=== PATIENT | male | born 1975 | race Hispanic/Latino ===

== ENCOUNTER 2016-08-11 17:18 | Emergency (ER) | payer MEDICAID ==
[2016-08-11 17:18] VITALS: BMI 33.9
[2016-08-11 17:59] VITALS: RESP 18
[2016-08-11] MEDS ORDERED: Tetanus/Diphtheria Toxoids 0.5 ml Syringe IM ONE ×2 (18:09→18:24)
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
[2016-08-11 18:27] VITALS: TEMP 98
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
[2016-08-11 20:44] VITALS: BP 118/74; PULSE 89
[2016-08-11 22:42] VITALS: O2SAT 98
== END 2016-08-11 20:43 | disposition home or self-care (01) ==
LOC: C.ER 17:18
DX: S20.212D Contusion of left front wall of thorax, subsequent encounter (principal); S80.01XD Contusion of right knee, subsequent encounter; S80.02XD Contusion of left knee, subsequent encounter; S09.90XD Unspecified injury of head, subsequent encounter; Y04.2XXD Assault by strike against or bumped into by another person, subsequent encounter; Z23 Encounter for immunization

== ENCOUNTER 2016-08-14 23:48 | Emergency (ER) | payer MEDICAID ==
[2016-08-14 23:49] VITALS: BMI 33.9
[2016-08-15 00:06] VITALS: BP 129/81; PULSE 89; RESP 20; TEMP 98.1; O2SAT 100
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
== END 2016-08-15 01:24 | disposition left against medical advice (07) ==
LOC: C.ER 23:48
DX: M79.1 Myalgia (principal)

== ENCOUNTER 2016-08-21 11:36 | Inpatient (IN) | payer MEDICAID ==
[2016-08-21 11:50] VITALS: BMI 29.2
[2016-08-21] MEDS ORDERED: Piperacillin/Tazobact 3.375 gm 100 ML IVPB STA (12:33)
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
[2016-08-21 13:03] LABS: BASO # 0.1 K/uL (0.0-0.2); BASO % 0.4 % (0.0-2.0); EOS # 0.3 K/uL (0.0-0.7); EOS % 2.1 % (0.0-4.0); LYMPH # 2.6 K/uL (1.0-4.3); MEAN CELL VOLUME 88.1 fL (80.0-94.0); MEAN CORPUSCULAR HEMOGLOBIN 29.1 pg (27.0-31.0); MEAN PLATELET VOLUME 7.9 fL (7.2-11.7); MONO # 0.8 K/uL (0.0-0.8); MONO % 5.9 % (0.0-10.0); NEUT # 9.9 K/uL (1.8-7.0); NEUT % 72.6 % (50.0-75.0); RBC 4.48 Mil/uL (4.40-5.90); WHITE BLOOD COUNT 13.6 K/uL (4.8-10.8)
[2016-08-21 13:10] LABS: ALBUMIN 3.6 g/dL (3.5-5.0)
[2016-08-21 13:11] LABS: INR 1.1; PROTHROMBIN TIME 12.1 SECONDS (9.7-12.2)
[2016-08-21 13:13] LABS: ALB/GLOB RATIO 1.2 (1.0-2.1); AST/SGOT 17 U/L (17-59); BLOOD UREA NITROGEN 25 mg/dL (9-20); GFR AFRICAN-AMERICAN > 60; GFR NON-AFRICAN AMERICAN > 60
[2016-08-21 13:14] LABS: ALT/SGPT 21 U/L (21-72); CALCIUM 9.5 mg/dl (8.6-10.4)
[2016-08-21] MEDS ORDERED: (Novolin R) Insulin Human Regular 100 units/ml vial IV STA (13:16)
[2016-08-21 13:24] LABS: B-TYPE NATRIURETIC PEPTIDE 27.2 pg/mL (0-450)
--- NOTE | 2016-08-21 13:31 | RAD ---
PROCEDURE: CHEST RADIOGRAPH, 1 VIEW HISTORY: SOB COMPARISON: Comparison chest 01/08/2012. FINDINGS: LUNGS: Minor bibasilar atelectasis left greater than right PLEURA: No pneumothorax or pleural fluid seen. CARDIOVASCULAR: Normal. OSSEOUS STRUCTURES: No significant abnormalities. VISUALIZED UPPER ABDOMEN: Normal. OTHER FINDINGS: None. IMPRESSION: Minor bibasilar atelectasis left greater than right.
[2016-08-21] MEDS ORDERED: (Novolin R) Insulin Human Regular 100 units/ml vial ONE (13:34)
[2016-08-21 13:35] LABS: SQUAMOUS EPITHIAL < 1 /hpf (0-5); URINE BILIRUBIN NEGATIVE (NEGATIVE); URINE BLOOD NEGATIVE (NEGATIVE); URINE CLARITY Clear (Clear); URINE COLOR Yellow (YELLOW); URINE GLUCOSE (UA) 3+ mg/dL (Normal); URINE LEUKOCYTE ESTERASE NEG Leu/uL (Negative); URINE NITRATE NEGATIVE (NEGATIVE); URINE PROTEIN 2+ mg/dL (NEGATIVE); URINE UROBILINOGEN NORMAL mg/dL (0.2-1.0)
[2016-08-21 13:42] LABS: BARBITURATES, UR NEGATIVE (NEGATIVE); BENZODIAZEPINES, UR NEGATIVE (NEGATIVE)
[2016-08-21 13:45] LABS: OPIATES, UR NEGATIVE (NEGATIVE); PHENCYCLIDINE, UR NEGATIVE (NEGATIVE)
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
[2016-08-21] MEDS: Piperacillin/Tazobact 3.375 GM in Sodium Chloride 100 ML IVPB SCH ×2 (14:13→19:21)
[2016-08-21 16:39] VITALS: RESP 20
[2016-08-21] MEDS ORDERED: Oxycodone/Acetaminophen 5/325 mg Tab PO PRN (17:02)
[2016-08-21] MEDS: (Novolin R) Insulin Human Regular 100 units/ml vial SC SCH ×2 (17:24→22:22)
[2016-08-21] MEDS ORDERED: (Lantus) Insulin Glargine, Recombinant SC SCH (18:00)
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
[2016-08-22 02:27] VITALS: BP 112/71; PULSE 87; TEMP 97.3; O2SAT 97
[2016-08-22] MEDS: Piperacillin/Tazobact 3.375 GM in Sodium Chloride 100 ML IVPB SCH (02:54)
--- NOTE | 2016-08-22 06:17 | CP.PCM.PN ---
Subjective - Date & Time of Evaluation Date of Evaluation: 08/22/16 Time of Evaluation: 06:16 - Subjective Subjective: House Doctor Paged- Patient signed out AMA Patient was upset that he was not seen by admitting Doctor. It was explained to patient that he would be seen by him today, however patient did not want to wait. The risks of leaving were explained to the patient and include, but are not limited to, worsening of known or currently unknown conditions, permanent disability and from undiagnosed or untreated conditions. The patient has the capacity to make this informed decision and understands my explanation of the current medical problem and risks of leaving. The patient voluntarily accepts these risks and signed an AMA form documenting our conversation.The patient was given the opportunity to ask questions and reconsider. The patient was encouraged to return to the Emergency Department at any time for further care. Objective - Vital Signs/Intake and Output Vital Signs (last 24 hours): Temp Pulse Resp BP Pulse Ox 97.3 F L 87 20 112/71 97 08/21/16 23:17 08/21/16 23:17 08/21/16 23:17 08/21/16 23:17 08/21/16 23:17 Intake and Output: 08/21/16 08/22/16 18:59 06:59 Intake Total 700 Balance 700 - Medications Medications: Current Medications Acetaminophen (Tylenol 325mg Tab) 650 mg PO Q4 PRN PRN Reason: pain Glipizide (Glucotrol) 10 mg PO BID [facility] Last Admin: 08/21/16 17:23 Dose: 10 mg Piperacillin Sod/Tazobactam (Sod 3.375 gm/ Sodium Chloride) 100 mls @ 200 mls/ hr IVPB Q6H [facility] Last Admin: 08/22/16 02:54 Dose: 200 mls/hr Insulin Glargine (Lantus) 28 unit SC BID [facility] Last Admin: 08/21/16 17:25 Dose: 28 units Insulin Human Regular (Novolin R) 0 unit SC ACHS [facility] PRN Reason: Protocol Last Admin: 08/21/16 22:22 Dose: Not Given Oxycodone/Acetaminophen (Percocet 5/325 Mg Tab) 1 tab PO TID PRN PRN Reason: pain Stop: 08/24/16 18:01 Last Admin: 08/21/16 17:21 Dose: 1 tab - Labs Labs: PT 12.1 SECONDS (9.7-12.2) 08/21/16 12:53 INR 1.1 08/21/16 12:53 APTT 31 SECONDS (21-34) 08/21/16 12:53
--- NOTE | 2016-08-22 13:53 | CP.PCM.DIS ---
Provider - Provider Date of Admission: 08/21/16 13:21 Attending physician: Clemente Cruz MD Time Spent in preparation of Discharge (in minutes): 25 Hospital Course - Lab Results Lab Results: Most Recent Lab Values WBC 13.6 K/uL (4.8-10.8) H 08/21/16 12:53 RBC 4.48 Mil/uL (4.40-5.90) 08/21/16 12:53 Hgb 13.0 g/dL (12.0-18.0) 08/21/16 12:53 Hct 39.5 % (35.0-51.0) 08/21/16 12:53 MCV 88.1 fL (80.0-94.0) 08/21/16 12:53 MCH 29.1 pg (27.0-31.0) 08/21/16 12:53 MCHC 33.0 g/dL (33.0-37.0) 08/21/16 12:53 RDW 13.0 % (11.5-14.5) 08/21/16 12:53 Plt Count 310 K/uL (130-400) 08/21/16 12:53 MPV 7.9 fL (7.2-11.7) 08/21/16 12:53 Neut % (Auto) 72.6 % (50.0-75.0) 08/21/16 12:53 Lymph % (Auto) 19.0 % (20.0-40.0) L 08/21/16 12:53 Burnet % (Auto) 5.9 % (0.0-10.0) 08/21/16 12:53 Eos % (Auto) 2.1 % (0.0-4.0) 08/21/16 12:53 Baso % (Auto) 0.4 % (0.0-2.0) 08/21/16 12:53 Neut # 9.9 K/uL (1.8-7.0) H 08/21/16 12:53 Lymph # 2.6 K/uL (1.0-4.3) 08/21/16 12:53 Burnet # 0.8 K/uL (0.0-0.8) 08/21/16 12:53 Eos # 0.3 K/uL (0.0-0.7) 08/21/16 12:53 Baso # 0.1 K/uL (0.0-0.2) 08/21/16 12:53 PT 12.1 SECONDS (9.7-12.2) 08/21/16 12:53 INR 1.1 08/21/16 12:53 APTT 31 SECONDS (21-34) 08/21/16 12:53 Sodium 140 mmol/L (132-148) 08/21/16 12:53 Potassium 4.4 mmol/L (3.6-5.2) 08/21/16 12:53 Chloride 102 mmol/L (98-107) 08/21/16 12:53 Carbon Dioxide 28 mmol/L (22-30) 08/21/16 12:53 Anion Gap 14 (10-20) 08/21/16 12:53 BUN 25 mg/dL (9-20) H 08/21/16 12:53 Creatinine 0.9 MG/DL (0.8-1.5) 08/21/16 12:53 Est GFR ( Amer) > 60 08/21/16 12:53 Est GFR (Non-Af Amer) > 60 08/21/16 12:53 POC Glucose (mg/dL) 157 mg/dL (65-110) H 08/21/16 21:17 Random Glucose 315 mg/dL (75-110) H 08/21/16 12:53 Calcium 9.5 mg/dl (8.6-10.4) 08/21/16 12:53 Total Bilirubin 0.5 mg/dL (0.2-1.3) 08/21/16 12:53 AST 17 U/L (17-59) D 08/21/16 12:53 ALT 21 U/L (21-72) 08/21/16 12:53 Alkaline Phosphatase 126 U/L (38-126) 08/21/16 12:53 Troponin I < 0.0120 ng/mL (0.00-0.120) 08/21/16 12:53 NT-Pro-B Natriuret Pep 27.2 pg/mL (0-450) 08/21/16 12:53 Total Protein 6.7 g/dL (6.3-8.3) 08/21/16 12:53 Albumin 3.6 g/dL (3.5-5.0) 08/21/16 12:53 Globulin 3.1 gm/dL (2.2-3.9) 08/21/16 12:53 Albumin/Globulin Ratio 1.2 (1.0-2.1) 08/21/16 12:53 Urine Color Yellow (YELLOW) 08/21/16 13:20 Urine Clarity Clear (Clear) 08/21/16 13:20 Urine pH 5.0 (5.0-8.0) 08/21/16 13:20 Ur Specific Harts 1.030 (1.003-1.030) 08/21/16 13:20 Urine Protein 2+ mg/dL (NEGATIVE) H 08/21/16 13:20 Urine Glucose (UA) 3+ mg/dL (Normal) H 08/21/16 13:20 Urine Ketones Negative mg/dL (NEGATIVE) 08/21/16 13:20 Urine Blood Negative (NEGATIVE) 08/21/16 13:20 Urine Nitrate Negative (NEGATIVE) 08/21/16 13:20 Urine Bilirubin Negative (NEGATIVE) 08/21/16 13:20 Urine Urobilinogen Normal mg/dL (0.2-1.0) 08/21/16 13:20 Ur Leukocyte Esterase Neg Kit/uL (Negative) 08/21/16 13:20 Urine WBC (Auto) 1 /hpf (0-5) 08/21/16 13:20 Urine RBC (Auto) 3 /hpf (0-3) 08/21/16 13:20 Ur Squamous Epith Cells < 1 /hpf (0-5) 08/21/16 13:20 Urine Opiates Screen Negative (NEGATIVE) 08/21/16 13:20 Urine Methadone Screen Negative (NEGATIVE) 08/21/16 13:20 Ur Barbiturates Screen Negative (NEGATIVE) 08/21/16 13:20 Ur Phencyclidine Scrn Negative (NEGATIVE) 08/21/16 13:20 Ur Amphetamines Screen Negative (NEGATIVE) 08/21/16 13:20 U Benzodiazepines Scrn Negative (NEGATIVE) 08/21/16 13:20 U Oth Cocaine Metabols Negative (NEGATIVE) 08/21/16 13:20 U Cannabinoids Screen Negative (NEGATIVE) 08/21/16 13:20 Alcohol, Quantitative < 10 mg/dl (0-10) 08/21/16 12:53 - Hospital Course Hospital Course: BEFORE 24 HRS WINDOW OF ADMISSION TIMING, PT SIGHNED OUT AMA DURGA LEONE EXPLINED IN DETAIL THE RESULT OF NOT STAYING IN HOSPITAL AND GETTING IV AB PT IN [place] THE DECISION TO GO AMA Discharge Plan - Follow Up Plan Condition: GOOD Disposition: AGAINST MEDICAL ADVICE
--- NOTE | 2016-08-22 21:27 | CARD ---
APPROVED REPORT EKG Measurement Heart [id number] <Conclusion> Normal sinus rhythm Normal ECG
== END 2016-08-22 06:10 | disposition left against medical advice (07) | DRG 294 ==
LOC: C.ER 11:36 → C.9E 13:21 → C.6T 13:53
PROVIDERS: ADMIT Internal Medicine Cardiovascular Disease; ATTEND Internal Medicine Cardiovascular Disease
DX: E11.621 Type 2 diabetes mellitus with foot ulcer (principal); L97.529 Non-pressure chronic ulcer of other part of left foot with unspecified severity; E11.65 Type 2 diabetes mellitus with hyperglycemia; L03.116 Cellulitis of left lower limb; F10.10 Alcohol abuse, uncomplicated; F17.210 Nicotine dependence, cigarettes, uncomplicated; I10 Essential (primary) hypertension; M19.90 Unspecified osteoarthritis, unspecified site; F41.9 Anxiety disorder, unspecified; F32.9 Major depressive disorder, single episode, unspecified

== ENCOUNTER 2016-09-02 02:20 | Emergency (ER) | payer MEDICAID ==
[2016-09-02 02:20] VITALS: BMI 29.2
--- NOTE | 2016-09-02 03:49 | C.PDOC ---
History Of Present Illness 40 year old male who presents to the ER with a complaint of left foot pain. Patient states he had his left 5th toe amputated [address] Lala at [facility] [place]. Patient states he has been fine until he hit the surgical site while walking down the stairs. Patient is concerned if the stitches are intact or not ; denies weakness, numbness, or active bleeding. Time Seen by Provider: 09/02/16 02:51 Chief Complaint (Nursing): Lower Extremity Problem/Injury History Per: Patient History/Exam Limitations: no limitations Onset/Duration Of Symptoms: Hrs Current Symptoms Are (Timing): Still Present Recent travel outside of the [place]: No - Ankle/Foot Description Of Injury: Struck Against Object Past Medical History Reviewed: Historical Data, Nursing Documentation, Vital Signs Vital Signs: Last Vital Signs Temp 97.6 F 09/02/16 02:44 Pulse 92 H 09/02/16 02:44 Resp 20 09/02/16 02:44 BP 126/77 09/02/16 02:44 Pulse Ox 96 09/02/16 04:07 - Medical History PMH: Anxiety, Arthritis (Back and Legs), Bipolar Disorder, Depression, Diabetes , HTN, Schizophrenia (schizoaffective disorder) Surgical History: No Surg Hx Family History: States: Unknown Family Hx - Social History Hx Tobacco Use: Yes Hx Alcohol Use: No Hx Substance Use: No - Immunization History Hx Tetanus Toxoid Vaccination: No Hx Influenza Vaccination: No Hx Pneumococcal Vaccination: No Review Of Systems Musculoskeletal: Positive for: Foot Pain Neurological: Negative for: Weakness, Numbness Physical Exam - Physical Exam Appears: Non-toxic Skin: Normal Color, Warm, Dry Head: Atraumatic, Normacephalic Oral Mucosa: Moist Extremity: Normal ROM, Tenderness, Other (Post op dressing still in place and removed during exam, well healing wound, no signs of infection, stitches intact) Pulses: Left Dorsalis Pedis: Normal, Right Dorsalis Pedis: Normal Neurological/Psych: Oriented x3, Normal Speech, Normal Cognition (To palpation around the wound) ED Course And Treatment O2 Sat by Pulse Oximetry: 96 (Room air) Pulse Ox Interpretation: Normal Progress Note: Left foot x-ray ordered. Wound dressing reapplied. Disposition - Disposition Referrals: Corky Lala DPM [Doctor Podiatric Medicine] - Disposition: HOME/ ROUTINE Disposition Time: 04:05 Condition: STABLE Additional Instructions: Follow up with your Jet Handler as instructed. Return to ED if feel worse. Instructions: Acute Wound Care (ED), Foot Contusion (ED) - Clinical Impression Clinical Impression: Foot contusion, Encounter for postoperative wound check - Scribe Statement The provider has reviewed the documentation as recorded by the Scribe Luis Huizar All medical record entries made by the Scribe were at my direction and personally dictated by me. I have reviewed the chart and agree that the record accurately reflects my personal performance of the history, physical exam, medical decision making, and the department course for this patient. I have also personally directed, reviewed, and agree with the discharge instructions and disposition.
[2016-09-02 06:11] VITALS: BP 122/67; PULSE 97; RESP 16; TEMP 97.8; O2SAT 97
--- NOTE | 2016-09-02 11:20 | RAD ---
PROCEDURE: Left Foot Radiographs. HISTORY: injury, s/p 5th toe amputation 4 days ago COMPARISON: No prior similar study available for comparison FINDINGS: BONES: Patient status post amputation through the distal portion of the 5th metatarsal bone. JOINTS: Arthritic changes are seen at the proximal foot SOFT TISSUES: Soft tissue swelling seen adjacent to the amputation along the lateral aspect of the left foot OTHER FINDINGS: Periosteal thickening seen along the proximal portion of the 5th and 4th metatarsal bones IMPRESSION: Status post amputation through the distal portion of 5th metatarsal bone. Adjacent soft tissue swelling. No evidence of soft tissue pneumatosis.
== END 2016-09-02 06:23 | disposition home or self-care (01) ==
LOC: C.ER 02:20
DX: S90.32XA Contusion of left foot, initial encounter (principal); W22.8XXA Striking against or struck by other objects, initial encounter; Z48.01 Encounter for change or removal of surgical wound dressing

== ENCOUNTER 2016-10-05 05:56 | Observation (INO) | payer MEDICAID ==
[2016-10-05 05:56] VITALS: BMI 29.2
[2016-10-05] MEDS ORDERED: Sodium Chloride 0.9% 1,000 ML IV ONE (06:28)
--- NOTE | 2016-10-05 06:33 | C.PDOC ---
History Of Present Illness <Laura Newton - Last Filed: 10/05/16 06:40> <Angela Riddle - Last Filed: 10/05/16 09:18> 40 year old male w/PMHx of IDDM ( since age 14) who presents to the ER with a complaint of Right foot pain, mild swelling, new open wound between 3rd and 4th toes with discharges noted for past few days. Pt admits, pervious hx of diabetic ulcers, s/p left 5th toe amputated [address] Lala at [facility] [place]. Otherwise, pt denies fever, chills, denies headache, dizziness, CP, SOB, abd. pain, N/V/D, denies new weakness, sensory or vascular deficits to Right foot. Ambulate to ED, saying " usually they admit me for wound like this". (Laura Newton) History Per: Patient Onset/Duration Of Symptoms: Gradual <Laura Newton - Last Filed: 10/05/16 06:40> <Angela Riddle - Last Filed: 10/05/16 09:18> Time Seen by Provider: 10/05/16 06:26 Chief Complaint (Nursing): Lower Extremity Problem/Injury Past Medical History Reviewed: Historical Data, Nursing Documentation, Vital Signs - Medical History PMH: Anxiety, Arthritis (Back and Legs), Bipolar Disorder, Depression, Diabetes , HTN, Schizophrenia (schizoaffective disorder) Denies: Chronic Kidney Disease Family History: States: No Known Family Hx - Social History Hx Tobacco Use: Yes Hx Alcohol Use: No Hx Substance Use: No - Immunization History Hx Tetanus Toxoid Vaccination: No Hx Influenza Vaccination: No Hx Pneumococcal Vaccination: No <Laura Newton - Last Filed: 10/05/16 06:40> Review Of Systems Except As Marked, All Systems Reviewed And Found Negative. Constitutional: Negative for: Fever, Chills Eyes: Negative for: Vision Change ENT: Negative for: Throat Pain Cardiovascular: Negative for: Chest Pain Respiratory: Negative for: Cough, Shortness of Breath, Wheezing Gastrointestinal: Negative for: Nausea, Vomiting, Abdominal Pain Genitourinary: Negative for: Incontinence Musculoskeletal: Positive for: Foot Pain Skin: Positive for: Lesions Neurological: Negative for: Weakness, Numbness, Altered Mental Status, Headache , Dizziness <Laura Newton - Last Filed: 10/05/16 06:40> Physical Exam - Physical Exam Appears: Well, Non-toxic, No Acute Distress Skin: Normal Color, Warm, Dry, Other (Right foot: scant erythema dorsal asepct at base 2nd-4th toes. Tiny open wound Right 3rd toe inner aspect with clear discharges. Poor hygiene B/L feet. Multiple calluses.) Eye(s): bilateral: PERRL Nose: No Flaring Throat: No Drooling Neck: Normal ROM, Supple Cardiovascular: Rhythm Regular Respiratory: No Decreased Breath Sounds, No Accessory Muscle Use, No Stridor, No Wheezing Gastrointestinal/Abdominal: Bowel Sounds, No Tenderness, No Distention, No Guarding Back: No CVA Tenderness Extremity: Normal ROM, Tenderness (mild over Right foot), No Pedal Edema, No Calf Tenderness, Capillary Refill (less than 2sec to B/L LEs.), Other (Left foot : amputated 5th toe, sutures in place, post-surgical wound appears clean, dry, no edema or erythema or discharges.) Neurological/Psych: Oriented x3, Normal Speech, Normal Motor, Normal Sensation, Normal Reflexes <Laura Newton - Last Filed: 10/05/16 06:40> ED Course And Treatment O2 Sat by Pulse Oximetry: 96 Pulse Ox Interpretation: Normal - Other Rad Right foot X-Ray: Interpreted by Me, Viewed By Me Interpretation: (+)?3rd distal phalanx early osteo Progress Note: At 7:00AM, pt remained stable. Case discussed with ED attending and BELA Lisa and sign out. Labs,tx, re-eavluation and disposition pending. <Laura Newton - Last Filed: 10/05/16 06:40> - Laboratory Results Result Diagrams: 10/05/16 07:00 10/05/16 07:00 <Angela Riddle - Last Filed: 10/05/16 09:18> Medical Decision Making <Laura Newton - Last Filed: 10/05/16 06:40> <Angela Riddle - Last Filed: 10/05/16 09:18> Medical Decision Making: discussed with Podiatry resident at 745 am, will come see patient. [address] Mendoza, will admit to his service. (Angela Riddle) Disposition <Laura Newton - Last Filed: 10/05/16 06:40> Discussed With .: Selam Mendoza Doctor Will See Patient In The: Hospital - Disposition Disposition Time: 09:16 <Angela Riddle - Last Filed: 10/05/16 09:18> - Disposition Disposition: HOSPITALIZED Condition: STABLE Forms: [facility] (Belizean) - Clinical Impression Clinical Impression: Diabetic foot ulcer, Uncontrolled diabetes mellitus Decision To Admit <Laura Newton - Last Filed: 10/05/16 06:40> - Pt Status Changed To: Hospital Disposition Of: Observation - . Bed Request Type: Regular Admitting Physician: Selam Mendoza <Angela Riddle - Last Filed: 10/05/16 09:18> - . Patient Diagnosis: Diabetic foot ulcer, Uncontrolled diabetes mellitus
[2016-10-05] MEDS ORDERED: Sodium Chloride 0.9% 1,000 ML ONE (07:03)
[2016-10-05 07:12] LABS: BASO # 0.2 K/uL (0.0-0.2); BASO % 1.3 % (0.0-2.0); EOS # 0.4 K/uL (0.0-0.7); EOS % 2.8 % (0.0-4.0); HEMATOCRIT 39.9 % (35.0-51.0); LYMPH # 3.4 K/uL (1.0-4.3); LYMPH % 25.3 % (20.0-40.0); MEAN CELL VOLUME 87.7 fL (80.0-94.0); MEAN CORPUSCULAR HEMOGLOBIN 29.2 pg (27.0-31.0); MEAN CORPUSCULAR HGB CONC 33.3 g/dL (33.0-37.0); MEAN PLATELET VOLUME 8.1 fL (7.2-11.7); MONO # 0.9 K/uL (0.0-0.8); MONO % 6.9 % (0.0-10.0); NRBC % 0.1 % (0.0-2.0); RED CELL DISTRIBUTION WIDTH 12.7 % (11.5-14.5); WHITE BLOOD COUNT 13.5 K/uL (4.8-10.8)
[2016-10-05] MEDS ORDERED: Morphine 4 MG/ML VIAL IV ONE (07:12)
[2016-10-05 07:17] LABS: CHLORIDE 97 mmol/L (98-107); POTASSIUM 3.9 mmol/L (3.6-5.2); SODIUM 135 mmol/L (132-148)
[2016-10-05 07:19] LABS: GFR AFRICAN-AMERICAN > 60
[2016-10-05 07:20] LABS: ALB/GLOB RATIO 1.1 (1.0-2.1); ALKALINE PHOSPHATASE 144 U/L (38-126); ALT/SGPT 32 U/L (21-72); AST/SGOT 17 U/L (17-59); BILIRUBIN,TOTAL 0.6 mg/dL (0.2-1.3); BLOOD UREA NITROGEN 25 mg/dL (9-20); CARBON DIOXIDE 26 mmol/L (22-30); GLUCOSE,RANDOM 370 mg/dL (75-110); TOTAL PROTEIN 6.8 g/dL (6.3-8.3)
[2016-10-05 07:21] LABS: CALCIUM 9.3 mg/dl (8.6-10.4)
[2016-10-05] MEDS ORDERED: (Novolin R) Insulin Human Regular 100 units/ml vial SC ONE (08:37)
[2016-10-05] MEDS ORDERED: (Novolin R) Insulin Human Regular 100 units/ml vial ONE (08:44)
[2016-10-05 10:41] VITALS: RESP 20
--- NOTE | 2016-10-05 11:41 | RAD ---
PROCEDURE: Right Foot Radiographs. HISTORY: open wound r/o osteo COMPARISON: None. FINDINGS: BONES: Normal. No fracture. No osseous erosion or periosteal reaction appreciated. Please note that evaluation of the phalanges is somewhat limited due to extensor deformity of the 1st through 5th digits. JOINTS: Normal. SOFT TISSUES: Normal. OTHER FINDINGS: None. IMPRESSION: No plain radiographic evidence of osteomyelitis. If there is continued clinical suspicion of osteomyelitis consider evaluation with magnetic resonance imaging.
[2016-10-05] MEDS ORDERED: Piperacill/Tazo 3.375gm in Dex 3.375 GM/50 ML BAG IVPB SCH (14:00)
--- NOTE | 2016-10-05 14:34 | CP.PCM.PN ---
Subjective - Date & Time of Evaluation Date of Evaluation: 10/05/16 Time of Evaluation: 07:35 - Subjective Subjective: Medicine Note- Dr. Mendoza's service Patient was seen and examined at bedside. Patient reports that he is unsure how long he has had the ulcers on his feet, he recognizes that the large one on his left foot is chronic and often comes and goes. He says they are painful, but denies any other symptoms such as fevers or chills. He says he had his left 5th toe recently amputated by Dr. Lala in [facility] [place]. PMHx: DM, Htn, hx of diabetic foot ulcers Allergies: NSAIDS Social: Smokes ~ 1 ppd. Quit heavy alcohol and numerous illicit drug use about 20 years ago Objective - Vital Signs/Intake and Output Vital Signs (last 24 hours): Temp Pulse Resp BP Pulse Ox 97.6 F 92 H 20 111/70 96 10/05/16 10:40 10/05/16 10:40 10/05/16 10:40 10/05/16 10:40 10/05/16 10:40 - Medications Medications: Current Medications Famotidine (Pepcid) 20 mg PO BID [facility] Piperacillin Sod/Tazobactam Sod (Zosyn 3.375 Gm Iv Premix) 3.375 gm in 50 mls @ 100 mls/hr IVPB Q6H [facility] Vancomycin/Sodium Chloride (Vancocin) 1 gm in 200 mls @ 133.333 mls/hr IVPB Q24H [facility] Stop: 10/10/16 15:01 Insulin Glargine (Lantus) 15 unit SC Q12 [facility] Insulin Human Regular (Novolin R) 0 unit SC ACHS [facility] PRN Reason: Protocol Morphine Sulfate (Morphine) 2 mg IVP Q4H PRN PRN Reason: Pain, severe (8-10) - Constitutional Appears: Non-toxic, No Acute Distress - Head Exam Head Exam: ATRAUMATIC, NORMAL INSPECTION, NORMOCEPHALIC - Eye Exam Pupil Exam: NORMAL ACCOMODATION, PERRL - ENT Exam ENT Exam: Mucous Membranes Moist - Respiratory Exam Respiratory Exam: Clear to Ausculation Bilateral, NORMAL BREATHING PATTERN. absent: Prolonged Expiratory Phase, Rales, Rhonchi, Wheezes - Cardiovascular Exam Cardiovascular Exam: REGULAR RHYTHM, +S1, +S2 - GI/Abdominal Exam GI & Abdominal Exam: Soft, Normal Bowel Sounds. absent: Tenderness, Diminished Bowel Sounds, Hernia, Hypoactive Bowel Sounds - Extremities Exam Extremities Exam: Normal Capillary Refill Additional comments: multiple ulcers along both feel. Largest on R foot measures ~ 1.5 x 1.5cm. R foot ulcers appear dry, with the exception of an ulcer located between 3rd and 4th toe, which is open and wet. R foot has multiple ulcers between toes, 5th digit amputation with stitches in place. - Neurological Exam Neurological Exam: Alert, Awake, Oriented x3 - Psychiatric Exam Psychiatric exam: Normal Affect, Normal Mood - Skin Skin Exam: Dry, Intact, Normal Color, Warm Assessment and Plan - Assessment and Plan (Free Text) Assessment: Diabetic Foot Ulcers Consult Podiatry- Dr. Kennedy Consult Vascular Surgery- Dr. Lee Pending Venous Dopplers Pending Arterial PVR F/u Blood and wound cultures Morphine 2mg IVP Q4h PRN for pain Started on Zosyn3.375gm IVPB Q6h (10/05/16) Started on Vanco 1gm IVPB Q24h (10/05/16 f/u Abdominal Angiography WBC 13.5, afebrile Diabetes Start home meds: Lantus 15U SC Q12h RISS Mod CHO diet Accuchecks Prophylactic Measure Lovenox 40mg SC Daily Pepcid 20mg PO BID
[2016-10-05] MEDS ORDERED: Vancomycin 1 gm/NS 200 ml 1 GM/200 ML BAG IVPB SCH (15:00)
--- NOTE | 2016-10-05 15:07 | CP.PCM.CON ---
History of Present Illness - History of Present Illness History of Present Illness: VASCULAR SURGERY CONSULT NOTE FOR DR. SALAZAR 40yo M with PMHx of DM presented to the ED with right foot pain. He has a new open wound between the 3rd and 4th toes with discharge for the past few days. He states that he has had diabetic ulcers since 2015. Denies fever, chills. No new weakness or sensory deficits. Patient smokes 1PPD and was counselled on smoking cessation. Patient is unwilling to attempt to quit smoking. X ray of right foot was done which showed no radiologic evidence of osteomyelitis PMHx: DM, HTN, diabetic foot ulcers, anxiety, depression, bipolar, schizophrenia Surgeries: left 4th and 5th toe amputated [address] Lala at [facility] [place] Social history: admits to tobacco use 1 PPD, quit drinking and illicit drug use (previously used) Review of Systems - Review of Systems All systems: reviewed and no additional remarkable complaints except (as per HPI ) Past Patient History - Infectious Disease Hx of Infectious Diseases: None - Past Medical History & Family History Past Medical History?: Yes - Past Social History Smoking Status: Heavy Smoker > 10 Cigarettes Daily - CARDIAC Hx Hypertension: Yes - PULMONARY Hx Respiratory Disorders: No - NEUROLOGICAL Hx Neurological Disorder: No - HEENT Hx HEENT Problems: No - RENAL Hx Chronic Kidney Disease: No - ENDOCRINE/METABOLIC Hx Diabetes Mellitus Type 2: Yes - HEMATOLOGICAL/ONCOLOGICAL Hx Blood Disorders: No - INTEGUMENTARY Hx Dermatological Problems: No - MUSCULOSKELETAL/RHEUMATOLOGICAL Hx Arthritis: Yes (backs and LE) Hx Falls: No - GASTROINTESTINAL Hx Gastrointestinal Disorders: No - GENITOURINARY/GYNECOLOGICAL Hx Genitourinary Disorders: No - PSYCHIATRIC Hx Anxiety: Yes Hx Bipolar Disorder: Yes Hx Depression: Yes Hx Schizophrenia: Yes (schizoaffective disorder) Hx Substance Use: No - SURGICAL HISTORY Hx Surgeries: Yes Other/Comment: right ear surgery. right and left foot surgery - ANESTHESIA Hx Anesthesia: Yes Hx Anesthesia Reactions: No Hx Malignant Hyperthermia: No Meds Allergies/Adverse Reactions: Allergies Allergy/AdvReac Type Severity Reaction Status Date / Time NSAIDS (Non-Steroidal Allergy Verified 10/05/16 06:25 Anti-Inflamma - Medications Medications: Current Medications Enoxaparin Sodium (Lovenox) 40 mg SC DAILY [facility] Famotidine (Pepcid) 20 mg PO BID [facility] Piperacillin Sod/Tazobactam Sod (Zosyn 3.375 Gm Iv Premix) 3.375 gm in 50 mls @ 100 mls/hr IVPB Q6H [facility] Vancomycin/Sodium Chloride (Vancocin) 1 gm in 200 mls @ 133.333 mls/hr IVPB Q24H [facility] Stop: 10/10/16 15:01 Insulin Glargine (Lantus) 15 unit SC Q12 [facility] Insulin Human Regular (Novolin R) 0 unit SC ACHS [facility] PRN Reason: Protocol Morphine Sulfate (Morphine) 2 mg IVP Q4H PRN PRN Reason: Pain, severe (8-10) Nicotine (Nicoderm Cq) 1 patch TD DAILY [facility] Physical Exam - Constitutional Appears: Non-toxic, No Acute Distress - Head Exam Head Exam: ATRAUMATIC, NORMAL INSPECTION - Eye Exam Eye Exam: EOMI, Normal appearance - Respiratory Exam Respiratory Exam: NORMAL BREATHING PATTERN. absent: Respiratory Distress - Cardiovascular Exam Cardiovascular Exam: +S1, +S2 - Extremities Exam Additional comments: Right foot: + posterior tibialis pulse palpable, small open wound on 3rd toe Left foot: + dorsalis pedis and posterior tibialis pulse palpable, 4th and 5th toes amputated, sutures in place Both feet warm - Neurological Exam Neurological exam: Alert, Oriented x3 - Psychiatric Exam Psychiatric exam: Normal Affect, Normal Mood - Skin Skin Exam: Dry, Normal Color Results - Vital Signs Recent Vital Signs: Last Vital Signs Temp 97.6 F 10/05/16 10:40 Pulse 92 H 10/05/16 10:40 Resp 20 10/05/16 10:40 BP 111/70 10/05/16 10:40 Pulse Ox 96 10/05/16 10:40 - Labs Result Diagrams: 10/05/16 07:00 10/05/16 07:00 Labs: Laboratory Results - last 24 hr 10/05/16 10/05/16 09:50 11:26 POC Glucose (mg/dL) 284 H 265 H Assessment & Plan - Assessment and Plan (Free Text) Assessment: 40yo M with DM and diabetic foot ulcers, will rule out PVD - Both feet warm, pulses palpable - CTA ordered to rule out PVD - Venous doppler ordered by podiatry - On Antibiotics - Discussed plan with Dr. Rosa Robert PGY-3
--- NOTE | 2016-10-05 15:50 | CP.PCM.CON ---
History of Present Illness - History of Present Illness History of Present Illness: Podiatry consult note for Dr. Kennedy 40 year old male with PMHx including DM,HTN, diabetic foot ulcers, anxiety, depression, bipolar, schizophrenia was seen at bedside for right foot pain. He states that 1.5 months ago he had a 5th digit amputation by Dr. Lala and has not followed up. He is here today because he has a wound in his 3rd interspace on the right. He admits that his right leg is more swollen compared to the left and has a lot of pain when he is touched. He admits to smoking a pack of cigarettes a day. Denies n/v/f/c/sob/cp. Review of Systems - Review of Systems All systems: reviewed and no additional remarkable complaints except Past Patient History - Infectious Disease Hx of Infectious Diseases: None - Past Medical History & Family History Past Medical History?: Yes - Past Social History Smoking Status: Heavy Smoker > 10 Cigarettes Daily - CARDIAC Hx Hypertension: Yes - PULMONARY Hx Respiratory Disorders: No - NEUROLOGICAL Hx Neurological Disorder: No - HEENT Hx HEENT Problems: No - RENAL Hx Chronic Kidney Disease: No - ENDOCRINE/METABOLIC Hx Diabetes Mellitus Type 2: Yes - HEMATOLOGICAL/ONCOLOGICAL Hx Blood Disorders: No - INTEGUMENTARY Hx Dermatological Problems: No - MUSCULOSKELETAL/RHEUMATOLOGICAL Hx Arthritis: Yes (backs and LE) Hx Falls: No - GASTROINTESTINAL Hx Gastrointestinal Disorders: No - GENITOURINARY/GYNECOLOGICAL Hx Genitourinary Disorders: No - PSYCHIATRIC Hx Anxiety: Yes Hx Bipolar Disorder: Yes Hx Depression: Yes Hx Schizophrenia: Yes (schizoaffective disorder) Hx Substance Use: No - SURGICAL HISTORY Hx Surgeries: Yes Other/Comment: right ear surgery. right and left foot surgery - ANESTHESIA Hx Anesthesia: Yes Hx Anesthesia Reactions: No Hx Malignant Hyperthermia: No Meds Allergies/Adverse Reactions: Allergies Allergy/AdvReac Type Severity Reaction Status Date / Time NSAIDS (Non-Steroidal Allergy Verified 10/05/16 06:25 Anti-Inflamma - Medications Medications: Current Medications Enoxaparin Sodium (Lovenox) 40 mg SC DAILY [facility] Famotidine (Pepcid) 20 mg PO BID [facility] Piperacillin Sod/Tazobactam Sod (Zosyn 3.375 Gm Iv Premix) 3.375 gm in 50 mls @ 100 mls/hr IVPB Q6H [facility] Last Admin: 10/05/16 15:30 Dose: 100 mls/hr Vancomycin/Sodium Chloride (Vancocin) 1 gm in 200 mls @ 133.333 mls/hr IVPB Q24H [facility] Stop: 10/10/16 15:01 Insulin Glargine (Lantus) 15 unit SC Q12 [facility] Insulin Human Regular (Novolin R) 0 unit SC ACHS [facility] PRN Reason: Protocol Morphine Sulfate (Morphine) 2 mg IVP Q4H PRN PRN Reason: Pain, severe (8-10) Last Admin: 10/05/16 15:29 Dose: 2 mg Nicotine (Nicoderm Cq) 1 patch TD DAILY [facility] Physical Exam - Constitutional Appears: Non-toxic, No Acute Distress - Extremities Exam Additional comments: Lower extremity focused exam: Left: Vasc: DP and PT pulses palpable. Skin temperature warm to warm from proximal to distal with inc warmth noted to lateral aspect of foot at previous amputation site. Derm: Suture noted to previous amputation site at the left 5th digit, wound is opened with fibrotic base and hyperkeratotic rim, moderate malodor noted, edema and erythema noted. mild amount of drainage noted. Ortho: Tenderness on palpation to amputation site Neuro: Gross sensation diminished Right: DP pulse non-palpable and PT pulse palpable. Skin temperature warm to warm from proximal to distal. Non-pitting edema noted to right leg and foot Derm: Webspaces 3,4 are macerated with a small wound measure approximately 2 cm by 2cm noted to the lateral aspect of the 4th digit in the webspace, moderate malodor noted, no purulence noted. Superficial ulceration noted to the plantar aspect of the 1st metatarsal head base is granular, no drainage, no malodor, no purulence noted. Ortho: Tenderness on palpation to right calf, and right foot Neuro: Gross sensation diminished - Neurological Exam Neurological exam: Alert, Oriented x3 - Psychiatric Exam Psychiatric exam: Normal Affect, Normal Mood Results - Vital Signs Recent Vital Signs: Last Vital Signs Temp 97.6 F 10/05/16 10:40 Pulse 92 H 10/05/16 10:40 Resp 20 10/05/16 10:40 BP 111/70 10/05/16 10:40 Pulse Ox 96 10/05/16 10:40 - Labs Result Diagrams: 10/05/16 07:00 10/05/16 07:00 Labs: Laboratory Results - last 24 hr 10/05/16 10/05/16 09:50 11:26 POC Glucose (mg/dL) 284 H 265 H Assessment & Plan - Assessment and Plan (Free Text) Assessment: 40 year old male with diabetic foot ulcerations and s/p left 5th digit amputation Plan: patient examined and evaluated dicussed in detail with attending, Dr. Kennedy chart, labs, vitals reviewed venous duplex pending SANDY/PVR pending sutures removed from left foot surgical site left and right foot wounds dressed with betadine, 4x4, kerlix continue Iv abx per primary CTA per [facility] podiatry will continue to follow patient while in house
[2016-10-05] MEDS ORDERED: (Novolin R) Insulin Human Regular 100 units/ml vial SC SCH (16:30)
[2016-10-05 17:14] VITALS: BP 135/87; PULSE 91; TEMP 98; O2SAT 97
[2016-10-05] MEDS ORDERED: (Lantus) Insulin Glargine, Recombinant SC SCH (22:00)
[2016-10-06] MEDS ORDERED: Enoxaparin 40 mg Syringe SC SCH (10:00)
--- NOTE | 2016-10-08 10:08 | HP ---
HISTORY OF PRESENT ILLNESS: The patient is admitted to the hospital secondary to weakness, fatigue, tiredness, and pain in the foot. The patient came to the ER with diabetic foot and was advised admission to the hospital. PHYSICAL EXAMINATION: GENERAL: The patient is awake, alert, and oriented x3. HEENT: Head is normocephalic and atraumatic. NECK: Supple. CHEST: Symmetrical. HEART: Regular. ABDOMEN: Soft. EXTREMITIES: There are multiple diabetic foot ulcers . IMPRESSION AND PLAN: The patient diabetic foot, uncontrolled diabetes, poor compliance, treated with antibiotic. Selam Mendoza MD
--- NOTE | 2016-10-09 11:59 | VASCLAB ---
PROCEDURE: Right Lower Extremity Venous Duplex Exam. HISTORY: Leg pain, rule out dvt PRIORS: None. TECHNIQUE: Right common femoral, femoral, popliteal and posterior tibial, peroneal and great saphenous veins were evaluated. Flow was assessed with color Doppler, compressibility, assessment of phasic flow and augmentation response. Report prepared by MONISHA Frey, RVT FINDINGS: RIGHT: 1. Common Femoral Vein: 1.1. Compressibility - Fully compressible: Thrombus - None: Flow - Phasic: Augmentation -Normal: Reflux - None. 2. Femoral Vein: 2.1. Compressibility - Fully compressible: Thrombus - None: Flow - Phasic: Augmentation -Normal: Reflux - None. 3. Popliteal Vein: 3.1. Compressibility - Fully compressible: Thrombus - None: Flow - Phasic: Augmentation -Normal: Reflux - None. 4. Posterior Tibial Vein: 4.1. Compressibility - Fully compressible: Thrombus - None: Flow - Phasic: Augmentation -Normal: Reflux - None. 5. Peroneal Vein: 5.1. Compressibility - Fully compressible: Thrombus - None: Flow - Phasic: Augmentation -Normal: Reflux - None. 6. Great Saphenous Vein: 6.1. Compressibility - Fully compressible: Thrombus -None: Flow - Phasic: Augmentation - Normal: Reflux - None. OTHER FINDINGS: IMPRESSION: No evidence of deep or superficial vein thrombosis of the right lower extremity with excellent venous flow. Normal valve function noted of the right side. Normal venous flow noted in the left common femoral vein.
--- NOTE | 2016-10-09 12:03 | VASCLAB ---
STUDY DESCRIPTION: HISTORY: assess blood flow PRIORS: None. TECHNIQUE: Pulse volume recording waveforms and segmental pressures of bilateral lower extremities at multiple levels were obtained. Ankle Brachial Indices (ABIs) were calculated. Report prepared by MONISHA Frey, RVT RIGHT LOWER EXTREMITY: * Brachial artery: Pressure - 124 mmHg. * High thigh: Pressure - 163 mmHg: Ratio - 1.31: PVR waveform - Pulsatile * Low thigh: Pressure - 169 mmHg: Ratio - 1.36 PVR waveform: Pulsatile * Calf: Pressure - 141 mmHg: Ratio - 1.14 PVR waveform: Pulsatile * Posterior tibial Artery: Pressure - 135 mmHg: Ratio - 1.09 PVR waveform: Pulsatile * Dorsalis pedis Artery: Pressure - 127 mmHg: Ratio - 1.02 PVR waveform: Pulsatile * Great toe: Pressure - mmHg: Ratio - PVR waveform: Ankle brachial index (SANDY): 1.09 LEFT LOWER EXTREMITY: * Brachial artery: Pressure - 118 mmHg. * High thigh: Pressure - 144 mmHg: Ratio - 1.16: PVR waveform - Pulsatile * Low thigh: Pressure - 158 mmHg: Ratio - 1.27 PVR waveform: Pulsatile * Calf: Pressure - 144 mmHg: Ratio - 1.16 PVR waveform: Pulsatile * Posterior tibial Artery: Pressure - 141 mmHg: Ratio - 1.14 PVR waveform: Pulsatile * Dorsalis pedis Artery: Pressure - 150 mmHg: Ratio - 1.21 PVR waveform: Pulsatile * Great toe: Pressure - mmHg: Ratio - PVR waveform: Ankle brachial index (SANDY): 1.21 OTHER FINDINGS: Right: Left: IMPRESSION: Right: There was no evidence of hemodynamically significant arterial insufficiency in the right lower extremity. Left: There was no evidence of hemodynamically significant arterial insufficiency in the left lower extremity.
== END 2016-10-05 17:45 | disposition left against medical advice (07) ==
LOC: C.ER 05:56 → C.3T 09:18
PROVIDERS: ADMIT Internal Medicine Pulmonary Disease; ATTEND Internal Medicine Pulmonary Disease
DX: E11.621 Type 2 diabetes mellitus with foot ulcer (principal); E11.65 Type 2 diabetes mellitus with hyperglycemia; F17.210 Nicotine dependence, cigarettes, uncomplicated; F25.9 Schizoaffective disorder, unspecified; I10 Essential (primary) hypertension; Z79.4 Long term (current) use of insulin
CPT/HCPCS: 73630; 80053; 82948; 85025; 87040; 87070; 93923; 93971; 96365; 96372; 99284; G0378; J2270; J2543; J7040

== ENCOUNTER 2016-11-03 17:29 | Emergency (ER) | payer MEDICAID ==
[2016-11-03 17:29] VITALS: BMI 29.2
[2016-11-03 18:04] VITALS: TEMP 97
--- NOTE | 2016-11-03 20:15 | C.PDOC ---
History Of Present Illness 40 year old male who presents to the ER with a complaint of right arm and right leg weakness for an unknown amount of right. Patient has had multiple evaluations in the past for small wounds and injuries. Denies chest pain, headache, numbness, or fever. Time Seen by Provider: 11/03/16 18:21 Chief Complaint (Nursing): Lower Extremity Problem/Injury History Per: Patient History/Exam Limitations: no limitations Onset/Duration Of Symptoms: Unknown Current Symptoms Are (Timing): Still Present Recent travel outside of the [place]: No Past Medical History Reviewed: Historical Data, Nursing Documentation, Vital Signs Vital Signs: Last Vital Signs Temp 97 F L 11/03/16 18:01 Pulse 95 H 11/03/16 20:20 Resp 16 11/03/16 20:20 BP 130/81 11/03/16 20:20 Pulse Ox 97 11/03/16 20:20 - Medical History PMH: Anxiety, Arthritis (backs and LE), Bipolar Disorder, Depression, Diabetes, HTN, Schizophrenia (schizoaffective disorder) Surgical History: No Surg Hx Family History: States: Unknown Family Hx - Social History Hx Tobacco Use: Yes Hx Alcohol Use: No Hx Substance Use: No - Immunization History Hx Tetanus Toxoid Vaccination: No Hx Influenza Vaccination: No Hx Pneumococcal Vaccination: No Review Of Systems Constitutional: Negative for: Fever, Chills Cardiovascular: Negative for: Chest Pain Respiratory: Negative for: Shortness of Breath Neurological: Positive for: Weakness. Negative for: Numbness Physical Exam - Physical Exam Appears: Non-toxic, No Acute Distress Skin: Warm, Dry Head: Atraumatic, Normacephalic Oral Mucosa: Moist Chest: Symmetrical, No Tenderness Cardiovascular: Rhythm Regular, No Murmur Respiratory: Normal Breath Sounds, No Rales, No Rhonchi, No Wheezing Gastrointestinal/Abdominal: Soft, No Tenderness Extremity: Normal ROM (x4), Other (2 small healing wounds to bilateral plantar feet) Pulses: Left Radial: Normal, Right Radial: Normal, Left Dorsalis Pedis: Normal, Right Dorsalis Pedis: Normal Neurological/Psych: Oriented x3, Normal Speech, Normal Cognition, Normal Motor, Normal Sensation ED Course And Treatment O2 Sat by Pulse Oximetry: 96 (Room air) Pulse Ox Interpretation: Normal Medical Decision Making Medical Decision Making: c/o R arm/leg "weakness" normal neuro exam many prior evals with minimal complaints nicely healing b/l foot ulcers ? malingering glu wnl no w/u indicated Disposition Doctor Will See Patient In The: Office Counseled Patient/Family Regarding: Studies Performed, Diagnosis - Disposition Referrals: Christie Soriano [Medical Student] - Disposition: HOME/ ROUTINE Disposition Time: 20:15 Condition: GOOD Additional Instructions: continue your normal wound care for foot ulcers Follow-up with your PMD as needed. Instructions: Weakness (ED) Forms: [email or web address] (Beninese) - Clinical Impression Clinical Impression: Weakness - Scribe Statement The provider has reviewed the documentation as recorded by the Scribe Luis Huizar All medical record entries made by the Scribe were at my direction and personally dictated by me. I have reviewed the chart and agree that the record accurately reflects my personal performance of the history, physical exam, medical decision making, and the department course for this patient. I have also personally directed, reviewed, and agree with the discharge instructions and disposition.
[2016-11-03 20:20] VITALS: BP 130/81; PULSE 95; RESP 16
[2016-11-03 23:20] VITALS: O2SAT 96
== END 2016-11-03 20:20 | disposition home or self-care (01) ==
LOC: C.ER 17:29
DX: M62.81 Muscle weakness (generalized) (principal); E11.9 Type 2 diabetes mellitus without complications; M13.88 Other specified arthritis, other site

== ENCOUNTER 2017-01-18 04:16 | Emergency (ER) | payer MEDICAID ==
[2017-01-18 04:16] VITALS: BMI 29.2
--- NOTE | 2017-01-18 04:55 | C.PDOC ---
History Of Present Illness 41 year old male presents to the ER with a complaint of right sided neck pain that worsens with movement for the past 2 days. Patient states he was carrying heavy palettes over his right shoulder at work and since then he has felt the pain has been gradually worsening. Denies Hx of chronic neck pain, recent fall, or weakness/numbness of the extremities. Time Seen by Provider: 01/18/17 04:43 Chief Complaint (Nursing): Medical Clearance History Per: Patient History/Exam Limitations: no limitations Onset/Duration Of Symptoms: Days Current Symptoms Are (Timing): Still Present Recent travel outside of the [place]: No Past Medical History Reviewed: Historical Data, Nursing Documentation, Vital Signs Vital Signs: Last Vital Signs Temp 97.7 F 01/18/17 04:27 Pulse 70 01/18/17 04:27 Resp 14 01/18/17 04:27 BP 134/88 01/18/17 04:27 Pulse Ox 99 01/18/17 05:29 - Medical History PMH: Anxiety, Arthritis (backs and LE), Bipolar Disorder, Depression, Diabetes, HTN, Schizophrenia (schizoaffective disorder) Surgical History: No Surg Hx Family History: States: Unknown Family Hx - Social History Hx Tobacco Use: Yes Hx Alcohol Use: No Hx Substance Use: No - Immunization History Hx Tetanus Toxoid Vaccination: No Hx Influenza Vaccination: No Hx Pneumococcal Vaccination: No Review Of Systems Musculoskeletal: Positive for: Neck Pain Neurological: Negative for: Weakness, Numbness Physical Exam - Physical Exam Appears: Non-toxic, No Acute Distress Skin: Normal Color, Warm, Dry Head: Atraumatic, Normacephalic Eye(s): bilateral: Normal Inspection Neck: Normal ROM (Causes pain), No Midline Cervical Tenderness, Paracervical Tenderness (Right), Supple Extremity: Normal ROM (x4) Neurological/Psych: Oriented x3, Normal Speech, Normal Motor, Normal Sensation ED Course And Treatment O2 Sat by Pulse Oximetry: 99 (Room air) Pulse Ox Interpretation: Normal Progress Note: Patient states he is allergic to all NSAIDS, tylenol and valium given for pain. Patient reports improvement of pain, will discharge home with Rx and instructions to follow up with PMD for further evaluation. Disposition Counseled Patient/Family Regarding: Diagnosis, Need For Followup, Rx Given - Disposition Referrals: Mike Soriano MD [Staff Provider] - Disposition: HOME/ ROUTINE Disposition Time: 04:55 Condition: STABLE Additional Instructions: Take meds as prescribed Apply warm compress Return to ER if worse Prescriptions: Acetaminophen 650 mg PO QID #30 tablet Cyclobenzaprine [Cyclobenzaprine HCl] 10 mg PO BID #10 tab Instructions: Muscle Spasm (ED) Forms: [facility] (Amharic) - Clinical Impression Clinical Impression: Cervical paraspinous muscle spasm - Scribe Statement The provider has reviewed the documentation as recorded by the Scribmarbella Huizar All medical record entries made by the Avelinaibmarbella were at my direction and personally dictated by me. I have reviewed the chart and agree that the record accurately reflects my personal performance of the history, physical exam, medical decision making, and the department course for this patient. I have also personally directed, reviewed, and agree with the discharge instructions and disposition.
[2017-01-18 05:34] VITALS: BP 131/70; PULSE 99; RESP 20; TEMP 97.6
[2017-01-18 05:57] VITALS: O2SAT 99
== END 2017-01-18 05:34 | disposition home or self-care (01) ==
LOC: C.ER 04:16
DX: M62.838 Other muscle spasm (principal); I10 Essential (primary) hypertension; E11.9 Type 2 diabetes mellitus without complications; Z87.891 Personal history of nicotine dependence

== ENCOUNTER 2017-05-02 14:17 | Emergency (ER) | payer MEDICAID ==
[2017-05-02 14:17] VITALS: BMI 29.2
--- NOTE | 2017-05-02 17:11 | CT ---
PROCEDURE: CT HEAD WITHOUT CONTRAST. HISTORY: head injury, dizziness COMPARISON: Noncontrast head CT performed 08/11/16 TECHNIQUE: Axial computed tomography images were obtained through the head/brain without intravenous contrast. Radiation dose: Total exam DLP = 930.96 mGy-cm. This CT exam was performed using one or more of the following dose reduction techniques: Automated exposure control, adjustment of the mA and/or kV according to patient size, and/or use of iterative reconstruction technique. FINDINGS: HEMORRHAGE: No intracranial hemorrhage. BRAIN: No mass effect or edema. No atrophy or chronic microvascular ischemic changes.Please note that MRI with diffusion imaging is more sensitive in the detection of acute ischemic event. VENTRICLES: No hydrocephalus. CALVARIUM: Unremarkable. PARANASAL SINUSES: Unremarkable as visualized. No significant inflammatory changes. MASTOID AIR CELLS: Defect within the right mastoid bone. Appearance consistent with chronic must wait itis with abnormal soft tissue extending into the bony defect of the right mastoid is posadas into the external auditory canal middle ear. The right ossicles are absent. The left mastoid air cells appear clear. OTHER FINDINGS: None. IMPRESSION: No acute intracranial pathology identified. Findings consistent with chronic mastoiditis on the right. Correlate clinically.
--- NOTE | 2017-05-02 17:17 | C.PDOC ---
History Of Present Illness 41 year old male presents to the ED c/o lower back and right ankle pain. Patient states that 2 days ago he slipped and fell while going down some slippery steps while on a park in [place]. Patient states he injured his lower back and right ankle. Patient also reports questionable head trauma that is is unsure off. Patient reports he is ambulatory but with some discomfort. Patient denies headache, head injury, blurry vision, saddles anesthesia, bowel incontinence, weakness, numbness. Time Seen by Provider: 05/02/17 15:05 Chief Complaint (Nursing): Dizziness/Lightheaded History Per: Patient History/Exam Limitations: no limitations Onset/Duration Of Symptoms: Days Current Symptoms Are (Timing): Still Present Associated Symptoms Preceding Syncopal Episode: No Predromal Symptoms (Sudden Onset) Seizure Or Post-ictal Symptoms: None Fall Associated With With Symptoms: No Severity: None Recent travel outside of the [place]: No Additional History Per: Patient Past Medical History Reviewed: Historical Data, Nursing Documentation, Vital Signs Vital Signs: Last Vital Signs Temp 98.8 F 05/02/17 18:01 Pulse 92 H 05/02/17 18:01 Resp 18 05/02/17 18:01 BP 130/84 05/02/17 18:01 Pulse Ox 100 05/02/17 18:01 - Medical History PMH: Anxiety, Arthritis (backs and LE), Bipolar Disorder, Depression, Diabetes, HTN, Schizophrenia (schizoaffective disorder) Denies: Chronic Kidney Disease Surgical History: No Surg Hx Family History: States: Unknown Family Hx - Social History Hx Tobacco Use: Yes Hx Alcohol Use: No Hx Substance Use: No - Immunization History Hx Tetanus Toxoid Vaccination: No Hx Influenza Vaccination: No Hx Pneumococcal Vaccination: No Review Of Systems Constitutional: Negative for: Fever, Chills Eyes: Negative for: Vision Change Cardiovascular: Negative for: Chest Pain Respiratory: Negative for: Cough, Shortness of Breath Gastrointestinal: Negative for: Nausea, Vomiting, Abdominal Pain Musculoskeletal: Positive for: Back Pain, Foot Pain. Negative for: Neck Pain Skin: Negative for: Rash Neurological: Negative for: Weakness, Numbness, Headache Physical Exam - Physical Exam Appears: Non-toxic, No Acute Distress Skin: Normal Color, Warm, Dry Head: Atraumatic, Normacephalic Eye(s): bilateral: Normal Inspection, PERRL, EOMI Nose: No Discharge, No Deformity Oral Mucosa: Moist Neck: Normal ROM, No Midline Cervical Tenderness, Supple Chest: Symmetrical Cardiovascular: Rhythm Regular, No Murmur Respiratory: Normal Breath Sounds, No Rales, No Rhonchi, No Wheezing Gastrointestinal/Abdominal: Soft, No Tenderness, No Guarding, No Rebound Back: No CVA Tenderness, Other (mild inconsistent paraspinal tenderness) Extremity: Normal ROM, Tenderness (minimal lateral right ankle), Capillary Refill (< 2 seconds), Swelling (minimal lateral right ankle) Pulses: Left Dorsalis Pedis: Normal, Right Dorsalis Pedis: Normal Neurological/Psych: Oriented x3, Normal Motor, Normal Sensation Gait: Steady ED Course And Treatment O2 Sat by Pulse Oximetry: 99 (On RA) Pulse Ox Interpretation: Normal - CT Scan/US CT head Other Rad Studies (CT/US): Read By Radiologist, Radiology Report Reviewed CT/US Interpretation: FINDINGS: HEMORRHAGE: No intracranial hemorrhage. BRAIN : No mass effect or edema. No atrophy or chronic microvascular ischemic changes.Please note that MRI with diffusion imaging is more sensitive in the detection of acute ischemic event. VENTRICLES: No hydrocephalus. CALVARIUM: Unremarkable. PARANASAL SINUSES: Unremarkable as visualized. No significant inflammatory changes. MASTOID AIR CELLS: Defect within the right mastoid bone. Appearance consistent with chronic must wait itis with abnormal soft tissue extending into the bony defect of the right mastoid is posadas into the external auditory canal middle ear. The right ossicles are absent. The left mastoid air cells appear clear. OTHER FINDINGS: None. IMPRESSION: No acute intracranial pathology identified. Findings consistent with chronic mastoiditis on the right. Correlate clinically. Medical Decision Making Medical Decision Making: Plan: * CT head * Right ankle X-Ray * LS SPine X-Ray Disposition - Disposition Referrals: Jose Khanna MD [Staff Provider] - Disposition: HOME/ ROUTINE Disposition Time: 17:30 Condition: GOOD Additional Instructions: Follow up with the medical doctor within 1-2 days. Return if worsened. Prescriptions: Acetaminophen [Tylenol] 325 mg PO Q6 PRN #30 tab PRN Reason: Pain, Mild (1-3) Instructions: Low Back Pain (DC), Minor Head Injury Forms: [employer] (Vincentian) - Clinical Impression Clinical Impression: Head injury, Back contusion, Ankle sprain - PA / EMERGENCY VEHICLE OPERATOR / Resident Statement MD/DO has reviewed & agrees with the documentation as recorded. - Scribe Statement The provider has reviewed the documentation as recorded by the Scribe Akbar Fry All medical record entries made by the Avelinaibmarbella were at my direction and personally dictated by me. I have reviewed the chart and agree that the record accurately reflects my personal performance of the history, physical exam, medical decision making, and the department course for this patient. I have also personally directed, reviewed, and agree with the discharge instructions and disposition.
[2017-05-02 18:01] VITALS: BP 130/84; PULSE 92; RESP 18; TEMP 98.8
--- NOTE | 2017-05-02 18:12 | RAD ---
PROCEDURE: Radiographs of the Lumbar Spine. HISTORY: low back pain COMPARISON: No prior. FINDINGS: BONES: Normal alignment. No listhesis. No fracture. DISC SPACES: Unremarkable. OTHER FINDINGS: None. IMPRESSION: Unremarkable radiographs of the lumbar spine.
--- NOTE | 2017-05-02 18:12 | RAD ---
PROCEDURE: Right Ankle Radiographs. HISTORY: ankle injury and pain COMPARISON: None FINDINGS: BONES: Normal. No fracture. JOINTS: Normal. No osteoarthritis. Ankle mortise maintained. Talar dome intact SOFT TISSUES: Normal. OTHER FINDINGS: None. IMPRESSION: Normal right ankle radiographs.
[2017-05-02 19:02] VITALS: O2SAT 99
== END 2017-05-02 18:27 | disposition home or self-care (01) ==
LOC: C.ER 14:17
DX: S30.0XXA Contusion of lower back and pelvis, initial encounter (principal); S93.401A Sprain of unspecified ligament of right ankle, initial encounter; S09.90XA Unspecified injury of head, initial encounter; W10.9XXA Fall (on) (from) unspecified stairs and steps, initial encounter; Y92.830 Public park as the place of occurrence of the external cause

== ENCOUNTER 2017-06-17 19:10 | Emergency (ER) | payer MEDICAID ==
[2017-06-17 19:11] VITALS: BMI 29.2
--- NOTE | 2017-06-17 19:34 | C.PDOC ---
History Of Present Illness Patient presents to the ER after he woke up at 19:20 with numbness and tingling to the left side of the face. As per , patient had lost his balance a little. Patient is an insulin dependent diabetic, poorly controlled. Denies fever, chills, nausea, or vomiting. Time Seen by Provider: 06/17/17 19:29 History Per: Patient, Family History/Exam Limitations: no limitations Onset/Duration Of Symptoms: Hrs Current Symptoms Are (Timing): Still Present Severity: Moderate Pain Scale Rating Of: 5 Reports Recently: Treated By A Physician Recent travel outside of the [place] States: No Additional History Per: Family Past Medical History Reviewed: Historical Data, Nursing Documentation, Vital Signs Vital Signs: Last Vital Signs Temp 98 F 06/17/17 21:51 Pulse 90 06/17/17 21:51 Resp 20 06/17/17 21:51 BP 109/66 06/17/17 21:51 Pulse Ox 95 06/17/17 21:51 - Medical History PMH: Anxiety, Arthritis (backs and LE), Bipolar Disorder, Depression, Diabetes, HTN, Schizophrenia (schizoaffective disorder) Family History: States: No Known Family Hx - Social History Hx Tobacco Use: Yes Hx Alcohol Use: No Hx Substance Use: No - Immunization History Hx Tetanus Toxoid Vaccination: No Hx Influenza Vaccination: No Hx Pneumococcal Vaccination: No Review Of Systems Constitutional: Negative for: Fever, Chills Cardiovascular: Negative for: Chest Pain Respiratory: Negative for: Shortness of Breath Gastrointestinal: Negative for: Nausea, Vomiting Genitourinary: Negative for: Dysuria Musculoskeletal: Negative for: Back Pain Skin: Negative for: Rash Neurological: Positive for: Numbness (left face), Other (Tingling to left face) Psych: Negative for: Anxiety Physical Exam - Physical Exam Appears: Non-toxic Skin: Warm, Dry Head: Normacephalic Eye(s): bilateral: Normal Inspection, PERRL, EOMI Oral Mucosa: Moist Teeth: Other (Poor dentition) Chest: Symmetrical, No Tenderness Cardiovascular: Rhythm Regular Respiratory: No Rales, No Rhonchi, No Wheezing Gastrointestinal/Abdominal: Soft, No Tenderness Neurological/Psych: Oriented x3, Other (No focal deficits) ED Course And Treatment - Laboratory Results Result Diagrams: 06/17/17 19:39 06/17/17 19:39 ECG: Interpreted By Me, Viewed By Me ECG Rhythm: Sinus Rhythm (94), Nonspecific Changes O2 Sat by Pulse Oximetry: 95 Pulse Ox Interpretation: Normal - Radiology CXR: Interpreted by Me, Viewed By Me CXR Interpretation: No: Infiltrates, Fracture, Pnemothorax Progress Note: CT head, CTA, EKG, CXR, blood work, and urinalysis ordered. spoke with dr long at 7:38PM is aware of physical exam. awaitng ct scans Against Medical Advice - AMA Patient Left Against Medical Advice: The patient declines admission to the hospital and wishes to leave the Emergency Department. This action is against my medical advice. This decision was made with informed refusal. The patient was told that admission to the hospital is necessary. Explanation of the reasons why were discussed. The risks of leaving were explained to the patient and include, but are not limited to, worsening of known or currently unknown conditions, permanent disability and from undiagnosed or untreated conditions. The patient has the capacity to make this informed decision and understands my explanation of the current medical problem and risks of leaving. The patient voluntarily accepts these risks and signed an AMA form documenting our conversation. The patient was given the opportunity to ask questions and reconsider. The patient was encouraged to return to the Emergency Department at any time for further care. present at bedside(HIPAA compliant) and is aware of the pt signing out AMA with all the risks explained Critical Care Time - Critical Care Note Total Time (in mins): 65 Documented critical care: time excludes all time spent performing seperately billable procedures. NIHSS Stroke Scale - Date/Time Evaluation Performed Date Performed: 06/17/17 Time Performed: 19:23 When Was NIHSS Performed: Baseline - How Severe is the Stroke Level of Consciousness: 0=Alert LOC to Questions: 0=Both comments correct LOC to commands: 0=Obeys both correctly Best Gaze: 0=Normal Visual: 0=No visual loss Facial: 0=Normal Motor Arm - Left: 0=No drift Motor Arm - Right: 0=No drift Motor Leg - Left: 0=No drift Motor Leg - Right: 0=No drift Limb Ataxia: 0=Absent Sensory: 0=Normal Best Language: 0=No aphasia Dysarthia: 0=Normal articulation Extinction & Inattention (Neglect): 0=Normal, no object Score: 0 Disposition Counseled Patient/Family Regarding: Studies Performed, Diagnosis, Need For Followup - Disposition Referrals: Seema Mg MD [Staff Provider] - Ovidio Long MD [Staff Provider] - Disposition: AGAINST MEDICAL ADVICE Disposition Time: 19:33 Condition: GUARDED Instructions: Hyperglycemia, Adult (DC), Paresthesias (DC), Transient Ischemic Attack (DC) - Clinical Impression Clinical Impression: TIA (transient ischemic attack), Hyperglycemia, Paresthesia - Scribe Statement The provider has reviewed the documentation as recorded by the Scribmarbella Huizar All medical record entries made by the Scribe were at my direction and personally dictated by me. I have reviewed the chart and agree that the record accurately reflects my personal performance of the history, physical exam, medical decision making, and the department course for this patient. I have also personally directed, reviewed, and agree with the discharge instructions and disposition.
[2017-06-17 19:43] LABS: BASO # 0.1 K/uL (0.0-0.2); BASO % 0.8 % (0.0-2.0); EOS # 0.4 K/uL (0.0-0.7); EOS % 2.6 % (0.0-4.0); HEMOGLOBIN 15.3 g/dL (12.0-18.0); LYMPH # 4.5 K/uL (1.0-4.3); LYMPH % 29.1 % (20.0-40.0); MEAN CELL VOLUME 87.3 fL (80.0-94.0); MEAN CORPUSCULAR HEMOGLOBIN 30.5 pg (27.0-31.0); MEAN CORPUSCULAR HGB CONC 34.9 g/dL (33.0-37.0); MEAN PLATELET VOLUME 7.7 fL (7.2-11.7); MONO % 6.1 % (0.0-10.0); NEUT # 9.6 K/uL (1.8-7.0); NEUT % 61.4 % (50.0-75.0); RBC 5.01 Mil/uL (4.40-5.90); RED CELL DISTRIBUTION WIDTH 13.2 % (11.5-14.5); WHITE BLOOD COUNT 15.6 K/uL (4.8-10.8)
[2017-06-17] MEDS ORDERED: Iodixanol 320 MG/ML 100 ML BOTTLE IV ONE (19:50)
[2017-06-17 19:52] LABS: PROTHROMBIN TIME 11.2 SECONDS (9.7-12.2)
[2017-06-17 20:07] LABS: ALB/GLOB RATIO 1.3 (1.0-2.1); ALBUMIN 4.1 g/dL (3.5-5.0); ALT/SGPT 22 U/L (21-72); AST/SGOT 20 U/L (17-59); BLOOD UREA NITROGEN 24 mg/dL (9-20); CALCIUM 9.8 mg/dl (8.6-10.4); GFR AFRICAN-AMERICAN > 60; GFR NON-AFRICAN AMERICAN > 60; HDL CHOLESTEROL 29 mg/dL (30-70)
[2017-06-17 20:18] LABS: LDL CHOLESTEROL 123 mg/dL (0-129)
[2017-06-17 22:02] VITALS: BP 109/66; PULSE 90; RESP 20; TEMP 98; O2SAT 95
[2017-06-17 22:16] LABS: SQUAMOUS EPITHIAL < 1 /hpf (0-5); URINE BILIRUBIN NEGATIVE (NEGATIVE); URINE BLOOD 1+ (NEGATIVE); URINE CLARITY Clear (Clear); URINE COLOR Yellow (YELLOW); URINE GLUCOSE (UA) 3+ mg/dL (Normal); URINE HYALINE CAST 0-2 /lpf (0-2); URINE LEUKOCYTE ESTERASE NEG Leu/uL (Negative); URINE PROTEIN 2+ mg/dL (NEGATIVE); URINE UROBILINOGEN NORMAL mg/dL (0.2-1.0)
--- NOTE | 2017-06-18 08:25 | CT ---
PROCEDURE: CT HEAD WITHOUT CONTRAST. HISTORY: Code Stroke COMPARISON: None available. TECHNIQUE: Axial computed tomography images were obtained through the head/brain without intravenous contrast. Radiation dose: Total exam DLP = 898 mGy-cm. This CT exam was performed using one or more of the following dose reduction techniques: Automated exposure control, adjustment of the mA and/or kV according to patient size, and/or use of iterative reconstruction technique. FINDINGS: HEMORRHAGE: No intracranial hemorrhage. BRAIN: No mass effect or edema. No atrophy or chronic microvascular ischemic changes. Limited evaluation of the posterior fossa given streak artifact. VENTRICLES: Unremarkable. No hydrocephalus. CALVARIUM: Unremarkable. PARANASAL SINUSES: Unremarkable as visualized. No significant inflammatory changes. MASTOID AIR CELLS: Prior right mastoidectomy. OTHER FINDINGS: None. IMPRESSION: 1. No acute intracranial hemorrhage. 2. Limited evaluation of the posterior fossa given streak artifact. Within the right cerebellum; on series 4, image 15, there is a focal area of low attenuation which may be related to streak artifact; however, if there is concern for acute ischemic change, correlation with MRI is recommended. If focal neurologic symptoms persist, consider further evaluation with MRI. MRI is more sensitive for acute ischemic change. These findings were preliminarily reported at 7:56 p.m. on 06/17/[address] Nina Goodman from [facility].
--- NOTE | 2017-06-18 08:31 | RAD ---
HISTORY: Code Stroke COMPARISON: Chest x-ray 08/21/2016 TECHNIQUE: Chest one view . FINDINGS: LUNGS: No focal consolidation is seen. PLEURA: No pleural effusion is identified. CARDIOVASCULAR: Heart size is within normal limits. OSSEOUS STRUCTURES: Degenerative changes noted of the spine. VISUALIZED UPPER ABDOMEN: Unremarkable. OTHER FINDINGS: None. IMPRESSION: No acute cardiopulmonary process seen.
--- NOTE | 2017-06-18 12:26 | CARD ---
APPROVED REPORT EKG Measurement Heart [id number] <Conclusion> Normal sinus rhythm Poor R wave progression Abnormal ECG
--- NOTE | 2017-06-18 14:16 | CP.PCM.CON ---
History of Present Illness - History of Present Illness History of Present Illness: 41 yr old male who presented to [facility] er last night with numbness and tingling of left side of face, resolved within an hour, not a tpa candidate. Past Patient History - Infectious Disease Hx of Infectious Diseases: None - Past Medical History & Family History Past Medical History?: Yes - Past Social History Smoking Status: Heavy Smoker > 10 Cigarettes Daily - CARDIAC Hx Hypertension: Yes - PULMONARY Hx Respiratory Disorders: No - NEUROLOGICAL Hx Neurological Disorder: No - HEENT Hx HEENT Problems: No - RENAL Hx Chronic Kidney Disease: No - ENDOCRINE/METABOLIC Hx Diabetes Mellitus Type 2: Yes - HEMATOLOGICAL/ONCOLOGICAL Hx Blood Disorders: No - INTEGUMENTARY Hx Dermatological Problems: No - MUSCULOSKELETAL/RHEUMATOLOGICAL Hx Arthritis: Yes (backs and LE) - GASTROINTESTINAL Hx Gastrointestinal Disorders: No - GENITOURINARY/GYNECOLOGICAL Hx Genitourinary Disorders: No - PSYCHIATRIC Hx Anxiety: Yes Hx Bipolar Disorder: Yes Hx Depression: Yes Hx Schizophrenia: Yes (schizoaffective disorder) Hx Substance Use: No - SURGICAL HISTORY Hx Surgeries: Yes Other/Comment: right ear surgery. right and left foot surgery - ANESTHESIA Hx Anesthesia: Yes Hx Anesthesia Reactions: No Hx Malignant Hyperthermia: No Meds Allergies/Adverse Reactions: Allergies Allergy/AdvReac Type Severity Reaction Status Date / Time NSAIDS (Non-Steroidal Allergy Verified 05/02/17 14:22 Anti-Inflamma Results - Vital Signs Recent Vital Signs: Last Vital Signs Temp 98 F 06/17/17 21:51 Pulse 90 06/17/17 21:51 Resp 20 06/17/17 21:51 BP 109/66 06/17/17 21:51 Pulse Ox 95 06/17/17 22:33 - Labs Result Diagrams: 06/17/17 19:39 06/17/17 19:39 Labs: Laboratory Results - last 24 hr 06/17/17 06/17/17 06/17/17 19:28 19:39 19:39 WBC 15.6 H RBC 5.01 Hgb 15.3 D Hct 43.7 MCV 87.3 MCH 30.5 MCHC 34.9 RDW 13.2 Plt Count 391 MPV 7.7 Neut % (Auto) 61.4 Lymph % (Auto) 29.1 Meeker % (Auto) 6.1 Eos % (Auto) 2.6 Baso % (Auto) 0.8 Neut # (Auto) 9.6 H Lymph # (Auto) 4.5 H Meeker # (Auto) 1.0 H Eos # (Auto) 0.4 Baso # (Auto) 0.1 PT 11.2 INR 1.0 APTT 36 H Sodium Potassium Chloride Carbon Dioxide Anion Gap BUN Creatinine Est GFR ( Amer) Est GFR (Non-Af Amer) POC Glucose (mg/dL) 334 H Random Glucose Hemoglobin A1c Calcium Total Bilirubin AST ALT Alkaline Phosphatase Troponin I Total Protein Albumin Globulin Albumin/Globulin Ratio Triglycerides Cholesterol LDL Cholesterol Direct HDL Cholesterol Urine Color Urine Clarity Urine pH Ur Specific Dale Urine Protein Urine Glucose (UA) Urine Ketones Urine Blood Urine Nitrate Urine Bilirubin Urine Urobilinogen Ur Leukocyte Esterase Urine WBC (Auto) Urine RBC (Auto) Ur Squamous Epith Cells Hyaline Casts Blood Type Antibody Screen 06/17/17 06/17/17 06/17/17 19:39 19:39 19:39 WBC RBC Hgb Hct MCV MCH MCHC RDW Plt Count MPV Neut % (Auto) Lymph % (Auto) Meeker % (Auto) Eos % (Auto) Baso % (Auto) Neut # (Auto) Lymph # (Auto) Meeker # (Auto) Eos # (Auto) Baso # (Auto) PT INR APTT Sodium 142 Potassium 4.4 Chloride 99 Carbon Dioxide 29 Anion Gap 19 BUN 24 H Creatinine 1.1 Est GFR ( Amer) > 60 Est GFR (Non-Af Amer) > 60 POC Glucose (mg/dL) Random Glucose 310 H Hemoglobin A1c 10.7 H Calcium 9.8 Total Bilirubin 0.4 AST 20 ALT 22 Alkaline Phosphatase 103 Troponin I < 0.0120 Total Protein 7.3 Albumin 4.1 Globulin 3.2 Albumin/Globulin Ratio 1.3 Triglycerides 252 H Cholesterol 182 LDL Cholesterol Direct 123 HDL Cholesterol 29 L Urine Color Urine Clarity Urine pH Ur Specific Dale Urine Protein Urine Glucose (UA) Urine Ketones Urine Blood Urine Nitrate Urine Bilirubin Urine Urobilinogen Ur Leukocyte Esterase Urine WBC (Auto) Urine RBC (Auto) Ur Squamous Epith Cells Hyaline Casts Blood Type A POSITIVE Antibody Screen Negative 06/17/17 22:06 WBC RBC Hgb Hct MCV MCH MCHC RDW Plt Count MPV Neut % (Auto) Lymph % (Auto) Meeker % (Auto) Eos % (Auto) Baso % (Auto) Neut # (Auto) Lymph # (Auto) Meeker # (Auto) Eos # (Auto) Baso # (Auto) PT INR APTT Sodium Potassium Chloride Carbon Dioxide Anion Gap BUN Creatinine Est GFR ( Amer) Est GFR (Non-Af Amer) POC Glucose (mg/dL) Random Glucose Hemoglobin A1c Calcium Total Bilirubin AST ALT Alkaline Phosphatase Troponin I Total Protein Albumin Globulin Albumin/Globulin Ratio Triglycerides Cholesterol LDL Cholesterol Direct HDL Cholesterol Urine Color Yellow Urine Clarity Clear Urine pH 5.0 Ur Specific Dale 1.038 H Urine Protein 2+ H Urine Glucose (UA) 3+ H Urine Ketones Negative Urine Blood 1+ H Urine Nitrate Negative Urine Bilirubin Negative Urine Urobilinogen Normal Ur Leukocyte Esterase Neg Urine WBC (Auto) < 1 Urine RBC (Auto) 3 Ur Squamous Epith Cells < 1 Hyaline Casts 0-2 Blood Type Antibody Screen
--- NOTE | 2017-06-18 14:44 | CT ---
PROCEDURE: CT Angiography of the Brain. HISTORY: code stroke COMPARISON: None available. TECHNIQUE: CT angiography of the intracranial and neck neck arteries was performed. Coronal and sagittal maximum intensity projection reformated images were generated. Contrast Dose: Visipaque 320, 100 cc Radiation dose:Total exam DLP = 654.58 mGy-cm. This CT exam was performed using one or more of the following dose reduction techniques: Automated exposure control, adjustment of the mA and/or kV according to patient size, and/or use of iterative reconstruction technique. FINDINGS: INTERNAL CEREBRAL ARTERIES: Unremarkable. The skull base, petrous, cavernous and supraclinoid segments are bilaterally widely patent. ANTERIOR CEREBRAL ARTERIES: Unremarkable. A1 and A2 segments are widely patent. Smaller distal branches unremarkable, as visualized. MIDDLE CEREBRAL ARTERIES: Unremarkable. M1 and M2 segments are widely patent. Perisylvian branches grossly symmetric. POSTERIOR CIRCULATION: Basilar Artery: Unremarkable. Distal Vertebral Arteries: Widely patent bilaterally with left low dominance. Posterior Cerebral Arteries: Unremarkable. Posterior Inferior Cerebellar Arteries: Unremarkable. NECK CTA: Common Carotid arteries: The bilateral common carotid appear widely patent from their origins to their bifurcations with no significant stenosis appreciated. No evidence to suggest common carotid artery dissection. Internal Carotid arteries: No significant stenosis is appreciated throughout the cervical internal carotid artery segments bilaterally and there is no evidence of dissection either. External Carotid arteries: Appear unremarkable bilaterally. Vertebral arteries: The bilateral vertebral arteries appear normal in caliber from their origins to their junction with the basilar artery. No significant stenosis or definite pattern of dissection. ANEURYSM/ VASCULAR MALFORMATIONS: None. OTHER FINDINGS: Incidental prior right mastoidectomy with partial opacification at the operative site including the middle ear cavity with possible resection or complete destruction of the right ossicular chain. IMPRESSION: Unremarkable CT Angiography of the Brain and Neck. Incidental prior right mastoidectomy with partial opacification at the operative site including the middle ear cavity with possible resection or complete destruction of the right ossicular chain.
== END 2017-06-17 22:40 | disposition left against medical advice (07) ==
LOC: C.ER 19:10
DX: G45.9 Transient cerebral ischemic attack, unspecified (principal); R20.2 Paresthesia of skin; E11.65 Type 2 diabetes mellitus with hyperglycemia; Z79.4 Long term (current) use of insulin; I10 Essential (primary) hypertension; F17.210 Nicotine dependence, cigarettes, uncomplicated
CPT/HCPCS: 70450; 70496; 70498; 71045; 80053; 80061; 81001; 82948; 83036; 84484; 85025; 85610; 85730; 86850; 86900; 93005; 99285; Q9967

== ENCOUNTER 2017-09-09 10:57 | Emergency (ER) | payer MEDICAID ==
[2017-09-09 11:14] VITALS: BMI 32.5
[2017-09-09 11:18] VITALS: BP 134/84; PULSE 110; RESP 20; TEMP 98.7; O2SAT 100
--- NOTE | 2017-09-09 12:53 | C.PDOC ---
History Of Present Illness 41 year old male, whose PMHx includes Diabetes, presents to the ED with c/o right foot pain from a diabetic ulcer for unspecified amt of time. Patient denies fever, chills. Time Seen by Provider: 09/09/17 11:34 Chief Complaint (Nursing): Abnormal Skin Integrity History Per: Patient History/Exam Limitations: no limitations Current Symptoms Are (Timing): Still Present Location Of Injury: Left: Foot Quality Of Symptoms: Painful Additional History Per: Patient Past Medical History Reviewed: Historical Data, Nursing Documentation, Vital Signs Vital Signs: Last Vital Signs Temp 98.7 F 09/09/17 11:15 Pulse 110 H 09/09/17 11:15 Resp 20 09/09/17 11:15 BP 134/84 09/09/17 11:15 Pulse Ox 100 09/10/17 22:12 - Medical History PMH: Anxiety, Arthritis (backs and LE), Bipolar Disorder, Depression, Diabetes, HTN, Schizophrenia (schizoaffective disorder) Denies: Chronic Kidney Disease Surgical History: No Surg Hx Family History: States: Unknown Family Hx - Social History Hx Tobacco Use: Yes Hx Alcohol Use: Yes Hx Substance Use: Yes (former) - Immunization History Hx Tetanus Toxoid Vaccination: No Hx Influenza Vaccination: No Hx Pneumococcal Vaccination: No Review Of Systems Constitutional: Negative for: Fever, Chills Musculoskeletal: Positive for: Foot Pain (right) Skin: Positive for: Other (Diabetic ulcer to right foot ) Physical Exam - Physical Exam Appears: Non-toxic, No Acute Distress Skin: Warm, Dry, Other (quarter-sized ulcer to sole of right foot, at the base of the 1st metatarsal. foot is warm to touch. no drainage noted) Head: Atraumatic, Normacephalic Eye(s): bilateral: Normal Inspection Oral Mucosa: Moist Neck: Supple Chest: Symmetrical, No Deformity, No Tenderness Cardiovascular: Rhythm Regular, No Murmur Respiratory: Normal Breath Sounds, No Rales, No Rhonchi, No Wheezing Extremity: Normal ROM, Capillary Refill (less than 2 seconds ) Neurological/Psych: Oriented x3, Normal Speech, Normal Cognition ED Course And Treatment - Laboratory Results Result Diagrams: 09/09/17 13:01 09/09/17 13:01 O2 Sat by Pulse Oximetry: 100 (on RA) Pulse Ox Interpretation: Normal - Other Rad right foot XR X-Ray: Viewed By Me, Read By Radiologist Interpretation: PROCEDURE: Right Foot Radiographs. HISTORY: ulcer sole at ifrst mtp. COMPARISON: None. FINDINGS: BONES: Normal. No fracture. No osseous erosion. No periosteal reaction. JOINTS: Normal. SOFT TISSUES: A plantar cutaneous ulcer is noted at the level of the MTP articulations, in the lateral projection. OTHER FINDINGS: None. IMPRESSION: No plain radiographic evidence of osteomyelitis. Medical Decision Making Medical Decision Making: Impression: 41 year old male with diabetic foot ulcer Plan: * bloodwork * urinalysis * foot XR * Tylenol PO * Insulin * IV Fluids * podiatry consult * reassess and disposition ot with ulcer to foot; hx dm, not well controlled, sugars in 400s per pt. will get podiatry consult, labs, foot xray. Bloodwork and foot XR ordered. Patient states he is allergic to NSAIDS. Tylenol PO given. Insulin and IV Fluids given. Awaiting podiatry consult. Patient refused to wait and left the ED against medical advice. Disposition - Disposition Disposition: ELOPEMENT - ER ONLY Disposition Time: 13:30 Condition: STABLE Forms: [facility] (Malian) - Clinical Impression Clinical Impression: Diabetic foot ulcer, Hyperglycemia - PA / TEAM PSYCHOLOGIST / Resident Statement MD/DO has reviewed & agrees with the documentation as recorded. - Scribe Statement The provider has reviewed the documentation as recorded by the Scribe (Valerie Matos) All medical record entries made by the Scribe were at my direction and personally dictated by me. I have reviewed the chart and agree that the record accurately reflects my personal performance of the history, physical exam, medical decision making, and the department course for this patient. I have also personally directed, reviewed, and agree with the discharge instructions and disposition.
[2017-09-09 13:06] LABS: BASO # 0.1 K/uL (0.0-0.2); BASO % 0.8 % (0.0-2.0); EOS # 0.4 K/uL (0.0-0.7); EOS % 3.9 % (0.0-4.0); HEMOGLOBIN 14.6 g/dL (12.0-18.0); LYMPH # 3.2 K/uL (1.0-4.3); LYMPH % 30.6 % (20.0-40.0); MEAN CORPUSCULAR HEMOGLOBIN 30.8 pg (27.0-31.0); MEAN PLATELET VOLUME 8.5 fL (7.2-11.7); MONO # 0.5 K/uL (0.0-0.8); NEUT # 6.1 K/uL (1.8-7.0); NEUT % 59.7 % (50.0-75.0); RBC 4.74 Mil/uL (4.40-5.90); RED CELL DISTRIBUTION WIDTH 13.1 % (11.5-14.5); WHITE BLOOD COUNT 10.3 K/uL (4.8-10.8)
[2017-09-09 13:12] LABS: URINE BILIRUBIN NEGATIVE (NEGATIVE); URINE BLOOD NEGATIVE (NEGATIVE); URINE CLARITY Clear (Clear); URINE COLOR Yellow (YELLOW); URINE GLUCOSE (UA) 3+ mg/dL (Normal); URINE LEUKOCYTE ESTERASE NEG Leu/uL (Negative); URINE PROTEIN 2+ mg/dL (NEGATIVE); URINE UROBILINOGEN NORMAL mg/dL (0.2-1.0)
[2017-09-09 13:19] LABS: ALB/GLOB RATIO 1.4 (1.0-2.1); ALBUMIN 3.8 g/dL (3.5-5.0); ALT/SGPT 33 U/L (21-72); AST/SGOT 13 U/L (17-59); BLOOD UREA NITROGEN 16 mg/dL (9-20); CALCIUM 9.3 mg/dl (8.6-10.4); GFR AFRICAN-AMERICAN > 60; GFR NON-AFRICAN AMERICAN > 60
[2017-09-09] MEDS ORDERED: Sodium Chloride 0.9% 1,000 ML IV ONE (13:22)
[2017-09-09] MEDS ORDERED: (Novolin 70/30) NPH/Regular 70/30 Units/ml 10 ml vial SC STA (13:22)
--- NOTE | 2017-09-09 13:22 | RAD ---
Date of service: 09/09/2017 PROCEDURE: Right Foot Radiographs. HISTORY: ulcer sole at ifrst mtp COMPARISON: None. FINDINGS: BONES: Normal. No fracture. No osseous erosion. No periosteal reaction. JOINTS: Normal. SOFT TISSUES: A plantar cutaneous ulcer is noted at the level of the MTP articulations, in the lateral projection. OTHER FINDINGS: None. IMPRESSION: No plain radiographic evidence of osteomyelitis.
[2017-09-09 13:29] LABS: SQUAMOUS EPITHIAL < 1 /hpf (0-5)
== END 2017-09-09 13:32 | disposition left against medical advice (07) ==
LOC: C.ER 10:57
DX: E11.621 Type 2 diabetes mellitus with foot ulcer (principal); E11.65 Type 2 diabetes mellitus with hyperglycemia

== ENCOUNTER 2018-01-12 23:52 | Emergency (ER) | payer MEDICAID ==
[2018-01-12 23:52] VITALS: BMI 31.1
[2018-01-13] MEDS ORDERED: Acetaminophen-Codeine 300/30 mg Tab PO STA (00:18)
--- NOTE | 2018-01-13 00:24 | C.PDOC ---
History Of Present Illness 42-year-old male presents to the ED complaining of chronic pain to the bilateral feet. He notes the left is worsening, and has become more swollen and painful. Of note, patient has ulcers to both feet. He reports taking medicine for his blood sugar. Admits he missed his podiatry appointment this week. Time Seen by Provider: 01/13/18 00:09 Chief Complaint (Nursing): Lower Extremity Problem/Injury History Per: Patient History/Exam Limitations: no limitations Onset/Duration Of Symptoms: Days Current Symptoms Are (Timing): Worse Past Medical History Reviewed: Historical Data, Nursing Documentation, Vital Signs Vital Signs: Last Vital Signs Temp 98.6 F 01/12/18 23:59 Pulse 100 H 01/12/18 23:59 Resp 20 01/12/18 23:59 BP 143/84 01/12/18 23:59 Pulse Ox 98 01/12/18 23:59 - Medical History PMH: Anxiety, Arthritis (backs and LE), Asthma, Bipolar Disorder, Depression, Diabetes, HTN, Schizophrenia (schizoaffective disorder) Denies: Chronic Kidney Disease - [facility] EXCISION OF L FOOT SUBCU/FASCIA, OPEN APPROACH (11/10/17) Family History: States: Unknown Family Hx - Social History Hx Tobacco Use: Yes Hx Alcohol Use: No (last darnk 2 years ago) Hx Substance Use: No (former) - Immunization History Hx Tetanus Toxoid Vaccination: Yes Hx Influenza Vaccination: Yes Hx Pneumococcal Vaccination: Yes Review Of Systems Except As Marked, All Systems Reviewed And Found Negative. Constitutional: Negative for: Fever, Chills Musculoskeletal: Positive for: Foot Pain Skin: Positive for: Other (ulcers to bilateral feet, (-) discharge) Neurological: Negative for: Weakness, Numbness, Incoordination Physical Exam - Physical Exam Appears: Non-toxic, No Acute Distress, Unkempt Skin: Warm, Dry Head: Atraumatic, Normacephalic Eye(s): bilateral: Normal Inspection Oral Mucosa: Moist Neck: Normal ROM Chest: Symmetrical Respiratory: No Accessory Muscle Use, Other (speaking in full sentences) Extremity: Normal ROM, Capillary Refill (less than 2 sec), Swelling (to bilateral feet), Other (Right foot with 3x2 cm non-draining well-healing ulcer to plantar surface; Left foot with 5x2 cm deep ulcer to plantar surface, no drainage or erythema, (+) foul smell) Pulses: Left Dorsalis Pedis: Normal, Right Dorsalis Pedis: Normal Neurological/Psych: Oriented x3, Normal Speech Gait: Steady ED Course And Treatment - Laboratory Results Result Diagrams: 01/13/18 00:44 01/13/18 00:44 O2 Sat by Pulse Oximetry: 98 (on room air) Pulse Ox Interpretation: Normal Medical Decision Making Medical Decision Making: Records reviewed: Patient last seen in the ED at [facility] on 01/09, had labs done and was discharged home with Cipro. Impression: 42-year-old diabetic with bilateral chronic foot ulcers 0023 Page podiatry to come evaluate patient Initial Plan: --CBC --CMP --Left foot x-ray --Tylenol/Codeine PO --Cipro 500 mg PO 120 Podiatry at bedside 230 podiatry requests more xrays to include ankle and tib/fib 355 Informed by podiatry that patient requires admission to rule out osteo, and for ID consult 357 Discussed with hospitalist, accepted patient for admission. Disposition Counseled Patient/Family Regarding: Diagnosis, Need For Followup, Rx Given - Disposition Disposition: HOSPITALIZED Disposition Time: 03:59 Condition: STABLE Forms: [facility] (Malay) - POA Present On Arrival: None - Clinical Impression Clinical Impression: Diabetic foot ulcer, Foot osteomyelitis, left - PA / GOVERNMENT AFFAIRS DIRECTOR / Resident Statement MD/DO has reviewed & agrees with the documentation as recorded. - Scribe Statement The provider has reviewed the documentation as recorded by the Scribe (Alisson Martinez) All medical record entries made by the Scribe were at my direction and personally dictated by me. I have reviewed the chart and agree that the record accurately reflects my personal performance of the history, physical exam, medical decision making, and the department course for this patient. I have also personally directed, reviewed, and agree with the discharge instructions and disposition. Decision To Admit - Pt Status Changed To: Hospital Disposition Of: Observation - . Bed Request Type: Regular Admitting Physician: Sabino Zayas Patient Diagnosis: Diabetic foot ulcer, Foot osteomyelitis, left
[2018-01-13] MEDS ORDERED: Acetaminophen-Codeine 300/30 mg Tab PO ONE (00:42)
[2018-01-13 00:46] LABS: BASO # 0.1 K/uL (0.0-0.2); BASO % 1.1 % (0.0-2.0); EOS # 0.5 K/uL (0.0-0.7); EOS % 5.3 % (0.0-4.0); LYMPH # 2.7 K/uL (1.0-4.3); LYMPH % 26.6 % (20.0-40.0); MEAN CELL VOLUME 85.9 fL (80.0-94.0); MEAN CORPUSCULAR HEMOGLOBIN 28.9 pg (27.0-31.0); MEAN CORPUSCULAR HGB CONC 33.6 g/dL (33.0-37.0); MEAN PLATELET VOLUME 7.2 fL (7.2-11.7); MONO # 0.6 K/uL (0.0-0.8); MONO % 6.2 % (0.0-10.0); NEUT # 6.1 K/uL (1.8-7.0); NEUT % 60.8 % (50.0-75.0); RBC 4.16 Mil/uL (4.40-5.90); RED CELL DISTRIBUTION WIDTH 13.4 % (11.5-14.5); WHITE BLOOD COUNT 10.1 K/uL (4.8-10.8)
[2018-01-13 01:08] LABS: ALB/GLOB RATIO 1.2 (1.0-2.1); ALBUMIN 3.8 g/dL (3.5-5.0); ALT/SGPT 20 U/L (21-72); AST/SGOT 14 U/L (17-59); BLOOD UREA NITROGEN 20 mg/dL (9-20); CALCIUM 8.9 mg/dl (8.6-10.4); GFR NON-AFRICAN AMERICAN > 60
--- NOTE | 2018-01-13 03:34 | CP.PCM.CON ---
History of Present Illness - History of Present Illness History of Present Illness: Podiatry Consult Note: Dr. Kennedy 41 year old male with PMH of DM with neuropathy, HTN, arthritis, bipolar Disorder, depression, anxiety, and schizophrenia seen and evaluated in the the ED for bilateral foot ulcerations L>R. Patient is well known to the podiatry service at [facility]. Admitted there about 3 weeks ago and discharged on PO Abx. Patient is very non compliant. Patient states that he finished his Abx course and his feet were doing better. he states that 1 day ago his left foot started to get swollen and more painful. Patient states that the pain in his left foot ulcer site is sever.Patient states that he has his feet ulcerations problem since long time and he is following up with a director of sports medicine Dr. Lala. patient states that he had an amputation of his left 5th toe with Dr. Lala. Patient states that he used to cleans his wounds with water daily. At the time of the visit his feet ulcers weren't dressed. Patient states that he has tingling and numbness in his feet due to his neuropathy all the times. Patient denies any drainage from his feet ulcers. He states that he put weight all the times on his feet. Patient denies any other pedal complaint. Patient denies any recent F/N/V/C or SOB. PMHx: DM with neuropathy, HTN, arthritis, bipolar Disorder, depression, anxiety, and schizophrenia PSHx: left 5th digit am[place]. Corky Christopher [place] [facility] [place] [facility] [place] multiple [place] surgery Allergies: NSAID (swelling) Social Hx: Smoker 1ppd 15 years, denies drinking EtOH or illicit drug use Review of Systems - Review of Systems Review of Systems: As per HPI - Constitutional Constitutional: As Per HPI Past Patient History - Infectious Disease Hx of Infectious Diseases: None - Past Medical History & Family History Past Medical History?: Yes - Past Social History Smoking Status: Heavy Smoker > 10 Cigarettes Daily - CARDIAC Hx Hypertension: Yes - PULMONARY Hx Asthma: Yes - NEUROLOGICAL Hx Neurological Disorder: No - HEENT Hx HEENT Problems: No - RENAL Hx Chronic Kidney Disease: No - ENDOCRINE/METABOLIC Hx Endocrine Disorders: Yes Hx Diabetes Mellitus Type 2: Yes - HEMATOLOGICAL/ONCOLOGICAL Hx Blood Disorders: No - INTEGUMENTARY Hx Dermatological Problems: No - MUSCULOSKELETAL/RHEUMATOLOGICAL Hx Arthritis: Yes (backs and LE) - GASTROINTESTINAL Hx Gastrointestinal Disorders: No - GENITOURINARY/GYNECOLOGICAL Hx Genitourinary Disorders: No - PSYCHIATRIC Hx Anxiety: Yes Hx Bipolar Disorder: Yes Hx Depression: Yes Hx Schizophrenia: Yes (schizoaffective disorder) Hx Substance Use: No (former) - SURGICAL HISTORY Hx Surgeries: Yes Other/Comment: right ear surgery. left FOOT TOE / 5TH DIGITsurgery - ANESTHESIA Hx Anesthesia: Yes Hx Anesthesia Reactions: No Hx Malignant Hyperthermia: No Meds Home Medications: Home Medication List Medication Instructions Recorded Confirmed Type Ciprofloxacin [Cipro] 1 tab PO BID #14 tab 01/13/18 Rx Allergies/Adverse Reactions: Allergies Allergy/AdvReac Type Severity Reaction Status Date / Time NSAIDS (Non-Steroidal Allergy RASH Verified 01/13/18 00:05 Anti-Inflamma Physical Exam - Constitutional Appears: Well, Non-toxic, No Acute Distress - Head Exam Head Exam: ATRAUMATIC, NORMOCEPHALIC - Extremities Exam Additional comments: Bilateral lower extremity focused exam: Vasc: DP/PT 2/4, Cap refill < 3 sec in all digits, temperature gradient warm to warm from proximal to distal b/l. Pedal hair present. Minimal non pitting edema in the right foot and moderate non pitting edemab/l L > R extending up to the shannen-malleolar area. shannen-wound erythema noted b/l. Neuro: Gross sensation intact, protective sensation diminished b/l. Derm: Right: Submet 1 Circular ulceration measuring approximately 3.8 cm in diameter x 0.3 cm. Periwound area is hyperkeratotic, minimal malodor noted, minimal serous drainage, no fluctanance noted, positive undermining, No tracking or probing to bone, Base is granular 100%. Dryness of the skin of the plantar aspect of the foot noted. Mild shannen-wound erythema noted. Left: Ulceration noted to the lateral aspect of forefoot at sub metatarsal 5 measuring approximately 6.3 cm x 3.3 cm x 0.2 cm, shannen-wound erythema noted., positive undermining, No tunneling, minimal serous drainage, no probe to bone; periwound mild maceration with hyperkeratosis noted, positive mild malodor, no fluctanance noted. base is mainly granular 80% fibrotic 20%; Both wounds are suspicious for active bacterial infection. Dryness of the skin of the plantar aspect of the foot noted. MSK: B/L cavus foot type; pain on palpation to the shannen-wound area L > R, Ankle ROM WNL b/l. Muscle power intact 5/5 b/l to all groups. - Neurological Exam Neurological exam: Alert, Oriented x3 - Psychiatric Exam Psychiatric exam: Normal Affect, Normal Mood Results - Vital Signs Recent Vital Signs: Last Vital Signs Temp 98.6 F 01/12/18 23:59 Pulse 100 H 01/12/18 23:59 Resp 20 01/12/18 23:59 BP 143/84 01/12/18 23:59 Pulse Ox 98 01/13/18 02:34 - Labs Result Diagrams: 01/13/18 00:44 01/13/18 00:44 Labs: Laboratory Results - last 24 hr 01/13/18 01/13/18 00:44 00:44 WBC 10.1 RBC 4.16 L Hgb 12.0 D Hct 35.7 MCV 85.9 D MCH 28.9 MCHC 33.6 RDW 13.4 Plt Count 410 H MPV 7.2 Neut % (Auto) 60.8 Lymph % (Auto) 26.6 [place] % (Auto) 6.2 Eos % (Auto) 5.3 H Baso % (Auto) 1.1 Neut # (Auto) 6.1 Lymph # (Auto) 2.7 [place] # (Auto) 0.6 Eos # (Auto) 0.5 Baso # (Auto) 0.1 Sodium 141 Potassium 4.3 Chloride 106 Carbon Dioxide 25 Anion Gap 15 BUN 20 Creatinine 0.8 Est GFR ( Amer) > 60 Est GFR (Non-Af Amer) > 60 Random Glucose 171 H Calcium 8.9 Total Bilirubin 0.4 AST 14 L D ALT 20 L D Alkaline Phosphatase 115 Total Protein 7.0 Albumin 3.8 Globulin 3.1 Albumin/Globulin Ratio 1.2 Assessment & Plan - Assessment and Plan (Free Text) Assessment: 41 year old male patient seen and evaluated in the ED for B/L foot ulcerations (Rocha 2) with questionable left 5th metatarsal bone osteomyelitis. Plan: Patient seen and evaluated in the ED Discussed plan in detail with attending Dr. Kennedy Labs, vitals, chart reviewed, afebrile, WBC 10.0 X-rays reviewed: L foot X-ray Impression: Sclerotic changes of the 5th metatarsal shaft with periosteal reactions suspicious for chronic osteomyelitis. Periosteal reaction noted also at the left 4th metatarsal shaft. Reactive bone formation of the 5th metatarsal bone noted. Soft tissue defect and swelling at the site of the ulceration. fracture noted at the distal end of the 5th metatarsal stump. R foot X-ray Impression: no fracture, No signs of osteomyelitis. Soft tissue defect and swelling at the site of the ulceration. L Ankle X-ray Impression: No signs of gas in the tissues. R Ankle X-ray Impression: No signs of gas in the tissues. L Tib-fibula X-ray Impression: No signs of gas in the tissues. R Tib-fibula X-ray Impression: No signs of gas in the tissues. Wound cultures taken from bilateral feet ulcers collected, ordered and sent to lab. ID consult - recs appreciated Patient received Ciprofloxacin 500 mg PO dose while in the ED Hyperkeratotic ulcer border debrided using sterile 15 blade b/l. Patient tolerated the debridement well with no complications Wounds cleaned using saline and dressing applied using DSD and betadine. Ordered Sulvadine cream to be applied with the dressing starting from tomorrow. Patient to be admitted under primary service dispensed pair of surgical shoes. Patient instructed to wear the surgical shoes when he is ambulating. Patient instructed to bear weight to his heel b/l. Thank you for the podiatry cosnult and allowing to take part in patient care Podiatry to follow up the patient while in-house - Date & Time Date: 01/13/18 Time: 03:36
[2018-01-13] MEDS ORDERED: Silver Sulfadiazine 1% Cream (20 gm) TOP SCH (03:45)
[2018-01-13] MEDS ORDERED: Glucagon Recombinant 1 mg Inj IM PRN (04:39)
[2018-01-13] MEDS ORDERED: Dextrose 50% SYRINGE Inj (50 ml) IV PRN (04:39)
[2018-01-13] MEDS ORDERED: (Lantus) Insulin Glargine, Recombinant SC STA (04:40)
[2018-01-13] MEDS ORDERED: Sodium Chloride 0.9% 1,000 ML IV SCH (04:45)
[2018-01-13] MEDS ORDERED: Piperacillin/Tazobact 3.375 GM in Sodium Chloride 100 ML IVPB SCH (05:00)
[2018-01-13] MEDS ORDERED: (Lantus) Insulin Glargine, Recombinant SC ONE (05:01)
--- NOTE | 2018-01-13 05:10 | CP.PCM.HP ---
<Nina Torres - Last Filed: 01/13/18 05:58> History of Present Illness - History of Present Illness History of Present Illness: cc: "my foot swelled up" Mr. Horn is a 42 year old male, well known to podiatry, PMH DM with neuropathy, HTN, arthritis, bipolar, anxiety/depression, schizophrenia complains today of worsening bilateral foot ulcers with ascending swelling of his left lower extremity. He was discharged from [place] with PO antibiotics on 01/09 but did not fill the prescription. He noticed his foot starting to swell the day after discharge, but since it did not hurt, he did not come to the hospital. Over the next 4 days, the swelling ascended his leg until its current state ending mid calf, having him complain of 10/10 pain. Denies fever, chills, chest pain, shortness of breath, nausea, vomiting, constipation, diarrhea. Patient was poorly cooperative with interview as he wanted to be left alone to sleep. PMD: Elizabeth PMH: DM with neuropathy s/p 5th toe amputation, HTN, arthritis, bipolar, anxiety/depression, schizophrenia Med: Lantus 30 bid, Humalog. Patient is extremely noncompliant All: NSAIDs - swelling PSxHx: 5th toe amputation, multiple ear Sx FamHx: denies SocHx: 1ppd smoker x15 years, denies alcohol or illicit drug use Present on Admission - Present on Admission Any Indicators Present on Admission: No Review of Systems - Review of Systems Systems not reviewed;Unavailable: Uncooperative - Constitutional Constitutional: absent: Chills, Fever - EENT Nose/Mouth/Throat: absent: Dysphagia, Odynophagia, Sore Throat - Cardiovascular Cardiovascular: absent: Chest Pain, Palpitations - Respiratory Respiratory: absent: Cough, Dyspnea - Gastrointestinal Gastrointestinal: absent: Constipation, Diarrhea, Nausea, Vomiting - Genitourinary Genitourinary: absent: Dysuria Past Patient History - Infectious Disease Hx of Infectious Diseases: None - Past Medical History & Family History Past Medical History?: Yes - Past Social History Smoking Status: Heavy Smoker > 10 Cigarettes Daily Alcohol: None Drugs: Denies - CARDIAC Hx Hypertension: Yes - PULMONARY Hx Asthma: Yes - NEUROLOGICAL Hx Neurological Disorder: No - HEENT Hx HEENT Problems: No - RENAL Hx Chronic Kidney Disease: No - ENDOCRINE/METABOLIC Hx Endocrine Disorders: Yes Hx Diabetes Mellitus Type 2: Yes - HEMATOLOGICAL/ONCOLOGICAL Hx Blood Disorders: No - INTEGUMENTARY Hx Dermatological Problems: No - MUSCULOSKELETAL/RHEUMATOLOGICAL Hx Arthritis: Yes (backs and LE) - GASTROINTESTINAL Hx Gastrointestinal Disorders: No - GENITOURINARY/GYNECOLOGICAL Hx Genitourinary Disorders: No - PSYCHIATRIC Hx Anxiety: Yes Hx Bipolar Disorder: Yes Hx Depression: Yes Hx Schizophrenia: Yes (schizoaffective disorder) Hx Substance Use: No (former) - SURGICAL HISTORY Hx Surgeries: Yes Other/Comment: right ear surgery. left FOOT TOE / 5TH DIGITsurgery - ANESTHESIA Hx Anesthesia: Yes Hx Anesthesia Reactions: No Hx Malignant Hyperthermia: No Meds Allergies/Adverse Reactions: Allergies Allergy/AdvReac Type Severity Reaction Status Date / Time NSAIDS (Non-Steroidal Allergy RASH Verified 01/13/18 00:05 Anti-Inflamma Physical Exam - Constitutional Appears: Non-toxic, No Acute Distress - Head Exam Head Exam: ATRAUMATIC, NORMOCEPHALIC - Eye Exam Additional comments: patient uncooperative - ENT Exam ENT Exam: Mucous Membranes Moist - Respiratory Exam Respiratory Exam: Clear to Auscultation Bilateral, NORMAL BREATHING PATTERN. absent: Rales, Rhonchi, Wheezes - Cardiovascular Exam Cardiovascular Exam: REGULAR RHYTHM, +S1, +S2 - GI/Abdominal Exam GI & Abdominal Exam: Normal Bowel Sounds, Soft. absent: Tenderness - Extremities Exam Extremities exam: Positive for: calf tenderness, normal capillary refill, pedal edema, tenderness, pedal pulses present Additional comments: bilateral feet wrapped by podiatry, unable to visualize. dressing c/i. Seeping Sulvadine in left ball of foot obvious erythema and edema in bilateral foot and ankle ascending erythema and edema in L LE longterm up the calf. TTP along calf, no tenderness when palpating anterior leg - Neurological Exam Neurological exam: Alert, Oriented x3 Additional comments: patient uncooperative - Psychiatric Exam Psychiatric exam: Agitated - Skin Skin Exam: Normal Color, Warm Results - Vital Signs Recent Vital Signs: Last Vital Signs Temp 98.3 F 01/13/18 03:20 Pulse 94 H 01/13/18 03:20 Resp 17 01/13/18 03:20 BP 122/68 01/13/18 03:20 Pulse Ox 98 01/13/18 04:00 - Labs Result Diagrams: 01/13/18 00:44 01/13/18 00:44 Labs: Laboratory Results - last 24 hr 01/13/18 01/13/18 00:44 00:44 WBC 10.1 RBC 4.16 L Hgb 12.0 D Hct 35.7 MCV 85.9 D MCH 28.9 MCHC 33.6 RDW 13.4 Plt Count 410 H MPV 7.2 Neut % (Auto) 60.8 Lymph % (Auto) 26.6 [place] % (Auto) 6.2 Eos % (Auto) 5.3 H Baso % (Auto) 1.1 Neut # (Auto) 6.1 Lymph # (Auto) 2.7 [place] # (Auto) 0.6 Eos # (Auto) 0.5 Baso # (Auto) 0.1 Sodium 141 Potassium 4.3 Chloride 106 Carbon Dioxide 25 Anion Gap 15 BUN 20 Creatinine 0.8 Est GFR ( Amer) > 60 Est GFR (Non-Af Amer) > 60 Random Glucose 171 H Calcium 8.9 Total Bilirubin 0.4 AST 14 L D ALT 20 L D Alkaline Phosphatase 115 Total Protein 7.0 Albumin 3.8 Globulin 3.1 Albumin/Globulin Ratio 1.2 Assessment & Plan - Assessment and Plan (Free Text) Assessment: 42yo M PH DM with neuropathy, HTN, arthritis, bipolar, anxiety/depression, schizophrenia admitted for L foot osteomyelitis. Plan: L foot osteomyelitis - XR foot (01/13): pending read - XR ankle (01/13): pending read - XR tib/fib (01/13): pending read - WBC 10.1, down trending from previous blood work earlier this month - given Percocet and Cipro 500 once in ED - based off previous cultures 12/25, patient was sensitive to Cipro. However, he was started on Cipro and did not follow through after discharge. Opting for empiric therapy pending new cultures due to possible resistance. - Vanc 1g IVPB daily (started 01/13) - Zosyn 3.375g IVPB q8 (started 01/13) - feet redressed by podiatry with Silver Sulfadiazine topical - Pod on case: Dr. Kennedy - recs appreciated - ID consulted: Dr. Espinal - help appreciated Diabetes with Neuropathy - home Lantus 30u SC HS - Novolog ISS - Accucheck ACHS - hypoglycemia protocol - f/u A1c Hypertension - patient is not on any medication - monitor vitals Hx bipolar, anxiety/depression, schizophrenia - patient is not on any medication - Psych consulted: Dr. Griffin - help appreciated PPx - DVT: Heparin 5000u sc q8, SCDs CI 2/2 swelling - GI: Protonix 40 daily - Diet: Renal HHD 2g Na d/w Dr. hCana Torres PGY-1 - Date & Time Date: 01/13/18 Time: 04:45 <Sabino Zayas - Last Filed: 01/13/18 06:20> Results - Vital Signs Recent Vital Signs: Last Vital Signs Temp 98.3 F 01/13/18 03:20 Pulse 94 H 01/13/18 03:20 Resp 17 01/13/18 03:20 BP 122/68 01/13/18 03:20 Pulse Ox 98 01/13/18 05:59 - Labs Result Diagrams: 01/13/18 05:45 01/13/18 05:45 Labs: Laboratory Results - last 24 hr 01/13/18 01/13/18 01/13/18 00:44 00:44 05:45 WBC 10.1 9.4 RBC 4.16 L 4.10 L Hgb 12.0 D 11.8 L Hct 35.7 35.2 MCV 85.9 D 85.9 MCH 28.9 28.7 MCHC 33.6 33.4 RDW 13.4 13.2 Plt Count 410 H 423 H MPV 7.2 7.2 Neut % (Auto) 60.8 53.0 Lymph % (Auto) 26.6 35.4 [place] % (Auto) 6.2 5.1 Eos % (Auto) 5.3 H 5.8 H Baso % (Auto) 1.1 0.7 Neut # (Auto) 6.1 5.0 Lymph # (Auto) 2.7 3.3 [place] # (Auto) 0.6 0.5 Eos # (Auto) 0.5 0.5 Baso # (Auto) 0.1 0.1 Sodium 141 Potassium 4.3 Chloride 106 Carbon Dioxide 25 Anion Gap 15 BUN 20 Creatinine 0.8 Est GFR ( Amer) > 60 Est GFR (Non-Af Amer) > 60 Random Glucose 171 H Calcium 8.9 Total Bilirubin 0.4 AST 14 L D ALT 20 L D Alkaline Phosphatase 115 Total Protein 7.0 Albumin 3.8 Globulin 3.1 Albumin/Globulin Ratio 1.2 01/13/18 05:45 WBC RBC Hgb Hct MCV MCH MCHC RDW Plt Count MPV Neut % (Auto) Lymph % (Auto) [place] % (Auto) Eos % (Auto) Baso % (Auto) Neut # (Auto) Lymph # (Auto) [place] # (Auto) Eos # (Auto) Baso # (Auto) Sodium 139 Potassium 4.4 Chloride 105 Carbon Dioxide 24 Anion Gap 15 BUN 19 Creatinine 0.7 L Est GFR ( Amer) > 60 Est GFR (Non-Af Amer) > 60 Random Glucose 188 H Calcium 8.8 Total Bilirubin 0.4 AST 17 D ALT 19 L Alkaline Phosphatase 86 Total Protein 6.6 Albumin 3.4 L Globulin 3.2 Albumin/Globulin Ratio 1.1 Assessment & Plan - Date & Time Date: 01/13/18 (I have seen and examined the patient. I agree with the findings and plan of care as documented by Dr. Torres. Patient with left foot osteomyelitis. Consult to podiatry and ID. Marilin. Previously on Cipro appropriate for prior wound cultures. Patient noncompliant with antibiotic as outpatient. Also with history of hypertension. Not currently on meds. Monitor for now. History of diabetes. Continue home meds. NISS and accuchecks. History of schizophrenia. Exact medication regimen not known. Consult to psych. Monitor for acute changes.) Time: 06:17 Attending/Attestation - Attestation I have personally seen and examined this patient.: Yes I have fully participated in the care of the patient.: Yes I have reviewed all pertinent clinical information: Yes
[2018-01-13] MEDS ORDERED: Piperacillin/Tazobact 3.375 gm 100 ML IVPB ONE (05:13)
[2018-01-13] MEDS ORDERED: Vancomycin 1 GM in Sodium Chloride 0.9% 200 ML IVPB SCH (05:30)
[2018-01-13 05:50] LABS: BASO # 0.1 K/uL (0.0-0.2); BASO % 0.7 % (0.0-2.0); EOS # 0.5 K/uL (0.0-0.7); EOS % 5.8 % (0.0-4.0); HEMOGLOBIN 11.8 g/dL (12.0-18.0); LYMPH # 3.3 K/uL (1.0-4.3); LYMPH % 35.4 % (20.0-40.0); MEAN CELL VOLUME 85.9 fL (80.0-94.0); MEAN CORPUSCULAR HEMOGLOBIN 28.7 pg (27.0-31.0); MEAN CORPUSCULAR HGB CONC 33.4 g/dL (33.0-37.0); MEAN PLATELET VOLUME 7.2 fL (7.2-11.7); MONO # 0.5 K/uL (0.0-0.8); MONO % 5.1 % (0.0-10.0); RBC 4.1 Mil/uL (4.40-5.90); RED CELL DISTRIBUTION WIDTH 13.2 % (11.5-14.5); WHITE BLOOD COUNT 9.4 K/uL (4.8-10.8)
[2018-01-13] MEDS ORDERED: Vancomycin 1 GM 1 GM/250 ML BAG IVPB ONE (05:52)
[2018-01-13 06:09] LABS: ALB/GLOB RATIO 1.1 (1.0-2.1); ALBUMIN 3.4 g/dL (3.5-5.0); ALT/SGPT 19 U/L (21-72); AST/SGOT 17 U/L (17-59); BLOOD UREA NITROGEN 19 mg/dL (9-20); CALCIUM 8.8 mg/dl (8.6-10.4); GFR NON-AFRICAN AMERICAN > 60
[2018-01-13 06:31] VITALS: RESP 18
[2018-01-13] MEDS ORDERED: (Novolog) Insulin Aspart, Recombinant 100 u/ml 10 ml vial SC SCH (07:30)
--- NOTE | 2018-01-13 09:15 | RAD ---
Date of service: 01/13/2018 PROCEDURE: Radiographs of the bilateral Tibiae and Fibulae. HISTORY: Rule out osteomyelitis in a patient with a history of DM and ulcers feet COMPARISON: None available. TECHNIQUE: Frontal and lateral views obtained. FINDINGS: BONES: RIGHT TIBIA: No fracture or destructive lesion. LEFT TIBIA: No fracture or destructive lesion. JOINT SPACES: RIGHT TIBIA: Normal. LEFT TIBIA: Normal. SOFT TISSUES: Subcutaneous tissues appear grossly unremarkable bilaterally with no evidence of emphysema or radiopaque foreign bodies. OTHER FINDINGS: None. IMPRESSION: No evidence of acute displaced fracture nor dislocation. No obvious cortical destructive changes seen to suggest acute osteomyelitis however possibility of early osteomyelitis cannot be completely excluded. Consider followup bone scan if further evaluation for cellulitis and/or osteomyelitis is required
[2018-01-13 10:06] VITALS: BP 130/75; PULSE 68; TEMP 98.8; O2SAT 100
--- NOTE | 2018-01-13 11:26 | CP.PCM.CON ---
History of Present Illness - History of Present Illness History of Present Illness: 41 year old male with PMH of DM with neuropathy, HTN, arthritis, bipolar Disorder, depression, anxiety, and schizophrenia seen and evaluated in the the ED for bilateral foot ulcerations L>R. ID consulted for antibiotic management cultures pending PMHx: DM with neuropathy, HTN, arthritis, bipolar Disorder, depression, anxiety, and schizophrenia PSHx: left 5th digit am[place]. Cork[place] [facility] [place] surgery Allergies: NSAID (swelling) Social Hx: Smoker 1ppd 15 years, denies drinking EtOH or illicit drug use Past Patient History - Infectious Disease Hx of Infectious Diseases: None - Past Medical History & Family History Past Medical History?: Yes - Past Social History Smoking Status: Heavy Smoker > 10 Cigarettes Daily Alcohol: None Drugs: Denies - CARDIAC Hx Hypertension: Yes - PULMONARY Hx Asthma: Yes - NEUROLOGICAL Hx Neurological Disorder: No - HEENT Hx HEENT Problems: No - RENAL Hx Chronic Kidney Disease: No - ENDOCRINE/METABOLIC Hx Endocrine Disorders: Yes Hx Diabetes Mellitus Type 2: Yes - HEMATOLOGICAL/ONCOLOGICAL Hx Blood Disorders: No - INTEGUMENTARY Hx Dermatological Problems: No - MUSCULOSKELETAL/RHEUMATOLOGICAL Hx Arthritis: Yes (backs and LE) - GASTROINTESTINAL Hx Gastrointestinal Disorders: No - GENITOURINARY/GYNECOLOGICAL Hx Genitourinary Disorders: No - PSYCHIATRIC Hx Anxiety: Yes Hx Bipolar Disorder: Yes Hx Depression: Yes Hx Schizophrenia: Yes (schizoaffective disorder) Hx Substance Use: No (former) - SURGICAL HISTORY Hx Surgeries: Yes Other/Comment: right ear surgery. left FOOT TOE / 5TH DIGITsurgery - ANESTHESIA Hx Anesthesia: Yes Hx Anesthesia Reactions: No Hx Malignant Hyperthermia: No Meds Allergies/Adverse Reactions: Allergies Allergy/AdvReac Type Severity Reaction Status Date / Time NSAIDS (Non-Steroidal Allergy RASH Verified 01/13/18 00:05 Anti-Inflamma - Medications Medications: Current Medications Dextrose (Dextrose 50% Inj) 0 ml IV STAT PRN; Protocol PRN Reason: Hypoglycemia Protocol Dextrose (Glutose 15) 0 gm PO ONCE PRN; Protocol PRN Reason: Hypoglycemia Protocol Glucagon (Glucagen Diagnostic Kit) 0 mg IM STAT PRN; Protocol PRN Reason: Hypoglycemia Protocol Heparin Sodium (Porcine) (Heparin) 5,000 units SC Q8 [place] Last Admin: 01/13/18 06:31 Dose: 5,000 units Dextrose (Dextrose 5% In Water 1000 Ml) 1,000 mls @ 0 mls/hr IV .Q0M PRN; Protocol PRN Reason: Hypoglycemia Protocol Piperacillin Sod/Tazobactam (Sod 3.375 gm/ Sodium Chloride) 100 mls @ 200 mls/hr IVPB Q8H [place]; Protocol Last Admin: 01/13/18 05:15 Dose: 200 mls/hr Vancomycin HCl 1 gm/ Sodium (Chloride) 200 mls @ 166.7 mls/hr IVPB Q24H [place]; Protocol Last Admin: 01/13/18 05:55 Dose: 166.7 mls/hr Sodium Chloride (Sodium Chloride 0.9%) 1,000 mls @ 100 mls/hr IV .Q10H [facility] Last Admin: 01/13/18 05:00 Dose: 100 mls/hr Insulin Aspart (Novolog) 0 unit SC ACHS [place]; Protocol Last Admin: 01/13/18 07:35 Dose: Not Given Insulin Glargine (Lantus) 30 unit SC HS [facility] Pantoprazole Sodium (Protonix Inj) 40 mg IVP DAILY [facility] Silver Sulfadiazine (Silvadene 1% 20 Gm) 1 ea TOP QD7 [place] Results - Vital Signs Recent Vital Signs: Last Vital Signs Temp 98.8 F 01/13/18 09:50 Pulse 68 01/13/18 09:50 Resp 18 01/13/18 09:50 BP 130/75 01/13/18 09:50 Pulse Ox 100 01/13/18 09:50 - Labs Result Diagrams: 01/13/18 05:45 01/13/18 05:45 Labs: Laboratory Results - last 24 hr 01/12/18 01/13/18 01/13/18 16:33 00:44 00:44 WBC 10.1 RBC 4.16 L Hgb 12.0 D Hct 35.7 MCV 85.9 D MCH 28.9 MCHC 33.6 RDW 13.4 Plt Count 410 H MPV 7.2 Neut % (Auto) 60.8 Lymph % (Auto) 26.6 [place] % (Auto) 6.2 Eos % (Auto) 5.3 H Baso % (Auto) 1.1 Neut # (Auto) 6.1 Lymph # (Auto) 2.7 [place] # (Auto) 0.6 Eos # (Auto) 0.5 Baso # (Auto) 0.1 Sodium 141 Potassium 4.3 Chloride 106 Carbon Dioxide 25 Anion Gap 15 BUN 20 Creatinine 0.8 Est GFR ( Amer) > 60 Est GFR (Non-Af Amer) > 60 POC Glucose (mg/dL) 160 H Random Glucose 171 H Hemoglobin A1c Calcium 8.9 Total Bilirubin 0.4 AST 14 L D ALT 20 L D Alkaline Phosphatase 115 Total Protein 7.0 Albumin 3.8 Globulin 3.1 Albumin/Globulin Ratio 1.2 01/13/18 01/13/18 01/13/18 05:45 05:45 05:45 WBC 9.4 RBC 4.10 L Hgb 11.8 L Hct 35.2 MCV 85.9 MCH 28.7 MCHC 33.4 RDW 13.2 Plt Count 423 H MPV 7.2 Neut % (Auto) 53.0 Lymph % (Auto) 35.4 [place] % (Auto) 5.1 Eos % (Auto) 5.8 H Baso % (Auto) 0.7 Neut # (Auto) 5.0 Lymph # (Auto) 3.3 [place] # (Auto) 0.5 Eos # (Auto) 0.5 Baso # (Auto) 0.1 Sodium 139 Potassium 4.4 Chloride 105 Carbon Dioxide 24 Anion Gap 15 BUN 19 Creatinine 0.7 L Est GFR ( Amer) > 60 Est GFR (Non-Af Amer) > 60 POC Glucose (mg/dL) Random Glucose 188 H Hemoglobin A1c 11.4 H Calcium 8.8 Total Bilirubin 0.4 AST 17 D ALT 19 L Alkaline Phosphatase 86 Total Protein 6.6 Albumin 3.4 L Globulin 3.2 Albumin/Globulin Ratio 1.1 01/13/18 07:35 WBC RBC Hgb Hct MCV MCH MCHC RDW Plt Count MPV Neut % (Auto) Lymph % (Auto) [place] % (Auto) Eos % (Auto) Baso % (Auto) Neut # (Auto) Lymph # (Auto) [place] # (Auto) Eos # (Auto) Baso # (Auto) Sodium Potassium Chloride Carbon Dioxide Anion Gap BUN Creatinine Est GFR ( Amer) Est GFR (Non-Af Amer) POC Glucose (mg/dL) 137 H Random Glucose Hemoglobin A1c Calcium Total Bilirubin AST ALT Alkaline Phosphatase Total Protein Albumin Globulin Albumin/Globulin Ratio
--- NOTE | 2018-01-13 11:54 | CP.PCM.DIS ---
<Neel Avila - Last Filed: 01/13/18 11:50> Provider - Provider Date of Admission: 01/13/18 03:58 Attending physician: Sabino Zayas MD Consults: Podiatry- Brent COLMENARES- Teddy Psych- [place] Time Spent in preparation of Discharge (in minutes): 45 Hospital Course - Lab Results Lab Results: Most Recent Lab Values WBC 9.4 K/uL (4.8-10.8) 01/13/18 05:45 RBC 4.10 Mil/uL (4.40-5.90) L 01/13/18 05:45 Hgb 11.8 g/dL (12.0-18.0) L 01/13/18 05:45 Hct 35.2 % (35.0-51.0) 01/13/18 05:45 MCV 85.9 fL (80.0-94.0) 01/13/18 05:45 MCH 28.7 pg (27.0-31.0) 01/13/18 05:45 MCHC 33.4 g/dL (33.0-37.0) 01/13/18 05:45 RDW 13.2 % (11.5-14.5) 01/13/18 05:45 Plt Count 423 K/uL (130-400) H 01/13/18 05:45 MPV 7.2 fL (7.2-11.7) 01/13/18 05:45 Neut % (Auto) 53.0 % (50.0-75.0) 01/13/18 05:45 Lymph % (Auto) 35.4 % (20.0-40.0) 01/13/18 05:45 [place] % (Auto) 5.1 % (0.0-10.0) 01/13/18 05:45 Eos % (Auto) 5.8 % (0.0-4.0) H 01/13/18 05:45 Baso % (Auto) 0.7 % (0.0-2.0) 01/13/18 05:45 Neut # (Auto) 5.0 K/uL (1.8-7.0) 01/13/18 05:45 Lymph # (Auto) 3.3 K/uL (1.0-4.3) 01/13/18 05:45 [place] # (Auto) 0.5 K/uL (0.0-0.8) 01/13/18 05:45 Eos # (Auto) 0.5 K/uL (0.0-0.7) 01/13/18 05:45 Baso # (Auto) 0.1 K/uL (0.0-0.2) 01/13/18 05:45 Sodium 139 mmol/L (132-148) 01/13/18 05:45 Potassium 4.4 mmol/L (3.6-5.2) 01/13/18 05:45 Chloride 105 mmol/L (98-107) 01/13/18 05:45 Carbon Dioxide 24 mmol/L (22-30) 01/13/18 05:45 Anion Gap 15 (10-20) 01/13/18 05:45 BUN 19 mg/dL (9-20) 01/13/18 05:45 Creatinine 0.7 mg/dL (0.8-1.5) L 01/13/18 05:45 Est GFR ( Amer) > 60 01/13/18 05:45 Est GFR (Non-Af Amer) > 60 01/13/18 05:45 POC Glucose (mg/dL) 137 mg/dL (65-110) H 01/13/18 07:35 Random Glucose 188 mg/dL (75-110) H 01/13/18 05:45 Hemoglobin A1c 11.4 % (4.2-6.5) H 01/13/18 05:45 Calcium 8.8 mg/dl (8.6-10.4) 01/13/18 05:45 Total Bilirubin 0.4 mg/dL (0.2-1.3) 01/13/18 05:45 AST 17 U/L (17-59) D 01/13/18 05:45 ALT 19 U/L (21-72) L 01/13/18 05:45 Alkaline Phosphatase 86 U/L (38-126) 01/13/18 05:45 Total Protein 6.6 g/dL (6.3-8.3) 01/13/18 05:45 Albumin 3.4 g/dL (3.5-5.0) L 01/13/18 05:45 Globulin 3.2 gm/dL (2.2-3.9) 01/13/18 05:45 Albumin/Globulin Ratio 1.1 (1.0-2.1) 01/13/18 05:45 - Hospital Course Hospital Course: Upon Admission Patient is a 42 year old male, well known to podiatry, [facility] DM with neuropathy, HTN, arthritis, bipolar, anxiety/depression, schizophrenia complains today of worsening bilateral foot ulcers with ascending swelling of his left lower extremity. He was discharged from [place] with PO antibiotics on 01/09 but did not fill the prescription. He noticed his foot starting to swell the day after discharge, but since it did not hurt, he did not come to the hospital. Over the next 4 days, the swelling ascended his leg until its current state ending mid calf, having him complain of 10/10 pain. Denies fever, chills, chest pain, shortness of breath, nausea, vomiting, constipation, diarrhea. Patient was poorly cooperative with interview as he wanted to be left alone to sleep. Hospital Course Patient is a 42 yo male admitted for leg swelling 2/ to osteomyelitis. Patient was evaluated by podiatry who redressed bilateral feet. Patient was agitated during medical interview in AM today threatening to leave AMA because he did not receive food. Patient was upset with ER nurses stating that he was not getting communication about when he would see doctor. Patient signed document to leave AMA saying he "hopes his leg gets amputated". Discharge Plan Patient left AMA Discharge Exam - Head Exam Head Exam: ATRAUMATIC, NORMOCEPHALIC - Additional Findings Additional findings: - Constitutional Appears: Non-toxic, No Acute Distress - Head Exam Head Exam: ATRAUMATIC, NORMOCEPHALIC - ENT Exam ENT Exam: Mucous Membranes Moist - Respiratory Exam Respiratory Exam: Clear to Auscultation Bilateral, NORMAL BREATHING PATTERN. absent: Rales, Rhonchi, Wheezes - Cardiovascular Exam Cardiovascular Exam: REGULAR RHYTHM, +S1, +S2 - GI/Abdominal Exam GI & Abdominal Exam: Normal Bowel Sounds, Soft. absent: Tenderness - Extremities Exam Extremities exam: Positive for: calf tenderness, normal capillary refill, pedal edema, tenderness, pedal pulses present Additional comments: bilateral feet wrapped by podiatry, unable to visualize. dressing c/i. Seeping Sulvadine in left ball of foot obvious erythema and edema in bilateral foot and ankle ascending erythema and edema in L LE retirement up the calf. TTP along calf, no ten derness when palpating anterior leg - Neurological Exam Neurological exam: Alert, Oriented x3 - Psychiatric Exam Psychiatric exam: Agitated - Skin Skin Exam: Normal Color, Warm Discharge Plan - Follow Up Plan Condition: STABLE Disposition: AGAINST MEDICAL ADVICE Additional Instructions: 1. Patient left AMA. 2. Benefits and risks were explained to patient if he stayed in the hospital or decided to leave against medical advice. 3. Patient verbally stated he understood the risks and benefits of the procedure. Nurse was available to witness documentation signature. <Terrence Young - Last Filed: 01/13/18 13:41> Provider - Provider Date of Admission: 01/13/18 03:58 Attending physician: Sabino Zayas MD Hospital Course - Lab Results Lab Results: Most Recent Lab Values WBC 9.4 K/uL (4.8-10.8) 01/13/18 05:45 RBC 4.10 Mil/uL (4.40-5.90) L 01/13/18 05:45 Hgb 11.8 g/dL (12.0-18.0) L 01/13/18 05:45 Hct 35.2 % (35.0-51.0) 01/13/18 05:45 MCV 85.9 fL (80.0-94.0) 01/13/18 05:45 MCH 28.7 pg (27.0-31.0) 01/13/18 05:45 MCHC 33.4 g/dL (33.0-37.0) 01/13/18 05:45 RDW 13.2 % (11.5-14.5) 01/13/18 05:45 Plt Count 423 K/uL (130-400) H 01/13/18 05:45 MPV 7.2 fL (7.2-11.7) 01/13/18 05:45 Neut % (Auto) 53.0 % (50.0-75.0) 01/13/18 05:45 Lymph % (Auto) 35.4 % (20.0-40.0) 01/13/18 05:45 [place] % (Auto) 5.1 % (0.0-10.0) 01/13/18 05:45 Eos % (Auto) 5.8 % (0.0-4.0) H 01/13/18 05:45 Baso % (Auto) 0.7 % (0.0-2.0) 01/13/18 05:45 Neut # (Auto) 5.0 K/uL (1.8-7.0) 01/13/18 05:45 Lymph # (Auto) 3.3 K/uL (1.0-4.3) 01/13/18 05:45 [place] # (Auto) 0.5 K/uL (0.0-0.8) 01/13/18 05:45 Eos # (Auto) 0.5 K/uL (0.0-0.7) 01/13/18 05:45 Baso # (Auto) 0.1 K/uL (0.0-0.2) 01/13/18 05:45 Sodium 139 mmol/L (132-148) 01/13/18 05:45 Potassium 4.4 mmol/L (3.6-5.2) 01/13/18 05:45 Chloride 105 mmol/L (98-107) 01/13/18 05:45 Carbon Dioxide 24 mmol/L (22-30) 01/13/18 05:45 Anion Gap 15 (10-20) 01/13/18 05:45 BUN 19 mg/dL (9-20) 01/13/18 05:45 Creatinine 0.7 mg/dL (0.8-1.5) L 01/13/18 05:45 Est GFR ( Amer) > 60 01/13/18 05:45 Est GFR (Non-Af Amer) > 60 01/13/18 05:45 POC Glucose (mg/dL) 137 mg/dL (65-110) H 01/13/18 07:35 Random Glucose 188 mg/dL (75-110) H 01/13/18 05:45 Hemoglobin A1c 11.4 % (4.2-6.5) H 01/13/18 05:45 Calcium 8.8 mg/dl (8.6-10.4) 01/13/18 05:45 Total Bilirubin 0.4 mg/dL (0.2-1.3) 01/13/18 05:45 AST 17 U/L (17-59) D 01/13/18 05:45 ALT 19 U/L (21-72) L 01/13/18 05:45 Alkaline Phosphatase 86 U/L (38-126) 01/13/18 05:45 Total Protein 6.6 g/dL (6.3-8.3) 01/13/18 05:45 Albumin 3.4 g/dL (3.5-5.0) L 01/13/18 05:45 Globulin 3.2 gm/dL (2.2-3.9) 01/13/18 05:45 Albumin/Globulin Ratio 1.1 (1.0-2.1) 01/13/18 05:45 Attending/Attestation - Attestation I have personally seen and examined this patient.: Yes I have fully participated in the care of the patient.: Yes I have reviewed all pertinent clinical information, including history, physical exam and plan: Yes Notes (Text): 01/13/18 13:41 Medical Hospitalist: Patient has signed out AMA
--- NOTE | 2018-01-13 13:21 | RAD ---
Date of service: 01/13/2018 PROCEDURE: Bilateral ankles HISTORY: Pain and ulcers b/l feet COMPARISON: Correlation made with concurrent radiographs of both feet and both tibia/fibula. Comparison also made with prior radiographs of the right ankle dated 05/02/2017. TECHNIQUE: Three views of the right ankle performed FINDINGS: Right ankle no evidence of acute displaced fracture nor dislocation. The osseous structures appear intact.. No definitive cortical destructive changes to suggest osteomyelitis at this time.. There is a small posterior calcaneal enthesophyte. Left ankle: There is moderate diffuse soft tissue swelling of the distal left tibia/fibula and ankle extending into the forefoot region.. Findings could represent a cellulitis however no definitive cortical destructive changes are seen. No evidence of subcutaneous emphysema. Consider follow-up MRI or bone scan if further evaluation is required. Stable postoperative amputation changes of the distal 1/3 left 5th metatarsal again noted. IMPRESSION: Diffuse soft tissue swelling left ankle and left forefoot on possibly representing cellulitis. No subcutaneous emphysema. No definitive cortical destructive changes. Stable postoperative amputation changes distal 1/3 left 3rd metatarsal.. If further evaluation is required, consider follow-up MRI or bone scan. .
--- NOTE | 2018-01-13 14:35 | RAD ---
Date of service: 01/13/2018 PROCEDURE: Left Foot Radiographs. HISTORY: large ulcer lataral plantar surface COMPARISON: Comparison made with radiographs left foot 09/02/2016 FINDINGS: BONES: Redemonstrated are amputation changes of the distal 1/3 of the 5th metatarsal. Also again noted is an irregular cortical defect along the distal lateral and plantar surface of the residual 5th metatarsal (subjacent to the skin surface-subcutaneous ulcer) that was present on the prior study though is appears slightly more irregular on the current exam. Rule out early osteomyelitis. Follow-up MRI recommended.. There is diffuse soft tissue swelling of the foot and ankle. JOINTS: Normal. SOFT TISSUES: There appears to be a large skin surface and subcutaneous ulceration along the plantar surface at the level of the distal aspect of the anterior tailored left 5th metatarsal.. OTHER FINDINGS: None. IMPRESSION: Redemonstrated are amputation changes of the distal 1/3 of the 5th metatarsal. Also again noted is an irregular cortical defect along the distal lateral and plantar surface of the residual 5th metatarsal (subjacent to the skin surface-subcutaneous ulcer) that was present on the prior study though is appears slightly more irregular on the current exam. Rule out early osteomyelitis. Follow-up MRI recommended.. There is diffuse soft tissue swelling of the foot and ankle.
[2018-01-13] MEDS ORDERED: (Lantus) Insulin Glargine, Recombinant SC SCH (22:00)
== END 2018-01-13 09:58 | disposition left against medical advice (07) ==
LOC: C.ER 23:52 → UNDOADMOB 01-13 03:58 → C.9E 01-13 03:58 → UNDODISOB 01-13 09:58
DX: E11.621 Type 2 diabetes mellitus with foot ulcer (principal); L97.529 Non-pressure chronic ulcer of other part of left foot with unspecified severity; L97.519 Non-pressure chronic ulcer of other part of right foot with unspecified severity; E11.69 Type 2 diabetes mellitus with other specified complication; M86.8X7 Other osteomyelitis, ankle and foot; I10 Essential (primary) hypertension
CPT/HCPCS: 73590; 73610; 73630; 80053; 82948; 83036; 85025; 87070; 87181; 96365; 96367; 96372; 99285; J1644; J2543; J7030; J7050

== ENCOUNTER 2018-01-15 13:27 | Inpatient (IN) | payer MEDICAID ==
[2018-01-15 13:27] VITALS: BMI 31.1
[2018-01-15 17:20] LABS: BASO # 0.2 K/uL (0.0-0.2); BASO % 1.2 % (0.0-2.0); EOS # 0.7 K/uL (0.0-0.7); EOS % 5.3 % (0.0-4.0); HEMOGLOBIN 11.7 g/dL (12.0-18.0); LYMPH % 31.7 % (20.0-40.0); MEAN CORPUSCULAR HEMOGLOBIN 28.6 pg (27.0-31.0); MEAN CORPUSCULAR HGB CONC 33.3 g/dL (33.0-37.0); MEAN PLATELET VOLUME 6.8 fL (7.2-11.7); MONO # 0.6 K/uL (0.0-0.8); MONO % 5.1 % (0.0-10.0); NEUT # 7.1 K/uL (1.8-7.0); NEUT % 56.7 % (50.0-75.0); RBC 4.1 Mil/uL (4.40-5.90); RED CELL DISTRIBUTION WIDTH 12.8 % (11.5-14.5); WHITE BLOOD COUNT 12.6 K/uL (4.8-10.8)
[2018-01-15 18:01] LABS: ALB/GLOB RATIO 1.1 (1.0-2.1); ALBUMIN 3.6 g/dL (3.5-5.0); ALT/SGPT 20 U/L (21-72); AST/SGOT 16 U/L (17-59); BLOOD UREA NITROGEN 24 mg/dL (9-20); GFR NON-AFRICAN AMERICAN > 60
--- NOTE | 2018-01-15 18:41 | C.PDOC ---
History Of Present Illness 42 y/o male, w/PMhx of diabetes, presents to the ER for evaluation of chronic left foot ulcer. Patient states that he was admitted for osteomyelitis infection last week and he left the hospital AMA 2 days ago. Patient reports that he did not fill his prescription for Ciprofloxacin.He is requesting PICC line. Denies having fever and chills. Time Seen by Provider: 01/15/18 16:39 Chief Complaint (Nursing): Lower Extremity Problem/Injury History Per: Patient History/Exam Limitations: no limitations Onset/Duration Of Symptoms: Days Current Symptoms Are (Timing): Still Present Severity: Moderate Past Medical History Reviewed: Historical Data, Nursing Documentation, Vital Signs Vital Signs: Last Vital Signs Temp 99 F 01/15/18 18:06 Pulse 109 H 01/15/18 18:06 Resp 20 01/15/18 18:06 BP 102/65 01/15/18 18:06 Pulse Ox 95 01/15/18 18:06 - Medical History PMH: Anxiety, Arthritis (backs and LE), Asthma, Bipolar Disorder, Depression, Diabetes, HTN, Schizophrenia (schizoaffective disorder) Denies: Chronic Kidney Disease Other Surgeries: Hx of surgeries - [facility] Procedures EXCISION OF L FOOT SUBCU/FASCIA, OPEN APPROACH (11/10/17) Family History: States: No Known Family Hx - Social History Hx Tobacco Use: Yes Hx Alcohol Use: No (last darnk 2 years ago) Hx Substance Use: No (former) - Immunization History Hx Tetanus Toxoid Vaccination: Yes Hx Influenza Vaccination: Yes Hx Pneumococcal Vaccination: Yes Review Of Systems Except As Marked, All Systems Reviewed And Found Negative. Constitutional: Negative for: Fever, Chills Skin: Positive for: Other (left foot ulcer) Physical Exam - Physical Exam Appears: Non-toxic, No Acute Distress Skin: Normal Color, Warm, Dry, Other (chronic wound at plantar surface of left 5th metatarsal head with foul- smelling drainage) Head: Atraumatic, Normacephalic Eye(s): bilateral: Normal Inspection Nose: Normal Oral Mucosa: Moist Neck: Supple Chest: Symmetrical Cardiovascular: Rhythm Regular Respiratory: Normal Breath Sounds, No Rales, No Rhonchi, No Wheezing Extremity: Normal ROM, No Tenderness, Swelling (swelling to left foot) Neurological/Psych: Oriented x3, Normal Speech ED Course And Treatment - Laboratory Results Result Diagrams: 01/15/18 17:14 01/15/18 17:14 Lab Interpretation: Abnormal (WBC 12.6 with normal diff) O2 Sat by Pulse Oximetry: 95 (RA) Pulse Ox Interpretation: Normal - Physician Consult Information Time Consulting Physician Contacted: 18:00 Physician Contacted: Terrence Young Outcome Of Conversation: Patient to be admitted for IV antibiotics and consultation with ID and Podiatry. Medical Decision Making Medical Decision Making: Plan: --Labs Disposition - Disposition Disposition: HOSPITALIZED Disposition Time: 19:11 Condition: STABLE - POA Present On Arrival: None, Poor Glycemic Control - Clinical Impression Clinical Impression: Osteomyelitis, Diabetic foot ulcer - Scribe Statement The provider has reviewed the documentation as recorded by the Avelinaibe Rex Delatorre Provider Attestation: All medical record entries made by the Avelniaibe were at my direction and personally dictated by me. I have reviewed the chart and agree that the record accurately reflects my personal performance of the history, physical exam, medical decision making, and the department course for this patient. I have also personally directed, reviewed, and agree with the discharge instructions and disposition.
[2018-01-15 20:39] VITALS: O2SAT 96
[2018-01-15] MEDS ORDERED: Dextrose 50% SYRINGE Inj (50 ml) IV PRN (22:49)
[2018-01-15] MEDS ORDERED: Glucagon Recombinant 1 mg Inj IM PRN (22:49)
[2018-01-15] MEDS ORDERED: (Lantus) Insulin Glargine, Recombinant SC SCH (23:00)
[2018-01-15] MEDS ORDERED: Ciprofloxacin 400mg/200ml D5W 400 MG/200 ML BAG IVPB SCH (23:00)
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
[2018-01-16 01:54] VITALS: BP 129/76; PULSE 97; RESP 20; TEMP 98.2
[2018-01-16] MEDS ORDERED: (Novolog) Insulin Aspart, Recombinant 100 u/ml 10 ml vial SC SCH (07:30)
[2018-01-16] MEDS ORDERED: Saccharomyces Boulardi 250 mg Cap PO SCH (10:00)
[2018-01-16] MEDS ORDERED: Pantoprazole 40 mg EC Tab PO SCH (10:00)
[2018-01-16] MEDS ORDERED: Silver Sulfadiazine 1% Cream (20 gm) TOP SCH (10:00)
--- NOTE | 2018-01-16 11:25 | CP.PCM.PCO ---
Physician Communication Note - Physician Communication Note Physician Communication Note: Pt left AMA before seen.
== END 2018-01-16 08:10 | disposition left against medical advice (07) | DRG 294 ==
LOC: C.ER 13:27 → C.9E 18:09 → C.3T 20:07
PROVIDERS: ADMIT Internal Medicine; ATTEND Internal Medicine
DX: E11.69 Type 2 diabetes mellitus with other specified complication (principal); M86.9 Osteomyelitis, unspecified; E11.621 Type 2 diabetes mellitus with foot ulcer; L97.529 Non-pressure chronic ulcer of other part of left foot with unspecified severity; L97.519 Non-pressure chronic ulcer of other part of right foot with unspecified severity; F25.9 Schizoaffective disorder, unspecified; E11.40 Type 2 diabetes mellitus with diabetic neuropathy, unspecified; I10 Essential (primary) hypertension; J45.909 Unspecified asthma, uncomplicated; F31.9 Bipolar disorder, unspecified; M19.90 Unspecified osteoarthritis, unspecified site; F41.9 Anxiety disorder, unspecified; F17.210 Nicotine dependence, cigarettes, uncomplicated; Z89.422 Acquired absence of other left toe(s); Z91.19 Patient's noncompliance with other medical treatment and regimen; Z79.4 Long term (current) use of insulin

== ENCOUNTER 2018-01-29 01:36 | Inpatient (IN) | payer MEDICAID ==
[2018-01-29 01:50] VITALS: BMI 31.8
[2018-01-29] MEDS ORDERED: Sodium Chloride 0.9% 1,000 ML IV STA (02:11)
[2018-01-29] MEDS ORDERED: Vancomycin 1 GM 1 GM/250 ML BAG IV STA (02:14)
[2018-01-29] MEDS ORDERED: Piperacillin/Tazobact 3.375 gm 100 ML IV STA (02:14)
--- NOTE | 2018-01-29 02:20 | C.PDOC ---
History Of Present Illness 42 year old male with a Hx of diabetes presents to the ER with a complaint painful foul smelling diabetic foot ulcers, left more than right. Patient was recently admitted at [facility] on 01/25/18 but signed out AMA on 01/26/18. Patient presents today stating he cannot walk due to the pain and the smell is worsening. Patient has Hx of amputated digit of the left foot. Denies fever or chills. Time Seen by Provider: 01/29/18 01:57 Chief Complaint (Nursing): Lower Extremity Problem/Injury History Per: Patient History/Exam Limitations: no limitations Onset/Duration Of Symptoms: Days Current Symptoms Are (Timing): Still Present Recent travel outside of the [place]: No Past Medical History Reviewed: Historical Data, Nursing Documentation, Vital Signs Vital Signs: Last Vital Signs Temp 99.0 F 01/29/18 01:50 Pulse 105 H 01/29/18 01:50 Resp 19 01/29/18 01:50 BP 137/76 01/29/18 01:50 Pulse Ox 97 01/29/18 01:50 - Medical History PMH: Anxiety, Arthritis (backs and LE), Asthma, Bipolar Disorder, Depression, Diabetes, HTN, Schizophrenia (schizoaffective disorder) Denies: Chronic Kidney Disease - [facility] Procedures EXCISION OF L FOOT SUBCU/FASCIA, OPEN APPROACH (11/10/17) Family History: States: No Known Family Hx - Social History Hx Tobacco Use: Yes Hx Alcohol Use: No Hx Substance Use: No - Immunization History Hx Tetanus Toxoid Vaccination: Yes Hx Influenza Vaccination: Yes Hx Pneumococcal Vaccination: Yes Review Of Systems Constitutional: Negative for: Fever, Chills Cardiovascular: Negative for: Chest Pain, Palpitations Respiratory: Negative for: Cough, Shortness of Breath Gastrointestinal: Negative for: Nausea, Vomiting, Abdominal Pain Skin: Positive for: Other (Diabetic foot ulcers) Physical Exam - Physical Exam Appears: Non-toxic Skin: Warm, Dry Head: Atraumatic, Normacephalic Eye(s): bilateral: Normal Inspection Oral Mucosa: Moist Neck: Normal, Supple Chest: Symmetrical, No Tenderness Cardiovascular: Rhythm Regular Respiratory: Normal Breath Sounds, No Rales, No Rhonchi, No Wheezing Gastrointestinal/Abdominal: Soft, No Tenderness Extremity: Normal ROM (x4), Other (Deep foul smelling ulcers to plantar aspect of bilateral feet) Pulses: Left Dorsalis Pedis: Normal, Right Dorsalis Pedis: Normal Neurological/Psych: Oriented x3, Normal Speech ED Course And Treatment - Laboratory Results Result Diagrams: 01/29/18 02:31 01/29/18 02:31 O2 Sat by Pulse Oximetry: 97 (Room air) Pulse Ox Interpretation: Normal - Radiology CXR: Interpreted by Me, Viewed By Me CXR Interpretation: Yes: No Acute Disease. No: Infiltrates - Other Rad Bilateral foot x-ray X-Ray: Interpreted by Me, Viewed By Me Interpretation: No obvious osteomyelitis Progress Note: Blood work, urinalysis, CXR, and bilateral foot x-ray ordered. Zosyn, vanco, and IV fluids administered. Case discussed with Dr. Zayas who will accept patient for admission. Disposition - Disposition Disposition: HOSPITALIZED Disposition Time: 04:28 Condition: FAIR - Clinical Impression Clinical Impression: Diabetic foot ulcer - PA / VICE PRESIDENT MEDICAL AFFAIRS / Resident Statement MD/DO has reviewed & agrees with the documentation as recorded. - Scribe Statement The provider has reviewed the documentation as recorded by the Scribe Luis Huizar All medical record entries made by the Scribe were at my direction and personally dictated by me. I have reviewed the chart and agree that the record accurately reflects my personal performance of the history, physical exam, medical decision making, and the department course for this patient. I have also personally directed, reviewed, and agree with the discharge instructions and disposition. Decision To Admit - Pt Status Changed To: Hospital Disposition Of: Inpatient - Admit Certification Admit to Inpatient:: After my assessment, the patient will require hospitalization for at least two midnights. This is because of the severity of symptoms shown, intensity of services needed, and/or the medical risk in this patient being treated as an outpatient. - InPatient: Physician Admission Certification: I certify that this patient requires 2 or more midnights of care for the following reason:: needs IV antibiotics for more than 2 days - . Bed Request Type: Regular Admitting Physician: Sabino Zayas Patient Diagnosis: Diabetic foot ulcer
[2018-01-29 02:38] LABS: BASO # 0.1 K/uL (0.0-0.2); BASO % 0.9 % (0.0-2.0); EOS # 0.5 K/uL (0.0-0.7); EOS % 3.6 % (0.0-4.0); LYMPH # 3.1 K/uL (1.0-4.3); LYMPH % 22.6 % (20.0-40.0); MEAN CELL VOLUME 85.1 fL (80.0-94.0); MEAN CORPUSCULAR HGB CONC 32.9 g/dL (33.0-37.0); MONO # 0.8 K/uL (0.0-0.8); MONO % 5.8 % (0.0-10.0); NEUT # 9.1 K/uL (1.8-7.0); NEUT % 67.1 % (50.0-75.0); RBC 3.93 Mil/uL (4.40-5.90); WHITE BLOOD COUNT 13.5 K/uL (4.8-10.8)
[2018-01-29] MEDS ORDERED: Sodium Chloride 0.9% 1,000 ML ONE (02:50)
[2018-01-29] MEDS ORDERED: Piperacillin/Tazobact 3.375 gm 100 ML IVPB ONE (02:51)
[2018-01-29 03:17] LABS: ALB/GLOB RATIO 1.2 (1.0-2.1); ALBUMIN 3.8 g/dL (3.5-5.0); ALT/SGPT 18 U/L (21-72); AST/SGOT 13 U/L (17-59); BLOOD UREA NITROGEN 29 mg/dL (9-20); CALCIUM 8.9 mg/dl (8.6-10.4); GFR NON-AFRICAN AMERICAN > 60
[2018-01-29] MEDS ORDERED: Vancomycin 1 GM 1 GM/250 ML BAG IVPB ONE (03:27)
[2018-01-29 05:46] VITALS: RESP 20
--- NOTE | 2018-01-29 05:56 | CP.PCM.HP ---
<Carlos Sepulveda - Last Filed: 01/29/18 05:13> History of Present Illness - History of Present Illness History of Present Illness: H&P note for Dr Zayas service cc: diabetic foot ulcer HPI: Patient is a 42 year old male with pmhx of uncontrolled DM with neuropathy s/p 5th toe amputation, HTN, arthritis, bipolar, anxiety/depression, schizophrenia that presents to ED complaining of ulcers in both of his feet. Patient was encountered sleeping and initially kept falling back asleep. Patient states the ulcers started abot 6 monhts ago and had been worsening since a week ago. Patient mentiones he has been seen in at [facility] and [facility] in the past for the same presentation, and has walked out AMA during these occasions. Patient states he 10/10 shooting pain in both of his foot that radiates to his legs. Patient denies any trauma to his foot or pus coming out from ulcers. Patient admits to blood in his feet. Patient curses throughout the encounter and states that he wants to be left alone to sleep and does not believe that doctors can't help him. Patient denies fevers, chills, chest pain, shortness of breath, n/v/d/c. PMD: Elizabeth All: NSAIDS, swelling Pmhx: as stated in HPI Shx: 5th toe amputation Fmhx: denies sochx: smokes 15 cigarettes x 6 months, previously smoked 1 pack for 15 years. denies alcohol or illicit drug use. 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 Lives in custodial Meds: Insulin, Metformin and Glipizide (non compliant) Present on Admission - Present on Admission Any Indicators Present on Admission: No Review of Systems - Review of Systems All systems: reviewed and no additional remarkable complaints except Review of Systems: as mentioned in HPI Past Patient History - Infectious Disease Hx of Infectious Diseases: None - Past Medical History & Family History Past Medical History?: Yes - Past Social History Smoking Status: Heavy Smoker > 10 Cigarettes Daily - CARDIAC Hx Hypertension: Yes - PULMONARY Hx Asthma: Yes - NEUROLOGICAL Hx Neurological Disorder: No - HEENT Hx HEENT Problems: No - RENAL Hx Chronic Kidney Disease: No - ENDOCRINE/METABOLIC Hx Endocrine Disorders: Yes Hx Diabetes Mellitus Type 2: Yes - HEMATOLOGICAL/ONCOLOGICAL Hx Blood Disorders: No - INTEGUMENTARY Hx Dermatological Problems: No - MUSCULOSKELETAL/RHEUMATOLOGICAL Hx Arthritis: Yes (backs and LE) - GASTROINTESTINAL Hx Gastrointestinal Disorders: No - GENITOURINARY/GYNECOLOGICAL Hx Genitourinary Disorders: No - PSYCHIATRIC Hx Anxiety: Yes Hx Bipolar Disorder: Yes Hx Depression: Yes Hx Schizophrenia: Yes (schizoaffective disorder) Hx Substance Use: No - SURGICAL HISTORY Hx Surgeries: Yes Other/Comment: right ear surgery. left FOOT TOE / 5TH DIGITsurgery - ANESTHESIA Hx Anesthesia: Yes Hx Anesthesia Reactions: No Hx Malignant Hyperthermia: No Meds Allergies/Adverse Reactions: Allergies Allergy/AdvReac Type Severity Reaction Status Date / Time NSAIDS (Non-Steroidal Allergy RASH Verified 01/29/18 01:48 Anti-Inflamma Physical Exam - Constitutional Appears: Non-toxic, No Acute Distress - Head Exam Head Exam: ATRAUMATIC, NORMAL INSPECTION, NORMOCEPHALIC - Eye Exam Eye Exam: EOMI, Normal appearance - Neck Exam Neck exam: Positive for: Normal Inspection - Respiratory Exam Respiratory Exam: Clear to Auscultation Bilateral, NORMAL BREATHING PATTERN. absent: Rales, Rhonchi, Wheezes - Cardiovascular Exam Cardiovascular Exam: REGULAR RHYTHM, +S1, +S2 - GI/Abdominal Exam GI & Abdominal Exam: Normal Bowel Sounds, Soft - Extremities Exam Extremities exam: Positive for: full ROM, pedal edema, pedal pulses present. Negative for: calf tenderness, tenderness Additional comments: Right and left foot wrapped in dressing , c/d/i. Patient uncooperative with foot exam erythema noted on bilateral foot, edema noted on bilateral foot and leg no tenderness to palpation, warm to touch Patient did not wanted to be pressed down on his legs or foot no erythema or edema on right and left thigh areas - Back Exam Back exam: FULL ROM, NORMAL INSPECTION - Neurological Exam Neurological exam: Alert, CN II-XII Intact, Oriented x3 - Psychiatric Exam Psychiatric exam: Agitated - Skin Skin Exam: Dry, Warm Results - Vital Signs Recent Vital Signs: Last Vital Signs Temp 98.9 F 01/29/18 04:59 Pulse 99 H 01/29/18 04:59 Resp 18 01/29/18 04:59 BP 135/78 01/29/18 04:59 Pulse Ox 97 01/29/18 05:10 - Labs Result Diagrams: 01/29/18 02:31 01/29/18 02:31 Labs: Laboratory Results - last 24 hr 01/29/18 01/29/18 02:31 02:31 WBC 13.5 H RBC 3.93 L Hgb 11.0 L Hct 33.4 L MCV 85.1 MCH 28.0 MCHC 32.9 L RDW 13.0 Plt Count 460 H MPV 7.0 L Neut % (Auto) 67.1 Lymph % (Auto) 22.6 [place] % (Auto) 5.8 Eos % (Auto) 3.6 Baso % (Auto) 0.9 Neut # (Auto) 9.1 H Lymph # (Auto) 3.1 [place] # (Auto) 0.8 Eos # (Auto) 0.5 Baso # (Auto) 0.1 Sodium 139 Potassium 4.4 Chloride 101 Carbon Dioxide 31 H Anion Gap 12 BUN 29 H Creatinine 1.0 Est GFR ( Amer) > 60 Est GFR (Non-Af Amer) > 60 Random Glucose 242 H Calcium 8.9 Magnesium 1.8 Total Bilirubin 0.3 AST 13 L D ALT 18 L Alkaline Phosphatase 110 Total Protein 6.9 Albumin 3.8 Globulin 3.1 Albumin/Globulin Ratio 1.2 Assessment & Plan - Assessment and Plan (Free Text) Plan: Diabetic foot ulcer bilaterally, r/o infection - Zosyn and Vanco in ED x 1 dose - Blood Cx, Wound Cx Rt and LF - Foot Xray 3 view - f/u official read - Podiatry consult - help is appreciated - Vanco 1gm IVP QD - Zosyn 3.375 IVPB Q6hrs Hx of uncontrolled DM - Accuchecks - Insulin sliding scale low dose - hypoglycemia protocol Hx of HTN - Continue to monitor Hx of schizophrenia, bipolar disorder - consider psych consult Prophylaxis - DVT: heparin 5000 SC Q12hrs - GI prophylaxis : protonix Qdaily - HHD diet 2gm Na Plan discussed with Dr Chana Sepulveda, DO PGY-1 - Date & Time Date: 01/29/18 Time: 04:30 <Sabino Zayas - Last Filed: 01/29/18 06:41> Results - Vital Signs Recent Vital Signs: Last Vital Signs Temp 98.2 F 01/29/18 05:25 Pulse 98 H 01/29/18 05:25 Resp 20 01/29/18 05:25 BP 122/71 01/29/18 05:25 Pulse Ox 96 01/29/18 05:25 - Labs Result Diagrams: 01/29/18 02:31 01/29/18 02:31 Labs: Laboratory Results - last 24 hr 01/29/18 01/29/18 02:31 02:31 WBC 13.5 H RBC 3.93 L Hgb 11.0 L Hct 33.4 L MCV 85.1 MCH 28.0 MCHC 32.9 L RDW 13.0 Plt Count 460 H MPV 7.0 L Neut % (Auto) 67.1 Lymph % (Auto) 22.6 [place] % (Auto) 5.8 Eos % (Auto) 3.6 Baso % (Auto) 0.9 Neut # (Auto) 9.1 H Lymph # (Auto) 3.1 [place] # (Auto) 0.8 Eos # (Auto) 0.5 Baso # (Auto) 0.1 Sodium 139 Potassium 4.4 Chloride 101 Carbon Dioxide 31 H Anion Gap 12 BUN 29 H Creatinine 1.0 Est GFR ( Amer) > 60 Est GFR (Non-Af Amer) > 60 Random Glucose 242 H Calcium 8.9 Magnesium 1.8 Total Bilirubin 0.3 AST 13 L D ALT 18 L Alkaline Phosphatase 110 Total Protein 6.9 Albumin 3.8 Globulin 3.1 Albumin/Globulin Ratio 1.2 Assessment & Plan - Date & Time Date: 01/29/18 (I have seen and examined the patient. I agree with the findings and plan of care as documented by Dr. Sepulveda. Patient with diabetic foot ulcer bilaterally. Uncontrolled diabetes. Hyperglycemia. Consult to podiatry. Vanco and Zojuann for now. NISS and accuchecks. Consult psych for history of schizophrenia. Monitor for acute changes.) Time: 06:39 Attending/Attestation - Attestation I have personally seen and examined this patient.: Yes I have fully participated in the care of the patient.: Yes I have reviewed all pertinent clinical information: Yes
[2018-01-29] MEDS ORDERED: Glucagon Recombinant 1 mg Inj IM PRN (06:35)
[2018-01-29] MEDS ORDERED: Dextrose 50% SYRINGE Inj (50 ml) IV PRN (06:35)
--- NOTE | 2018-01-29 07:50 | RAD ---
Chest x-ray single frontal view HISTORY: Diabetic foot ulcers. COMPARISON: 08/21/2016 Findings: Mild venous congestion. Upper lobe granulomatous changes. Heart size within normal limits. Degenerative changes in the spine. Impression: Mild venous congestion.
[2018-01-29] MEDS: (Novolin R) Insulin Human Regular 100 units/ml vial SC SCH ×4 (08:30→21:00)
--- NOTE | 2018-01-29 09:12 | CP.PCM.PN ---
<Steev Erickson - Last Filed: 01/29/18 16:28> Subjective - Date & Time of Evaluation Date of Evaluation: 01/29/18 Time of Evaluation: 09:12 - Subjective Subjective: PGY1 medicine progress note for Dr. Young Pt was seen and examined at bedside. Pt is resting comfortably, but complains of pain to the bilateral legs. He is refusing pain medications. During the examination, while being asked routine medical questions, pt proceeded to call the medical team "damian." He reports that he wants to go home because nothing is being done at this hospital. Pt reports he has no other complaints at this time. He denies fever, chills, chest pain, sob, abdominal pain, n/v/d, hematochezia, melena. Objective - Vital Signs/Intake and Output Vital Signs (last 24 hours): Temp Pulse Resp BP Pulse Ox 97.4 F L 98 H 20 121/69 97 01/29/18 09:03 01/29/18 09:03 01/29/18 09:03 01/29/18 09:03 01/29/18 09:03 - Medications Medications: Current Medications Dextrose (Dextrose 50% Inj) 0 ml IV STAT PRN; Protocol PRN Reason: Hypoglycemia Protocol Dextrose (Glutose 15) 0 gm PO ONCE PRN; Protocol PRN Reason: Hypoglycemia Protocol Glucagon (Glucagen Diagnostic Kit) 0 mg IM STAT PRN; Protocol PRN Reason: Hypoglycemia Protocol Heparin Sodium (Porcine) (Heparin) 5,000 units SC Q12 [place] Dextrose (Dextrose 5% In Water 1000 Ml) 1,000 mls @ 0 mls/hr IV .Q0M PRN; Protocol PRN Reason: Hypoglycemia Protocol Insulin Human Regular (Novolin R) 0 unit SC ACHS [place]; Protocol Last Admin: 01/29/18 08:30 Dose: 2 units Pantoprazole Sodium (Protonix Inj) 40 mg IVP DAILY [place] - Labs Labs: 01/29/18 02:31 01/29/18 02:31 - Additional Findings Additional findings: - Constitutional Appears: Non-toxic, No Acute Distress - Head Exam Head Exam: ATRAUMATIC, NORMAL INSPECTION, NORMOCEPHALIC - Eye Exam Eye Exam: EOMI, Normal appearance - Neck Exam Neck exam: Positive for: Normal Inspection - Respiratory Exam Respiratory Exam: Clear to Auscultation Bilateral, NORMAL BREATHING PATTERN. absent: Rales, Rhonchi, Wheezes - Cardiovascular Exam Cardiovascular Exam: REGULAR RHYTHM, +S1, +S2 - GI/Abdominal Exam GI & Abdominal Exam: Normal Bowel Sounds, Soft - Extremities Exam Extremities exam: Positive for: full ROM, pedal pulses present. (+) pedal edema right greater than left Negative for: calf tenderness, tenderness Additional comments: Capillary refill less than 2 seconds bilaterally, neurovascularly intact Right and left foot wrapped in dressing , c/d/i. No tenderness to palpation, warm to touch No erythema or edema on right and left thigh areas - Back Exam Back exam: FULL ROM, NORMAL INSPECTION - Neurological Exam Neurological exam: Alert, Oriented x3 - Psychiatric Exam Psychiatric exam: Agitated, normal affect, normal mood - Skin Skin Exam: Dry, Warm Assessment and Plan - Assessment and Plan (Free Text) Assessment: This is a 42 year old male with bilateral diabetic foot ulcers. Plan: Diabetic foot ulcer bilaterally, r/o infection - He was given Zosyn and Vanco in ED x 1 dose each - Blood Cx, Wound Cx Rt and LF - Foot Xray 3 view shows amputation left distal 5th metatarsal. Apparent lateral and plantar surface ulceration at the level of the stump partially amputated left 5th metatarsal. No definitive cortical destruction seen at this time. Sift tissue swelling right great toe and plantar surface right foot. Bilateral hallux valgus deformities right greater than left. - Podiatry, Dr. Jones, consulted. Recommendations appreciated. - Vanco 1gm IVP daily - Zosyn 3.375 IVPB Q6hrs Hx of uncontrolled DM - Accuchecks - Insulin sliding scale low dose - hypoglycemia protocol Hx of HTN - Continue to monitor Hx of schizophrenia, bipolar disorder, ?personality disorder - Pt is not on any medications - Psychiatry, Dr. Griffin, consulted. Recommendations appreciated. Prophylaxis - DVT: heparin 5000 SC Q12hrs - GI prophylaxis : protonix Qdaily - HHD diet 2gm Na, CCD Dispo. Pt is pending podiatry consult for diabetic foot ulcer management. Continue IV antibiotics. Case discussed with attending physician, Dr. Young. Steve Erickson PGY-1 <Terrence Young - Last Filed: 01/29/18 16:48> Objective - Vital Signs/Intake and Output Vital Signs (last 24 hours): Temp Pulse Resp BP Pulse Ox 97.4 F L 98 H 20 121/69 97 01/29/18 09:03 01/29/18 09:03 01/29/18 09:03 01/29/18 09:03 01/29/18 09:03 - Medications Medications: Current Medications Dextrose (Dextrose 50% Inj) 0 ml IV STAT PRN; Protocol PRN Reason: Hypoglycemia Protocol Dextrose (Glutose 15) 0 gm PO ONCE PRN; Protocol PRN Reason: Hypoglycemia Protocol Glucagon (Glucagen Diagnostic Kit) 0 mg IM STAT PRN; Protocol PRN Reason: Hypoglycemia Protocol Heparin Sodium (Porcine) (Heparin) 5,000 units SC Q12 [place] Last Admin: 01/29/18 10:46 Dose: 5,000 units Dextrose (Dextrose 5% In Water 1000 Ml) 1,000 mls @ 0 mls/hr IV .Q0M PRN; Pr otocol PRN Reason: Hypoglycemia Protocol Piperacillin Sod/Tazobactam (Sod 3.375 gm/ Sodium Chloride) 100 mls @ 200 mls/hr IVPB Q6H [place]; Protocol Last Admin: 01/29/18 13:15 Dose: 200 mls/hr Vancomycin/Sodium Chloride (Vancomycin 1 Gm/Ns 200 Ml) 1 gm in 200 mls @ 133.333 mls/hr IVPB Q24H [place]; Protocol Insulin Human Regular (Novolin R) 0 unit SC ACHS [place]; Protocol Last Admin: 01/29/18 12:35 Dose: 2 units Morphine Sulfate (Morphine) 0.5 mg IVP Q4 PRN PRN Reason: Pain, moderate (4-7) Last Admin: 01/29/18 16:24 Dose: 0.5 mg Pantoprazole Sodium (Protonix Inj) 40 mg IVP DAILY [place] Last Admin: 01/29/18 10:45 Dose: 40 mg Trazodone HCl (Desyrel) 50 mg PO HS PRN PRN Reason: Insomnia - Labs Labs: 01/29/18 02:31 01/29/18 02:31 Attending/Attestation - Attestation I have personally seen and examined this patient.: Yes I have fully participated in the care of the patient.: Yes I have reviewed all pertinent clinical information, including history, physical exam and plan: Yes Notes (Text): Medical attending: Patient was seen and examined by me with the medical residents Patient was very belligerent this morning. I was informed by other staff that the patient has an angry personality and so I was expecting this. He was not happy with me despite never having spoke to him in person before, he said he was thinking about going AMA because service was not fast enough for him and that he thought he was wasting his time here. He has just left AMA from [place] a few days ago and is now here. Records show he had left AMA from [facility] recently as well. I realize he's said a lot of bad things to the staff, RNs, and people trying to help him. But I also suspect he has some underlying psychiatric situation and could benefit from psychiatry evaluation. When I asked the patient why he kept leaving AMA he said it was because people are treating him poorly - however it seems he does not realize that his language and beahvior is making it really hard for people to provide care for him. There was some concern for narcotic drug seeking behavior however this morning when we saw him - while he did use rude and abrasive language - he did not ask for pain medication. Because of the length of the wounds, he will need podiatry evaluation, IV abx and it appears MRI to assess for potential osteomylitis. Terrence Young
--- NOTE | 2018-01-29 09:59 | RAD ---
Date of service: 01/29/2018 PROCEDURE: Bilateral Feet Radiographs. HISTORY: Bilateral diabetic foot ulcers. COMPARISON: Correlation made with prior radiographs of the left foot 01/13/2018 and right foot dated 09/09/2017.. FINDINGS: BONES: Left foot: Again noted is amputation changes at the level of the distal 1/3 left 5th metatarsal. The the there appears to be a skin ulceration along the lateral and plantar surface the level of the distal stump of the 5th metatarsal. Mild diffuse soft tissue swelling however no gross dissecting subcutaneous emphysema seen at this time. No definitive evidence of bony destructive changes however the possibility of an early osteomyelitis not completely exclude... There are also extension deformities at the level of the 1st MTP joints. Tiny posterior calcaneal enthesophyte. Minor hallux valgus deformity. Right foot: Hallux valgus deformity no evidence of acute no evidence of acute displaced fracture nor dislocation. The osseous structures intact. No definitive cortical destructive changes. Moderate hallux valgus deformity with DJD 1st MTP joint. Extension deformities at the 1st MTP joints. Suspect mild soft tissue swelling most notably affecting great toe and plantar surface. Tiny posterior calcaneal enthesophyte. IMPRESSION: Amputation left distal 5th metatarsal. Apparent lateral and plantar surface ulceration at the level of the stump partially amputated left 5th metatarsal. No definitive a cortical destruction seen at this time. Soft tissue swelling right great toe and plantar surface right foot. No definitive the cortical destruction. Follow-up MRI could be performed if osteomyelitis suspected clinically. Bilateral hallux valgus deformities right greater than left.
--- NOTE | 2018-01-29 12:43 | CP.PCM.CON ---
<CedrickLisettere - Last Filed: 01/29/18 14:04> History of Present Illness - History of Present Illness History of Present Illness: Podiatry - Dr. Jones 42 year old male patient PMHx uncontrolled DM, HTN seen in ED for bilateral foot ulcerations. Patient states yesterday his left foot became increasingly swollen along with associated pain, redness and foul odor, so presented to ED for further evaluation. Patient states he works at [employer] and is constantly on his feet for work. Of note, patient was recently admitted at [facility] for similar reason on 01/25/18 however left AMA; pt has extensive history of leaving AMA. Patient states he has had the wound on his left foot for approximately 6 months but has worsened over the past month. Patient reports mild pain to wound site. Patient also complains of a chronic wound on the bottom of his right foot he has had for over 1 year; denies any pain to wound site. Patient has not seen a software maintenance engineer for wound care and performs dressing changes himself. Admits to tingling and numbness in both feet which he attributes to neuropathy. Denies n/v/f /d/c/sob/mata/cp. Offers no other complaints. 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 with met head resection, ear surgeries All: NSAIDs SocHx: admits to 10-12 cigarettes/day, social EtOH use; denies illicit drug use Review of Systems - Review of Systems All systems: reviewed and no additional remarkable complaints except (as per HPI) Past Patient History - Infectious Disease Hx of Infectious Diseases: None - Past Medical History & Family History Past Medical History?: Yes - Past Social History Smoking Status: Heavy Smoker > 10 Cigarettes Daily - CARDIAC Hx Hypertension: Yes - PULMONARY Hx Asthma: Yes - NEUROLOGICAL Hx Neurological Disorder: No - HEENT Hx HEENT Problems: No - RENAL Hx Chronic Kidney Disease: No - ENDOCRINE/METABOLIC Hx Endocrine Disorders: Yes Hx Diabetes Mellitus Type 2: Yes - HEMATOLOGICAL/ONCOLOGICAL Hx Blood Disorders: No - INTEGUMENTARY Hx Dermatological Problems: No - MUSCULOSKELETAL/RHEUMATOLOGICAL Hx Arthritis: Yes (backs and LE) - GASTROINTESTINAL Hx Gastrointestinal Disorders: No - GENITOURINARY/GYNECOLOGICAL Hx Genitourinary Disorders: No - PSYCHIATRIC Hx Anxiety: Yes Hx Bipolar Disorder: Yes Hx Depression: Yes Hx Schizophrenia: Yes (schizoaffective disorder) Hx Substance Use: No - SURGICAL HISTORY Hx Surgeries: Yes Other/Comment: right ear surgery. left FOOT TOE / 5TH DIGITsurgery - ANESTHESIA Hx Anesthesia: Yes Hx Anesthesia Reactions: No Hx Malignant Hyperthermia: No Meds Allergies/Adverse Reactions: Allergies Allergy/AdvReac Type Severity Reaction Status Date / Time NSAIDS (Non-Steroidal Allergy RASH Verified 01/29/18 01:48 Anti-Inflamma - Medications Medications: Current Medications Dextrose (Dextrose 50% Inj) 0 ml IV STAT PRN; Protocol PRN Reason: Hypoglycemia Protocol Dextrose (Glutose 15) 0 gm PO ONCE PRN; Protocol PRN Reason: Hypoglycemia Protocol Glucagon (Glucagen Diagnostic Kit) 0 mg IM STAT PRN; Protocol PRN Reason: Hypoglycemia Protocol Heparin Sodium (Porcine) (Heparin) 5,000 units SC Q12 [facility] Last Admin: 01/29/18 10:46 Dose: 5,000 units Dextrose (Dextrose 5% In Water 1000 Ml) 1,000 mls @ 0 mls/hr IV .Q0M PRN; Protocol PRN Reason: Hypoglycemia Protocol Piperacillin Sod/Tazobactam (Sod 3.375 gm/ Sodium Chloride) 100 mls @ 200 mls/hr IVPB Q6H [facility]; Protocol Vancomycin/Sodium Chloride (Vancomycin 1 Gm/Ns 200 Ml) 1 gm in 200 mls @ 133.333 mls/hr IVPB Q24H [facility]; Protocol Insulin Human Regular (Novolin R) 0 unit SC ACHS [facility]; Protocol Last Admin: 01/29/18 08:30 Dose: 2 units Pantoprazole Sodium (Protonix Inj) 40 mg IVP DAILY [facility] Last Admin: 01/29/18 10:45 Dose: 40 mg Physical Exam - Constitutional Appears: Non-toxic, No Acute Distress - Extremities Exam Additional comments: Lower extremity focused exam: Mild serosanguinous strikethrough noted on R foot bandage. No strikethrough to L foot bandage. Vasc: DP/PT pulses palpable 2/4 B/L. Temperature gradient warm to cool. CFT < 3 sec to all digits x9. No pedal edema noted Derm: Left: Open ulceration sub met 5 approx 3.5cm x 3cm x 0.4cm with fibrogranular wound base, active serosanguinous drainage, positive malodor, and significantly macerated wound borders with thickened 1cm macerated tissue rim. No fluctuance or suspected abscess formation. Wound probes deep but not to bone. Right: open circular ulceration sub met 1 approx 1.5cm in diameter and 0.3cm in depth with fibrogranular wound base and macerated wound rim and borders. Mild serous drainage elicited upon pressure. Positive malodor noted. Wound probes deep but not to bone. No fluctuance or suspected abscess formation Neuro: protective sensation grossly diminished Ortho: Pes cavus deformity B/L, R>L with plantarflexed 1st metatarsal noted to R foot. 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 No tenderness to palpation of ulceration sites - Neurological Exam Neurological exam: Alert, Oriented x3 - Psychiatric Exam Psychiatric exam: Normal Affect, Normal Mood Results - Vital Signs Recent Vital Signs: Last Vital Signs Temp 97.4 F L 01/29/18 09:03 Pulse 98 H 01/29/18 09:03 Resp 20 01/29/18 09:03 BP 121/69 01/29/18 09:03 Pulse Ox 97 01/29/18 09:03 - Labs Result Diagrams: 01/29/18 02:31 01/29/18 02:31 Labs: Laboratory Results - last 24 hr 01/29/18 01/29/18 01/29/18 02:31 02:31 06:46 WBC 13.5 H RBC 3.93 L Hgb 11.0 L Hct 33.4 L MCV 85.1 MCH 28.0 MCHC 32.9 L RDW 13.0 Plt Count 460 H MPV 7.0 L Neut % (Auto) 67.1 Lymph % (Auto) 22.6 Stevens % (Auto) 5.8 Eos % (Auto) 3.6 Baso % (Auto) 0.9 Neut # (Auto) 9.1 H Lymph # (Auto) 3.1 Stevens # (Auto) 0.8 Eos # (Auto) 0.5 Baso # (Auto) 0.1 Sodium 139 Potassium 4.4 Chloride 101 Carbon Dioxide 31 H Anion Gap 12 BUN 29 H Creatinine 1.0 Est GFR ( Amer) > 60 Est GFR (Non-Af Amer) > 60 POC Glucose (mg/dL) 213 H Random Glucose 242 H Calcium 8.9 Magnesium 1.8 Total Bilirubin 0.3 AST 13 L D ALT 18 L Alkaline Phosphatase 110 Total Protein 6.9 Albumin 3.8 Globulin 3.1 Albumin/Globulin Ratio 1.2 01/29/18 12:26 WBC RBC Hgb Hct MCV MCH MCHC RDW Plt Count MPV Neut % (Auto) Lymph % (Auto) Stevens % (Auto) Eos % (Auto) Baso % (Auto) Neut # (Auto) Lymph # (Auto) Stevens # (Auto) Eos # (Auto) Baso # (Auto) Sodium Potassium Chloride Carbon Dioxide Anion Gap BUN Creatinine Est GFR ( Amer) Est GFR (Non-Af Amer) POC Glucose (mg/dL) 235 H Random Glucose Calcium Magnesium Total Bilirubin AST ALT Alkaline Phosphatase Total Protein Albumin Globulin Albumin/Globulin Ratio Assessment & Plan - Assessment and Plan (Free Text) Assessment: 42 y/o male with bilateral diabetic foot ulcers Plan: Patient seen and evaluated Discussed with attending, Dr. Karen ANGLIN, WBC 13.5 L foot XR (01/29): Partial 5th ray amp, plantarlateral ulceration w/no defini tive cortical destruction R foot XR (01/29): ST swelling hallux MRI b/l ordered Wound cultures pending Continue IV Vanco/Zosyn Local wound care: betadine, DSD Podiatry will continue to follow <Keenan Jones - Last Filed: 01/29/18 18:58> Meds - Medications Medications: Current Medications Dextrose (Dextrose 50% Inj) 0 ml IV STAT PRN; Protocol PRN Reason: Hypoglycemia Protocol Dextrose (Glutose 15) 0 gm PO ONCE PRN; Protocol PRN Reason: Hypoglycemia Protocol Glucagon (Glucagen Diagnostic Kit) 0 mg IM STAT PRN; Protocol PRN Reason: Hypoglycemia Protocol Heparin Sodium (Porcine) (Heparin) 5,000 units SC Q12 [facility] Last Admin: 01/29/18 10:46 Dose: 5,000 units Dextrose (Dextrose 5% In Water 1000 Ml) 1,000 mls @ 0 mls/hr IV .Q0M PRN; Protocol PRN Reason: Hypoglycemia Protocol Piperacillin Sod/Tazobactam (Sod 3.375 gm/ Sodium Chloride) 100 mls @ 200 mls/hr IVPB Q6H [facility]; Protocol Last Admin: 01/29/18 13:15 Dose: 200 mls/hr Vancomycin/Sodium Chloride (Vancomycin 1 Gm/Ns 200 Ml) 1 gm in 200 mls @ 133.333 mls/hr IVPB Q24H [facility]; Protocol Insulin Human Regular (Novolin R) 0 unit SC ACHS [facility]; Protocol Last Admin: 01/29/18 18:16 Dose: 2 units Morphine Sulfate (Morphine) 0.5 mg IVP Q4 PRN PRN Reason: Pain, moderate (4-7) Last Admin: 01/29/18 16:24 Dose: 0.5 mg Pantoprazole Sodium (Protonix Inj) 40 mg IVP DAILY [facility] Last Admin: 01/29/18 10:45 Dose: 40 mg Trazodone HCl (Desyrel) 50 mg PO HS PRN PRN Reason: Insomnia Results - Vital Signs Recent Vital Signs: Last Vital Signs Temp 97.8 F 01/29/18 15:51 Pulse 79 01/29/18 15:51 Resp 20 01/29/18 15:51 BP 113/69 01/29/18 15:51 Pulse Ox 96 01/29/18 15:51 - Labs Result Diagrams: 01/29/18 02:31 01/29/18 02:31 Labs: Laboratory Results - last 24 hr 01/29/18 01/29/18 01/29/18 02:31 02:31 06:46 WBC 13.5 H RBC 3.93 L Hgb 11.0 L Hct 33.4 L MCV 85.1 MCH 28.0 MCHC 32.9 L RDW 13.0 Plt Count 460 H MPV 7.0 L Neut % (Auto) 67.1 Lymph % (Auto) 22.6 Stevens % (Auto) 5.8 Eos % (Auto) 3.6 Baso % (Auto) 0.9 Neut # (Auto) 9.1 H Lymph # (Auto) 3.1 Stevens # (Auto) 0.8 Eos # (Auto) 0.5 Baso # (Auto) 0.1 Sodium 139 Potassium 4.4 Chloride 101 Carbon Dioxide 31 H Anion Gap 12 BUN 29 H Creatinine 1.0 Est GFR ( Amer) > 60 Est GFR (Non-Af Amer) > 60 POC Glucose (mg/dL) 213 H Random Glucose 242 H Calcium 8.9 Magnesium 1.8 Total Bilirubin 0.3 AST 13 L D ALT 18 L Alkaline Phosphatase 110 Total Protein 6.9 Albumin 3.8 Globulin 3.1 Albumin/Globulin Ratio 1.2 01/29/18 01/29/18 12:26 16:30 WBC RBC Hgb Hct MCV MCH MCHC RDW Plt Count MPV Neut % (Auto) Lymph % (Auto) Stevens % (Auto) Eos % (Auto) Baso % (Auto) Neut # (Auto) Lymph # (Auto) Stevens # (Auto) Eos # (Auto) Baso # (Auto) Sodium Potassium Chloride Carbon Dioxide Anion Gap BUN Creatinine Est GFR ( Amer) Est GFR (Non-Af Amer) POC Glucose (mg/dL) 235 H 214 H Random Glucose Calcium Magnesium Total Bilirubin AST ALT Alkaline Phosphatase Total Protein Albumin Globulin Albumin/Globulin Ratio Assessment & Plan - Assessment and Plan (Free Text) Plan: agree with above findings / MrI ordered B/L . /Dr Maier
[2018-01-29] MEDS: Piperacillin/Tazobact 3.375 GM in Sodium Chloride 100 ML IVPB SCH ×2 (13:15→20:44)
--- NOTE | 2018-01-29 14:15 | PCM.PSYCH ---
Initial Psychiatric Evaluation - Initial Psychiatric Evaluation Type of Admission: Voluntary Legal Status: Capacity Chief Complaint (in patient's own words): "I'm fine" History of Present Illness and Precipitating Events: Patient seen, chart reviewed, case discussed Consult was asked bc of his psych history. 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 The patient states that he was diagnosed with Bipolar Disorder, with his last manic episode occurring 5-6 years ago. The patient states that he took himself off his psychiatric medications soon after because he felt like the medications made him "a zombie" and made him feel worse, and states that he has not had an episode since. The patient states that his sleep has been on and off, and denies any depression, hallucinations, suicidal or homicidal ideations or paranoia. The patient denies any substance or alcohol abuse, stating that he has been clean off heroin and cocaine for 20 years. The patient is currently mandated by his flight communications officer to attend a substance abuse program for 16 weeks due to a false positive urine drug screen for methamphetamines. Past Psych History: Bipolar disorder Past Medical History: Uncontrolled DM, HTN, arthritis Family Psych History: denies Current Medications: Active Medications Generic Name Dose Route Start Last Admin Trade Name Freq PRN Reason Stop Dose Admin Dextrose 0 ml 01/29/18 06:35 Dextrose 50% Inj IV STAT PRN Hypoglycemia Protocol Protocol Dextrose 0 gm 01/29/18 06:35 Glutose 15 PO ONCE PRN Hypoglycemia Protocol Protocol Glucagon 0 mg 01/29/18 06:35 Glucagen Diagnostic Kit IM STAT PRN Hypoglycemia Protocol Protocol Heparin Sodium (Porcine) 5,000 units 01/29/18 10:00 01/29/18 10:46 Heparin SC 5,000 units Q12 [facility] Administration Dextrose 1,000 mls @ 0 mls/hr 01/29/18 06:35 Dextrose 5% In Water 1000 Ml IV .Q0M PRN Hypoglycemia Protocol Protocol Per Protocol Piperacillin Sod/Tazobactam 100 mls @ 200 mls/hr 01/29/18 13:00 Sod 3.375 gm/ Sodium Chloride IVPB Q6H [facility] Protocol Vancomycin/Sodium Chloride 1 gm in 200 mls @ 133.333 mls/hr 01/30/18 03:00 Vancomycin 1 Gm/Ns 200 Ml IVPB Q24H [facility] Protocol Insulin Human Regular 0 unit 01/29/18 07:30 01/29/18 12:35 Novolin R SC 2 units ACHS [facility] Administration Protocol Pantoprazole Sodium 40 mg 01/29/18 10:00 01/29/18 10:45 Protonix Inj IVP 40 mg DAILY [facility] Administration Trazodone HCl 50 mg 01/29/18 14:14 Desyrel PO HS PRN Insomnia Past Psychiatric History - Past Psychiatric History Previous Treatment History: None Pertinent Medical Hx (Current Medical&Sleep Prob, Allergies): Allergies Allergy/AdvReac Type Severity Reaction Status Date / Time NSAIDS (Non-Steroidal Allergy RASH Verified 01/29/18 01:48 Anti-Inflamma Insulin Aspart [Novolog] 28 unit SC BID 08/21/16 Insulin Glargine,Hum.rec.anlog [Lantus] 28 unit SQ BID 11/09/17 Insulin NPH Hum/Reg Insulin Hm [Humulin 70-30 Vial] 6 units TID 01/15/18 Review of Systems - Psychiatric Psychiatric: Abnormal Sleep Pattern, Difficulty Concentrating, Irritability. absent: Homicidal Ideation, Paranoia, Suicidal Ideation Mental Status Examination - Personal Presentation Personal Presentation: Looks older than stated age - Affect Affect: Other (intense) - Motor Activity Motor Activity: Calm - Reliability in Providing Information Reliability in Providing Information: Fair - Speech Speech: Other (loud) - Mood Mood: Other (irate) - Formal Thought Process Formal Thought Process: No Impairment - Cognitive Functions Orientation: Person, Place, Situation, Time Sensorium: Alert Attention/Concentration: Easily distracted Estimate of Intelligence: Average Judgement: Imparied, as evidence by: Poor judgement Memory: Recent intact, as evidence by: Ability to recall events of the day, Remote intact, as evidenced by: Abilit to recall sig. life events - Risk Risk: Diminished functioning - Strength & Assets Inventory Strength & Assets Inventory: Cooperative - Limitations Limitations: Other DSM 5 DX - DSM 5 DSM 5 Diagnosis: Bipolar d/o, as per patient Personality d/ounspecified Opioid use d/oin remission Cocaine use d/oin remission - Recommended/Plan of Treatment Treatment Recommendations and Plan of Treatment: Trazodone prn insomnia Support and psychoed No other meds UDS was not done - ordered Psych will sign off
[2018-01-29 22:39] LABS: BARBITURATES, UR NEGATIVE (NEGATIVE); BENZODIAZEPINES, UR NEGATIVE (NEGATIVE); OPIATES, UR NEGATIVE (NEGATIVE); PHENCYCLIDINE, UR NEGATIVE (NEGATIVE)
[2018-01-30] MEDS: Piperacillin/Tazobact 3.375 GM in Sodium Chloride 100 ML IVPB SCH ×3 (01:25→13:53)
[2018-01-30] MEDS ORDERED: Vancomycin 1 gm/NS 200 ml 1 GM/200 ML BAG IVPB SCH (03:00)
[2018-01-30 08:10] LABS: BASO # 0.1 K/uL (0.0-0.2); BASO % 0.9 % (0.0-2.0); EOS # 0.5 K/uL (0.0-0.7); EOS % 5.8 % (0.0-4.0); LYMPH # 2.7 K/uL (1.0-4.3); LYMPH % 30.9 % (20.0-40.0); MEAN CELL VOLUME 86.7 fL (80.0-94.0); MEAN CORPUSCULAR HEMOGLOBIN 29.4 pg (27.0-31.0); MEAN CORPUSCULAR HGB CONC 33.9 g/dL (33.0-37.0); MEAN PLATELET VOLUME 6.9 fL (7.2-11.7); MONO # 0.5 K/uL (0.0-0.8); MONO % 5.2 % (0.0-10.0); NEUT # 5.1 K/uL (1.8-7.0); NEUT % 57.2 % (50.0-75.0); RBC 4.08 Mil/uL (4.40-5.90); RED CELL DISTRIBUTION WIDTH 13.1 % (11.5-14.5); WHITE BLOOD COUNT 8.8 K/uL (4.8-10.8)
[2018-01-30 08:40] LABS: ALB/GLOB RATIO 1.1 (1.0-2.1); ALBUMIN 3.5 g/dL (3.5-5.0); ALT/SGPT 19 U/L (21-72); AST/SGOT 13 U/L (17-59); BLOOD UREA NITROGEN 17 mg/dL (9-20); GFR NON-AFRICAN AMERICAN > 60
[2018-01-30] MEDS: (Novolin R) Insulin Human Regular 100 units/ml vial SC SCH ×3 (09:14→17:25)
--- NOTE | 2018-01-30 10:37 | CP.PCM.PN ---
<Steve Erickson - Last Filed: 01/30/18 17:14> Subjective - Date & Time of Evaluation Date of Evaluation: 01/30/18 Time of Evaluation: 09:24 - Subjective Subjective: PGY1 medicine progress note for Dr. Young Pt was seen and examined at bedside. Pt is resting comfortably, but continues to have pain to the bilateral legs. Pt reports he has no other complaints at this time. He denies fever, chills, chest pain, sob, abdominal pain, n/v/d, hematochezia, melena, worsening of leg swelling or pain. Objective - Vital Signs/Intake and Output Vital Signs (last 24 hours): Temp Pulse Resp BP Pulse Ox 98.6 F 85 20 133/84 95 01/30/18 09:12 01/30/18 09:12 01/30/18 09:12 01/30/18 09:12 01/30/18 09:12 Intake and Output: 01/30/18 01/30/18 06:59 18:59 Output Total 1000 Balance -1000 - Medications Medications: Current Medications Dextrose (Dextrose 50% Inj) 0 ml IV STAT PRN; Protocol PRN Reason: Hypoglycemia Protocol Dextrose (Glutose 15) 0 gm PO ONCE PRN; Protocol PRN Reason: Hypoglycemia Protocol Glucagon (Glucagen Diagnostic Kit) 0 mg IM STAT PRN; Protocol PRN Reason: Hypoglycemia Protocol Heparin Sodium (Porcine) (Heparin) 5,000 units SC Q12 [facility] Last Admin: 01/30/18 09:14 Dose: 5,000 units Dextrose (Dextrose 5% In Water 1000 Ml) 1,000 mls @ 0 mls/hr IV .Q0M PRN; Protocol PRN Reason: Hypoglycemia Protocol Piperacillin Sod/Tazobactam (Sod 3.375 gm/ Sodium Chloride) 100 mls @ 200 mls/hr IVPB Q6H [facility]; Protocol Last Admin: 01/30/18 06:22 Dose: 200 mls/hr Vancomycin/Sodium Chloride (Vancomycin 1 Gm/Ns 200 Ml) 1 gm in 200 mls @ 133.33 3 mls/hr IVPB Q24H [facility]; Protocol Last Admin: 01/30/18 03:09 Dose: 133.333 mls/hr Insulin Human Regular (Novolin R) 0 unit SC ACHS [facility]; Protocol Last Admin: 01/30/18 09:14 Dose: 2 units Morphine Sulfate (Morphine) 0.5 mg IVP Q4 PRN PRN Reason: Pain, moderate (4-7) Last Admin: 01/30/18 07:34 Dose: 0.5 mg Pantoprazole Sodium (Protonix Inj) 40 mg IVP DAILY [facility] Last Admin: 01/30/18 09:14 Dose: 40 mg Trazodone HCl (Desyrel) 50 mg PO HS PRN PRN Reason: Insomnia Last Admin: 01/29/18 20:58 Dose: 50 mg - Labs Labs: 01/30/18 08:07 01/30/18 08:07 - Additional Findings Additional findings: - Constitutional Appears: Non-toxic, No Acute Distress - Head Exam Head Exam: ATRAUMATIC, NORMAL INSPECTION, NORMOCEPHALIC - Eye Exam Eye Exam: EOMI, Normal appearance - Respiratory Exam Respiratory Exam: Clear to Auscultation Bilateral, NORMAL BREATHING PATTERN. absent: Rales, Rhonchi, Wheezes - Cardiovascular Exam Cardiovascular Exam: REGULAR RHYTHM, +S1, +S2. Absent: tachycardia, murmur - GI/Abdominal Exam GI & Abdominal Exam: Normal Bowel Sounds, Soft - Extremities Exam Extremities exam: Positive for: full ROM, pedal pulses present. (+) pedal edema right greater than left. Negative for: calf tenderness, tenderness Additional comments: Capillary refill less than 2 seconds bilaterally, neurovascularly intact Right and left foot wrapped in dressing , c/d/i. Mild tenderness to palpation of tibia/fibula No erythema or edema of bilateral thighs - Back Exam Back exam: FULL ROM, NORMAL INSPECTION - Neurological Exam Neurological exam: Alert, Oriented x3 - Psychiatric Exam Psychiatric exam: Agitated, normal affect, normal mood - Skin Skin Exam: Dry, Warm Assessment and Plan - Assessment and Plan (Free Text) Assessment: This is a 42 year old male with bilateral diabetic foot ulcers. Plan: Diabetic foot ulcer bilaterally, r/o infection - Foot Xray 3 view shows amputation left distal 5th metatarsal. Apparent lateral and plantar surface ulceration at the level of the stump partially amputated left 5th metatarsal. No definitive cortical destruction seen at this time. Sift tissue swelling right great toe and plantar surface right foot. Bilateral hallux valgus deformities right greater than left. - Podiatry, Dr. Jones, consulted. Recommendations appreciated. - Vanco 1gm IVP daily - Zosyn 3.375 IVPB Q6hrs - blood culture x 2 prelim is negative for growth x 24 hours - left and right foot wound culture prelim shows growth of group g strep and gram negative rods - f/u ESR - MRI of bilateral feet is pending Hx of uncontrolled DM - Accuchecks - Insulin sliding scale low dose - hypoglycemia protocol Hx of HTN - Continue to monitor Hx of schizophrenia, bipolar disorder, ?personality disorder - Pt is not on any medications - Psychiatry, Dr. Griffin, consulted. Recommendations appreciated. Prophylaxis - DVT: heparin 5000 SC Q12hrs - GI prophylaxis : protonix daily - HHD diet 2gm Na, CCD Dispo. MRI is pending. Continue IV antibiotics. Case discussed with attending physician, Dr. Young. Steve Erickson PGY-1 <Terrence Young - Last Filed: 01/30/18 17:57> Objective - Vital Signs/Intake and Output Vital Signs (last 24 hours): Temp Pulse Resp BP Pulse Ox 97.9 F 80 20 126/75 99 01/30/18 15:47 01/30/18 15:47 01/30/18 15:47 01/30/18 15:47 01/30/18 15:47 Intake and Output: 01/30/18 01/30/18 06:59 18:59 Output Total 1000 550 Balance -1000 -550 - Medications Medications: Current Medications Alprazolam (Xanax) 0.5 mg PO HS PRN PRN Reason: Insomnia Dextrose (Dextrose 50% Inj) 0 ml IV STAT PRN; Protocol PRN Reason: Hypoglycemia Protocol Dextrose (Glutose 15) 0 gm PO ONCE PRN; Protocol PRN Reason: Hypoglycemia Protocol Glucagon (Glucagen Diagnostic Kit) 0 mg IM STAT PRN; Protocol PRN Reason: Hypoglycemia Protocol Heparin Sodium (Porcine) (Heparin) 5,000 units SC Q12 [facility] Last Admin: 01/30/18 09:14 Dose: 5,000 units Dextrose (Dextrose 5% In Water 1000 Ml) 1,000 mls @ 0 mls/hr IV .Q0M PRN; Protocol PRN Reason: Hypoglycemia Protocol Piperacillin Sod/Tazobactam (Sod 3.375 gm/ Sodium Chloride) 100 mls @ 200 mls/hr IVPB Q6H [facility]; Protocol Last Admin: 01/30/18 13:53 Dose: 200 mls/hr Vancomycin/Sodium Chloride (Vancomycin 1 Gm/Ns 200 Ml) 1 gm in 200 mls @ 133.333 mls/hr IVPB Q24H [facility]; Protocol Last Admin: 01/30/18 03:09 Dose: 133.333 mls/hr Insulin Human Regular (Novolin R) 0 unit SC ACHS [facility]; Protocol Last Admin: 01/30/18 17:25 Dose: 2 units Morphine Sulfate (Morphine) 0.5 mg IVP Q4 PRN PRN Reason: Pain, moderate (4-7) Last Admin: 01/30/18 17:24 Dose: 0.5 mg Pantoprazole Sodium (Protonix Inj) 40 mg IVP DAILY [facility] Last Admin: 01/30/18 09:14 Dose: 40 mg Trazodone HCl (Desyrel) 50 mg PO HS PRN PRN Reason: Insomnia Last Admin: 01/29/18 20:58 Dose: 50 mg - Labs Labs: 01/30/18 08:07 01/30/18 08:07 Attending/Attestation - Attestation I have personally seen and examined this patient.: Yes I have fully participated in the care of the patient.: Yes I have reviewed all pertinent clinical information, including history, physical exam and plan: Yes Notes (Text): 01/30/18 17:52 Medical attending: Patient was seen and examined by me with the medical residents this morning. The patient was not as verbally agressive with me when I came and saw this morning like he was yesterday. He later underwent MRI which shows the osteomylitis and it appears will need surgical intervention He remains on IV abx for the time being The patient later I was informed was demanding to leave the hospital to have a ciggarette. It should be noted that smoking contributes to PVD as well as poor wounding healing and we have told him he cannot smoke. Should he decide to leave [facility], we explained to him he maybe better served by going to another facility as he has used up a lot of the good will here. I have had several of the medical staff and medical residents and RNs explain to me that he has been verbally abusive to them. He does not seem to have the insight that we can only care for him so much and at some point he is greatly harming himself due to his agressive behavior. Terrence Young
--- NOTE | 2018-01-30 11:02 | CP.PCM.PN ---
Subjective - Date & Time of Evaluation Date of Evaluation: 01/30/18 Time of Evaluation: 11:02 - Subjective Subjective: Podiatry - Dr. Jones Patient seen and evaluated this AM. No acute events overnight. No new lower extremity complaints. Scheduled to obtain MRI today. Patient requesting to leave AMA to smoke a cigarette. Objective - Vital Signs/Intake and Output Vital Signs (last 24 hours): Temp Pulse Resp BP Pulse Ox 98.6 F 85 20 133/84 95 01/30/18 09:12 01/30/18 09:12 01/30/18 09:12 01/30/18 09:12 01/30/18 09:12 Intake and Output: 01/30/18 01/30/18 06:59 18:59 Output Total 1000 Balance -1000 - Medications Medications: Current Medications Alprazolam (Xanax) 0.5 mg PO HS PRN PRN Reason: Insomnia Dextrose (Dextrose 50% Inj) 0 ml IV STAT PRN; Protocol PRN Reason: Hypoglycemia Protocol Dextrose (Glutose 15) 0 gm PO ONCE PRN; Protocol PRN Reason: Hypoglycemia Protocol Glucagon (Glucagen Diagnostic Kit) 0 mg IM STAT PRN; Protocol PRN Reason: Hypoglycemia Protocol Heparin Sodium (Porcine) (Heparin) 5,000 units SC Q12 [place] Last Admin: 01/30/18 09:14 Dose: 5,000 units Dextrose (Dextrose 5% In Water 1000 Ml) 1,000 mls @ 0 mls/hr IV .Q0M PRN; Protocol PRN Reason: Hypoglycemia Protocol Piperacillin Sod/Tazobactam (Sod 3.375 gm/ Sodium Chloride) 100 mls @ 200 mls/hr IVPB Q6H [place]; Protocol Last Admin: 01/30/18 06:22 Dose: 200 mls/hr Vancomycin/Sodium Chloride (Vancomycin 1 Gm/Ns 200 Ml) 1 gm in 200 mls @ 133.333 mls/hr IVPB Q24H [place]; Protocol Last Admin: 01/30/18 03:09 Dose: 133.333 mls/hr Insulin Human Regular (Novolin R) 0 unit SC ACHS [place]; Protocol Last Admin: 01/30/18 09:14 Dose: 2 units Morphine Sulfate (Morphine) 0.5 mg IVP Q4 PRN PRN Reason: Pain, moderate (4-7) Last Admin: 01/30/18 07:34 Dose: 0.5 mg Pantoprazole Sodium (Protonix Inj) 40 mg IVP DAILY [place] Last Admin: 01/30/18 09:14 Dose: 40 mg Trazodone HCl (Desyrel) 50 mg PO HS PRN PRN Reason: Insomnia Last Admin: 01/29/18 20:58 Dose: 50 mg - Labs Labs: 01/30/18 08:07 01/30/18 08:07 - Constitutional Appears: Well, Non-toxic, No Acute Distress - Extremities Exam Additional comments: Lower extremity focused exam: Mild serosanguinous strikethrough noted on R foot bandage. No strikethrough to L foot bandage. Vasc: DP/PT pulses palpable 2/4 B/L. Temperature gradient warm to cool. CFT < 3 sec to all digits x9. No pedal edema noted Derm: Left: Open ulceration sub met 5 approx 3.5cm x 3cm x 0.4cm with fibrogranular wound base, active serosanguinous drainage, positive malodor, and significantly macerated wound borders with thickened 1cm macerated tissue rim. No fluctuance or suspected abscess formation. Wound probes deep but not to bone. Right: open circular ulceration sub met 1 approx 1.5cm in diameter and 0.3cm in depth with fibrogranular wound base and macerated wound rim and borders. Mild serous drainage elicited upon pressure. Positive malodor noted. Wound probes deep but not to bone. No fluctuance or suspected abscess formation Neuro: protective sensation grossly diminished Ortho: Pes cavus deformity B/L, R>L with plantarflexed 1st metatarsal noted to R foot. 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 No tenderness to palpation of ulceration sites - Neurological Exam Neurological Exam: Alert, Awake, Oriented x3 - Psychiatric Exam Psychiatric exam: Normal Affect, Normal Mood Assessment and Plan - Assessment and Plan (Free Text) Assessment: 42 y/o male with bilateral diabetic foot ulcers Plan: Patient seen and evaluated with attending, Dr. Karen ANGLIN, WBC 8.8 L foot XR (01/29): Partial 5th ray amp, plantarlateral ulceration w/no definitive cortical destruction R foot XR (01/29): ST swelling hallux f/u MRI report Wound cultures: gram negative nancy, group G strep Continue IV Vanco/Zosyn Local wound care: betadine, DSD Podiatry will continue to follow
--- NOTE | 2018-01-30 13:10 | MRI ---
MRI right forefoot HISTORY: Ulceration. Evaluate for osteomyelitis. COMPARISON: X-ray dated 01/29/2018 TECHNIQUE: Multi-echo multiplanar sequences were perfomred through the right forefoot without the use of intravenous contrast. FINDINGS: Motion artifact markedly limits evaluation particularly at the site of the abnormality at the 1st digit. Severe hallux valgus deformity. Soft tissue ulceration seen at the volar head of the 1st metatarsal with associated fluid and edema measuring up to 2.9 centimeters. Adjacent prominent signal abnormality within medial sesamoid with decreased T1 signal and increased STIR signal concerning for acute osteomyelitis of the medial sesamoid bone. Milder reactive edema noted at the lateral sesamoid bone which may represent some early acute and or developing acute osteomyelitic changes. Signal abnormality seen at the volar head of the 1st metatarsal bone as demonstrated on series 3, image 20 and series 4, image 20 measuring 4 millimeters at that level. These findings are nonspecific and focal developing acute osteomyelitic changes cannot be excluded. Additional considerations may include developing osteochondral change versus developing subchondral cyst formation. Mild reactive edema seen at the base of the 1st metatarsal bone which may represent some osteochondral and or degenerative change. Signal abnormality seen at the base of the 1st proximal phalanx with some patchy decreased T1 signal and increased STIR signal as demonstrated on the coronal sequences which may represent some osteochondral change however underlying acute infectious and or inflammatory changes cannot be excluded. Clinical correlation. Prominent signal abnormality measuring up to 1.5 centimeters seen at the medial aspect of the cuboid bone demonstrating prominent decreased T1 signal and increased STIR signal. This may represent the sequelae of osteochondral change versus subchondral osseous injury versus acute infectious and or inflammatory changes. Clinical correlation. Signal abnormality at the base of the 4th metatarsal bone which may represent osteochondral change. Patchy increased STIR signal seen at the 4th middle and distal phalanges are nonspecific and may be related to failure of fat suppression; however, underlying acute infectious and or inflammatory changes at these levels cannot be excluded. Clinical correlation. Visualized Lisfranc ligament demonstrates some mild increased signal which may represent a low grade sprain and or mild partial tearing. Clinical correlation. Non-specific fluid and edema seen overlying the 5th metatarsal bone at its volar aspect. Additional scattered areas of increased reactive edema and patchy decreased T1 signal seen at the anterior talus as demonstrated on series 4, image 9 also nonspecific possibly representing sequelae of acute infectious and or inflammatory changes and or degenerative change. Clinical correlation. Visualized extensor tendons are preserved. Second through 5th flexor tendons are preserved. Fluid and edema a traverses over the volar aspect of the 1st flexor tendon. Impression: Motion artifact markedly limits evaluation particularly at the site of the abnormality at the 1st digit. 1. Severe hallux valgus deformity. Soft tissue ulceration seen at the volar head of the 1st metatarsal with associated fluid and edema measuring up to 2.9 centimeters. Adjacent prominent signal abnormality within medial sesamoid with decreased T1 signal and increased STIR signal concerning for acute osteomyelitis of the medial sesamoid bone. 2. Milder reactive edema noted at the lateral sesamoid bone which may represent some early acute and or developing acute osteomyelitic changes. 3. Signal abnormality seen at the volar head of the 1st metatarsal bone as demonstrated on series 3, image 20 and series 4, image 20 measuring 4 millimeters at that level. These findings are nonspecific and focal developing acute osteomyelitic changes cannot be excluded. Additional considerations may include developing osteochondral change versus developing subchondral cyst formation. Mild reactive edema seen at the base of the 1st metatarsal bone which may represent some osteochondral and or degenerative change. 4. Signal abnormality seen at the base of the 1st proximal phalanx with some patchy decreased T1 signal and increased STIR signal as demonstrated on the coronal sequences which may represent some osteochondral change however underlying acute infectious and or inflammatory changes cannot be excluded. Clinical correlation. 5. Prominent signal abnormality measuring up to 1.5 centimeters seen at the medial aspect of the cuboid bone demonstrating prominent decreased T1 signal and increased STIR signal. This may represent the sequelae of osteochondral change versus subchondral osseous injury versus acute infectious and or inflammatory changes. Clinical correlation. 6. Signal abnormality at the base of the 4th metatarsal bone which may represent osteochondral change. 7. Patchy increased STIR signal seen at the 4th middle and distal phalanges are nonspecific and may be related to failure of fat suppression; however, underlying acute infectious and or inflammatory changes at these levels cannot be excluded. Clinical correlation. 8. Visualized Lisfranc ligament demonstrates some mild increased signal which may represent a low grade sprain and or mild partial tearing. Clinical correlation. 9. Non-specific fluid and edema seen overlying the 5th metatarsal bone at its volar aspect. 10. Additional scattered areas of increased reactive edema and patchy decreased T1 signal seen at the anterior talus as demonstrated on series 4, image 9 also nonspecific possibly representing sequelae of acute infectious and or inflammatory changes and or degenerative change. Clinical correlation. 11. Fluid and edema a traverses over the volar aspect of the 1st flexor tendon.
--- NOTE | 2018-01-30 13:58 | MRI ---
MRI left foot HISTORY: Ulceration. Evaluate for 5th metatarsal osteomyelitis. COMPARISON: X-ray dated 01/29/2018 Technique: Multi-echo multiplanar sequences were performed through the left foot without the use of intravenous contrast. Findings: Prior resection of the 5th digit to the level of the 5th metatarsal head. Bony fragmentation at the level of the 5th metatarsal head. Signal abnormality seen within the remnant 5th metatarsal bone at the head extending into the medullary cavity and midshaft demonstrating patchy decreased T1 signal and increased STIR signal concerning for acute on chronic osteomyelitic changes. Cortical thickening and periosteal reaction along the medial and lateral cortices of the 5th metatarsal shaft. Fluid and edema seen within the adjacent soft tissues with ulceration at the volar aspect of the 5th metatarsal head. Nonspecific patchy reactive edema with patchy decreased T1 signal seen at the head of the 4th metatarsal bone as well as within the 4th distal phalanx. These changes may be the sequelae of acute infectious and or inflammatory changes. Clinical correlation. Signal abnormality noted at the base of the 4th metatarsal bone with patchy decreased T1 and signal increased STIR signal which may represent osteochondral change however acute infectious and or inflammatory changes cannot be excluded. Signal abnormality seen at the base of 3rd metatarsal bone, nonspecific. Mild nonspecific reactive edema and/or failure of suppression at the 3rd distal phalanx. Moderate hallux valgus deformity. Some fraying with increased signal at the level of Lisfranc ligament which may represent a sprain and or partial tear. Mild patchy reactive edema seen at the lateral mid shaft of the 1st metatarsal bone. Evaluation of the cuneiform bones demonstrates exuberant reactive edema with patchy decreased T1 signal seen within the navicular bone which may represent acute osteomyelitic changes versus acute inflammatory changes versus subchondral fracturing versus stress fracture versus additional etiology. Clinical correlation. Additional milder signal abnormality seen within the proximal base of the lateral cuneiform bone and lateral aspect of the cuboid bone also suggestive for possible acute infectious and or inflammatory changes versus subchondral osseous injury versus additional etiology. Clinical correlation. Reticulation and edema seen within the dorsal subcutaneous soft tissues. Reticulation and edema seen within the volar sided musculature of the midfoot. Impression: 1. Prior resection of the 5th digit to the level of the 5th metatarsal head. Bony fragmentation at the level of the 5th metatarsal head. Signal abnormality seen within the remnant 5th metatarsal bone at the head extending into the medullary cavity and midshaft demonstrating patchy decreased T1 signal and increased STIR signal concerning for acute on chronic osteomyelitic changes. Cortical thickening and periosteal reaction along the medial and lateral cortices of the 5th metatarsal shaft. Fluid and edema seen within the adjacent soft tissues with ulceration at the volar aspect of the 5th metatarsal head. 2. Nonspecific patchy reactive edema with patchy decreased T1 signal seen at the head of the 4th metatarsal bone as well as within the 4th distal phalanx. These changes may be the sequelae of acute infectious and or inflammatory changes. Clinical correlation. 3. Signal abnormality noted at the base of the 4th metatarsal bone with patchy decreased T1 and signal increased STIR signal which may represent osteochondral change however acute infectious and or inflammatory changes cannot be excluded. 4. Evaluation of the cuneiform bones demonstrates exuberant reactive edema with patchy decreased T1 signal seen within the navicular bone which may represent acute osteomyelitic changes versus acute inflammatory changes versus subchondral fracturing versus stress fracture versus additional etiology. Clinical correlation. Additional milder signal abnormality seen within the proximal base of the lateral cuneiform bone and lateral aspect of the cuboid bone also suggestive for possible acute infectious and or inflammatory changes versus subchondral osseous injury versus additional etiology. Clinical correlation. 5. Signal abnormality seen at the base of 3rd metatarsal bone, nonspecific. Mild nonspecific reactive edema and/or failure of suppression at the 3rd distal phalanx. Clinical correlation. 6. Moderate hallux valgus deformity. 7. Some fraying with increased signal at the level of Lisfranc ligament which may represent a sprain and or partial tear. 8. Mild patchy reactive edema seen at the lateral mid shaft of the 1st metatarsal bone. 9. Reticulation and edema seen within the dorsal subcutaneous soft tissues. 10. Reticulation and edema seen within the volar sided musculature of the midfoot.
[2018-01-30 16:48] VITALS: BP 126/75; PULSE 80; TEMP 97.9; O2SAT 99
--- NOTE | 2018-01-30 19:06 | CP.PCM.DIS ---
<Ariel Ramirez - Last Filed: 01/30/18 18:59> Provider - Provider Date of Admission: 01/29/18 04:27 Attending physician: Sabino Zayas MD Primary care physician: IQRAD: Elizabeth Consults: 01/29/18 08:02 Podiatry Consult Routine Comment: Consulting Provider: Keenan Jones Consulting Physician: Keenan Jones Reason for Consult: diabetic ulcer b/l feet 01/29/18 11:47 Psychiatry Consult Routine Comment: Consulting Provider: Deja Griffin Consulting Physician: Deja Griffin Reason for Consult: hx of bipolar, ?schiz, ?personality disorder. Recs appreciated Time Spent in preparation of Discharge (in minutes): 45 Hospital Course - Lab Results Lab Results: Micro Results 01/29/18 03:09 Foot - Left Gram Stain - Final 01/29/18 03:09 Foot - Left Wound Culture - Preliminary Gram Negative Luke Group G Streptococcus 01/29/18 03:09 Foot - Right Gram Stain - Final 01/29/18 03:09 Foot - Right Wound Culture - Preliminary Gram Negative Luke Group G Streptococcus 01/29/18 03:22 Blood Blood Culture - Preliminary NO GROWTH AFTER 24 HOURS 01/29/18 03:20 Blood Blood Culture - Preliminary NO GROWTH AFTER 24 HOURS Most Recent Lab Values WBC 8.8 K/uL (4.8-10.8) 01/30/18 08:07 RBC 4.08 Mil/uL (4.40-5.90) L 01/30/18 08:07 Hgb 12.0 g/dL (12.0-18.0) 01/30/18 08:07 Hct 35.4 % (35.0-51.0) 01/30/18 08:07 MCV 86.7 fL (80.0-94.0) 01/30/18 08:07 MCH 29.4 pg (27.0-31.0) 01/30/18 08:07 MCHC 33.9 g/dL (33.0-37.0) 01/30/18 08:07 RDW 13.1 % (11.5-14.5) 01/30/18 08:07 Plt Count 448 K/uL (130-400) H 01/30/18 08:07 MPV 6.9 fL (7.2-11.7) L 01/30/18 08:07 Neut % (Auto) 57.2 % (50.0-75.0) 01/30/18 08:07 Lymph % (Auto) 30.9 % (20.0-40.0) 01/30/18 08:07 [place] % (Auto) 5.2 % (0.0-10.0) 01/30/18 08:07 Eos % (Auto) 5.8 % (0.0-4.0) H 01/30/18 08:07 Baso % (Auto) 0.9 % (0.0-2.0) 01/30/18 08:07 Neut # (Auto) 5.1 K/uL (1.8-7.0) 01/30/18 08:07 Lymph # (Auto) 2.7 K/uL (1.0-4.3) 01/30/18 08:07 [place] # (Auto) 0.5 K/uL (0.0-0.8) 01/30/18 08:07 Eos # (Auto) 0.5 K/uL (0.0-0.7) 01/30/18 08:07 Baso # (Auto) 0.1 K/uL (0.0-0.2) 01/30/18 08:07 ESR 90 mm/hr (0-15) H 01/30/18 08:07 Sodium 137 mmol/L (132-148) 01/30/18 08:07 Potassium 4.6 mmol/L (3.6-5.2) 01/30/18 08:07 Chloride 105 mmol/L (98-107) 01/30/18 08:07 Carbon Dioxide 29 mmol/L (22-30) 01/30/18 08:07 Anion Gap 8 (10-20) L 01/30/18 08:07 BUN 17 mg/dL (9-20) 01/30/18 08:07 Creatinine 0.9 mg/dL (0.8-1.5) 01/30/18 08:07 Est GFR ( Amer) > 60 01/30/18 08:07 Est GFR (Non-Af Amer) > 60 01/30/18 08:07 POC Glucose (mg/dL) 246 mg/dL (65-110) H 01/30/18 16:31 Random Glucose 196 mg/dL (75-110) H 01/30/18 08:07 Calcium 9.0 mg/dl (8.6-10.4) 01/30/18 08:07 Magnesium 1.8 mg/dL (1.6-2.3) 01/29/18 02:31 Total Bilirubin 0.3 mg/dL (0.2-1.3) 01/30/18 08:07 AST 13 U/L (17-59) L 01/30/18 08:07 ALT 19 U/L (21-72) L 01/30/18 08:07 Alkaline Phosphatase 102 U/L (38-126) 01/30/18 08:07 Total Protein 6.7 g/dL (6.3-8.3) 01/30/18 08:07 Albumin 3.5 g/dL (3.5-5.0) 01/30/18 08:07 Globulin 3.2 gm/dL (2.2-3.9) 01/30/18 08:07 Albumin/Globulin Ratio 1.1 (1.0-2.1) 01/30/18 08:07 Urine Opiates Screen Negative (NEGATIVE) 01/29/18 22:02 Urine Methadone Screen Negative (NEGATIVE) 01/29/18 22:02 Ur Barbiturates Screen Negative (NEGATIVE) 01/29/18 22:02 Ur Phencyclidine Scrn Negative (NEGATIVE) 01/29/18 22:02 Ur Amphetamines Screen Negative (NEGATIVE) 01/29/18 22:02 U Benzodiazepines Scrn Negative (NEGATIVE) 01/29/18 22:02 U Oth Cocaine Metabols Negative (NEGATIVE) 01/29/18 22:02 U Cannabinoids Screen Negative (NEGATIVE) 01/29/18 22:02 - Hospital Course Hospital Course: 42 year old male with history of uncontrolled DM with neuropathy s/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 Patient states the ulcers started abot 6 monhts ago and had been worsening since a week ago. Patient rates 10/10 shooting pain in both of his foot that radiates to his legs. Patient denies any trauma to his foot or pus coming out from ulcers. Patient admits to blood in his feet. Patient curses throughout the encounter and states that he wants to be left alone to sleep and does not believe that doctors can't help him. During his brief hospitalization, he was given IV antibiotics and evaluated by podiatry. He was informed about his possible diagnosis of osteomyelitis today. Patient decided to sign out again medical advice. Risks and dangers were discussed in detail. Patient insisted on leaving and would like to have a smoke. He understood the risks and signed AMA form. Attending physician Dr. Young was notified. Discharge Exam - Head Exam Head Exam: ATRAUMATIC, NORMAL INSPECTION, NORMOCEPHALIC Discharge Plan - Follow Up Plan Condition: FAIR Disposition: AGAINST MEDICAL ADVICE <Terrence Young H - Last Filed: 01/31/18 07:25> Provider - Provider Date of Admission: 01/29/18 04:27 Attending physician: Sabino Zayas MD Consults: 01/29/18 08:02 Podiatry Consult Routine Comment: Consulting Provider: Keenan Jones Consulting Physician: Keenan Jones Reason for Consult: diabetic ulcer b/l feet 01/29/18 11:47 Psychiatry Consult Routine Comment: Consulting Provider: Deja Griffin Consulting Physician: Deja Griffin Reason for Consult: hx of bipolar, ?schiz, ?personality disorder. Recs appreciated Hospital Course - Lab Results Lab Results: Micro Results 01/29/18 03:22 Blood Blood Culture - Preliminary NO GROWTH AFTER 48 HOURS 01/29/18 03:20 Blood Blood Culture - Preliminary NO GROWTH AFTER 48 HOURS 01/29/18 03:09 Foot - Left Gram Stain - Final 01/29/18 03:09 Foot - Left Wound Culture - Preliminary Gram Negative Luke Group G Streptococcus 01/29/18 03:09 Foot - Right Gram Stain - Final 01/29/18 03:09 Foot - Right Wound Culture - Preliminary Gram Negative Luke Group G Streptococcus Most Recent Lab Values WBC 8.8 K/uL (4.8-10.8) 01/30/18 08:07 RBC 4.08 Mil/uL (4.40-5.90) L 01/30/18 08:07 Hgb 12.0 g/dL (12.0-18.0) 01/30/18 08:07 Hct 35.4 % (35.0-51.0) 01/30/18 08:07 MCV 86.7 fL (80.0-94.0) 01/30/18 08:07 MCH 29.4 pg (27.0-31.0) 01/30/18 08:07 MCHC 33.9 g/dL (33.0-37.0) 01/30/18 08:07 RDW 13.1 % (11.5-14.5) 01/30/18 08:07 Plt Count 448 K/uL (130-400) H 01/30/18 08:07 MPV 6.9 fL (7.2-11.7) L 01/30/18 08:07 Neut % (Auto) 57.2 % (50.0-75.0) 01/30/18 08:07 Lymph % (Auto) 30.9 % (20.0-40.0) 01/30/18 08:07 [place] % (Auto) 5.2 % (0.0-10.0) 01/30/18 08:07 Eos % (Auto) 5.8 % (0.0-4.0) H 01/30/18 08:07 Baso % (Auto) 0.9 % (0.0-2.0) 01/30/18 08:07 Neut # (Auto) 5.1 K/uL (1.8-7.0) 01/30/18 08:07 Lymph # (Auto) 2.7 K/uL (1.0-4.3) 01/30/18 08:07 [place] # (Auto) 0.5 K/uL (0.0-0.8) 01/30/18 08:07 Eos # (Auto) 0.5 K/uL (0.0-0.7) 01/30/18 08:07 Baso # (Auto) 0.1 K/uL (0.0-0.2) 01/30/18 08:07 ESR 90 mm/hr (0-15) H 01/30/18 08:07 Sodium 137 mmol/L (132-148) 01/30/18 08:07 Potassium 4.6 mmol/L (3.6-5.2) 01/30/18 08:07 Chloride 105 mmol/L (98-107) 01/30/18 08:07 Carbon Dioxide 29 mmol/L (22-30) 01/30/18 08:07 Anion Gap 8 (10-20) L 01/30/18 08:07 BUN 17 mg/dL (9-20) 01/30/18 08:07 Creatinine 0.9 mg/dL (0.8-1.5) 01/30/18 08:07 Est GFR ( Amer) > 60 01/30/18 08:07 Est GFR (Non-Af Amer) > 60 01/30/18 08:07 POC Glucose (mg/dL) 246 mg/dL (65-110) H 01/30/18 16:31 Random Glucose 196 mg/dL (75-110) H 01/30/18 08:07 Calcium 9.0 mg/dl (8.6-10.4) 01/30/18 08:07 Magnesium 1.8 mg/dL (1.6-2.3) 01/29/18 02:31 Total Bilirubin 0.3 mg/dL (0.2-1.3) 01/30/18 08:07 AST 13 U/L (17-59) L 01/30/18 08:07 ALT 19 U/L (21-72) L 01/30/18 08:07 Alkaline Phosphatase 102 U/L (38-126) 01/30/18 08:07 Total Protein 6.7 g/dL (6.3-8.3) 01/30/18 08:07 Albumin 3.5 g/dL (3.5-5.0) 01/30/18 08:07 Globulin 3.2 gm/dL (2.2-3.9) 01/30/18 08:07 Albumin/Globulin Ratio 1.1 (1.0-2.1) 01/30/18 08:07 Urine Opiates Screen Negative (NEGATIVE) 01/29/18 22:02 Urine Methadone Screen Negative (NEGATIVE) 01/29/18 22:02 Ur Barbiturates Screen Negative (NEGATIVE) 01/29/18 22:02 Ur Phencyclidine Scrn Negative (NEGATIVE) 01/29/18 22:02 Ur Amphetamines Screen Negative (NEGATIVE) 01/29/18 22:02 U Benzodiazepines Scrn Negative (NEGATIVE) 01/29/18 22:02 U Oth Cocaine Metabols Negative (NEGATIVE) 01/29/18 22:02 U Cannabinoids Screen Negative (NEGATIVE) 01/29/18 22:02 Attending/Attestation - Attestation I have personally seen and examined this patient.: Yes I have fully participated in the care of the patient.: Yes I have reviewed all pertinent clinical information, including history, physical exam and plan: Yes Notes (Text): Medical attending: Patient has signed out AMA - again. He has done this repeatedly at [facility] as well as at [facility] - this time it was over smoking cigarettes from what I understand. He does have bilateral lower extremity wounds that need to be addressed however the way he treats the medical staff, RNs, and medical residents is very poor and he is often very difficult and demanding personality. Please see previous notes where it is documented his abusive language to staff. He has been told during our rounds that we can't help him if he continues to act like this. Terrence Young
== END 2018-01-30 18:15 | disposition left against medical advice (07) | DRG 566 ==
LOC: C.ER 01:36 → C.6T 04:27
PROVIDERS: ADMIT Family Medicine; ATTEND Family Medicine
DX: E11.621 Type 2 diabetes mellitus with foot ulcer (principal); M86.172 Other acute osteomyelitis, left ankle and foot; E11.69 Type 2 diabetes mellitus with other specified complication; L97.529 Non-pressure chronic ulcer of other part of left foot with unspecified severity; L97.519 Non-pressure chronic ulcer of other part of right foot with unspecified severity; M86.672 Other chronic osteomyelitis, left ankle and foot; E11.65 Type 2 diabetes mellitus with hyperglycemia; E11.40 Type 2 diabetes mellitus with diabetic neuropathy, unspecified; F31.9 Bipolar disorder, unspecified; I10 Essential (primary) hypertension; F25.9 Schizoaffective disorder, unspecified; J45.909 Unspecified asthma, uncomplicated; F41.9 Anxiety disorder, unspecified; F11.11 Opioid abuse, in remission; F14.11 Cocaine abuse, in remission; F17.210 Nicotine dependence, cigarettes, uncomplicated; F60.9 Personality disorder, unspecified; M19.90 Unspecified osteoarthritis, unspecified site; Z89.422 Acquired absence of other left toe(s); Z79.4 Long term (current) use of insulin

== ENCOUNTER 2018-02-02 22:41 | Inpatient (IN) | payer MEDICAID ==
[2018-02-02 22:42] VITALS: BMI 31.8
--- NOTE | 2018-02-02 23:12 | C.PDOC ---
History Of Present Illness 42 year old male with PMHx of diabetes presents to the ED for evaluation of persistent left foot ulcer. Patient has multiple prior visits to the ED for similar presentation. Patient was seen on 01/30 and admitted at the time. Patient was seen by trang Garduno had MRI done which showed osteomyelitis in his left foot. Patient was informed he needed to have a procedure done on his foot, however patient signed out AMA due to some social issue he needed to take care of. Patient reports he recently switched shelters and comes back for evaluation. Patient denies fever,chills, nausea, vomit, diarrhea, weakness, numbness, new injury, fall, trauma. Time Seen by Provider: 02/02/18 23:01 Chief Complaint (Nursing): Abnormal Skin Integrity History Per: Patient History/Exam Limitations: no limitations Onset/Duration Of Symptoms: Days Current Symptoms Are (Timing): Still Present Location Of Injury: Left: Foot Quality Of Symptoms: Draining Recent travel outside of the [place]: No Additional History Per: Patient Past Medical History Reviewed: Historical Data, Nursing Documentation, Vital Signs Vital Signs: Last Vital Signs Temp 98 F 02/02/18 22:51 Pulse 110 H 02/02/18 22:51 Resp 20 02/02/18 22:51 BP 125/77 02/02/18 22:51 Pulse Ox 100 02/02/18 22:51 - Medical History PMH: Anxiety, Arthritis (backs and LE), Asthma, Bipolar Disorder, Depression, Diabetes, HTN, Schizophrenia (schizoaffective disorder) Denies: Chronic Kidney Disease Surgical History: No Surg Hx - [facility] Procedures EXCISION OF L FOOT SUBCU/FASCIA, OPEN APPROACH (11/10/17) Family History: States: Unknown Family Hx - Social History Hx Tobacco Use: Yes Hx Alcohol Use: No Hx Substance Use: No - Immunization History Hx Tetanus Toxoid Vaccination: Yes Hx Influenza Vaccination: Yes Hx Pneumococcal Vaccination: Yes Review Of Systems Constitutional: Negative for: Fever, Chills Eyes: Negative for: Pain, Redness ENT: Negative for: Throat Swelling Cardiovascular: Negative for: Chest Pain, Palpitations Respiratory: Negative for: Cough, Shortness of Breath Gastrointestinal: Negative for: Nausea, Vomiting, Abdominal Pain Genitourinary: Negative for: Dysuria Musculoskeletal: Positive for: Foot Pain Skin: Positive for: Other (ulcer) Neurological: Negative for: Weakness, Headache, Dizziness Physical Exam - Physical Exam Appears: Non-toxic, No Acute Distress Skin: Normal Color, Warm, Dry Head: Atraumatic, Normacephalic Eye(s): bilateral: Normal Inspection Oral Mucosa: Moist Neck: Normal ROM, Supple Chest: Symmetrical Cardiovascular: Rhythm Regular Respiratory: Normal Breath Sounds, No Rales, No Rhonchi, No Wheezing, Other (moving air well) Gastrointestinal/Abdominal: Soft, No Tenderness, No Guarding, No Rebound Extremity: Normal ROM, Capillary Refill (< 2 seconds), No Swelling, Other (left lateral plantar aspect 2x2 cm ulcer surrounding erythema, foul odor. Left little toe amputation) Pulses: Left Dorsalis Pedis: Normal, Right Dorsalis Pedis: Normal Neurological/Psych: Oriented x3, Normal Speech, Normal Cognition, Normal Motor, Normal Sensation Gait: Steady ED Course And Treatment - Laboratory Results Result Diagrams: 02/02/18 23:35 02/02/18 23:35 O2 Sat by Pulse Oximetry: 100 (ON RA) Pulse Ox Interpretation: Normal Medical Decision Making Medical Decision Making: Plan: * EKG * Labs * Blood culture * UA Disposition Counseled Patient/Family Regarding: Diagnosis - Disposition Disposition: HOSPITALIZED Disposition Time: 23:52 Condition: STABLE - Clinical Impression Clinical Impression: Diabetic foot ulcer with osteomyelitis - 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 - Scribe Statement The provider has reviewed the documentation as recorded by the Scribe Akbar Fry All medical record entries made by the Scribe were at my direction and personally dictated by me. I have reviewed the chart and agree that the record accurately reflects my personal performance of the history, physical exam, medical decision making, and the department course for this patient. I have also personally directed, reviewed, and agree with the discharge instructions and disposition.
[2018-02-02 23:40] LABS: BASO # 0.1 K/uL (0.0-0.2); BASO % 0.9 % (0.0-2.0); EOS # 0.5 K/uL (0.0-0.7); EOS % 3.1 % (0.0-4.0); HEMOGLOBIN 13.4 g/dL (12.0-18.0); LYMPH # 3.7 K/uL (1.0-4.3); LYMPH % 24.5 % (20.0-40.0); MEAN CELL VOLUME 87.4 fL (80.0-94.0); MEAN CORPUSCULAR HEMOGLOBIN 29.2 pg (27.0-31.0); MEAN CORPUSCULAR HGB CONC 33.4 g/dL (33.0-37.0); MEAN PLATELET VOLUME 7.2 fL (7.2-11.7); MONO # 0.7 K/uL (0.0-0.8); MONO % 4.4 % (0.0-10.0); NEUT # 10.1 K/uL (1.8-7.0); NEUT % 67.1 % (50.0-75.0); RBC 4.59 Mil/uL (4.40-5.90); RED CELL DISTRIBUTION WIDTH 13.6 % (11.5-14.5); WHITE BLOOD COUNT 15.1 K/uL (4.8-10.8)
[2018-02-03 00:15] LABS: ALB/GLOB RATIO 1.1 (1.0-2.1); ALBUMIN 4.5 g/dL (3.5-5.0); ALT/SGPT 26 U/L (21-72); AST/SGOT 21 U/L (17-59); BLOOD UREA NITROGEN 32 mg/dL (9-20); CALCIUM 9.5 mg/dl (8.6-10.4); GFR NON-AFRICAN AMERICAN > 60
--- NOTE | 2018-02-03 01:21 | CP.PCM.HP ---
<Abelardo Perez - Last Filed: 02/03/18 05:28> History of Present Illness - History of Present Illness History of Present Illness: CC "my ulcers hurt" HPI: Patient is a 42 year old male who presents for worsening pain rated 10/10 and swelling with ulcers on the soles of both his feet. He was recently seen here on 01/29/18 for similar symptoms until he signed out against medical advice because he did not want to stay here over the weekend. He states that he has been able to work and walk on it since he was discharged on 02/02/18. He states he first noticed pain in his feet about a year ago, but states his pain worsened about a week and a half ago. He has been recently admitted to [facility] and [place] for his ulcers, but has signed out against medical advice. He states his pain is currently a "400" and states his left foot is very painful all over his entire foot with pain extending up to his left knee. He denies trauma, purulent discharge from ulcers, but states that his ulcers bleed intermittently. He denies fevers, chills, chest pain, shortness of breath, abdominal pain, nausea, vomiting, diarrhea, constipation, dysuria. 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 Lives at [facility] currently, works at [employer] hx: none Home meds: Not been taking medications regularly but has the following in his bag (Enalapril 5mg PO, Clindamycin 300mg PO TID, Metformin 850mg PO BID, Glimepiride 4mg PO BID, Humalog 70/30 20 units TID before meals, Basaglar 40 units BID) Allergies: NSAIDs -> swelling Present on Admission - Present on Admission Any Indicators Present on Admission: No Review of Systems - Constitutional Constitutional: absent: Chills, Fever, Headache - EENT Eyes: absent: Change in Vision, Loss of Vision Nose/Mouth/Throat: absent: Sore Throat - Cardiovascular Cardiovascular: absent: Chest Pain, Dyspnea, Palpitations - Respiratory Respiratory: absent: Cough, Dyspnea - Gastrointestinal Gastrointestinal: absent: Abdominal Pain, Diarrhea, Nausea, Vomiting - Genitourinary Genitourinary: absent: Dysuria - Musculoskeletal Musculoskeletal: absent: Back Pain - Integumentary Integumentary: Skin Ulcer - Neurological Neurological: absent: Confusion, Headaches, Syncope Past Patient History - Infectious Disease Hx of Infectious Diseases: None - Past Medical History & Family History Past Medical History?: Yes - Past Social History Smoking Status: Heavy Smoker > 10 Cigarettes Daily - CARDIAC Hx Hypertension: Yes - PULMONARY Hx Asthma: Yes - NEUROLOGICAL Hx Neurological Disorder: No - HEENT Hx HEENT Problems: No - RENAL Hx Chronic Kidney Disease: No - ENDOCRINE/METABOLIC Hx Endocrine Disorders: Yes Hx Diabetes Mellitus Type 2: Yes - HEMATOLOGICAL/ONCOLOGICAL Hx Blood Disorders: No - INTEGUMENTARY Hx Dermatological Problems: No - MUSCULOSKELETAL/RHEUMATOLOGICAL Hx Arthritis: Yes (backs and LE) - GASTROINTESTINAL Hx Gastrointestinal Disorders: No - GENITOURINARY/GYNECOLOGICAL Hx Genitourinary Disorders: No - PSYCHIATRIC Hx Anxiety: Yes Hx Bipolar Disorder: Yes Hx Depression: Yes Hx Schizophrenia: Yes (schizoaffective disorder) Hx Substance Use: No - SURGICAL HISTORY Hx Surgeries: Yes Other/Comment: right ear surgery. left FOOT TOE / 5TH DIGITsurgery - ANESTHESIA Hx Anesthesia: Yes Hx Anesthesia Reactions: No Hx Malignant Hyperthermia: No Meds Allergies/Adverse Reactions: Allergies Allergy/AdvReac Type Severity Reaction Status Date / Time NSAIDS (Non-Steroidal Allergy RASH Verified 01/29/18 01:48 Anti-Inflamma Physical Exam - Constitutional Appears: Well, Non-toxic, No Acute Distress - Head Exam Head Exam: ATRAUMATIC, NORMOCEPHALIC - Eye Exam Eye Exam: EOMI. absent: Conjunctival injection, Periorbital swelling Pupil Exam: PERRL - ENT Exam ENT Exam: Mucous Membranes Moist - Neck Exam Neck exam: Positive for: Full Rom - Respiratory Exam Respiratory Exam: Clear to Auscultation Bilateral, NORMAL BREATHING PATTERN. absent: Rales, Rhonchi, Wheezes - Cardiovascular Exam Cardiovascular Exam: REGULAR RHYTHM, +S1, +S2. absent: Gallop, Rubs, Systolic Murmur - GI/Abdominal Exam GI & Abdominal Exam: Normal Bowel Sounds, Soft. absent: Distended, Tenderness - Extremities Exam Additional comments: Left lower extremity tenderness, edema diffusely to entire foot with circular ulcers measuring 2 inch in diameter on lateral plantar aspect of foot. pulses weak. Severe hallux deformity with high heel arch. edema and tenderness extends up left lower calf Right lower extremity: Circular ulcer measuring about 1 inch with no purulent drainage, located on medial plantar aspect of foot. pulses weak. hallux deformity present. - Back Exam Back exam: absent: CVA tenderness (L), CVA tenderness (R), vertebral tenderness - Neurological Exam Neurological exam: Alert, CN II-XII Intact, Oriented x3 - Psychiatric Exam Psychiatric exam: Normal Affect, Normal Mood - Skin Skin Exam: Dry, Intact Results - Vital Signs Recent Vital Signs: Last Vital Signs Temp 98.3 F 02/03/18 01:04 Pulse 97 H 02/03/18 01:04 Resp 18 02/03/18 01:04 BP 115/69 02/03/18 01:04 Pulse Ox 95 02/03/18 01:04 - Labs Result Diagrams: 02/02/18 23:35 02/02/18 23:35 Labs: Laboratory Results - last 24 hr 02/02/18 02/02/18 02/02/18 23:35 23:35 23:35 WBC 15.1 H D RBC 4.59 Hgb 13.4 Hct 40.1 MCV 87.4 MCH 29.2 MCHC 33.4 RDW 13.6 Plt Count 554 H D MPV 7.2 Neut % (Auto) 67.1 Lymph % (Auto) 24.5 Hancock % (Auto) 4.4 Eos % (Auto) 3.1 Baso % (Auto) 0.9 Neut # (Auto) 10.1 H Lymph # (Auto) 3.7 Hancock # (Auto) 0.7 Eos # (Auto) 0.5 Baso # (Auto) 0.1 Sodium 140 Potassium 4.2 Chloride 100 Carbon Dioxide 28 Anion Gap 16 BUN 32 H Creatinine 1.1 Est GFR ( Amer) > 60 Est GFR (Non-Af Amer) > 60 Random Glucose 94 Lactic Acid 0.9 Calcium 9.5 Total Bilirubin 0.6 AST 21 ALT 26 Alkaline Phosphatase 125 Total Protein 8.5 H Albumin 4.5 Globulin 4.0 H Albumin/Globulin Ratio 1.1 Assessment & Plan - Assessment and Plan (Free Text) Assessment: 42 year old male with history of uncontrolled diabetes who presented for bilateral ulcers on the soles of his feet. Plan: Wound to plantar aspect of feet bilaterally Osteomyelitis Podiatry Dr. Jones consulted, help appreciated Vancomycin 1g IV daily Zosyn 3.375g IV Q6 Morphine 0.5mg IV once Percocet 1mg PO Q6 PRN Arterial dopplers bilateral pending MRI from last admission: Right Foot MRI 1. Severe hallux valgus deformity. Soft tissue ulceration seen at the volar head of the 1st metatarsal with associated fluid and edema measuring up to 2.9 centimeters. Adjacent prominent signal abnormality within medial sesamoid with decreased T1 signal and increased STIR signal concerning for acute osteomyelitis of the medial sesamoid bone. 2. Milder reactive edema noted at the lateral sesamoid bone which may represent some early acute and or developing acute osteomyelitic changes. 3. Signal abnormality seen at the volar head of the 1st metatarsal bone as demonstrated on series 3, image 20 and series 4, image 20 measuring 4 millimeters at that level. These findings are nonspecific and focal developing acute osteomyelitic changes cannot be excluded. Additional considerations may include developing osteochondral change versus developing subchondral cyst for mation. Mild reactive edema seen at the base of the 1st metatarsal bone which may represent some osteochondral and or degenerative change. 4. Signal abnormality seen at the base of the 1st proximal phalanx with some patchy decreased T1 signal and increased STIR signal as demonstrated on the coronal sequences which may represent some osteochondral change however underlying acute infectious and or inflammatory changes cannot be excluded. Clinical correlation. 5. Prominent signal abnormality measuring up to 1.5 centimeters seen at the medial aspect of the cuboid bone demonstrating prominent decreased T1 signal and increased STIR signal. This may represent the sequelae of osteochondral change versus subchondral osseous injury versus acute infectious and or inflammatory changes. Clinical correlation. 6. Signal abnormality at the base of the 4th metatarsal bone which may represent osteochondral change. 7. Patchy increased STIR signal seen at the 4th middle and distal phalanges are nonspecific and may be related to failure of fat suppression; however, underlying acute infectious and or inflammatory changes at these levels cannot be excluded. Clinical correlation. 8. Visualized Lisfranc ligament demonstrates some mild increased signal which may represent a low grade sprain and or mild partial tearing. Clinical correlation. 9. Non-specific fluid and edema seen overlying the 5th metatarsal bone at its volar aspect. 10. Additional scattered areas of increased reactive edema and patchy decreased T1 signal seen at the anterior talus as demonstrated on series 4, image 9 also nonspecific possibly representing sequelae of acute infectious and or inflammatory changes and or degenerative change. Clinical correlation. 11. Fluid and edema a traverses over the volar aspect of the 1st flexor tendon. Left foot MRI 1. Prior resection of the 5th digit to the level of the 5th metatarsal head. Bony fragmentation at the level of the 5th metatarsal head. Signal abnormality seen within the remnant 5th metatarsal bone at the head extending into the medullary cavity and midshaft demonstrating patchy decreased T1 signal and increased STIR signal concerning for acute on chronic osteomyelitic changes. Cortical thickening and periosteal reaction along the medial and lateral cortices of the 5th metatarsal shaft. Fluid and edema seen within the adjacent s oft tissues with ulceration at the volar aspect of the 5th metatarsal head. 2. Nonspecific patchy reactive edema with patchy decreased T1 signal seen at the head of the 4th metatarsal bone as well as within the 4th distal phalanx. These changes may be the sequelae of acute infectious and or inflammatory changes. Clinical correlation. 3. Signal abnormality noted at the base of the 4th metatarsal bone with patchy decreased T1 and signal increased STIR signal which may represent osteochondral change however acute infectious and or inflammatory changes cannot be excluded. 4. Evaluation of the cuneiform bones demonstrates exuberant reactive edema with patchy decreased T1 signal seen within the navicular bone which may represent acute osteomyelitic changes versus acute inflammatory changes versus subchondral fracturing versus stress fracture versus additional etiology. Clinical correlation. Additional milder signal abnormality seen within the proximal base of the lateral cuneiform bone and lateral aspect of the cuboid bone also suggestive for possible acute infectious and or inflammatory changes versus subchondral osseous injury versus additional etiology. Clinical correlation. 5. Signal abnormality seen at the base of 3rd metatarsal bone, nonspecific. Mild nonspecific reactive edema and/or failure of suppression at the 3rd distal phalanx. Clinical correlation. 6. Moderate hallux valgus deformity. 7. Some fraying with increased signal at the level of Lisfranc ligament which may represent a sprain and or partial tear. 8. Mild patchy reactive edema seen at the lateral mid shaft of the 1st metatarsal bone. 9. Reticulation and edema seen within the dorsal subcutaneous soft tissues. 10. Reticulation and edema seen within the volar sided musculature of the midfoo t. History of uncontrolled diabetes Hypoglycemia protocol ISS medium dose Accuchecks Heart healthy diet Encourage PO fluid intake A1c pending History of HTN Continue to monitor History of schizophrenia, bipolar disorder, ?personality disorder Not on any medications at home Patient became agitated with roommate overnight after admission Continue to monitor Prophylaxis DVT: Lovenox 30mg SC daily GI: Pepcid 20mg PO, Bacid 1 tab PO Heart healthy diet, 2g Na Case discussed with Dr. Yolanda Perez, PGY1 <Antonio Guerrero P - Last Filed: 02/03/18 08:05> Results - Vital Signs Recent Vital Signs: Last Vital Signs Temp 98.2 F 02/03/18 04:07 Pulse 94 H 02/03/18 04:07 Resp 20 02/03/18 04:07 BP 107/68 02/03/18 04:07 Pulse Ox 100 02/03/18 05:46 - Labs Result Diagrams: 02/02/18 23:35 02/02/18 23:35 Labs: Laboratory Results - last 24 hr 02/02/18 02/02/18 02/02/18 23:35 23:35 23:35 WBC 15.1 H D RBC 4.59 Hgb 13.4 Hct 40.1 MCV 87.4 MCH 29.2 MCHC 33.4 RDW 13.6 Plt Count 554 H D MPV 7.2 Neut % (Auto) 67.1 Lymph % (Auto) 24.5 Hancock % (Auto) 4.4 Eos % (Auto) 3.1 Baso % (Auto) 0.9 Neut # (Auto) 10.1 H Lymph # (Auto) 3.7 Hancock # (Auto) 0.7 Eos # (Auto) 0.5 Baso # (Auto) 0.1 Sodium 140 Potassium 4.2 Chloride 100 Carbon Dioxide 28 Anion Gap 16 BUN 32 H Creatinine 1.1 Est GFR ( Amer) > 60 Est GFR (Non-Af Amer) > 60 POC Glucose (mg/dL) Random Glucose 94 Lactic Acid 0.9 Calcium 9.5 Total Bilirubin 0.6 AST 21 ALT 26 Alkaline Phosphatase 125 Total Protein 8.5 H Albumin 4.5 Globulin 4.0 H Albumin/Globulin Ratio 1.1 02/03/18 06:33 WBC RBC Hgb Hct MCV MCH MCHC RDW Plt Count MPV Neut % (Auto) Lymph % (Auto) Hancock % (Auto) Eos % (Auto) Baso % (Auto) Neut # (Auto) Lymph # (Auto) Hancock # (Auto) Eos # (Auto) Baso # (Auto) Sodium Potassium Chloride Carbon Dioxide Anion Gap BUN Creatinine Est GFR ( Amer) Est GFR (Non-Af Amer) POC Glucose (mg/dL) 144 H Random Glucose Lactic Acid Calcium Total Bilirubin AST ALT Alkaline Phosphatase Total Protein Albumin Globulin Albumin/Globulin Ratio Attending/Attestation - Attestation I have personally seen and examined this patient.: Yes I have fully participated in the care of the patient.: Yes I have reviewed all pertinent clinical information: Yes Notes (Text): 02/03/18 07:57 Assessment Patient came back as per him planned procedure was due this wk so didn't wanted to stay in hospital, suspicion of OM with chronic ulcer and pain, more on left the right. On exam poor DP and PT on the left Patient gets agitated very quickly and blames it on pain or situation which hinders proper communication, last visit was evaluated by pshych, Non compliance with meds, not taking insulin of dm meds at home. Tobacco abuse Uncontrolled DM DM neuropathy. Plan IV abx Podiatry consult lower ext arterial doppler Pain control Insulin sliding scale, [id number], may start OHA or insulin scheduled as numbers evaluated Counselled about compliance and tobacco abuse Gi/dvt prophylaxis See orders for detail.
[2018-02-03 01:52] VITALS: RESP 20
[2018-02-03] MEDS ORDERED: Oxycodone/Acetaminophen 5/325 mg Tab PO PRN ×2 (02:41→02:49)
[2018-02-03] MEDS: Piperacillin/Tazobact 3.375 GM in Sodium Chloride 100 ML IVPB SCH ×4 (03:22→21:41)
[2018-02-03] MEDS ORDERED: Dextrose 50% SYRINGE Inj (50 ml) IV PRN (04:09)
[2018-02-03] MEDS ORDERED: Glucagon Recombinant 1 mg Inj IM PRN (04:09)
[2018-02-03] MEDS: (Novolin R) Insulin Human Regular 100 units/ml vial SC SCH ×4 (07:35→21:40)
[2018-02-03 08:00] VITALS: BP 128/80; PULSE 91; TEMP 98.1; O2SAT 94
[2018-02-03] MEDS: Lactobacillus Acidophilus 500 MU Cap PO SCH ×3 (09:40→19:09)
[2018-02-03] MEDS: Enoxaparin 30 mg Syringe SC SCH ×2 (09:41→09:45)
--- NOTE | 2018-02-03 10:00 | RAD ---
Chest x-ray single frontal view History: Shortness of breath. COMPARISON: 01/29/2018 Findings: Mild venous congestion. Patchy increased markings at the left lung base. Left hilar prominence. Heart size within normal limits. Degenerative changes in the spine with paravertebral osteophytes. Impression: Mild venous congestion. Patchy increased markings at the left lung base. Left hilar prominence.
[2018-02-03 11:12] LABS: BASO # 0.1 K/uL (0.0-0.2); BASO % 0.9 % (0.0-2.0); EOS # 0.5 K/uL (0.0-0.7); EOS % 5.1 % (0.0-4.0); HEMOGLOBIN 12.1 g/dL (12.0-18.0); LYMPH # 2.3 K/uL (1.0-4.3); LYMPH % 24.9 % (20.0-40.0); MEAN CELL VOLUME 86.3 fL (80.0-94.0); MEAN CORPUSCULAR HEMOGLOBIN 29.4 pg (27.0-31.0); MEAN PLATELET VOLUME 7.2 fL (7.2-11.7); MONO # 0.5 K/uL (0.0-0.8); MONO % 5.9 % (0.0-10.0); NEUT # 5.9 K/uL (1.8-7.0); NEUT % 63.2 % (50.0-75.0); NRBC % 0.1 % (0.0-2.0); RBC 4.11 Mil/uL (4.40-5.90); RED CELL DISTRIBUTION WIDTH 13.4 % (11.5-14.5); WHITE BLOOD COUNT 9.3 K/uL (4.8-10.8)
[2018-02-03 11:28] LABS: ALB/GLOB RATIO 1.1 (1.0-2.1); ALBUMIN 3.3 g/dL (3.5-5.0); ALT/SGPT 17 U/L (21-72); AST/SGOT 15 U/L (17-59); BLOOD UREA NITROGEN 23 mg/dL (9-20); CALCIUM 8.5 mg/dl (8.6-10.4); GFR NON-AFRICAN AMERICAN > 60
--- NOTE | 2018-02-03 11:55 | CP.PCM.PCO ---
Physician Communication Note - Physician Communication Note Physician Communication Note: Please provide medical clearance for left 5th met head resection 02/04/18
--- NOTE | 2018-02-03 19:46 | CP.PCM.PN ---
Subjective - Date & Time of Evaluation Date of Evaluation: 02/04/18 Time of Evaluation: 09:40 - Subjective Subjective: PGY-[address] Davis service Patient is seen and examined by bedside. Patient continues to complain of bilateral feet pain /, stating he needs morphine for pain instead of percocet to help with pain. Patient states he will refuse to taken anything else. Patient is awaiting podiatry consult for possible surgical procedure to care for bilateral diabetic ulcers. Patient denies fevers, chills, chest pain, SOB, abdominal pain, n/v/d/c or urinary problems. Objective - Vital Signs/Intake and Output Vital Signs (last 24 hours): Temp Pulse Resp BP Pulse Ox 98.1 F 91 H 20 128/80 94 L 02/03/18 07:59 02/03/18 07:59 02/03/18 07:59 02/03/18 07:59 02/03/18 07:59 Intake and Output: 02/03/18 02/04/18 18:59 06:59 Output Total 800 Balance -800 - Medications Medications: Current Medications Dextrose (Dextrose 50% Inj) 0 ml IV STAT PRN; Protocol PRN Reason: Hypoglycemia Protocol Dextrose (Glutose 15) 0 gm PO ONCE PRN; Protocol PRN Reason: Hypoglycemia Protocol Enoxaparin Sodium (Lovenox) 30 mg SC DAILY [facility] Last Admin: 02/03/18 09:45 Dose: Not Given Famotidine (Pepcid) 20 mg PO DAILY [facility] Last Admin: 02/03/18 09:45 Dose: Not Given Glucagon (Glucagen Diagnostic Kit) 0 mg IM STAT PRN; Protocol PRN Reason: Hypoglycemia Protocol Piperacillin Sod/Tazobactam (Sod 3.375 gm/ Sodium Chloride) 100 mls @ 200 mls/hr IVPB Q6H [facility]; Protocol Last Admin: 02/03/18 15:41 Dose: Not Given Vancomycin HCl 1 gm/ Sodium (Chloride) 250 mls @ 166.7 mls/hr IVPB Q24H [facility]; Protocol Last Admin: 02/03/18 03:22 Dose: 166.7 mls/hr Dextrose (Dextrose 5% In Water 1000 Ml) 1,000 mls @ 0 mls/hr IV .Q0M PRN; Protocol PRN Reason: Hypoglycemia Protocol Insulin Human Regular (Novolin R) 0 unit SC ACHS [facility]; Protocol Last Admin: 02/03/18 19:09 Dose: Not Given Lactobacillus Acidophilus (Bacid Acidophilus) 1 cap PO BID [facility] Last Admin: 02/03/18 19:09 Dose: Not Given Oxycodone/Acetaminophen (Percocet 5/325 Mg Tab) 1 tab PO Q6H PRN PRN Reason: Pain, moderate (4-7) Stop: 02/06/18 02:42 - Labs Labs: 02/03/18 10:58 02/03/18 10:58 - Constitutional Appears: Well, Non-toxic, No Acute Distress - Head Exam Head Exam: ATRAUMATIC, NORMAL INSPECTION, NORMOCEPHALIC - Eye Exam Eye Exam: EOMI, Normal appearance, PERRL - ENT Exam ENT Exam: Mucous Membranes Moist, Normal Exam - Neck Exam Neck Exam: Full ROM, Normal Inspection - Respiratory Exam Respiratory Exam: Clear to Ausculation Bilateral, NORMAL BREATHING PATTERN. absent: Rales, Rhonchi, Wheezes - Cardiovascular Exam Cardiovascular Exam: REGULAR RHYTHM, +S1, +S2 - GI/Abdominal Exam GI & Abdominal Exam: Soft, Normal Bowel Sounds. absent: Distended, Tenderness - Extremities Exam Extremities Exam: Full ROM, Pedal Edema, Tenderness Additional comments: Left Foot 2 inch circular ulcer located on lateral aspect of5th metartasal area/plantar aspect, mildly purulent extending to subcutanous area. edema noted on foot. Right Foot 1 inch circular ulcer located on medial aspect of 1st metatarsal area/plantar aspect, no purulent discharge. - Back Exam Back Exam: NORMAL INSPECTION - Neurological Exam Neurological Exam: Alert, Awake, Oriented x3 - Psychiatric Exam Psychiatric exam: Normal Affect, Normal Mood - Skin Skin Exam: Dry, Warm Assessment and Plan - Assessment and Plan (Free Text) Plan: Wound to plantar aspect of feet bilaterally/Osteolmyelitis - WBC - decreased from 15.1 to 9.3 (02/03) - afebrile - Vanco 1gm IVPB Q24H - Zosyn 3.375gm IVPB Q6H - Percocet 1mg PO Q6 PRN Medical clearance for left 5th met head resection (02/04/18) - EKG to be done in Am - f/u results - Chest xray 02/02 - Mild venous congestion, patchy increased markings left lung base, left hilar prominence - AM labs and Coags - f/u - lovenox held after midnight - If all results within normal limit, may precede with surgery History of uncontrolled diabetes - ISS medium dose - Acuchecks - A1C - 10.2 - hypoglycemia protocol HTN - continue to monitor - 128/80 am reading Hx of schizophrenia, bipolar disorder, personality disorder - consider psych consult Prophylaxis - DVT: lovenox - held for procedure - GI: pepcid 20mg PO, Bacid 1 tab PO ( pt NPO including meds tomorrow 02/04 for procedure) - NPO after midnight Plan discussed with Dr Ryan Sepulveda, PGY-1
[2018-02-03 20:31] LABS: BARBITURATES, UR NEGATIVE (NEGATIVE); BENZODIAZEPINES, UR NEGATIVE (NEGATIVE); OPIATES, UR NEGATIVE (NEGATIVE); PHENCYCLIDINE, UR NEGATIVE (NEGATIVE)
[2018-02-04] MEDS: Piperacillin/Tazobact 3.375 GM in Sodium Chloride 100 ML IVPB SCH ×2 (03:00→09:00)
[2018-02-04] MEDS: (Novolin R) Insulin Human Regular 100 units/ml vial SC SCH (07:30)
--- NOTE | 2018-02-04 07:55 | CP.PCM.PN ---
Subjective - Date & Time of Evaluation Date of Evaluation: 02/04/18 Time of Evaluation: 19:08 - Subjective Subjective: Progress note for Dr Davis service Patient was seen and examined at bedside this morning. As per am nurse, patient is refusing all medical intervention, including vital signs, accuchecks, and pre-operative work up including labs and EKG. After asking patient why he refused, he said he wont do anything until he speaks with podiatry. when asked about pain, pain refused to answer questions. Patient refused to answer any questions and a physical examination, and said he wants to speak with podiatry and possibly will consider further tests. Objective - Vital Signs/Intake and Output Vital Signs (last 24 hours): Temp Pulse Resp BP Pulse Ox 98.1 F 91 H 20 128/80 94 L 02/03/18 07:59 02/03/18 07:59 02/03/18 07:59 02/03/18 07:59 02/03/18 07:59 Intake and Output: 02/04/18 02/04/18 06:59 18:59 Output Total 800 800 Balance -800 -800 - Medications Medications: Current Medications Dextrose (Dextrose 50% Inj) 0 ml IV STAT PRN; Protocol PRN Reason: Hypoglycemia Protocol Dextrose (Glutose 15) 0 gm PO ONCE PRN; Protocol PRN Reason: Hypoglycemia Protocol Enoxaparin Sodium (Lovenox) 30 mg SC DAILY [facility] Last Admin: 02/03/18 09:45 Dose: Not Given Famotidine (Pepcid) 20 mg PO DAILY [facility] Last Admin: 02/03/18 09:45 Dose: Not Given Glucagon (Glucagen Diagnostic Kit) 0 mg IM STAT PRN; Protocol PRN Reason: Hypoglycemia Protocol Piperacillin Sod/Tazobactam (Sod 3.375 gm/ Sodium Chloride) 100 mls @ 200 mls/hr IVPB Q6H [facility]; Protocol Last Admin: 02/04/18 03:00 Dose: Not Given Vancomycin HCl 1 gm/ Sodium (Chloride) 250 mls @ 166.7 mls/hr IVPB Q24H [facility]; Protocol Last Admin: 02/04/18 03:30 Dose: Not Given Dextrose (Dextrose 5% In Water 1000 Ml) 1,000 mls @ 0 mls/hr IV .Q0M PRN; Protocol PRN Reason: Hypoglycemia Protocol Insulin Human Regular (Novolin R) 0 unit SC ACHS [facility]; Protocol Last Admin: 02/03/18 21:40 Dose: Not Given Lactobacillus Acidophilus (Bacid Acidophilus) 1 cap PO BID [facility] Last Admin: 02/03/18 19:09 Dose: Not Given Oxycodone/Acetaminophen (Percocet 5/325 Mg Tab) 1 tab PO Q6H PRN PRN Reason: Pain, moderate (4-7) Stop: 02/06/18 02:42 - Labs Labs: 02/03/18 10:58 02/03/18 10:58 - Constitutional Appears: Non-toxic, No Acute Distress, Agitated - Head Exam Head Exam: ATRAUMATIC, NORMAL INSPECTION, NORMOCEPHALIC - Eye Exam Eye Exam: EOMI, Normal appearance - Neck Exam Neck Exam: Normal Inspection - Respiratory Exam Respiratory Exam: NORMAL BREATHING PATTERN - Cardiovascular Exam Additional comments: refused examination - GI/Abdominal Exam Additional comments: refused examination - Extremities Exam Additional comments: refused examination - Back Exam Additional comments: refused examination - Neurological Exam Neurological Exam: Alert, Awake, Oriented x3 - Psychiatric Exam Psychiatric exam: Agitated, Anxious Assessment and Plan - Assessment and Plan (Free Text) Plan: Plan: Wound to plantar aspect of feet bilaterally/Osteolmyelitis - refused labs this am - refused vitals - refused all medications - Vanco 1gm IVPB Q24H, Zosyn 3.375gm IVPB Q6H, Percocet 1mg PO Q6 PRN - Podiatry aware of patient being noncompliant - will follow with podiatry plan Medical clearance for left 5th met head resection (02/04/18) - Patient refused EKG, coags and am labs - Podiatry aware of patient being noncompliant History of uncontrolled diabetes - ISS medium dose - refuses accuchecks - hypoglycemia protocol HTN - refuses vitals Hx of schizophrenia, bipolar disorder, personality disorder - consider psych consult Prophylaxis - refusing all prophylaxis Plan discussed with Dr Ryan Sepulveda, PGY-1
[2018-02-04] MEDS: Lactobacillus Acidophilus 500 MU Cap PO SCH (10:22)
--- NOTE | 2018-02-04 11:54 | CP.PCM.CON ---
History of Present Illness - History of Present Illness History of Present Illness: Podiatry Progress note for - Dr. Jones 42 year old male patient PMHx uncontrolled DM, HTN seen in ED for bilateral foot ulcerations. Patient states his left foot became increasingly swollen along with associated pain, redness and foul odor, so presented to ED for further evaluation. Patient states he works at [employer] and is constantly on his feet for work. Patient was recently discharged from [facility] 1 week ago for the same complaints. pt has extensive history of leaving AMA. Patient states he has had the wound on his left foot for approximately 6 months but has worsened over the past month. Patient reports mild pain to wound site. Patient also complains of a chronic wound on the bottom of his right foot he has had for over 1 year; denies any pain to wound site. Patient has not seen a audio visual manager for wound care and performs dressing changes himself. Admits to tingling and numbness in both feet which he attributes to neuropathy. Denies n/v/f/d/c/sob/mata/cp. Offers no other complaints. 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 with met head resection, ear surgeries All: NSAIDs SocHx: admits to 10-12 cigarettes/day, social EtOH use; denies illicit drug use Review of Systems - Review of Systems All systems: reviewed and no additional remarkable complaints except Review of Systems: As per HPI Past Patient History - Infectious Disease Hx of Infectious Diseases: None - Past Medical History & Family History Past Medical History?: Yes - Past Social History Smoking Status: Heavy Smoker > 10 Cigarettes Daily - CARDIAC Hx Hypertension: Yes - PULMONARY Hx Asthma: Yes - NEUROLOGICAL Hx Neurological Disorder: No - HEENT Hx HEENT Problems: No - RENAL Hx Chronic Kidney Disease: No - ENDOCRINE/METABOLIC Hx Endocrine Disorders: Yes Hx Diabetes Mellitus Type 2: Yes - HEMATOLOGICAL/ONCOLOGICAL Hx Blood Disorders: No - INTEGUMENTARY Hx Dermatological Problems: No - MUSCULOSKELETAL/RHEUMATOLOGICAL Hx Arthritis: Yes (backs and LE) - GASTROINTESTINAL Hx Gastrointestinal Disorders: No - GENITOURINARY/GYNECOLOGICAL Hx Genitourinary Disorders: No - PSYCHIATRIC Hx Anxiety: Yes Hx Bipolar Disorder: Yes Hx Depression: Yes Hx Schizophrenia: Yes (schizoaffective disorder) Hx Substance Use: No - SURGICAL HISTORY Hx Surgeries: Yes Other/Comment: right ear surgery. left FOOT TOE / 5TH DIGITsurgery - ANESTHESIA Hx Anesthesia: Yes Hx Anesthesia Reactions: No Hx Malignant Hyperthermia: No Meds Allergies/Adverse Reactions: Allergies Allergy/AdvReac Type Severity Reaction Status Date / Time NSAIDS (Non-Steroidal Allergy RASH Verified 01/29/18 01:48 Anti-Inflamma Physical Exam - Constitutional Appears: Well, Non-toxic, No Acute Distress - Head Exam Head Exam: ATRAUMATIC, NORMOCEPHALIC - Extremities Exam Additional comments: Lower extremity focused exam: Vasc: DP/PT pulses palpable 2/4 B/L. Temperature gradient warm to cool. CFT < 3 sec to all digits x9. No pedal edema noted Derm: Left: Open ulceration sub met 5 approx 3.5cm x 3cm x 0.4cm with fibrogranular wound base, active serosanguinous drainage, positive malodor, and significantly macerated wound borders with thickened 1cm macerated tissue rim. No fluctuance or suspected abscess formation. Wound probes deep but not to bone. Right: open circular ulceration sub met 1 approx 1.5cm in diameter and 0.3cm in depth with fibrogranular wound base and macerated wound rim and borders. Mild serous drainage elicited upon pressure. Positive malodor noted. Wound probes deep but not to bone. No fluctuance or suspected abscess formation Neuro: protective sensation grossly diminished Ortho: Pes cavus deformity B/L, R>L with plantarflexed 1st metatarsal noted to R foot. 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 No tenderness to palpation of ulceration sites - Neurological Exam Neurological exam: Alert, Oriented x3 - Psychiatric Exam Psychiatric exam: Normal Affect, Normal Mood Results - Vital Signs Recent Vital Signs: Last Vital Signs Temp 98.1 F 02/03/18 07:59 Pulse 91 H 02/03/18 07:59 Resp 20 02/03/18 07:59 BP 128/80 02/03/18 07:59 Pulse Ox 94 L 02/03/18 07:59 - Labs Result Diagrams: 02/03/18 10:58 02/03/18 10:58 Labs: Laboratory Results - last 24 hr 02/03/18 19:55 Urine Opiates Screen Negative Urine Methadone Screen Negative Ur Barbiturates Screen Negative Ur Phencyclidine Scrn Negative Ur Amphetamines Screen Negative U Benzodiazepines Scrn Negative U Oth Cocaine Metabols Negative U Cannabinoids Screen Negative Assessment & Plan - Assessment and Plan (Free Text) Assessment: 42 y/o male with bilateral diabetic foot ulcer Plan: Patient seen and evaluated with Dr. Jones Discussed with attending, Dr. Jones Chart, labs and vitals were reviewed- Afebrile, 15.1 WBC upon arrival L foot XR (01/29): Partial 5th ray amp, plantarlateral ulceration w/no definitive cortical destruction R foot XR (01/29): ST swelling hallux MRI was performed at last visit Patient was thoroughly advised not to sign out AMA as he requires a podiatric surgical intervention Patient was told he would have surgery on 02/04/18 NPO order was placed, and Lovenox was put on hold Patient was agreeable at time of evaluation Continue IV Vanco/Zosyn Local wound care: betadine, DSD Podiatry will continue to follow - Date & Time Date: 02/03/18 Time: 11:58
--- NOTE | 2018-02-04 12:46 | CP.PCM.DIS ---
Provider - Provider Date of Admission: 02/02/18 23:42 Attending physician: Antonio Guerrero MD Consults: 02/03/18 01:28 Podiatry Consult Routine Comment: Consulting Provider: Keenan Turner Consulting Physician: Keenan Turner Reason for Consult: Diabetic ulcers 02/03/18 03:15 Nursing Referral for Wound Care Routine Comment: New Admission. Physician Instructions: Reason For Exam: Foot Ulcer. Time Spent in preparation of Discharge (in minutes): 120 Diagnosis - Discharge Diagnosis (1) Diabetic foot ulcer Status: Acute (2) Osteomyelitis Status: Acute (3) Uncontrolled diabetes mellitus Status: Chronic Hospital Course - Lab Results Lab Results: Micro Results 02/02/18 23:18 Blood Blood Culture - Preliminary NO GROWTH AFTER 24 HOURS 02/02/18 23:18 Blood Blood Culture - Preliminary NO GROWTH AFTER 24 HOURS Most Recent Lab Values WBC 9.3 K/uL (4.8-10.8) 02/03/18 10:58 RBC 4.11 Mil/uL (4.40-5.90) L 02/03/18 10:58 Hgb 12.1 g/dL (12.0-18.0) 02/03/18 10:58 Hct 35.5 % (35.0-51.0) 02/03/18 10:58 MCV 86.3 fL (80.0-94.0) 02/03/18 10:58 MCH 29.4 pg (27.0-31.0) 02/03/18 10:58 MCHC 34.0 g/dL (33.0-37.0) 02/03/18 10:58 RDW 13.4 % (11.5-14.5) 02/03/18 10:58 Plt Count 439 K/uL (130-400) H D 02/03/18 10:58 MPV 7.2 fL (7.2-11.7) 02/03/18 10:58 Neut % (Auto) 63.2 % (50.0-75.0) 02/03/18 10:58 Lymph % (Auto) 24.9 % (20.0-40.0) 02/03/18 10:58 Blount % (Auto) 5.9 % (0.0-10.0) 02/03/18 10:58 Eos % (Auto) 5.1 % (0.0-4.0) H 02/03/18 10:58 Baso % (Auto) 0.9 % (0.0-2.0) 02/03/18 10:58 Neut # (Auto) 5.9 K/uL (1.8-7.0) 02/03/18 10:58 Lymph # (Auto) 2.3 K/uL (1.0-4.3) 02/03/18 10:58 Blount # (Auto) 0.5 K/uL (0.0-0.8) 02/03/18 10:58 Eos # (Auto) 0.5 K/uL (0.0-0.7) 02/03/18 10:58 Baso # (Auto) 0.1 K/uL (0.0-0.2) 02/03/18 10:58 Sodium 136 mmol/L (132-148) 02/03/18 10:58 Potassium 3.9 mmol/L (3.6-5.2) 02/03/18 10:58 Chloride 103 mmol/L (98-107) 02/03/18 10:58 Carbon Dioxide 25 mmol/L (22-30) 02/03/18 10:58 Anion Gap 13 (10-20) 02/03/18 10:58 BUN 23 mg/dL (9-20) H 02/03/18 10:58 Creatinine 0.9 mg/dL (0.8-1.5) 02/03/18 10:58 Est GFR ( Amer) > 60 02/03/18 10:58 Est GFR (Non-Af Amer) > 60 02/03/18 10:58 POC Glucose (mg/dL) 227 mg/dL (65-110) H 02/03/18 11:11 Random Glucose 243 mg/dL (75-110) H 02/03/18 10:58 Hemoglobin A1c 10.2 % (4.2-6.5) H 02/03/18 10:58 Lactic Acid 0.9 mmol/L (0.7-2.1) 02/02/18 23:35 Calcium 8.5 mg/dl (8.6-10.4) L 02/03/18 10:58 Phosphorus 4.2 mg/dL (2.5-4.5) 02/03/18 10:58 Magnesium 1.7 mg/dL (1.6-2.3) 02/03/18 10:58 Total Bilirubin 0.4 mg/dL (0.2-1.3) 02/03/18 10:58 AST 15 U/L (17-59) L D 02/03/18 10:58 ALT 17 U/L (21-72) L D 02/03/18 10:58 Alkaline Phosphatase 103 U/L (38-126) 02/03/18 10:58 Total Protein 6.4 g/dL (6.3-8.3) 02/03/18 10:58 Albumin 3.3 g/dL (3.5-5.0) L D 02/03/18 10:58 Globulin 3.1 gm/dL (2.2-3.9) 02/03/18 10:58 Albumin/Globulin Ratio 1.1 (1.0-2.1) 02/03/18 10:58 Urine Opiates Screen Negative (NEGATIVE) 02/03/18 19:55 Urine Methadone Screen Negative (NEGATIVE) 02/03/18 19:55 Ur Barbiturates Screen Negative (NEGATIVE) 02/03/18 19:55 Ur Phencyclidine Scrn Negative (NEGATIVE) 02/03/18 19:55 Ur Amphetamines Screen Negative (NEGATIVE) 02/03/18 19:55 U Benzodiazepines Scrn Negative (NEGATIVE) 02/03/18 19:55 U Oth Cocaine Metabols Negative (NEGATIVE) 02/03/18 19:55 U Cannabinoids Screen Negative (NEGATIVE) 02/03/18 19:55 - Hospital Course Hospital Course: Patient is a 42 year old male who presents for worsening pain rated 10/10 and swelling with ulcers on the soles of both his feet. He was recently seen here on 01/29/18 for similar symptoms until he signed out against medical advice because he did not want to stay here over the weekend. He states that he has been able to work and walk on it since he was discharged on 02/02/18. He states he first noticed pain in his feet about a year ago, but states his pain worsened about a week and a half ago. He has been recently admitted to [facility] and [place] for his ulcers, but has signed out against medical advice. He states his pain is currently a "400" and states his left foot is very painful all over his entire foot with pain extending up to his left knee. He denies trauma, purulent discharge from ulcers, but states that his ulcers bleed intermittently. He denies fevers, chills, chest pain, shortness of breath, abdominal pain, nausea, vomiting, diarrhea, constipation, dysuria. Patient admitted for osteomyelitis/wound to plantar aspect of foot bilaterally. Patient received Vancomycin 1g IV daily and Zosyn 3.375g IV Q6, Morphine 0.5mg IV once, Percocet 1mg PO Q6 PRN.L foot XR (01/29): Partial 5th ray amp, plantarlateral ulceration w/no definitive cortical destruction, R foot XR (01/29): ST swelling hallux. Dr turner consulted - Patient was thoroughly advised not to sign out AMA as he requires a podiatric surgical intervention Patient was told he would have left 5th metatarsal head resection surgery on 02/04/18. NPO order was placed, and Lovenox was put on hold, Patient was agreeable at time of evaluation, Continue IV Vanco/Zosyn, Local wound care: betadine, DSD. for hx of uncontrolled DM, Hypoglycemia protocol, ISS medium dose , Accuchecks, Encourage PO fluid intake, A1c on this admission 10.2. Patient was ordered pre-op workup (EKG, coags, CBC, CMP), which patient refused due to not getting morphine IV. Patient was explained that he has percocet on board, but refused to take. Patient started refusing all medical intervention including lab work, vitals, accuchecks and medications in the morning of 02/04/2018, until he talks to podiatry. Podiatry was contacted of patient's noncompliance. Nurse called to inform of patient elopement from hospital on the morning of 02/04/2018. Patient did not sign AMA. Nurse were able to removed IV line before patient walked out of hospital. - Date & Time of H&P Date of H&P: 02/03/18 Time of H&P: 01:20 Discharge Exam - Head Exam Head Exam: ATRAUMATIC, NORMOCEPHALIC - Eye Exam Eye Exam: EOMI, Normal appearance - Neck Exam Neck exam: Normal Inspection - Respiratory Exam Respiratory Exam: NORMAL BREATHING PATTERN Additional comments: refused examination - Cardiovascular Exam Additional comments: refused examination - GI/Abdominal Exam Additional comments: refused examination - Extremities Exam Additional comments: refused examination - Neurological Exam Neurological exam: Alert, Oriented x3 - Psychiatric Exam Psychiatric exam: Agitated, Anxious - Skin Additional comments: refused examination Discharge Plan - Follow Up Plan Condition: GOOD Disposition: AGAINST MEDICAL ADVICE
== END 2018-02-04 10:35 | disposition left against medical advice (07) | DRG 566 ==
LOC: C.ER 22:41 → C.6T 23:42 → C.5S 02-03 03:10
PROVIDERS: ADMIT Internal Medicine; ATTEND Internal Medicine
DX: E11.69 Type 2 diabetes mellitus with other specified complication (principal); M86.172 Other acute osteomyelitis, left ankle and foot; L97.529 Non-pressure chronic ulcer of other part of left foot with unspecified severity; E11.40 Type 2 diabetes mellitus with diabetic neuropathy, unspecified; F25.9 Schizoaffective disorder, unspecified; E11.621 Type 2 diabetes mellitus with foot ulcer; E11.65 Type 2 diabetes mellitus with hyperglycemia; I10 Essential (primary) hypertension; J45.909 Unspecified asthma, uncomplicated; F17.210 Nicotine dependence, cigarettes, uncomplicated; Z91.14 Patient's other noncompliance with medication regimen; M46.96 Unspecified inflammatory spondylopathy, lumbar region; F41.9 Anxiety disorder, unspecified; F60.9 Personality disorder, unspecified

== ENCOUNTER 2018-02-27 03:20 | Inpatient (IN) | payer MEDICAID ==
[2018-02-27 03:21] VITALS: BMI 31.8
[2018-02-27] MEDS ORDERED: Piperacillin/Tazobact 3.375 GM in Sodium Chloride 100 ML IVPB STA (04:23)
[2018-02-27] MEDS ORDERED: Piperacillin/Tazobact 3.375 gm 100 ML IVPB ONE (04:35)
[2018-02-27] MEDS ORDERED: Morphine 4 MG/ML VIAL ONE ×2 (04:44→19:11)
--- NOTE | 2018-02-27 05:16 | C.PDOC ---
History Of Present Illness 42 year old male with a Hx of diabetes and chronic diabetic foot ulcers presents to the ER with a complaint of moderate pain, swelling, and open wounds to the right foot worse since yesterday. Patient was seen by auto brake mechanic 3 days ago, at the time the pain was bearable but now patient has difficulty ambulating due the pain and foot appears moderately more swollen. Denies fever, chest pain, or SOB. Time Seen by Provider: 02/27/18 03:53 Chief Complaint (Nursing): Abnormal Skin Integrity History Per: Patient History/Exam Limitations: no limitations Onset/Duration Of Symptoms: Days (3) Current Symptoms Are (Timing): Still Present Location Of Injury: Right: Foot Quality Of Symptoms: Painful, Swollen Recent travel outside of the [place]: No Past Medical History Reviewed: Historical Data, Nursing Documentation, Vital Signs Vital Signs: Last Vital Signs Temp 99.1 F 02/27/18 03:29 Pulse 112 H 02/27/18 03:29 Resp 22 02/27/18 03:29 BP 113/68 02/27/18 03:29 Pulse Ox 99 02/27/18 03:29 - Medical History PMH: Anxiety, Arthritis (backs and LE), Asthma, Bipolar Disorder, Depression, Diabetes, HTN, Schizophrenia (schizoaffective disorder) Denies: Chronic Kidney Disease - [facility] Procedures EXCISION OF L FOOT SUBCU/FASCIA, OPEN APPROACH (11/10/17) Family History: States: Unknown Family Hx - Social History Hx Tobacco Use: Yes Hx Alcohol Use: No Hx Substance Use: No - Immunization History Hx Tetanus Toxoid Vaccination: Yes Hx Influenza Vaccination: Yes Hx Pneumococcal Vaccination: Yes Review Of Systems Constitutional: Negative for: Fever, Chills Cardiovascular: Negative for: Chest Pain, Palpitations Respiratory: Negative for: Cough, Shortness of Breath Gastrointestinal: Negative for: Nausea, Vomiting Musculoskeletal: Positive for: Foot Pain (Right with swelling and wounds) Physical Exam - Physical Exam Appears: Non-toxic Skin: Warm, Dry Head: Atraumatic, Normacephalic Eye(s): bilateral: Normal Inspection Oral Mucosa: Moist Neck: Normal, Supple Chest: Symmetrical, No Tenderness Cardiovascular: Rhythm Regular Respiratory: Normal Breath Sounds, No Rhonchi, No Wheezing Extremity: No Calf Tenderness, Swelling (right foot), Other (Moderate erythema, swelling, and tenderness to right distal foot plantar and dorsal aspects, tender area of fluctuance over planter aspect of right foot at the base of the right great toe, 2 small draining wounds to plantar right foot, no discoloration of toes. Old healing chronic ulcer on left foot.) Pulses: Left Dorsalis Pedis: Normal, Right Dorsalis Pedis: Normal Neurological/Psych: Oriented x3, Normal Speech, Normal Sensation (right foot) ED Course And Treatment - Laboratory Results Result Diagrams: 02/27/18 06:41 02/27/18 06:41 O2 Sat by Pulse Oximetry: 99 (room air) Pulse Ox Interpretation: Normal - Other Rad Right foot x-ray X-Ray: Interpreted by Me, Viewed By Me Interpretation: No acute pathology. Progress Note: Patient has multiple visits for similar complaints in the past and has Hx of signing out AMA, advised patient he will need admission base on cellulitis, strongly encouraged patient no to sign out AMA. Blood work and right foot x-ray ordered. Morphine administered. 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 - Scribe Statement The provider has reviewed the documentation as recorded by the Scribmarbella Huizra All medical record entries made by the Scribe were at my direction and personally dictated by me. I have reviewed the chart and agree that the record accurately reflects my personal performance of the history, physical exam, medical decision making, and the department course for this patient. I have also personally directed, reviewed, and agree with the discharge instructions and dis position.
[2018-02-27] MEDS ORDERED: Vancomycin 1 GM 1 GM/250 ML BAG IVPB ONE (05:28)
[2018-02-27 06:45] LABS: BASO # 0.1 K/uL (0.0-0.2); BASO % 0.9 % (0.0-2.0); EOS # 0.4 K/uL (0.0-0.7); EOS % 2.5 % (0.0-4.0); LYMPH # 2.8 K/uL (1.0-4.3); LYMPH % 18.6 % (20.0-40.0); MEAN CELL VOLUME 85.3 fL (80.0-94.0); MEAN CORPUSCULAR HEMOGLOBIN 28.2 pg (27.0-31.0); MEAN PLATELET VOLUME 6.8 fL (7.2-11.7); MONO # 1.1 K/uL (0.0-0.8); MONO % 7.2 % (0.0-10.0); NEUT # 10.8 K/uL (1.8-7.0); NEUT % 70.8 % (50.0-75.0); RBC 3.55 Mil/uL (4.40-5.90); RED CELL DISTRIBUTION WIDTH 13.2 % (11.5-14.5); WHITE BLOOD COUNT 15.2 K/uL (4.8-10.8)
[2018-02-27 06:58] LABS: ALB/GLOB RATIO 0.8 (1.0-2.1); ALBUMIN 3.2 g/dL (3.5-5.0); ALT/SGPT 16 U/L (21-72); AST/SGOT 11 U/L (17-59); BLOOD UREA NITROGEN 17 mg/dL (9-20); CALCIUM 8.2 mg/dl (8.6-10.4); GFR NON-AFRICAN AMERICAN > 60
--- NOTE | 2018-02-27 09:29 | RAD ---
Date of service: 02/27/2018 PROCEDURE: Right Foot Radiographs. HISTORY: Foot redness, swelling , ulcers COMPARISON: None. FINDINGS: BONES: No fracture. No osseous erosion or periosteal reaction appreciated. 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 Remaining joint spaces and articular surfaces are preserved. SOFT TISSUES: Soft tissue swelling about MTP 1 along the medial aspect, with subcutaneous emphysema, likely reflecting a cellulitis with gas producing organism. OTHER FINDINGS: None. IMPRESSION: Probable cellulitis with gas producing organism of the medial aspect of MTP 1. No plain radiographic evidence of osteomyelitis.
--- NOTE | 2018-02-27 13:50 | CP.PCM.CON ---
History of Present Illness - History of Present Illness History of Present Illness: Podiatry Consult Note - Dr. Jones 42 year old male with PMHx uncontrolled DM, HTN seen in ED with attending Dr. Jones for worsening bilateral foot ulcerations. Patient reports that 2 days ago he had a blister on the side of his foot and which he lanced himself. Reports in the next two days, foot became increasing more swollen with increase drainage. Reports having left foot wound for a long time that is currently being managed. Patient reports he changes the dressing himself. Patient reports pain to left and right foot, right foot more painful. 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 with met head resection, ear surgeries All: NSAIDs SocHx: admits to 10-12 cigarettes/day, social EtOH use; denies illicit drug use Past Patient History - Infectious Disease Hx of Infectious Diseases: None - Past Medical History & Family History Past Medical History?: Yes - Past Social History Smoking Status: Heavy Smoker > 10 Cigarettes Daily - CARDIAC Hx Hypertension: Yes - PULMONARY Hx Asthma: Yes - NEUROLOGICAL Hx Neurological Disorder: No - HEENT Hx HEENT Problems: No - RENAL Hx Chronic Kidney Disease: No - ENDOCRINE/METABOLIC Hx Endocrine Disorders: Yes Hx Diabetes Mellitus Type 2: Yes - HEMATOLOGICAL/ONCOLOGICAL Hx Blood Disorders: No - INTEGUMENTARY Hx Dermatological Problems: No - MUSCULOSKELETAL/RHEUMATOLOGICAL Hx Arthritis: Yes (backs and LE) - GASTROINTESTINAL Hx Gastrointestinal Disorders: No - GENITOURINARY/GYNECOLOGICAL Hx Genitourinary Disorders: No - PSYCHIATRIC Hx Anxiety: Yes Hx Bipolar Disorder: Yes Hx Depression: Yes Hx Schizophrenia: Yes (schizoaffective disorder) Hx Substance Use: No - SURGICAL HISTORY Hx Surgeries: Yes Other/Comment: right ear surgery. left FOOT TOE / 5TH DIGITsurgery - ANESTHESIA Hx Anesthesia: Yes Hx Anesthesia Reactions: No Hx Malignant Hyperthermia: No Meds Allergies/Adverse Reactions: Allergies Allergy/AdvReac Type Severity Reaction Status Date / Time NSAIDS (Non-Steroidal Allergy RASH Verified 02/27/18 03:35 Anti-Inflamma - Medications Medications: Current Medications Acetaminophen (Tylenol 325mg Tab) 650 mg PO Q6 PRN PRN Reason: Fever >100.4 F Physical Exam - Constitutional Appears: Well, Non-toxic, No Acute Distress - Extremities Exam Extremities exam: Negative for: calf tenderness Additional comments: Lower extremity focused exam: Vasc: DP/PT pulses palpable 2/4 B/L. Temperature gradient warm to cool. CFT < 3 sec to all digits x9. Swelling noted to the right foot forefoot, nonpitting, more notable at the medial aspect of forefoot Derm: Left: Open ulceration sub met 5 approx 3.5cm x 3cm x 0.4cm with fibrogranular wound base, active serosanguinous drainage, positive malodor, and significantly macerated wound borders with thickened 1cm macerated tissue rim. No fluctuance or suspected abscess formation. Wound probes to bone. Right: multiple ulcerations noted to the right foot: lanced blister noted to the medial aspect of the 1st MPJ with tiny circular ulceration noted at that level measuring approximately .4 cm in diameter and probes deep. Purulence, fluctance, and creptius appreciated. Malodorous. Erythema present, no streaking Open circular ulceration sub met 1 approx 1.5cm in diameter and 0.3cm in depth with fibrogranular wound base and macerated wound rim and borders. Mild serous drainage elicited upon pressure. Positive malodor noted. Wound probes deep but not to bone. No fluctuance or suspected abscess formation Neuro: protective sensation grossly diminished Ortho: Pes cavus deformity B/L, R>L with plantarflexed 1st metatarsal noted to R foot. 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 Moderate tenderness to palpation of ulceration sites Results - Vital Signs Recent Vital Signs: Last Vital Signs Temp 100.4 F H 02/27/18 07:31 Pulse 97 H 02/27/18 07:31 Resp 20 02/27/18 07:31 BP 124/87 02/27/18 07:31 Pulse Ox 97 02/27/18 07:31 - Labs Result Diagrams: 02/27/18 06:41 02/27/18 06:41 Labs: Laboratory Results - last 24 hr 02/27/18 02/27/18 02/27/18 03:32 06:41 06:41 WBC 15.2 H D RBC 3.55 L Hgb 10.0 L D Hct 30.3 L MCV 85.3 MCH 28.2 MCHC 33.0 RDW 13.2 Plt Count 531 H MPV 6.8 L Neut % (Auto) 70.8 Lymph % (Auto) 18.6 L [place] % (Auto) 7.2 Eos % (Auto) 2.5 Baso % (Auto) 0.9 Neut # (Auto) 10.8 H Lymph # (Auto) 2.8 [place] # (Auto) 1.1 H Eos # (Auto) 0.4 Baso # (Auto) 0.1 Sodium 133 Potassium 4.1 Chloride 99 Carbon Dioxide 28 Anion Gap 10 BUN 17 Creatinine 0.9 Est GFR ( Amer) > 60 Est GFR (Non-Af Amer) > 60 POC Glucose (mg/dL) 299 H Random Glucose 260 H Calcium 8.2 L Phosphorus 3.8 Magnesium 1.7 Total Bilirubin 0.4 AST 11 L D ALT 16 L Alkaline Phosphatase 138 H D Total Protein 7.0 Albumin 3.2 L Globulin 3.8 Albumin/Globulin Ratio 0.8 L Assessment & Plan - Assessment and Plan (Free Text) Assessment: 42 year old male with PMHx uncontrolled DM, HTN with right foot gas gangrene and left foot ulceration- infected Plan: Patient seen and evaluated with attending Dr. Jones in the ED Discussed plan in detail with attending Dr. Jones All questions/concerns addressed Labs, vitals reviewed, febrile with leukocytosis X-rays reviewed- Gas emphysema noted in right foot Performed bedside incision and drainage in ED, expressed approximately 10 cc of dark red/purulence drainage from site. Cleansed and washed with copious amounts of saline mixed betadine solution, dressed right and left foot with betadine soaked gauze, dsd, and kerlix Wound culture taken of right foot Infectious disease consulted, Dr. Espinal, recommendations appreciated Will need to bring patient to the OR tomorrow for incision and drainage and debridement of right foot infection Scheduled patient to go to OR tomorrow 02/28/18 at 2:45PM by Dr. Jones pending medical clearance Please provide medical clearance, thank you NPO after breakfast on 02/28/18 Thank you for allowing us to participate in patient's care
[2018-02-27] MEDS ORDERED: Dextrose 50% SYRINGE Inj (50 ml) IV PRN (14:42)
[2018-02-27] MEDS ORDERED: Glucagon Recombinant 1 mg Inj IM PRN (14:42)
[2018-02-27] MEDS: (Novolog) Insulin Aspart, Recombinant 100 u/ml 10 ml vial SC SCH ×2 (17:40→21:29)
--- NOTE | 2018-02-27 19:09 | CP.PCM.HP ---
History of Present Illness - History of Present Illness History of Present Illness: pt came in to ed admited for infected ulcers and pain both feet has dm id uncontroled Present on Admission - Present on Admission Any Indicators Present on Admission: Yes History of Uncontrolled Diabetes: Yes Review of Systems - Review of Systems Systems not reviewed;Unavailable: Acuity of Condition - Constitutional Constitutional: Fatigue - EENT Eyes: As Per HPI Ears: As Per HPI Nose/Mouth/Throat: As Per HPI - Cardiovascular Cardiovascular: As Per HPI - Respiratory Respiratory: As Per HPI - Gastrointestinal Gastrointestinal: As Per HPI - Genitourinary Genitourinary: As Per HPI - Reproductive: Male Reproductive:Male: As Per HPI - Musculoskeletal Musculoskeletal: Joint Swelling, Numbness Additional comments: painfull feet ilcers infected - Integumentary Integumentary: Skin Ulcer - Neurological Neurological: Numbness - Psychiatric Psychiatric: As Per HPI - Endocrine Additional Comments: dmid uncontroled - Hematologic/Lymphatic Hematologic: As Per HPI Past Patient History - Infectious Disease Hx of Infectious Diseases: None - Past Medical History & Family History Past Medical History?: Yes - Past Social History Smoking Status: Heavy Smoker > 10 Cigarettes Daily - CARDIAC Hx Hypertension: Yes - PULMONARY Hx Asthma: Yes - NEUROLOGICAL Hx Neurological Disorder: No - HEENT Hx HEENT Problems: No - RENAL Hx Chronic Kidney Disease: No - ENDOCRINE/METABOLIC Hx Endocrine Disorders: Yes Hx Diabetes Mellitus Type 2: Yes - HEMATOLOGICAL/ONCOLOGICAL Hx Blood Disorders: No - INTEGUMENTARY Hx Dermatological Problems: No - MUSCULOSKELETAL/RHEUMATOLOGICAL Hx Arthritis: Yes (backs and LE) - GASTROINTESTINAL Hx Gastrointestinal Disorders: No - GENITOURINARY/GYNECOLOGICAL Hx Genitourinary Disorders: No - PSYCHIATRIC Hx Anxiety: Yes Hx Bipolar Disorder: Yes Hx Depression: Yes Hx Schizophrenia: Yes (schizoaffective disorder) Hx Substance Use: No - SURGICAL HISTORY Hx Surgeries: Yes Other/Comment: right ear surgery. left FOOT TOE / 5TH DIGITsurgery - ANESTHESIA Hx Anesthesia: Yes Hx Anesthesia Reactions: No Hx Malignant Hyperthermia: No Meds Allergies/Adverse Reactions: Allergies Allergy/AdvReac Type Severity Reaction Status Date / Time NSAIDS (Non-Steroidal Allergy RASH Verified 02/27/18 03:35 Anti-Inflamma Physical Exam - Constitutional Appears: In Acute Distress - Head Exam Head Exam: ATRAUMATIC - Eye Exam Eye Exam: Normal appearance Pupil Exam: NORMAL ACCOMODATION - ENT Exam ENT Exam: Mucous Membranes Moist - Neck Exam Neck exam: Positive for: Normal Inspection - Respiratory Exam Respiratory Exam: Clear to Auscultation Bilateral - Cardiovascular Exam Cardiovascular Exam: REGULAR RHYTHM - GI/Abdominal Exam GI & Abdominal Exam: Normal Bowel Sounds - Exam Exam: NORMAL INSPECTION - Extremities Exam Extremities exam: Positive for: calf tenderness Additional comments: infected ulcers feet - Back Exam Back exam: NORMAL INSPECTION - Neurological Exam Neurological exam: Alert, Oriented x3 - Psychiatric Exam Psychiatric exam: Normal Mood - Skin Skin Exam: Normal Color Results - Vital Signs Recent Vital Signs: Last Vital Signs Temp 99.6 F 02/27/18 14:32 Pulse 99 H 02/27/18 14:32 Resp 15 02/27/18 14:32 BP 138/78 02/27/18 14:32 Pulse Ox 96 02/27/18 14:32 - Labs Result Diagrams: 02/27/18 06:41 02/27/18 06:41 Labs: Laboratory Results - last 24 hr 02/27/18 02/27/18 02/27/18 03:32 06:41 06:41 WBC 15.2 H D RBC 3.55 L Hgb 10.0 L D Hct 30.3 L MCV 85.3 MCH 28.2 MCHC 33.0 RDW 13.2 Plt Count 531 H MPV 6.8 L Neut % (Auto) 70.8 Lymph % (Auto) 18.6 L [place] % (Auto) 7.2 Eos % (Auto) 2.5 Baso % (Auto) 0.9 Neut # (Auto) 10.8 H Lymph # (Auto) 2.8 [place] # (Auto) 1.1 H Eos # (Auto) 0.4 Baso # (Auto) 0.1 Sodium 133 Potassium 4.1 Chloride 99 Carbon Dioxide 28 Anion Gap 10 BUN 17 Creatinine 0.9 Est GFR ( Amer) > 60 Est GFR (Non-Af Amer) > 60 POC Glucose (mg/dL) 299 H Random Glucose 260 H Calcium 8.2 L Phosphorus 3.8 Magnesium 1.7 Total Bilirubin 0.4 AST 11 L D ALT 16 L Alkaline Phosphatase 138 H D Total Protein 7.0 Albumin 3.2 L Globulin 3.8 Albumin/Globulin Ratio 0.8 L 02/27/18 17:28 WBC RBC Hgb Hct MCV MCH MCHC RDW Plt Count MPV Neut % (Auto) Lymph % (Auto) [place] % (Auto) Eos % (Auto) Baso % (Auto) Neut # (Auto) Lymph # (Auto) [place] # (Auto) Eos # (Auto) Baso # (Auto) Sodium Potassium Chloride Carbon Dioxide Anion Gap BUN Creatinine Est GFR ( Amer) Est GFR (Non-Af Amer) POC Glucose (mg/dL) 303 H Random Glucose Calcium Phosphorus Magnesium Total Bilirubin AST ALT Alkaline Phosphatase Total Protein Albumin Globulin Albumin/Globulin Ratio Assessment & Plan - Assessment and Plan (Free Text) Assessment: infected feet ulcers dmid uncontroled aneamia Plan: cleare for surgery cont as per orders - Date & Time Date: 02/27/18 Time: 19:12
[2018-02-27] MEDS: Morphine 4 MG/ML VIAL IVP PRN (19:10)
--- NOTE | 2018-02-27 19:26 | CP.PCM.CON ---
History of Present Illness - History of Present Illness History of Present Illness: 42 year old male with PMHx uncontrolled DM, HTN admitted with worsening bilateral foot ulcerations. Patient reports that 2 days ago he had a blister on the side of his foot and which he lanced himself. Reports in the next two days, foot became increasing more swollen with increase drainage. Reports having left foot wound for a long time . 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 with met head resection, ear surgeries All: NSAIDs SocHx: admits to 10-12 cigarettes/day, social EtOH use; denies illicit drug use Review of Systems - Review of Systems All systems: reviewed and no additional remarkable complaints except - Constitutional Constitutional: As Per HPI - EENT Eyes: absent: As Per HPI, Blind Spots, Blurred Vision, Change in Vision, Dec reased Night Vision, Diplopia, Discharge, Dry Eye, Exophthalmos, Floaters, Irritation, Itchy Eyes, Loss of Peripheral Vision, Pain, Photophobia, Requires Corrective Lenses, Sees Flashes, Spots in Vision, Tunnel Vision, Other Visual Disturbances, Loss of Vision, Other Ears: absent: As Per HPI, Decreased Hearing, Ear Discharge, Ear Pain, Tinnitus, Abnormal Hearing, Disequilibrium, Dizziness, Other Nose/Mouth/Throat: absent: As Per HPI, Epistaxis, Nasal Congestion, Nasal Discharge, Nasal Obstruction, Nasal Trauma, Nose Pain, Post Nasal Drip, Sinus Pain, Sinus Pressure, Bleeding Gums, Change in Voice, Dental Pain, Dry Mouth, Dysphagia, Halitosis, Hoarsness, Lip Swelling, Mouth Lesions, Mouth Pain, Odynophagia, Sore Throat, Throat Swelling, Tongue Swelling, Facial Pain, Neck Pain, Neck Mass, Other - Cardiovascular Cardiovascular: absent: As Per HPI, Acrocyanosis, Chest Pain, Chest Pain at Rest, Chest Pain with Activity, Claudication, Diaphoresis, Dyspnea, Dyspnea on Exertion, Edema, Irregular Heart Rhythm, Pain Radiating to Arm/Neck/Jaw, Leg Edema, Leg Ulcers, Lightheadedness, Orthopnea, Palpitations, Paroxysmal Nocturnal Dyspnea, Pedal Edema, Radiating Pain, Rapid Heart Rate, Slow Heart Rate, Syncope, Other - Respiratory Respiratory: absent: As Per HPI, Cough, Dyspnea, Hemoptysis, Dyspnea on Exertion, Wheezing, Snoring, Stridor, Pain on Inspiration, Chest Congestion, Excessive Mucous Production, Change in Mucous Color, Pain with Coughing, Other - Gastrointestinal Gastrointestinal: absent: As Per HPI, Abdominal Pain, Belching, Bloating, Change in Bowel Habits, Change in Stool Character, Coffee Ground Emesis, Constipation, Cramping, Diarrhea, Dyspepsia, Dysphagia, Early Satiety, Excessive Flatus, Fecal Incontinence, Heartburn, Hematemesis, Hematochezia, Loose Stools, Melena, Nausea, Odynophagia, Temesmus, Vomiting, Other - Genitourinary Genitourinary: absent: As Per HPI, Change in Urinary Stream, Difficulty Urinating, Dysuria, Flank Pain, Hematuria, Pyuria, Nocturia, Urinary Incontinence, Urinary Frequency, Urinary Hesitance, Urinary Urgency, Voiding Freq/Small Amts, Freq UTI, Hx Renal/Bladder Calculi, Hx /Renal Surgery, Bladder Distension, Other - Musculoskeletal Musculoskeletal: As Per HPI - Integumentary Integumentary: As Per HPI - Neurological Neurological: As Per HPI - Psychiatric Psychiatric: absent: As Per HPI, Abnormal Sleep Pattern, Anhedonia, Anxiety, Auditory Hallucinations, Behavioral Changes, Change in Appetite, Change in Libido, Confusion, Depression, Difficulty Concentrating, Hallucinations, Homicidal Ideation, Hopelessness, Irritability, Memory Loss, Mood Swings, Panic Attacks, Paranoia, Suicidal Ideation, Visual Hallucinations, Tactile Hallucinations, Other - Endocrine Endocrine: absent: As Per HPI, Change in Body Appearance, Change in Libido, Cold Intolorance, Deepening of Voice, Excessive Sweating, Fatigue, Flushing, Heat Intolorance, Increase in Ring/Shoe/Hat Size, Palpitations, Polydipsia, Polyphagia, Polyuria, Other - Hematologic/Lymphatic Hematologic: absent: As Per HPI, Easy Bleeding, Easy Bruising, Lymphadenopathy, Other Past Patient History - Infectious Disease Hx of Infectious Diseases: None - Past Medical History & Family History Past Medical History?: Yes - Past Social History Smoking Status: Heavy Smoker > 10 Cigarettes Daily - CARDIAC Hx Hypertension: Yes - PULMONARY Hx Asthma: Yes - NEUROLOGICAL Hx Neurological Disorder: No - HEENT Hx HEENT Problems: No - RENAL Hx Chronic Kidney Disease: No - ENDOCRINE/METABOLIC Hx Endocrine Disorders: Yes Hx Diabetes Mellitus Type 2: Yes - HEMATOLOGICAL/ONCOLOGICAL Hx Blood Disorders: No - INTEGUMENTARY Hx Dermatological Problems: No - MUSCULOSKELETAL/RHEUMATOLOGICAL Hx Arthritis: Yes (backs and LE) - GASTROINTESTINAL Hx Gastrointestinal Disorders: No - GENITOURINARY/GYNECOLOGICAL Hx Genitourinary Disorders: No - PSYCHIATRIC Hx Anxiety: Yes Hx Bipolar Disorder: Yes Hx Depression: Yes Hx Schizophrenia: Yes (schizoaffective disorder) Hx Substance Use: No - SURGICAL HISTORY Hx Surgeries: Yes Other/Comment: right ear surgery. left FOOT TOE / 5TH DIGITsurgery - ANESTHESIA Hx Anesthesia: Yes Hx Anesthesia Reactions: No Hx Malignant Hyperthermia: No Meds Allergies/Adverse Reactions: Allergies Allergy/AdvReac Type Severity Reaction Status Date / Time NSAIDS (Non-Steroidal Allergy RASH Verified 02/27/18 03:35 Anti-Inflamma - Medications Medications: Current Medications Acetaminophen (Tylenol 325mg Tab) 650 mg PO Q6 PRN PRN Reason: Fever >100.4 F Dextrose (Dextrose 50% Inj) 0 ml IV STAT PRN; Protocol PRN Reason: Hypoglycemia Protocol Dextrose (Glutose 15) 0 gm PO ONCE PRN; Protocol PRN Reason: Hypoglycemia Protocol Glucagon (Glucagen Diagnostic Kit) 0 mg IM STAT PRN; Protocol PRN Reason: Hypoglycemia Protocol Dextrose (Dextrose 5% In Water 1000 Ml) 1,000 mls @ 0 mls/hr IV .Q0M PRN; Protocol PRN Reason: Hypoglycemia Protocol Piperacillin Sod/Tazobactam Sod (Zosyn 3.375 Gm Iv Premix) 3.375 gm in 50 mls @ 100 mls/hr IVPB Q8 [place]; Protocol Insulin Aspart (Novolog) 0 unit SC ACHS [place]; Protocol Morphine Sulfate (Morphine) 2 mg IVP Q6 PRN PRN Reason: Pain, severe (8-10) Last Admin: 02/27/18 19:10 Dose: 2 mg Physical Exam - Constitutional Appears: Non-toxic, Chronically Ill - Head Exam Head Exam: NORMOCEPHALIC - Eye Exam Eye Exam: absent: Scleral icterus - ENT Exam ENT Exam: Mucous Membranes Dry - Neck Exam Neck exam: Negative for: Lymphadenopathy - Respiratory Exam Respiratory Exam: Decreased Breath Sounds, Clear to Auscultation Bilateral - Cardiovascular Exam Cardiovascular Exam: REGULAR RHYTHM, +S1, +S2 - GI/Abdominal Exam GI & Abdominal Exam: Diminished Bowel Sounds, Normal Bowel Sounds, Soft. absent: Tenderness - Rectal Exam Rectal Exam: Deferred - Exam Exam: NORMAL INSPECTION - Extremities Exam Extremities exam: Positive for: pedal edema Additional comments: Lower extremity focused exam: Vasc: DP/PT pulses palpable 2/4 B/L. Temperature gradient warm to cool. CFT < 3 sec to all digits x9. Swelling noted to the right foot forefoot, nonpitting, more notable at the medial aspect of forefoot Derm: Left: Open ulceration sub met 5 approx 3.5cm x 3cm x 0.4cm with fibrogranular wound base, active serosanguinous drainage, positive malodor, and significantly macerated wound borders with thickened 1cm macerated tissue rim. No fluctuance or suspected abscess formation. Wound probes to bone. Right: multiple ulcerations noted to the right foot: lanced blister noted to the medial aspect of the 1st MPJ with tiny circular ulceration noted at that level measuring approximately .4 cm in diameter and probes deep. Purulence, fluctance, and creptius appreciated. Malodorous. Erythema present, no streaking Open circular ulceration sub met 1 approx 1.5cm in diameter and 0.3cm in depth with fibrogranular wound base and macerated wound rim and borders. Mild serous drainage elicited upon pressure. Positive malodor noted. Wound probes deep but not to bone. No fluctuance or suspected abscess formation Neuro: protective sensation grossly diminished Ortho: Pes cavus deformity B/L, R>L with plantarflexed 1st metatarsal noted to R foot. 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 Moderate tenderness to palpation of ulceration sites - Back Exam Back exam: absent: CVA tenderness (L), CVA tenderness (R) - Neurological Exam Neurological exam: Alert, CN II-XII Intact, Oriented x3, Reflexes Normal - Psychiatric Exam Psychiatric exam: Normal Mood - Skin Skin Exam: Dry Results - Vital Signs Recent Vital Signs: Last Vital Signs Temp 99.5 F 02/27/18 19:24 Pulse 103 H 02/27/18 19:24 Resp 18 02/27/18 19:24 BP 117/69 02/27/18 19:24 Pulse Ox 95 02/27/18 19:24 - Labs Result Diagrams: 02/27/18 06:41 02/27/18 06:41 Labs: Laboratory Results - last 24 hr 02/27/18 02/27/18 02/27/18 03:32 06:41 06:41 WBC 15.2 H D RBC 3.55 L Hgb 10.0 L D Hct 30.3 L MCV 85.3 MCH 28.2 MCHC 33.0 RDW 13.2 Plt Count 531 H MPV 6.8 L Neut % (Auto) 70.8 Lymph % (Auto) 18.6 L [place] % (Auto) 7.2 Eos % (Auto) 2.5 Baso % (Auto) 0.9 Neut # (Auto) 10.8 H Lymph # (Auto) 2.8 [place] # (Auto) 1.1 H Eos # (Auto) 0.4 Baso # (Auto) 0.1 Sodium 133 Potassium 4.1 Chloride 99 Carbon Dioxide 28 Anion Gap 10 BUN 17 Creatinine 0.9 Est GFR ( Amer) > 60 Est GFR (Non-Af Amer) > 60 POC Glucose (mg/dL) 299 H Random Glucose 260 H Calcium 8.2 L Phosphorus 3.8 Magnesium 1.7 Total Bilirubin 0.4 AST 11 L D ALT 16 L Alkaline Phosphatase 138 H D Total Protein 7.0 Albumin 3.2 L Globulin 3.8 Albumin/Globulin Ratio 0.8 L 02/27/18 17:28 WBC RBC Hgb Hct MCV MCH MCHC RDW Plt Count MPV Neut % (Auto) Lymph % (Auto) [place] % (Auto) Eos % (Auto) Baso % (Auto) Neut # (Auto) Lymph # (Auto) [place] # (Auto) Eos # (Auto) Baso # (Auto) Sodium Potassium Chloride Carbon Dioxide Anion Gap BUN Creatinine Est GFR ( Amer) Est GFR (Non-Af Amer) POC Glucose (mg/dL) 303 H Random Glucose Calcium Phosphorus Magnesium Total Bilirubin AST ALT Alkaline Phosphatase Total Protein Albumin Globulin Albumin/Globulin Ratio Assessment & Plan (1) Cellulitis of foot, right Status: Acute (2) Diabetic ulcer of right foot Status: Acute (3) Cellulitis of foot Status: Acute (4) Cellulitis of left foot Status: Acute (5) Chronic foot pain Status: Acute (6) Diabetic foot infection Status: Acute Priority: High (7) Diabetic foot ulcer Status: Acute (8) Foot osteomyelitis, left Status: Acute - Assessment and Plan (Free Text) Assessment: consider arterial dopplers, MRI both feet for OR / debridement await cultures cont IV antibiotics
[2018-02-27 20:57] LABS: INR 1.3; PROTHROMBIN TIME 14.2 SECONDS (9.7-12.2)
[2018-02-27] MEDS: Piperacill/Tazo 3.375gm in Dex 3.375 GM/50 ML BAG IVPB SCH (21:23)
[2018-02-28] MEDS: Morphine 4 MG/ML VIAL IVP PRN ×4 (00:44→23:47)
[2018-02-28] MEDS: Piperacill/Tazo 3.375gm in Dex 3.375 GM/50 ML BAG IVPB SCH ×3 (05:37→21:57)
[2018-02-28] MEDS ORDERED: Lidocaine Hydrochloride 10 ML INJ ONE (08:20)
[2018-02-28] MEDS ORDERED: Bupivacaine 0.25% 20 ML INJ IJ ONE (08:20)
[2018-02-28] MEDS: (Novolog) Insulin Aspart, Recombinant 100 u/ml 10 ml vial SC SCH ×4 (08:30→21:52)
[2018-02-28] MEDS ORDERED: Midazolam 2 MG/2 ML VIAL ONE (08:38)
[2018-02-28] MEDS ORDERED: Propofol 10 mg/ml Inj (20 ML) ONE (08:38)
[2018-02-28] MEDS ORDERED: Sodium Chloride 0.9% 1,000 ML IV ONE (09:23)
--- NOTE | 2018-02-28 09:28 | PCM.SURG1 ---
Surgeon's Initial Post Op Note - Surgeon's Notes Surgeon: Dr. Jones DPM [employer] Analyst: Dr. Carlotta Quintanilla PGY2, Dr. Sissy Perez PGY1 Type of Anesthesia: General IV, Local Pre-Operative Diagnosis: Right foot gas gangrene Operative Findings: See dictation. I: None. M: 02/21 iodoform packing Post-Operative Diagnosis: Same Operation Performed: Right foot incision and drainage with extensive debridement of all non-viable bone and soft tissue, Versajet and pulse lavage Specimen/Specimens Removed: None Estimated Blood Loss: EBL {In ML}: 15 Blood Products Given: N/A Drains Used: No Drains Post-Op Condition: Good Date of Surgery/Procedure: 02/28/18 Time of Surgery/Procedure: 09:27
--- NOTE | 2018-02-28 10:23 | RAD ---
Date of service: 02/27/2018 HISTORY: preop COMPARISON: Comparison made with prior chest radiograph 02/02/2018. The TECHNIQUE: Chest PA and lateral FINDINGS: LUNGS: No active pulmonary disease. PLEURA: No significant pleural effusion identified. No pneumothorax apparent. CARDIOVASCULAR: No aortic atherosclerotic calcification present. Normal cardiac size. No pulmonary vascular congestion. OSSEOUS STRUCTURES: Mild moderate multilevel degenerative spondylosis of the thoracic spine. VISUALIZED UPPER ABDOMEN: Normal. OTHER FINDINGS: None. IMPRESSION: No active disease.
--- NOTE | 2018-02-28 11:08 | CP.PCM.PN ---
Subjective - Date & Time of Evaluation Date of Evaluation: 02/28/18 Time of Evaluation: 08:00 - Subjective Subjective: Podiatry Progress Note- Dr. Jones 42 year old male with PMHx uncontrolled DM, HTN seen for preoperative evaluation for right foot incision and drainage with extensive debridement of all non- viable bone and soft tissue with Dr. Jones. Patient reports decreased pain to the right foot, reports pain feeling burning pain to the foot and leg as well. Reports nothing to eat or drink since midnight. Denies nausea, fever, shortness of breath, chest pains or chills. Objective - Vital Signs/Intake and Output Vital Signs (last 24 hours): Temp Pulse Resp BP Pulse Ox 98.6 F 86 15 98/58 L 100 02/28/18 09:23 02/28/18 09:40 02/28/18 09:40 02/28/18 09:40 02/28/18 09:40 Intake and Output: 02/28/18 02/28/18 06:59 18:59 Intake Total 50 300 Balance 50 300 - Medications Medications: Current Medications Acetaminophen (Tylenol 325mg Tab) 650 mg PO Q6 PRN PRN Reason: Fever >100.4 F Dextrose (Dextrose 50% Inj) 0 ml IV STAT PRN; Protocol PRN Reason: Hypoglycemia Protocol Dextrose (Glutose 15) 0 gm PO ONCE PRN; Protocol PRN Reason: Hypoglycemia Protocol Glucagon (Glucagen Diagnostic Kit) 0 mg IM STAT PRN; Protocol PRN Reason: Hypoglycemia Protocol Dextrose (Dextrose 5% In Water 1000 Ml) 1,000 mls @ 0 mls/hr IV .Q0M PRN; Protocol PRN Reason: Hypoglycemia Protocol Piperacillin Sod/Tazobactam Sod (Zosyn 3.375 Gm Iv Premix) 3.375 gm in 50 mls @ 100 mls/hr IVPB Q8 [facility]; Protocol Last Admin: 02/28/18 05:37 Dose: 100 mls/hr Lactated Ringer's (Lactated Ringer's) 1,000 mls @ 100 mls/hr IV .Q10H [facility] Insulin Aspart (Novolog) 0 unit SC ACHS [facility]; Protocol Last Admin: 02/27/18 21:29 Dose: Not Given Morphine Sulfate (Morphine) 2 mg IVP Q6 PRN PRN Reason: Pain, severe (8-10) Last Admin: 02/28/18 05:56 Dose: 2 mg Morphine Sulfate (Morphine) 2 mg IVP Q10M PRN PRN Reason: Pain, moderate (4-7) Stop: 02/28/18 11:05 - Labs Labs: 02/27/18 06:41 02/27/18 06:41 PT 14.2 SECONDS (9.7-12.2) H 02/27/18 20:45 INR 1.3 02/27/18 20:45 APTT 32 SECONDS (21-34) 02/27/18 20:45 - Constitutional Appears: Well, Non-toxic, No Acute Distress - Extremities Exam Extremities Exam: absent: Calf Tenderness Additional comments: Dressing to the right and left foot clean, dry and intact - Neurological Exam Neurological Exam: Alert, Awake, Oriented x3 - Psychiatric Exam Psychiatric exam: Normal Affect, Normal Mood Assessment and Plan - Assessment and Plan (Free Text) Assessment: 42 year old male with PMHx uncontrolled DM, HTN seen for preoperative evaluation for right foot incision and drainage with extensive debridement of all non- viable bone and soft tissue with Dr. Jones. Plan: Patient seen and evaluated with attending Dr. Jones Discussed plan in detail with attending Dr. Jones All questions/concerns addressed Labs, vitals reviewed, febrile with leukocytosis X-rays reviewed- Gas emphysema noted in right foot Wound culture right foot-pending Infectious disease consulted, Dr. Espinal, recommendations appreciated Patient OR time pushed to 8AM this morning instead of 2:45PM today NPO status confirmed. Nothing to eat or drink since midnight. All questions/concerns addressed. Explained risks, benefits, alternatives and complications. Patient understands and agrees to surgery Consent signed. Patient to the OR for incision and drainage and debridement of right foot infection this morning at 8AM with Dr. Jones Patient celared for surgery per primary team Thank you for allowing us to participate in patient's care
[2018-02-28] MEDS: Lactated Ringer's 1,000 ML IV SCH ×2 (12:21→19:44)
--- NOTE | 2018-02-28 12:30 | RAD ---
Date of service: 02/28/2018 PROCEDURE: Radiographs of the right tibia and fibula. HISTORY: r/o gas tracking up leg COMPARISON: None available TECHNIQUE: Frontal and lateral views obtained. FINDINGS: BONES: No fracture or destructive lesion. JOINT SPACES: Unremarkable. OTHER FINDINGS: No evidence of subcutaneous emphysema. IMPRESSION: No subcutaneous emphysema.
--- NOTE | 2018-02-28 12:32 | RAD ---
Date of service: 02/28/2018 PROCEDURE: Right Foot Radiographs. HISTORY: PACU COMPARISON: 02/27/2018 FINDINGS: BONES: No acute fracture. No osseous erosion or periosteal reaction. 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 Remaining joint spaces and articular surfaces are preserved. SOFT TISSUES: Soft tissue swelling medial to MTP 1 with some subcutaneous gas as noted previously. Likely extensive cellulitis. There is also gas seen at the medial aspect of the 1st distal phalanx OTHER FINDINGS: None. IMPRESSION: Cellulitis. No plain radiographic evidence of osteomyelitis.
--- NOTE | 2018-02-28 12:42 | RAD ---
Date of service: 02/28/2018 PROCEDURE: Right Ankle Radiographs. HISTORY: PACU COMPARISON: Comparison made with concurrent radiographs of the right tibia and fibula and foot. FINDINGS: BONES: No evidence of acute displaced fracture nor dislocation. Small posterior calcaneal enthesophyte. JOINTS: Normal. No osteoarthritis. Ankle mortise maintained. Talar dome intact SOFT TISSUES: There is mild diffuse soft tissue swelling with what appears represent a small joint effusion as well. OTHER FINDINGS: None. IMPRESSION: No evidence of acute displaced fracture nor dislocation. Mild soft tissue swelling with suspected small joint effusion.
--- NOTE | 2018-02-28 17:28 | CARD ---
APPROVED REPORT Date of service: 02/27/2018 EKG Measurement Heart [id number] <Conclusion> Normal sinus rhythm Rightward axis, but consider ar lead reversal Borderline ECG
--- NOTE | 2018-02-28 18:23 | CP.PCM.PN ---
Subjective - Date & Time of Evaluation Date of Evaluation: 02/28/18 Time of Evaluation: 08:00 - Subjective Subjective: s/p Incision and drainage with debridement of right foot abscess and infection including all nonviable soft tissue with Versajet and pulse lavage c/o pain Objective - Vital Signs/Intake and Output Vital Signs (last 24 hours): Temp Pulse Resp BP Pulse Ox 100 F H 98 H 20 112/65 96 02/28/18 15:00 02/28/18 15:00 02/28/18 15:00 02/28/18 15:00 02/28/18 15:00 Intake and Output: 02/28/18 02/28/18 06:59 18:59 Intake Total 50 1000 Output Total 1100 Balance 50 -100 - Medications Medications: Current Medications Acetaminophen (Tylenol 325mg Tab) 650 mg PO Q6 PRN PRN Reason: Fever >100.4 F Last Admin: 02/28/18 14:56 Dose: 650 mg Dextrose (Dextrose 50% Inj) 0 ml IV STAT PRN; Protocol PRN Reason: Hypoglycemia Protocol Dextrose (Glutose 15) 0 gm PO ONCE PRN; Protocol PRN Reason: Hypoglycemia Protocol Glucagon (Glucagen Diagnostic Kit) 0 mg IM STAT PRN; Protocol PRN Reason: Hypoglycemia Protocol Dextrose (Dextrose 5% In Water 1000 Ml) 1,000 mls @ 0 mls/hr IV .Q0M PRN; Protocol PRN Reason: Hypoglycemia Protocol Piperacillin Sod/Tazobactam Sod (Zosyn 3.375 Gm Iv Premix) 3.375 gm in 50 mls @ 100 mls/hr IVPB Q8 [facility]; Protocol Last Admin: 02/28/18 14:45 Dose: Not Given Lactated Ringer's (Lactated Ringer's) 1,000 mls @ 100 mls/hr IV .Q10H [facility] Last Admin: 02/28/18 12:21 Dose: 100 mls/hr Insulin Aspart (Novolog) 0 unit SC ACHS [facility]; Protocol Last Admin: 02/28/18 17:20 Dose: 3 units Morphine Sulfate (Morphine) 2 mg IVP Q6 PRN PRN Reason: Pain, severe (8-10) Last Admin: 02/28/18 12:04 Dose: 2 mg - Labs Labs: 02/27/18 06:41 02/27/18 06:41 PT 14.2 SECONDS (9.7-12.2) H 02/27/18 20:45 INR 1.3 02/27/18 20:45 APTT 32 SECONDS (21-34) 02/27/18 20:45 - Constitutional Appears: Non-toxic, Chronically Ill - Head Exam Head Exam: NORMOCEPHALIC - Eye Exam Eye Exam: absent: Scleral icterus - ENT Exam ENT Exam: Mucous Membranes Dry - Neck Exam Neck Exam: absent: Lymphadenopathy - Respiratory Exam Respiratory Exam: Decreased Breath Sounds - Cardiovascular Exam Cardiovascular Exam: REGULAR RHYTHM - GI/Abdominal Exam GI & Abdominal Exam: Distended, Soft. absent: Tenderness - Rectal Exam Rectal Exam: Deferred - Exam Exam: NORMAL INSPECTION - Extremities Exam Extremities Exam: Pedal Edema Additional comments: right foot dressing in place left foot dressing with chronic 5th met ulcer + - Back Exam Back Exam: absent: CVA tenderness (L), CVA tenderness (R) - Neurological Exam Neurological Exam: Alert, Awake, CN II-XII Intact, Oriented x3 Neuro motor strength exam: Left Upper Extremity: 5, Right Upper Extremity: 5, Left Lower Extremity: 5, Right Lower Extremity: 5 - Psychiatric Exam Psychiatric exam: Depressed - Skin Skin Exam: Dry Assessment and Plan (1) Cellulitis of foot, right Status: Acute (2) Diabetic ulcer of right foot Status: Acute (3) Cellulitis of foot Status: Acute (4) Cellulitis of left foot Status: Acute (5) Chronic foot pain Status: Acute (6) Diabetic foot infection Status: Acute (7) Diabetic foot ulcer Status: Acute (8) Foot osteomyelitis, left Status: Acute - Assessment and Plan (Free Text) Assessment: Incision and drainage with debridement of right foot abscess and infection including all nonviable soft tissue with Versajet and pulse lavage still has left foot ulcer and likely OM which needs surgical removal / debridement consider arterial studies and MRI bilat if not doner cont IV antibiotics . wound care
[2018-02-28] MEDS: Vancomycin 1 gm/NS 200 ml 1 GM/200 ML BAG IVPB SCH (19:45)
[2018-03-01] MEDS: Piperacill/Tazo 3.375gm in Dex 3.375 GM/50 ML BAG IVPB SCH ×2 (06:07→14:10)
[2018-03-01] MEDS: Vancomycin 1 gm/NS 200 ml 1 GM/200 ML BAG IVPB SCH ×2 (06:07→18:00)
[2018-03-01] MEDS: Lactated Ringer's 1,000 ML IV SCH ×2 (06:10→15:15)
[2018-03-01] MEDS: Morphine 4 MG/ML VIAL IVP PRN ×3 (06:14→18:04)
[2018-03-01] MEDS: (Novolog) Insulin Aspart, Recombinant 100 u/ml 10 ml vial SC SCH ×4 (07:30→21:25)
--- NOTE | 2018-03-01 11:33 | CP.PCM.PN ---
Subjective - Date & Time of Evaluation Date of Evaluation: 03/01/18 Time of Evaluation: 11:29 - Subjective Subjective: Podiatry Progress Note- Dr. Jones 42 year old male with PMHx uncontrolled DM, HTN seen 1 day s/p right foot incision and drainage with extensive debridement of all non-viable bone and soft tissue with Dr. Jones. P. Denies nausea, fever, shortness of breath, chest pains or chills. Objective - Vital Signs/Intake and Output Vital Signs (last 24 hours): Temp Pulse Resp BP Pulse Ox 99.0 F 94 H 20 119/70 94 L 03/01/18 08:39 03/01/18 08:39 03/01/18 08:39 03/01/18 08:39 03/01/18 08:39 - Medications Medications: Current Medications Acetaminophen (Tylenol 325mg Tab) 650 mg PO Q6 PRN PRN Reason: Fever >100.4 F Last Admin: 02/28/18 14:56 Dose: 650 mg Dextrose (Dextrose 50% Inj) 0 ml IV STAT PRN; Protocol PRN Reason: Hypoglycemia Protocol Dextrose (Glutose 15) 0 gm PO ONCE PRN; Protocol PRN Reason: Hypoglycemia Protocol Glucagon (Glucagen Diagnostic Kit) 0 mg IM STAT PRN; Protocol PRN Reason: Hypoglycemia Protocol Dextrose (Dextrose 5% In Water 1000 Ml) 1,000 mls @ 0 mls/hr IV .Q0M PRN; P rotocol PRN Reason: Hypoglycemia Protocol Piperacillin Sod/Tazobactam Sod (Zosyn 3.375 Gm Iv Premix) 3.375 gm in 50 mls @ 100 mls/hr IVPB Q8 [facility]; Protocol Last Admin: 03/01/18 06:07 Dose: 100 mls/hr Lactated Ringer's (Lactated Ringer's) 1,000 mls @ 100 mls/hr IV .Q10H [facility] Last Admin: 03/01/18 06:10 Dose: 100 mls/hr Vancomycin/Sodium Chloride (Vancomycin 1 Gm/Ns 200 Ml) 1 gm in 200 mls @ 13 3.333 mls/hr IVPB Q12H [facility]; Protocol Last Admin: 03/01/18 06:07 Dose: 133.333 mls/hr Insulin Aspart (Novolog) 0 unit SC ACHS [facility]; Protocol Last Admin: 02/28/18 21:52 Dose: Not Given Insulin Detemir (Levemir) 6 unit SC DAILY [facility] Morphine Sulfate (Morphine) 2 mg IVP Q6 PRN PRN Reason: Pain, severe (8-10) Last Admin: 03/01/18 06:14 Dose: 2 mg - Labs Labs: 02/27/18 06:41 02/27/18 06:41 PT 14.2 SECONDS (9.7-12.2) H 02/27/18 20:45 INR 1.3 02/27/18 20:45 APTT 32 SECONDS (21-34) 02/27/18 20:45 - Constitutional Appears: Well, Non-toxic, No Acute Distress - Head Exam Head Exam: ATRAUMATIC - Eye Exam Eye Exam: Normal appearance Pupil Exam: NORMAL ACCOMODATION - ENT Exam ENT Exam: Mucous Membranes Moist - Extremities Exam Additional comments: Right foot concentrated exam: Vasc: DP/PT pulses palpable 2/4 B/L. Temperature gradient warm to cool. CFT < 3 sec to all digits x9. Swelling noted to the right foot forefoot, nonpitting, more notable at the medial aspect of forefoot Derm: Left: Open ulceration sub met 5 approx 3.5cm x 3cm x 0.4cm with fibrogranular wound base, active serosanguinous drainage, minimal malodor, and significantly macerated wound borders with thickened 1cm macerated tissue rim. No fluctuance or suspected abscess formation. Wound probes to bone. Right: open wound noted medial to first PIPJ and linear incision noted medial to 1st MPJ, no malodor, packing intact, no active purulent drainage, no erythema or edema noted. Neuro: protective sensation grossly diminished Ortho: Pes cavus deformity B/L, R>L with plantarflexed 1st metatarsal noted to R foot. 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 Moderate tenderness to palpation of ulceration sites - Neurological Exam Neurological Exam: Alert, Awake, Oriented x3 Assessment and Plan - Assessment and Plan (Free Text) Assessment: 42 year old male with PMHx uncontrolled DM, HTN seen 1 day s/p for right foot incision and drainage with extensive debridement of all non-viable bone and soft tissue with Dr. Jones. Plan: Patient seen and evaluated with attending Dr. Jones Discussed plan in detail with attending Dr. Jones All questions/concerns addressed Labs, vitals reviewed, febrile with leukocytosis X-rays reviewed- Gas emphysema noted in right foot Intra-op wound cultures pending. Infectious disease consulted, Dr. Espinal, recommendations appreciated Post-op x-rays; minimal subcutaneous emphsyema ( possibly secondary to packing) noted medial to the 1st MPJ
[2018-03-01] MEDS: Insulin Detemir 100 units/ml Vial (Levemir) SC SCH (12:06)
[2018-03-01] MEDS: Piperacillin/Tazobact 3.375 GM in Sodium Chloride 0.9% 100 ML IVPB SCH (21:54)
[2018-03-02] MEDS: Lactated Ringer's 1,000 ML IV SCH (01:33)
[2018-03-02] MEDS: Piperacillin/Tazobact 3.375 GM in Sodium Chloride 0.9% 100 ML IVPB SCH ×3 (05:57→21:16)
[2018-03-02] MEDS: Vancomycin 1 gm/NS 200 ml 1 GM/200 ML BAG IVPB SCH ×2 (06:30→17:44)
[2018-03-02] MEDS: (Novolog) Insulin Aspart, Recombinant 100 u/ml 10 ml vial SC SCH ×4 (08:15→22:15)
[2018-03-02] MEDS: Insulin Detemir 100 units/ml Vial (Levemir) SC SCH (09:53)
--- NOTE | 2018-03-02 10:48 | CP.PCM.PN ---
Subjective - Date & Time of Evaluation Date of Evaluation: 03/02/18 Time of Evaluation: 10:45 - Subjective Subjective: pt seen and examined will have anther surgery tomorro for other foot Objective - Vital Signs/Intake and Output Vital Signs (last 24 hours): Temp Pulse Resp BP Pulse Ox 98.7 F 88 20 114/68 95 03/02/18 09:20 03/02/18 09:20 03/02/18 09:20 03/02/18 09:20 03/02/18 09:20 Intake and Output: 03/02/18 03/02/18 06:59 18:59 Intake Total 850 Balance 850 - Medications Medications: Current Medications Acetaminophen (Tylenol 325mg Tab) 650 mg PO Q6 PRN PRN Reason: Fever >100.4 F Last Admin: 02/28/18 14:56 Dose: 650 mg Dextrose (Dextrose 50% Inj) 0 ml IV STAT PRN; Protocol PRN Reason: Hypoglycemia Protocol Dextrose (Glutose 15) 0 gm PO ONCE PRN; Protocol PRN Reason: Hypoglycemia Protocol Diphenhydramine HCl (Benadryl) 25 mg PO ONCE PRN PRN Reason: Insomnia Last Admin: 03/02/18 00:34 Dose: 25 mg Glucagon (Glucagen Diagnostic Kit) 0 mg IM STAT PRN; Protocol PRN Reason: Hypoglycemia Protocol Dextrose (Dextrose 5% In Water 1000 Ml) 1,000 mls @ 0 mls/hr IV .Q0M PRN; Protocol PRN Reason: Hypoglycemia Protocol Lactated Ringer's (Lactated Ringer's) 1,000 mls @ 100 mls/hr IV .Q10H [facility] Last Admin: 03/02/18 01:33 Dose: Not Given Vancomycin/Sodium Chloride (Vancomycin 1 Gm/Ns 200 Ml) 1 gm in 200 mls @ 133.333 mls/hr IVPB Q12H [facility]; Protocol Last Admin: 03/02/18 06:30 Dose: 133.333 mls/hr Piperacillin Sod/Tazobactam (Sod 3.375 gm/ Sodium Chloride) 100 mls @ 100 mls/hr IVPB Q8 [facility]; Protocol Last Admin: 03/02/18 05:57 Dose: 100 mls/hr Insulin Aspart (Novolog) 0 unit SC ACHS [facility]; Protocol Last Admin: 03/02/18 08:15 Dose: 2 units Insulin Detemir (Levemir) 6 unit SC DAILY [facility] Last Admin: 03/02/18 09:53 Dose: 6 units Morphine Sulfate (Morphine) 2 mg IVP Q4 PRN PRN Reason: 3-9 Last Admin: 03/02/18 10:24 Dose: 2 mg - Labs Labs: 02/27/18 06:41 02/27/18 06:41 PT 14.2 SECONDS (9.7-12.2) H 02/27/18 20:45 INR 1.3 02/27/18 20:45 APTT 32 SECONDS (21-34) 02/27/18 20:45 - Constitutional Appears: Non-toxic - Head Exam Head Exam: ATRAUMATIC - Eye Exam Eye Exam: Normal appearance Pupil Exam: NORMAL ACCOMODATION - ENT Exam ENT Exam: Mucous Membranes Moist - Neck Exam Neck Exam: Full ROM - Respiratory Exam Respiratory Exam: Clear to Ausculation Bilateral - Cardiovascular Exam Cardiovascular Exam: REGULAR RHYTHM - GI/Abdominal Exam GI & Abdominal Exam: Normal Bowel Sounds - Rectal Exam Rectal Exam: NORMAL INSPECTION - Exam Exam: NORMAL INSPECTION - Extremities Exam Additional comments: foot ulcers - Back Exam Back Exam: NORMAL INSPECTION - Neurological Exam Neurological Exam: Alert, Awake, Oriented x3 Additional comments: c.o of insomnia - Psychiatric Exam Psychiatric exam: Normal Mood - Skin Skin Exam: Normal Color Assessment and Plan - Assessment and Plan (Free Text) Assessment: dm feet ulcers insomnia Plan: as per orders
--- NOTE | 2018-03-02 11:14 | CP.PCM.PN ---
Subjective - Date & Time of Evaluation Date of Evaluation: 03/02/18 Time of Evaluation: 11:11 - Subjective Subjective: Podiatry Progress Note- Dr. Jones 42 year old male with PMHx uncontrolled DM, HTN seen 2 day s/p right foot incision and drainage with extensive debridement of all non-viable bone and soft tissue with Dr. Jones. P. Denies nausea, fever, shortness of breath, chest pains or chills. Objective - Vital Signs/Intake and Output Vital Signs (last 24 hours): Temp Pulse Resp BP Pulse Ox 98.7 F 88 20 114/68 95 03/02/18 09:20 03/02/18 09:20 03/02/18 09:20 03/02/18 09:20 03/02/18 09:20 Intake and Output: 03/02/18 03/02/18 06:59 18:59 Intake Total 850 Balance 850 - Medications Medications: Current Medications Acetaminophen (Tylenol 325mg Tab) 650 mg PO Q6 PRN PRN Reason: Fever >100.4 F Last Admin: 02/28/18 14:56 Dose: 650 mg Dextrose (Dextrose 50% Inj) 0 ml IV STAT PRN; Protocol PRN Reason: Hypoglycemia Protocol Dextrose (Glutose 15) 0 gm PO ONCE PRN; Protocol PRN Reason: Hypoglycemia Protocol Diphenhydramine HCl (Benadryl) 25 mg PO ONCE PRN PRN Reason: Insomnia Last Admin: 03/02/18 00:34 Dose: 25 mg Glucagon (Glucagen Diagnostic Kit) 0 mg IM STAT PRN; Protocol PRN Reason: Hypoglycemia Protocol Dextrose (Dextrose 5% In Water 1000 Ml) 1,000 mls @ 0 mls/hr IV .Q0M PRN; Protocol PRN Reason: Hypoglycemia Protocol Lactated Ringer's (Lactated Ringer's) 1,000 mls @ 100 mls/hr IV .Q10H [facility] Last Admin: 03/02/18 01:33 Dose: Not Given Vancomycin/Sodium Chloride (Vancomycin 1 Gm/Ns 200 Ml) 1 gm in 200 mls @ 133.333 mls/hr IVPB Q12H [facility]; Protocol Last Admin: 03/02/18 06:30 Dose: 133.333 mls/hr Piperacillin Sod/Tazobactam (Sod 3.375 gm/ Sodium Chloride) 100 mls @ 100 mls/hr IVPB Q8 [facility]; Protocol Last Admin: 03/02/18 05:57 Dose: 100 mls/hr Insulin Aspart (Novolog) 0 unit SC ACHS [facility]; Protocol Last Admin: 03/02/18 08:15 Dose: 2 units Insulin Detemir (Levemir) 6 unit SC DAILY [facility] Last Admin: 03/02/18 09:53 Dose: 6 units Morphine Sulfate (Morphine) 2 mg IVP Q4 PRN PRN Reason: 3-9 Last Admin: 03/02/18 10:24 Dose: 2 mg Zolpidem Tartrate (Ambien) 5 mg PO HS [facility] - Labs Labs: 02/27/18 06:41 02/27/18 06:41 PT 14.2 SECONDS (9.7-12.2) H 02/27/18 20:45 INR 1.3 02/27/18 20:45 APTT 32 SECONDS (21-34) 02/27/18 20:45 - Constitutional Appears: Well, Non-toxic, No Acute Distress - Head Exam Head Exam: ATRAUMATIC, NORMOCEPHALIC - Eye Exam Eye Exam: Normal appearance Pupil Exam: NORMAL ACCOMODATION - ENT Exam ENT Exam: Mucous Membranes Moist - Extremities Exam Additional comments: Right foot concentrated exam: Vasc: DP/PT pulses palpable 2/4 B/L. Temperature gradient warm to cool. CFT < 3 sec to all digits x9. Swelling noted to the right foot forefoot, nonpitting, more notable at the medial aspect of forefoot Derm: Left: Open ulceration sub met 5 approx 3.5cm x 3cm x 0.4cm with fibrogranular wound base, active serosanguinous drainage, minimal malodor, and significantly macerated wound borders with thickened 1cm macerated tissue rim. No fluctuance or suspected abscess formation. Wound probes to bone. Right: open wound noted medial to first PIPJ and linear incision noted medial to 1st MPJ, no malodor, packing intact, no active purulent drainage, no erythema or edema noted. Neuro: protective sensation grossly diminished Ortho: Pes cavus deformity B/L, R>L with plantarflexed 1st metatarsal noted to R foot. 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 Moderate tenderness to palpation of ulceration sites - Neurological Exam Neurological Exam: Alert, Awake, Oriented x3 - Psychiatric Exam Psychiatric exam: Normal Affect Assessment and Plan - Assessment and Plan (Free Text) Assessment: 42 year old male with PMHx uncontrolled DM, HTN seen 2 day s/p for right foot incision and drainage with extensive debridement of all non-viable bone and soft tissue with Dr. Jones. Plan: Patient seen and evaluated with attending Dr. Jones Discussed plan in detail with attending Dr. Jones All questions/concerns addressed Labs, vitals reviewed, febrile with leukocytosis X-rays reviewed- Gas emphysema noted in right foot Intra-op wound cultures : no growth after 24 hours Infectious disease consulted, Dr. Espinal, recommendations appreciated Post-op x-rays; minimal subcutaneous emphsyema ( possibly secondary to packing) noted medial to the 1st MPJ Podiatry will continue to follow
[2018-03-02] MEDS: Morphine 4 MG/ML VIAL IVP PRN ×3 (14:39→23:06)
--- NOTE | 2018-03-02 15:12 | CP.PCM.PN ---
Subjective - Date & Time of Evaluation Date of Evaluation: 03/02/18 Time of Evaluation: 07:00 - Subjective Subjective: 42 year old male with PMHx uncontrolled DM, HTN seen 2 day s/p right foot incision and drainage with extensive debridement of all non-viable bone and soft tissue CONSIDER REPEAT MRI Objective - Vital Signs/Intake and Output Vital Signs (last 24 hours): Temp Pulse Resp BP Pulse Ox 98.7 F 88 20 114/68 95 03/02/18 09:20 03/02/18 09:20 03/02/18 09:20 03/02/18 09:20 03/02/18 09:20 Intake and Output: 03/02/18 03/02/18 06:59 18:59 Intake Total 850 Balance 850 - Medications Medications: Current Medications Acetaminophen (Tylenol 325mg Tab) 650 mg PO Q6 PRN PRN Reason: Fever >100.4 F Last Admin: 02/28/18 14:56 Dose: 650 mg Dextrose (Dextrose 50% Inj) 0 ml IV STAT PRN; Protocol PRN Reason: Hypoglycemia Protocol Dextrose (Glutose 15) 0 gm PO ONCE PRN; Protocol PRN Reason: Hypoglycemia Protocol Diphenhydramine HCl (Benadryl) 25 mg PO ONCE PRN PRN Reason: Insomnia Last Admin: 03/02/18 00:34 Dose: 25 mg Glucagon (Glucagen Diagnostic Kit) 0 mg IM STAT PRN; Protocol PRN Reason: Hypoglycemia Protocol Dextrose (Dextrose 5% In Water 1000 Ml) 1,000 mls @ 0 mls/hr IV .Q0M PRN; Protocol PRN Reason: Hypoglycemia Protocol Lactated Ringer's (Lactated Ringer's) 1,000 mls @ 100 mls/hr IV .Q10H [facility] Last Admin: 03/02/18 01:33 Dose: Not Given Vancomycin/Sodium Chloride (Vancomycin 1 Gm/Ns 200 Ml) 1 gm in 200 mls @ 133.333 mls/hr IVPB Q12H [facility]; Protocol Last Admin: 03/02/18 06:30 Dose: 133.333 mls/hr Piperacillin Sod/Tazobactam (Sod 3.375 gm/ Sodium Chloride) 100 mls @ 100 mls/hr IVPB Q8 [facility]; Protocol Last Admin: 03/02/18 05:57 Dose: 100 mls/hr Insulin Aspart (Novolog) 0 unit SC ACHS [facility]; Protocol Last Admin: 03/02/18 12:37 Dose: 2 units Insulin Detemir (Levemir) 6 unit SC DAILY [facility] Last Admin: 03/02/18 09:53 Dose: 6 units Morphine Sulfate (Morphine) 2 mg IVP Q4 PRN PRN Reason: 3-9 Last Admin: 03/02/18 14:39 Dose: 2 mg Zolpidem Tartrate (Ambien) 5 mg PO HS [facility] - Labs Labs: 02/27/18 06:41 02/27/18 06:41 PT 14.2 SECONDS (9.7-12.2) H 02/27/18 20:45 INR 1.3 02/27/18 20:45 APTT 32 SECONDS (21-34) 02/27/18 20:45 - Constitutional Appears: Non-toxic, Chronically Ill - Head Exam Head Exam: NORMOCEPHALIC - Eye Exam Eye Exam: absent: Scleral icterus - ENT Exam ENT Exam: Mucous Membranes Dry - Neck Exam Neck Exam: absent: Lymphadenopathy - Respiratory Exam Respiratory Exam: Decreased Breath Sounds, Prolonged Expiratory Phase - Cardiovascular Exam Cardiovascular Exam: REGULAR RHYTHM - GI/Abdominal Exam GI & Abdominal Exam: Distended, Soft - Rectal Exam Rectal Exam: Deferred - Exam Exam: NORMAL INSPECTION - Extremities Exam Extremities Exam: Pedal Edema - Back Exam Back Exam: absent: CVA tenderness (L), CVA tenderness (R) - Neurological Exam Neurological Exam: Alert, Awake Assessment and Plan (1) Cellulitis of foot, right Status: Acute (2) Diabetic ulcer of right foot Status: Acute (3) Cellulitis of foot Status: Acute (4) Cellulitis of left foot Status: Acute (5) Chronic foot pain Status: Acute (6) Diabetic foot infection Status: Acute (7) Diabetic foot ulcer Status: Acute (8) Foot osteomyelitis, left Status: Acute - Assessment and Plan (Free Text) Assessment: 42 year old male with PMHx uncontrolled DM, HTN seen 2 day s/p right foot incision and drainage with extensive debridement of all non-viable bone and soft tissue CONT IV ANTIBIOTICS
[2018-03-03] MEDS: Morphine 4 MG/ML VIAL IVP PRN ×5 (03:42→20:48)
[2018-03-03] MEDS: Piperacillin/Tazobact 3.375 GM in Sodium Chloride 0.9% 100 ML IVPB SCH ×3 (05:45→22:49)
[2018-03-03] MEDS: Vancomycin 1 gm/NS 200 ml 1 GM/200 ML BAG IVPB SCH ×2 (06:52→18:40)
[2018-03-03] MEDS: Lactated Ringer's 1,000 ML IV SCH ×3 (07:39→18:41)
[2018-03-03] MEDS: (Novolog) Insulin Aspart, Recombinant 100 u/ml 10 ml vial SC SCH ×4 (07:50→21:52)
[2018-03-03] MEDS: Insulin Detemir 100 units/ml Vial (Levemir) SC SCH (10:49)
--- NOTE | 2018-03-03 11:22 | CP.PCM.PN ---
Subjective - Date & Time of Evaluation Date of Evaluation: 03/03/18 Time of Evaluation: 08:00 - Subjective Subjective: 42 year old male with PMHx uncontrolled DM, HTN seen 2 day s/p right foot incision and drainage with extensive debridement of all non-viable bone and soft tissue IV antibiotics renewed Objective - Vital Signs/Intake and Output Vital Signs (last 24 hours): Temp Pulse Resp BP Pulse Ox 98 F 88 20 105/61 95 03/03/18 07:00 03/03/18 07:00 03/03/18 07:00 03/03/18 07:00 03/03/18 07:00 Intake and Output: 03/03/18 03/03/18 06:59 18:59 Intake Total 800 Output Total 2400 Balance -1600 - Medications Medications: Current Medications Acetaminophen (Tylenol 325mg Tab) 650 mg PO Q6 PRN PRN Reason: Fever >100.4 F Last Admin: 02/28/18 14:56 Dose: 650 mg Amlodipine Besylate (Norvasc) 5 mg PO DAILY [facility] Last Admin: 03/03/18 10:49 Dose: 5 mg Dextrose (Dextrose 50% Inj) 0 ml IV STAT PRN; Protocol PRN Reason: Hypoglycemia Protocol Dextrose (Glutose 15) 0 gm PO ONCE PRN; Protocol PRN Reason: Hypoglycemia Protocol Diphenhydramine HCl (Benadryl) 25 mg PO ONCE PRN PRN Reason: Insomnia Last Admin: 03/02/18 00:34 Dose: 25 mg Glimepiride (Amaryl) 4 mg PO BIDAC [facility] Last Admin: 03/03/18 06:52 Dose: 4 mg Glucagon (Glucagen Diagnostic Kit) 0 mg IM STAT PRN; Protocol PRN Reason: Hypoglycemia Protocol Lactated Ringer's (Lactated Ringer's) 1,000 mls @ 100 mls/hr IV .Q10H [facility] Last Admin: 03/03/18 07:39 Dose: Not Given Vancomycin/Sodium Chloride (Vancomycin 1 Gm/Ns 200 Ml) 1 gm in 200 mls @ 133.333 mls/hr IVPB Q12H [facility]; Protocol Last Admin: 03/03/18 06:52 Dose: 133.333 mls/hr Piperacillin Sod/Tazobactam (Sod 3.375 gm/ Sodium Chloride) 100 mls @ 100 mls/hr IVPB Q8 [facility]; Protocol Last Admin: 03/03/18 05:45 Dose: 100 mls/hr Insulin Aspart (Novolog) 0 unit SC ACHS [facility]; Protocol Last Admin: 03/03/18 07:50 Dose: Not Given Insulin Detemir (Levemir) 6 unit SC DAILY [facility] Last Admin: 03/03/18 10:49 Dose: 6 units Metformin HCl (Glucophage) 850 mg PO BIDCC [facility] Last Admin: 03/03/18 07:50 Dose: 850 mg Morphine Sulfate (Morphine) 2 mg IVP Q4 PRN PRN Reason: 3-9 Last Admin: 03/03/18 07:41 Dose: 2 mg Zolpidem Tartrate (Ambien) 5 mg PO HS [facility] Last Admin: 03/02/18 21:14 Dose: 5 mg - Labs Labs: 02/27/18 06:41 02/27/18 06:41 PT 14.2 SECONDS (9.7-12.2) H 02/27/18 20:45 INR 1.3 02/27/18 20:45 APTT 32 SECONDS (21-34) 02/27/18 20:45 - Constitutional Appears: Non-toxic, Chronically Ill - Head Exam Head Exam: NORMOCEPHALIC - Eye Exam Eye Exam: absent: Scleral icterus - ENT Exam ENT Exam: Mucous Membranes Dry - Neck Exam Neck Exam: absent: Lymphadenopathy - Respiratory Exam Respiratory Exam: Decreased Breath Sounds - Cardiovascular Exam Cardiovascular Exam: REGULAR RHYTHM - GI/Abdominal Exam GI & Abdominal Exam: Distended, Soft - Rectal Exam Rectal Exam: Deferred - Exam Exam: NORMAL INSPECTION - Extremities Exam Extremities Exam: Pedal Edema, Tenderness. absent: Calf Tenderness, Normal Inspection Additional comments: pes cavus left foot- dressing left foot dry right foot I and D site dry - Back Exam Back Exam: absent: CVA tenderness (L), CVA tenderness (R) - Neurological Exam Neurological Exam: Alert, Awake, CN II-XII Intact Neuro motor strength exam: Left Upper Extremity: 5, Right Upper Extremity: 5, Left Lower Extremity: 5, Right Lower Extremity: 5 - Psychiatric Exam Psychiatric exam: Depressed - Skin Skin Exam: Dry Assessment and Plan (1) Cellulitis of foot, right Status: Acute (2) Diabetic ulcer of right foot Status: Acute (3) Cellulitis of foot Status: Acute (4) Cellulitis of left foot Status: Acute (5) Chronic foot pain Status: Acute (6) Diabetic foot infection Status: Acute (7) Diabetic foot ulcer Status: Acute (8) Foot osteomyelitis, left Status: Acute - Assessment and Plan (Free Text) Assessment: IV antibiotics renewed podiatry following will likely need intermediate rx await eval left foot- possible OR this week cont rx a sper Dr Jones
--- NOTE | 2018-03-03 17:40 | CP.PCM.PN ---
Subjective - Date & Time of Evaluation Date of Evaluation: 03/03/18 Time of Evaluation: 17:35 - Subjective Subjective: pt still has foot dressing need debridment of the other foot also as per dr turner bs monitered controled ordered wheele chair Objective - Vital Signs/Intake and Output Vital Signs (last 24 hours): Temp Pulse Resp BP Pulse Ox 98 F 80 20 112/65 96 03/03/18 15:52 03/03/18 15:52 03/03/18 15:52 03/03/18 15:52 03/03/18 15:52 Intake and Output: 03/03/18 03/03/18 06:59 18:59 Intake Total 800 1200 Output Total 2400 1200 Balance -1600 0 - Medications Medications: Current Medications Acetaminophen (Tylenol 325mg Tab) 650 mg PO Q6 PRN PRN Reason: Fever >100.4 F Last Admin: 02/28/18 14:56 Dose: 650 mg Amlodipine Besylate (Norvasc) 5 mg PO DAILY [facility] Last Admin: 03/03/18 10:49 Dose: 5 mg Dextrose (Dextrose 50% Inj) 0 ml IV STAT PRN; Protocol PRN Reason: Hypoglycemia Protocol Dextrose (Glutose 15) 0 gm PO ONCE PRN; Protocol PRN Reason: Hypoglycemia Protocol Diphenhydramine HCl (Benadryl) 25 mg PO ONCE PRN PRN Reason: Insomnia Last Admin: 03/02/18 00:34 Dose: 25 mg Glimepiride (Amaryl) 4 mg PO BIDAC [facility] Last Admin: 03/03/18 06:52 Dose: 4 mg Glucagon (Glucagen Diagnostic Kit) 0 mg IM STAT PRN; Protocol PRN Reason: Hypoglycemia Protocol Lactated Ringer's (Lactated Ringer's) 1,000 mls @ 100 mls/hr IV .Q10H [facility] Last Admin: 03/03/18 14:51 Dose: 100 mls/hr Vancomycin/Sodium Chloride (Vancomycin 1 Gm/Ns 200 Ml) 1 gm in 200 mls @ 133.33 3 mls/hr IVPB Q12H [facility]; Protocol Last Admin: 03/03/18 06:52 Dose: 133.333 mls/hr Piperacillin Sod/Tazobactam (Sod 3.375 gm/ Sodium Chloride) 100 mls @ 100 mls/hr IVPB Q8 [facility]; Protocol Last Admin: 03/03/18 14:52 Dose: 100 mls/hr Insulin Aspart (Novolog) 0 unit SC ACHS [facility]; Protocol Last Admin: 03/03/18 17:10 Dose: Not Given Insulin Detemir (Levemir) 6 unit SC DAILY [facility] Last Admin: 03/03/18 10:49 Dose: 6 units Metformin HCl (Glucophage) 850 mg PO BIDCC [facility] Last Admin: 03/03/18 07:50 Dose: 850 mg Morphine Sulfate (Morphine) 2 mg IVP Q4 PRN PRN Reason: 3-9 Last Admin: 03/03/18 16:29 Dose: 2 mg Zolpidem Tartrate (Ambien) 5 mg PO HS [facility] Last Admin: 03/02/18 21:14 Dose: 5 mg - Labs Labs: 02/27/18 06:41 02/27/18 06:41 PT 14.2 SECONDS (9.7-12.2) H 02/27/18 20:45 INR 1.3 02/27/18 20:45 APTT 32 SECONDS (21-34) 02/27/18 20:45 - Constitutional Appears: Non-toxic - Head Exam Head Exam: ATRAUMATIC - Eye Exam Eye Exam: Normal appearance Pupil Exam: NORMAL ACCOMODATION - ENT Exam ENT Exam: Mucous Membranes Moist Additional comments: hearing defecet - Neck Exam Neck Exam: Full ROM - Respiratory Exam Respiratory Exam: Clear to Ausculation Bilateral - GI/Abdominal Exam GI & Abdominal Exam: Normal Bowel Sounds - Extremities Exam Additional comments: foot dressing intact - Back Exam Back Exam: NORMAL INSPECTION - Neurological Exam Neurological Exam: Alert, Awake, Oriented x3 - Psychiatric Exam Psychiatric exam: Normal Affect - Skin Skin Exam: Normal Color Assessment and Plan - Assessment and Plan (Free Text) Assessment: infected diabetic ulcers both feet dm hearing loss Plan: as per orders
--- NOTE | 2018-03-03 18:17 | CP.PCM.PN ---
Subjective - Date & Time of Evaluation Date of Evaluation: 03/03/18 Time of Evaluation: 18:00 - Subjective Subjective: Podiatry Progress Note- Dr. Jones 42 year old male with PMHx uncontrolled DM, HTN seen 3 days s/p right foot incision and drainage with extensive debridement of all non-viable bone and soft tissue with Dr. Jones. Patient reports that the right foot appears better than first admission. Also complains of chronic nonhealing ulceration of left foot. Patient reports pain to the bilateral foot. Reports sleeping okay. Dressing to left and right clean, dry, and intact. Reports has been weight bearing as tolerated. Denies nausea, fever, shortness of breath, chest pains or chills. Patient reports understanding that he will be going to the OR for debridement of right foot ulceration and 5th ray partial amputation left foot. Objective - Vital Signs/Intake and Output Vital Signs (last 24 hours): Temp Pulse Resp BP Pulse Ox 98 F 80 20 112/65 96 03/03/18 15:52 03/03/18 15:52 03/03/18 15:52 03/03/18 15:52 03/03/18 15:52 Intake and Output: 03/03/18 03/03/18 06:59 18:59 Intake Total 800 1200 Output Total 2400 1200 Balance -1600 0 - Medications Medications: Current Medications Acetaminophen (Tylenol 325mg Tab) 650 mg PO Q6 PRN PRN Reason: Fever >100.4 F Last Admin: 02/28/18 14:56 Dose: 650 mg Amlodipine Besylate (Norvasc) 5 mg PO DAILY [facility] Last Admin: 03/03/18 10:49 Dose: 5 mg Dextrose (Dextrose 50% Inj) 0 ml IV STAT PRN; Protocol PRN Reason: Hypoglycemia Protocol Dextrose (Glutose 15) 0 gm PO ONCE PRN; Protocol PRN Reason: Hypoglycemia Protocol Diphenhydramine HCl (Benadryl) 25 mg PO ONCE PRN PRN Reason: Insomnia Last Admin: 03/02/18 00:34 Dose: 25 mg Glimepiride (Amaryl) 4 mg PO BIDAC [facility] Last Admin: 03/03/18 06:52 Dose: 4 mg Glucagon (Glucagen Diagnostic Kit) 0 mg IM STAT PRN; Protocol PRN Reason: Hypoglycemia Protocol Lactated Ringer's (Lactated Ringer's) 1,000 mls @ 100 mls/hr IV .Q10H [facility] Last Admin: 03/03/18 14:51 Dose: 100 mls/hr Vancomycin/Sodium Chloride (Vancomycin 1 Gm/Ns 200 Ml) 1 gm in 200 mls @ 133 .333 mls/hr IVPB Q12H [facility]; Protocol Last Admin: 03/03/18 06:52 Dose: 133.333 mls/hr Piperacillin Sod/Tazobactam (Sod 3.375 gm/ Sodium Chloride) 100 mls @ 100 mls/hr IVPB Q8 [facility]; Protocol Last Admin: 03/03/18 14:52 Dose: 100 mls/hr Insulin Aspart (Novolog) 0 unit SC ACHS [facility]; Protocol Last Admin: 03/03/18 17:10 Dose: Not Given Insulin Detemir (Levemir) 6 unit SC DAILY [facility] Last Admin: 03/03/18 10:49 Dose: 6 units Metformin HCl (Glucophage) 850 mg PO BIDCC [facility] Last Admin: 03/03/18 07:50 Dose: 850 mg Morphine Sulfate (Morphine) 2 mg IVP Q4 PRN PRN Reason: 3-9 Last Admin: 03/03/18 16:29 Dose: 2 mg Zolpidem Tartrate (Ambien) 5 mg PO HS [facility] Last Admin: 03/02/18 21:14 Dose: 5 mg - Labs Labs: 02/27/18 06:41 02/27/18 06:41 PT 14.2 SECONDS (9.7-12.2) H 02/27/18 20:45 INR 1.3 02/27/18 20:45 APTT 32 SECONDS (21-34) 02/27/18 20:45 - Constitutional Appears: Well, Non-toxic, No Acute Distress - Extremities Exam Extremities Exam: absent: Calf Tenderness Additional comments: Right foot concentrated exam: Vasc: DP/PT pulses palpable 2/4 B/L. Temperature gradient warm to cool. CFT < 3 sec to all digits x9. Swelling noted to the right foot forefoot, nonpitting, more notable at the medial aspect of forefoot Derm: Left: Open ulceration sub met 5 approx 3.5cm x 3cm x 0.4cm with fibrogranular wound base, active serosanguinous drainage, minimal malodor, and significantly macerated wound borders with thickened 1cm macerated tissue rim. No fluctuance or suspected abscess formation. Wound probes to bone. Right: open wound noted medial to first PIPJ and linear incision noted medial to 1st MPJ, no malodor, packing intact, no active purulent drainage, no erythema or edema noted. Neuro: protective sensation grossly diminished Ortho: Pes cavus deformity B/L, R>L with plantarflexed 1st metatarsal noted to R foot. 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 Moderate tenderness to palpation of ulceration sites - Neurological Exam Neurological Exam: Alert, Awake Assessment and Plan - Assessment and Plan (Free Text) Assessment: 42 year old male with PMHx uncontrolled DM, HTN 3 days s/p for right foot incision and drainage with extensive debridement of all non-viable bone and soft tissue with Dr. Jones and left foot nonhealing chronic ulceration with underlying OM Plan: Patient seen and evaluated Discussed plan in detail with attending Dr. Jones Labs, chart, vitals reviewed Patient to go to the OR tomorrow for left 5th partial ray amputation and debridEment of right foot wound at 3pm NPO status after midnight MRI REVIEWED left lower extremity 01/30/18 Patient will undergo partial 5th ray amputation secondary to OM and chronic non healing ulceration left lower extremity and debridement of right foot All questions/concerns addressed Patient to be WBAT in surgical shoe
[2018-03-04] MEDS: Morphine 4 MG/ML VIAL IVP PRN ×2 (03:06→15:46)
[2018-03-04] MEDS: Lactated Ringer's 1,000 ML IV SCH ×2 (03:43→14:38)
[2018-03-04] MEDS: Piperacillin/Tazobact 3.375 GM in Sodium Chloride 0.9% 100 ML IVPB SCH ×2 (05:26→14:38)
[2018-03-04] MEDS: Vancomycin 1 gm/NS 200 ml 1 GM/200 ML BAG IVPB SCH (06:40)
[2018-03-04 07:44] LABS: BASO # 0.1 K/uL (0.0-0.2); EOS # 0.7 K/uL (0.0-0.7); EOS % 6.3 % (0.0-4.0); HEMOGLOBIN 11.3 g/dL (12.0-18.0); LYMPH # 2.6 K/uL (1.0-4.3); LYMPH % 24.4 % (20.0-40.0); MEAN CELL VOLUME 84.6 fL (80.0-94.0); MEAN CORPUSCULAR HEMOGLOBIN 28.4 pg (27.0-31.0); MEAN CORPUSCULAR HGB CONC 33.5 g/dL (33.0-37.0); MEAN PLATELET VOLUME 6.9 fL (7.2-11.7); MONO # 0.6 K/uL (0.0-0.8); MONO % 5.8 % (0.0-10.0); NEUT # 6.7 K/uL (1.8-7.0); NEUT % 62.5 % (50.0-75.0); RBC 3.97 Mil/uL (4.40-5.90); RED CELL DISTRIBUTION WIDTH 13.1 % (11.5-14.5); WHITE BLOOD COUNT 10.6 K/uL (4.8-10.8)
[2018-03-04] MEDS ORDERED: Bupivacaine 0.25% 20 ML INJ IJ ONE (07:58)
[2018-03-04] MEDS ORDERED: Lidocaine 2% MPF (5 ml) Inj ONE (07:58)
[2018-03-04] MEDS ORDERED: ceFAZolin 1 gm in NS 0 GM/0 ML BAG IVPB ONE (07:58)
[2018-03-04 08:18] LABS: ALB/GLOB RATIO 0.8 (1.0-2.1); ALBUMIN 3.4 g/dL (3.5-5.0); ALT/SGPT 13 U/L (21-72); AST/SGOT 24 U/L (17-59); BLOOD UREA NITROGEN 21 mg/dL (9-20); GFR NON-AFRICAN AMERICAN > 60
[2018-03-04] MEDS: (Novolog) Insulin Aspart, Recombinant 100 u/ml 10 ml vial SC SCH ×3 (08:25→17:55)
[2018-03-04] MEDS ORDERED: Propofol 10 mg/ml Inj (20 ML) ONE ×2 (09:08→09:48)
[2018-03-04] MEDS ORDERED: Midazolam 2 MG/2 ML VIAL ONE ×2 (09:08→09:17)
[2018-03-04] MEDS ORDERED: Lidocaine/Epinephrine 1% 1:100000 10 ML IJ ONE (09:47)
[2018-03-04] MEDS ORDERED: Lidocaine Hydrochloride 10 ML INJ ONE (09:53)
[2018-03-04] MEDS: Insulin Detemir 100 units/ml Vial (Levemir) SC SCH (10:08)
[2018-03-04] MEDS ORDERED: HYDROmorphone 0.5 mg/0.5 ml ISec IVP PRN (10:23)
--- NOTE | 2018-03-04 10:28 | PCM.SURG1 ---
Surgeon's Initial Post Op Note - Surgeon's Notes Surgeon: Dr. Jones DPM Domestic Housekeeper: Dr. Romina Peerz DPM Type of Anesthesia: IV Sedation, Local Pre-Operative Diagnosis: Left 5th metatasal osteomyelitis with necrotic ulceration, right necrotic ulceration Operative Findings: See Dictation. I: pre-op 20cc of 1:1 mix of 0.5% marcaine plain and 1% lidocaine plain, intra-op 10 cc of lidocaine with epinephrine. M: 2-0 Vicryl, 3-0 Nylon, 1/4 iodoform packing Post-Operative Diagnosis: Same Operation Performed: Left 5th partial metatarsal amputation, right wound debridement of all non-viable soft tissue Specimen/Specimens Removed: Bone from left foot Estimated Blood Loss: EBL {In ML}: 15 Drains Used: No Drains Post-Op Condition: Good Date of Surgery/Procedure: 03/04/18 Time of Surgery/Procedure: 10:29
[2018-03-04] MEDS ORDERED: Oxycodone/Acetaminophen 5/325 mg Tab PO PRN ×2 (10:35)
[2018-03-04] MEDS ORDERED: HYDROmorphone 0.5 mg/0.5 ml ISec ONE (11:23)
--- NOTE | 2018-03-04 13:04 | RAD ---
Date of service: 03/04/2018 PROCEDURE: Left Foot Radiographs. HISTORY: s/p L 5th met resection COMPARISON: Bilateral foot x-ray 01/29/2018 FINDINGS: BONES: Interval 5th metatarsal resection of prior amputation distal to this site. The bulk appear corticated ossification seen at the level of the metatarsal necks over the 5th digit location is as before. No interval periosteal reaction seen. The smooth periosteal reaction lining the lateral 4th metatarsal shaft is as before. No interval cortical destruction elsewhere suggested. JOINTS: 1st metatarsal-phalangeal joint arthrosis SOFT TISSUES: Soft tissue swelling with mottled radiolucencies compatible with recent postop changes as well as known ulcer here. Lymphedema and/or cellulitis appearance compatible with the soft tissue changes-correlate clinically. OTHER FINDINGS: Hammertoe orientations noted. Ransom's tendon insetional enesthesophyte. IMPRESSION: Interval postsurgical osseous resection 5th metatarsal of prior amputation here. Associated soft tissue changes as above.
[2018-03-04 16:29] VITALS: BP 117/70; PULSE 81; RESP 20; TEMP 98.3; O2SAT 97
--- NOTE | 2018-03-04 23:07 | CON ---
DATE: 03/04/2018 REQUESTING PHYSICIAN: Michel Zavala MD REASON FOR CONSULTATION: Hearing loss. HISTORY: This is a 42-year-old male with a multiple-year history of right-sided hearing loss that is constant, moderate in intensity. There is no ear pain. The patient also has ear drainage out of the right ear on and off, mild to moderate in intensity for years. No throat pain, no nasal congestion. PAST MEDICAL HISTORY: As noted in the chart by me. MEDICATIONS: As noted in the chart by me. ALLERGIES: NOTED IN THE CHART BY ME. PHYSICAL EXAMINATION: HEAD: Atraumatic, normocephalic. FACE: Good facial movements bilaterally. CONSTITUTIONAL: Well fed, well nourished. COMMUNICATION: Communicates well and appropriately. EXTERNAL NOSE AND EARS: No masses, no lesions, no erythema, no edema. INTERNAL NOSE: Deviated septum. No masses, no lesions, no erythema, no edema. EARS: Mastoid cavity noted on the right with discharge and wax. ORAL CAVITY AND OROPHARYNX: No masses, no lesions, no erythema, no edema. LIPS AND GUMS: No masses, no lesions, no erythema, no edema. NECK: Supple. THYROID: No thyromegaly. No goiter. LYMPH NODES: No lymphadenopathy of the neck. ASSESSMENT: 1. Ear drainage. 2. Conductive hearing loss on the right. 3. Deviated septum. PLAN: The patient is to have the ear cleaned in the office and placed on ear drops. He has been placed on Floxin at this point; however, the patient is to follow up in the office so that I clean the ear. Leopoldo Dunbar MD
--- NOTE | 2018-03-07 06:24 | OP ---
PROCEDURE DATE: 02/28/2018 PREOPERATIVE DIAGNOSIS: Right foot gangrene. POSTOPERATIVE DIAGNOSIS: Right foot gangrene. PROCEDURE: Right foot incision and drainage of all nonviable bone and soft tissue. SURGEON: Dr. Keenan Jones DPM GAMING DEPARTMENT HEAD: Marcos Quintanilla, PGY-2; Romina Gutierrez, PGY-1 ANESTHESIA: IV sedation with local. INDICATION: The patient is a 42-year-old male with the above diagnosis. The patient has exhausted all conservative treatment at this time and now requires surgical intervention. The patient signed the consent after careful explanation of risks, benefits and complications, and alternatives of surgical procedure. No guarantees were given nor implied. PREPARATION: The patient was brought back to the operating room and placed on the operating room table in a supine position. Time-out was performed for identification of correct patient and procedure. After induction of IV sedation, the patient received a total of 10 mL of 1:1 mixture of 0.5% Marcaine plain and 1% lidocaine plain in the local block fashion to the right foot. Once the anesthesia was achieved, the right foot was then prepped and draped in a normal sterile manner. No tourniquet was used during this procedure. PROCEDURE: Right foot incision and drainage: Attention was directed to the dorsal medial aspect of the right foot where a bulla measuring approximately 1 cm x 1.5 cm x 0.4 cm was appreciated. Next, an incision was made along the dorsal medial aspect of the foot overlying the bulla. The incision was then deepened to subcutaneous tissue using a #15 blade and hemostat. At this time, 5 mL of purulent fluid was expressed from the incision site, necrotic and devitalized tissue was excisionally debrided until a healthy granular bleeding base was noted. Next, an ulceration of submetatarsal bone measuring approximately 1 cm x 1.5 cm x 0.3 cm was appreciated. At this time, the incision was made along the ulceration with a #15 blade. The incisions were then deepened to subcutaneous tissue utilizing #15 blade and hemostat. At this time, approximately 8 mL of purulent fluid was appreciated. Next, utilizing Versajet, both wounds were then debrided with all remaining nonviable soft tissue until a healthy granular base was revealed. Then, using pulse lavage, the dorsal medial and plantar area were then copiously irrigated with normal sterile saline. The wounds were then left open and packed with 0.25 inch iodoform packing. The wounds were dressed with Xeroform, DSD, ABD, and Kerlix. POSTOPERATIVE CONDITION: The patient tolerated the anesthesia and procedure well and was escorted to the recovery room with vital signs stable and neurovascular status intact to the right foot. The patient is to remain nonweightbearing to the right foot with a surgical shoe. The patient will continue to be seen on the floor, pending discharge. We will follow up with Dr. Jones in his office as an outpatient. ZIYAD Portillo Keenan Jones DPM
--- NOTE | 2018-03-07 06:27 | OP ---
PROCEDURE DATE: 03/04/2018 PREOPERATIVE DIAGNOSIS: Left metatarsal osteomyelitis with chronic ulceration, right foot . POSTOPERATIVE DIAGNOSIS: Left metatarsal osteomyelitis with chronic ulceration, right foot . PROCEDURE: 1. Left foot partial fifth ray resection. 2. Right foot wound debridement. SURGEON: Keenan Jones DPM. HOSPITAL NURSE: Romina Gutierrez, PGY-1. ANESTHESIA: IV sedation with local. INDICATIONS: The patient is a 42-year-old male with the above diagnosis. The patient has exhausted all conservative treatment at this time and now requires surgical intervention. The patient signed the consent after careful explanation of risks, benefits, complications, alternatives of the surgical procedure. No guarantees were given nor implied. PREPARATION: The patient was brought into the operating room, placed on the operating room table in a supine position. Timeout was performed for identification of the correct patient and procedure. After induction of IV sedation, the patient received a total of 10 mL of 1:1 mixture 1% lidocaine plain and 0.5% Marcaine plain in local block fashion to the right medial foot and 10 mL of 1:1 mixture of 1% lidocaine plain with 0.5% Marcaine plain was injected in a local block fashion to the lateral aspect of the left foot. Once the anesthesia was achieved, the right and left foot were then prepped and draped in a normal sterile manner and no tourniquet was used during the procedure. DESCRIPTION OF PROCEDURE: 1. Left foot partial fifth ray resection: Attention was directed to the dorsal aspect of the fifth metatarsal where a 5 cm linear incision was made. The incision was then extended down to the subcutaneous layers to the level of the bone using a bone clamp to stabilize the distal aspect of the fifth ray. The periosteum was stripped from the bone. Next utilizing a sagittal saw, partial fifth metatarsal resection was performed and passed off from the operating field and sent to pathology. All bleeders were cauterized and ligated as necessary. At this time, 10 mL of lidocaine with epinephrine was injected to the operating site. The surgical site was then copiously flushed with normal sterile saline. The deep layers were then stitched with 2-0 Vicryl and skin with 3-0 nylon. 2. Right I and D: Attention was directed to the dorsal medial aspect of the right foot where previously made incision was measured, measuring approximately 1.5 cm x 2 cm x 1 cm appreciated. Necrotic and devitalized tissue was excisionally debrided and healthy granular bleeding tissue was noted. Next, noted sinus from submetatarsal bone extending to the base of the hallux measuring approximately 1 cm x 2.5 cm x 0.3 cm was appreciated. Next, using a pulse lavage, the dorsomedial and plantar areas were then copiously irrigated with normal sterile saline. The wounds were left open and packed with 0.25 inch iodoform packs. The wounds were then dressed with Xeroform, DSD, ABD and Kerlix. POSTOPERATIVE CONDITION: The patient tolerated the anesthesia and procedure well and was escorted to recovery room with all vital signs stable and neurovascular status intact to the right and left leg. The patient is to remain nonweightbearing to the heel of the right foot with a surgical shoe and nonweightbearing to the left foot. The patient will continue to be seen on the floor by Podiatry. Follow up with Dr. Jones in his office as an outpatient. ZIYAD Portillo Keenan Jones DPM
--- NOTE | 2018-03-07 12:32 | DS ---
The patient came into the emergency room after having a bite and infected extremities and at the site of the bite it seemed to be gangrenous in the right foot. The patient also had diabetes and the diabetes was uncontrolled and he has ulcers. He was seen by Infectious Disease, Dr. Espinal. LAB ON ADMISSION: His white count was high 15.2, his sugar was 260. His kidney function was okay. He has anemia. Hemoglobin was 10. PHYSICAL EXAMINATION: His temperature 99.6, his pulse 99, and his blood pressure was okay, oxygen was okay. After then that, rest of the lab was okay. The patient was started on oxygen and local wound care and monitored for his sugars. He got vancomycin IV, Apresoline, and Zosyn and he was also getting morphine for pain medications and he was seen by surgeon and did have some surgery for his foot gangrene and the incision and drainage and debridement of the right foot ulcer and he was followed by them and they kept changing the dressing and cleaning the wound on his right foot. The patient gradually improved and was able to ambulate with a wheelchair. He was seen by Dr. Jones, the foot doctor. Left fifth metatarsal osteomyelitis with necrotic ulcerations, right necrotic ulceration. he was seen by physician in the hospital that was 03/04/2018; after that, he was discharged to continue with wound care and antibiotics and need to monitor his sugar. FINAL DIAGNOSES: Status post infected ulcer and abscess of the foot, incision and drainage, cellulitis of the foot, and osteomyelitis. He is to follow up with Podiatry and to continue antibiotics. Unique Barry MD
== END 2018-03-04 18:16 | disposition left against medical advice (07) ==
LOC: C.ER 03:20 → C.9E 07:00 → C.6T 23:06
PROVIDERS: ADMIT Internal Medicine; ATTEND Internal Medicine
PROC: 0HBMXZZ Excision of Right Foot Skin, External Approach (ICD-10-PCS; 2018-02-28)
PROC: 0H9MXZX Drainage of Right Foot Skin, External Approach, Diagnostic (ICD-10-PCS; 2018-02-28)
PROC: 0HBNXZZ Excision of Left Foot Skin, External Approach (ICD-10-PCS; 2018-03-04)
PROC: 0Y6N0ZF Detachment at Left Foot, Partial 5th Ray, Open Approach (ICD-10-PCS; principal; 2018-03-04 15:00)
DX: E11.69 Type 2 diabetes mellitus with other specified complication (principal); A48.0 Gas gangrene; L02.611 Cutaneous abscess of right foot; L03.115 Cellulitis of right lower limb; L03.116 Cellulitis of left lower limb; F25.9 Schizoaffective disorder, unspecified; E11.65 Type 2 diabetes mellitus with hyperglycemia; E11.52 Type 2 diabetes mellitus with diabetic peripheral angiopathy with gangrene; M86.9 Osteomyelitis, unspecified; I10 Essential (primary) hypertension; E11.621 Type 2 diabetes mellitus with foot ulcer; J34.2 Deviated nasal septum; J45.909 Unspecified asthma, uncomplicated; F31.9 Bipolar disorder, unspecified; F17.210 Nicotine dependence, cigarettes, uncomplicated; D64.9 Anemia, unspecified; Z79.4 Long term (current) use of insulin

== ENCOUNTER 2018-03-20 16:00 | Inpatient (IN) | payer MEDICAID ==
[2018-03-20 16:01] VITALS: BMI 31.8
[2018-03-20] MEDS ORDERED: Piperacillin/Tazobact 3.375 GM in Sodium Chloride 100 ML IVPB STA (16:33)
--- NOTE | 2018-03-20 16:59 | C.PDOC ---
History Of Present Illness 42yo male, comes to ER complaining of right leg pain and swelling. Patient has a history of multiple admission due to osteomyelitis as well as recent AMA from the hospital. No fever, chills, chest pain or shortness of breath. Time Seen by Provider: 03/20/18 16:17 Chief Complaint (Nursing): Lower Extremity Problem/Injury History Per: Patient History/Exam Limitations: no limitations Past Medical History Reviewed: Historical Data, Nursing Documentation, Vital Signs Vital Signs: Last Vital Signs Temp 98.6 F 03/20/18 16:10 Pulse 138 H 03/20/18 16:10 Resp 20 03/20/18 16:10 BP 113/74 03/20/18 16:10 Pulse Ox 99 03/20/18 16:10 - Medical History PMH: Anxiety, Arthritis (backs and LE), Asthma, Bipolar Disorder, Depression, Diabetes, HTN, Schizophrenia (schizoaffective disorder) Denies: Chronic Kidney Disease - [facility] Procedures DETACHMENT AT LEFT FOOT, PARTIAL 5TH RAY, OPEN APPROACH (02/27/18) DRAINAGE OF RIGHT FOOT SKIN, EXTERNAL APPROACH, DIAGNOSTIC (02/27/18) EXCISION OF L FOOT SUBCU/FASCIA, OPEN APPROACH (11/10/17) EXCISION OF LEFT FOOT SKIN, EXTERNAL APPROACH (02/27/18) EXCISION OF RIGHT FOOT SKIN, EXTERNAL APPROACH (02/27/18) Family History: States: Unknown Family Hx - Social History Hx Tobacco Use: Yes Hx Alcohol Use: No Hx Substance Use: No - Immunization History Hx Tetanus Toxoid Vaccination: Yes Hx Influenza Vaccination: Yes Hx Pneumococcal Vaccination: Yes Review Of Systems Except As Marked, All Systems Reviewed And Found Negative. Constitutional: Negative for: Fever, Chills Cardiovascular: Negative for: Chest Pain Respiratory: Negative for: Shortness of Breath Musculoskeletal: Positive for: Leg Pain (right) Physical Exam - Physical Exam Appears: Non-toxic, No Acute Distress Skin: Normal Color, Warm, Dry Head: Atraumatic, Normacephalic Eye(s): bilateral: Normal Inspection Neck: Normal ROM Chest: Symmetrical Cardiovascular: Rhythm Regular Respiratory: Normal Breath Sounds Extremity: Normal ROM, Swelling (right leg), Other (right foot ulcer with foul smelling discharge) Neurological/Psych: Oriented x3 ED Course And Treatment - Laboratory Results Result Diagrams: 03/21/18 19:12 03/21/18 08:28 O2 Sat by Pulse Oximetry: 99 (RA) Pulse Ox Interpretation: Normal Medical Decision Making Medical Decision Making: ro osteo Right foot with pressure ulcers; pt complaining of right leg pain and swelling Plan: -- XR Right foot -- Labs -- IV antibiotics noted air on xr. noted on previous xr dated earlier in month ?nec fac. case discussed with podiatry bedside. given finds on previous xr, no signfican interval change, plan on OR tommorow. updated hospitalist. Disposition - Disposition Disposition: HOSPITALIZED Disposition Time: 20:00 Condition: FAIR - Clinical Impression Clinical Impression: Osteomyelitis - Scribe Statement The provider has reviewed the documentation as recorded by the Meggan Peterson Provider Attestation: All medical record entries made by the Meggan were at my direction and personally dictated by me. I have reviewed the chart and agree that the record accurately reflects my personal performance of the history, physical exam, medical decision making, and the department course for this patient. I have also personally directed, reviewed, and agree with the discharge instructions and disposition.
[2018-03-20 17:05] LABS: BASO # 0.1 K/uL (0.0-0.2); BASO % 0.5 % (0.0-2.0); EOS # 0.2 K/uL (0.0-0.7); EOS % 1.4 % (0.0-4.0); HEMOGLOBIN 11.1 g/dL (12.0-18.0); LYMPH # 1.3 K/uL (1.0-4.3); LYMPH % 10.6 % (20.0-40.0); MEAN CELL VOLUME 83.7 fL (80.0-94.0); MEAN CORPUSCULAR HEMOGLOBIN 27.3 pg (27.0-31.0); MEAN CORPUSCULAR HGB CONC 32.6 g/dL (33.0-37.0); MEAN PLATELET VOLUME 7.2 fL (7.2-11.7); MONO # 0.7 K/uL (0.0-0.8); MONO % 5.5 % (0.0-10.0); NEUT # 10.1 K/uL (1.8-7.0); RBC 4.09 Mil/uL (4.40-5.90); RED CELL DISTRIBUTION WIDTH 13.9 % (11.5-14.5); WHITE BLOOD COUNT 12.3 K/uL (4.8-10.8)
[2018-03-20 17:13] LABS: INR 1.4; PROTHROMBIN TIME 15.2 SECONDS (9.7-12.2)
[2018-03-20] MEDS ORDERED: Sodium Chloride 0.9% 1,000 ML IV ONE (17:22)
[2018-03-20 17:32] LABS: ALB/GLOB RATIO 0.8 (1.0-2.1); ALBUMIN 3.7 g/dL (3.5-5.0); ALT/SGPT < 6 U/L (21-72); AST/SGOT 17 U/L (17-59); BLOOD UREA NITROGEN 27 mg/dL (9-20); CALCIUM 8.9 mg/dl (8.6-10.4); GFR NON-AFRICAN AMERICAN 55
--- NOTE | 2018-03-20 18:11 | CP.PCM.HP ---
<Zachary Jones - Last Filed: 03/20/18 19:57> History of Present Illness - History of Present Illness History of Present Illness: 42 M with a PMHx of polysubstance abuse, 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 Toes hurt more with flexion and extension and the pain goes up to the ankle. Pt believes the ulcer started as a red scratch. The current ulcer he says he went to Dr Jones's office on for a follow up appt. Pt was told he needs to follow up for an I&D scheduled today. Pt did not take any pain relief meds nor is he compliant with antibiotics for the last 2 months. Pt says he hasn't taken any of his psych meds either. Pt admits to frequent anger outbursts. 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 Lives at [facility] currently, works at [employer] hx: none Allergies: NSAIDs -> swelling Home meds: Not been taking Enalapril 5mg PO Clindamycin 300mg PO TID Metformin 850mg PO BID Glimepiride 4mg PO BID Humalog 70/30 20 units TID before meals Basaglar 40 units BID Present on Admission - Present on Admission Any Indicators Present on Admission: Yes History of Uncontrolled Diabetes: Yes Review of Systems - Constitutional Constitutional: Chills, Fever, Night Sweats - Cardiovascular Cardiovascular: absent: Chest Pain, Edema, Pain Radiating to Arm/Neck/Jaw, Syncope - Respiratory Respiratory: absent: Cough, Wheezing - Gastrointestinal Gastrointestinal: Nausea, Vomiting. absent: Abdominal Pain, Diarrhea - Musculoskeletal Musculoskeletal: Arthralgias (june feet), Back Pain (chronic) - Integumentary Integumentary: Skin Ulcer (multiple on foot) - Neurological Neurological: absent: Dizziness - Psychiatric Psychiatric: Mood Swings, Panic Attacks. absent: Visual Hallucinations, Tactile Hallucinations - Hematologic/Lymphatic Hematologic: absent: Easy Bleeding Past Patient History - Infectious Disease Hx of Infectious Diseases: None - Past Medical History & Family History Past Medical History?: Yes - Past Social History Smoking Status: Light Smoker < 10 Cigarettes Daily - CARDIAC Hx Hypertension: Yes - PULMONARY Hx Asthma: Yes - NEUROLOGICAL Hx Neurological Disorder: No - HEENT Hx HEENT Problems: No - RENAL Hx Chronic Kidney Disease: No - ENDOCRINE/METABOLIC Hx Diabetes Mellitus Type 2: Yes - HEMATOLOGICAL/ONCOLOGICAL Hx Blood Disorders: No - INTEGUMENTARY Hx Dermatological Problems: No - MUSCULOSKELETAL/RHEUMATOLOGICAL Hx Arthritis: Yes (backs and LE) - GASTROINTESTINAL Hx Gastrointestinal Disorders: No - GENITOURINARY/GYNECOLOGICAL Hx Genitourinary Disorders: No - PSYCHIATRIC Hx Anxiety: Yes Hx Bipolar Disorder: Yes Hx Depression: Yes Hx Schizophrenia: Yes (schizoaffective disorder) Hx Substance Use: No - SURGICAL HISTORY Hx Surgeries: Yes Other/Comment: right ear surgery. left FOOT TOE / 5TH DIGITsurgery - ANESTHESIA Hx Anesthesia: Yes Hx Anesthesia Reactions: No Hx Malignant Hyperthermia: No Meds Allergies/Adverse Reactions: Allergies Allergy/AdvReac Type Severity Reaction Status Date / Time NSAIDS (Non-Steroidal Allergy RASH Verified 03/20/18 16:14 Anti-Inflamma Physical Exam - Constitutional Appears: Non-toxic, Older Than Stated Age - Head Exam Head Exam: ATRAUMATIC - Eye Exam Eye Exam: EOMI, Normal appearance. absent: Scleral icterus - ENT Exam ENT Exam: Mucous Membranes Moist - Neck Exam Additional comments: flat mastoids - Respiratory Exam Respiratory Exam: Clear to Auscultation Bilateral, NORMAL BREATHING PATTERN. absent: Wheezes - Cardiovascular Exam Cardiovascular Exam: RRR, +S1, +S2 - Extremities Exam Extremities exam: Positive for: pedal pulses present Additional comments: crepitus w 1st toe and MCP flexion - Neurological Exam Neurological exam: Alert, CN II-XII Intact, Oriented x3 - Psychiatric Exam Psychiatric exam: Agitated, Anxious - Skin Skin Exam: Normal Color, Warm Results - Vital Signs Recent Vital Signs: Last Vital Signs Temp 101.7 F H 03/20/18 17:25 Pulse 118 H 03/20/18 17:21 Resp 20 03/20/18 17:21 BP 152/80 H 03/20/18 17:21 Pulse Ox 97 03/20/18 17:21 - Labs Result Diagrams: 03/20/18 17:00 03/20/18 17:00 Labs: Laboratory Results - last 24 hr 03/20/18 03/20/18 03/20/18 16:32 17:00 17:00 WBC 12.3 H RBC 4.09 L Hgb 11.1 L Hct 34.2 L MCV 83.7 MCH 27.3 MCHC 32.6 L RDW 13.9 Plt Count 437 H D MPV 7.2 Neut % (Auto) 82.0 H Lymph % (Auto) 10.6 L [place] % (Auto) 5.5 Eos % (Auto) 1.4 Baso % (Auto) 0.5 Neut # (Auto) 10.1 H Lymph # (Auto) 1.3 [place] # (Auto) 0.7 Eos # (Auto) 0.2 Baso # (Auto) 0.1 PT 15.2 H INR 1.4 APTT 30 Sodium Potassium Chloride Carbon Dioxide Anion Gap BUN Creatinine Est GFR ( Amer) Est GFR (Non-Af Amer) POC Glucose (mg/dL) 241 H Random Glucose Calcium Total Bilirubin AST ALT Alkaline Phosphatase Total Protein Albumin Globulin Albumin/Globulin Ratio 03/20/18 17:00 WBC RBC Hgb Hct MCV MCH MCHC RDW Plt Count MPV Neut % (Auto) Lymph % (Auto) [place] % (Auto) Eos % (Auto) Baso % (Auto) Neut # (Auto) Lymph # (Auto) [place] # (Auto) Eos # (Auto) Baso # (Auto) PT INR APTT Sodium 134 Potassium 3.6 Chloride 94 L Carbon Dioxide 31 H Anion Gap 13 BUN 27 H Creatinine 1.4 Est GFR ( Amer) > 60 Est GFR (Non-Af Amer) 55 POC Glucose (mg/dL) Random Glucose 228 H D Calcium 8.9 Total Bilirubin 0.6 AST 17 D ALT < 6 L D Alkaline Phosphatase 176 H Total Protein 8.3 Albumin 3.7 Globulin 4.6 H Albumin/Globulin Ratio 0.8 L Assessment & Plan - Assessment and Plan (Free Text) Assessment: 42M pmhx of frequent osteomyelitis, DM2, schizophrenia, asthma, admitted for malodorous 3x3cm Plan: Wound to plantar aspect of feet bilaterally Osteomyelitis Podiatry Dr. Jones consulted, help appreciated for wash out sx tmrw @ 3pm zoltan NPO past midnight Vancomycin 1g IV q12 Zosyn 3.375g IV Q8 Tylenol 650mg q6 PRN PO Wound Cultures f/u History of uncontrolled diabetes Hypoglycemia protocol ISS medium dose Accuchecks q6 Liquid Diet A1c pending Enalapril 5mg PO qd History of HTN Continue to monitor Enalapril 5mg qd po History of schizophrenia, bipolar disorder, ?personality disorder Not on any medications at home frequent AMAs possible psych consult Continue to monitor Prophylaxis DVT: hold for Sx tmrw GI: not indicated Liquid Diet NPO past midnight <Sandi French V - Last Filed: 03/21/18 22:26> Results - Vital Signs Recent Vital Signs: Last Vital Signs Temp 97.5 F L 03/21/18 20:06 Pulse 88 03/21/18 20:06 Resp 20 03/21/18 20:06 BP 102/69 03/21/18 20:06 Pulse Ox 99 03/21/18 21:37 - Labs Result Diagrams: 03/21/18 19:12 03/21/18 08:28 Labs: Laboratory Results - last 24 hr 03/20/18 03/21/18 03/21/18 21:54 06:39 08:28 WBC 8.0 RBC 3.32 L Hgb 9.4 L Hct 27.6 L MCV 83.0 MCH 28.2 MCHC 33.9 RDW 13.8 Plt Count 359 MPV 7.5 Neut % (Auto) 60.4 Lymph % (Auto) 25.2 [place] % (Auto) 9.1 Eos % (Auto) 4.8 H Baso % (Auto) 0.5 Neut # (Auto) 4.9 Lymph # (Auto) 2.0 [place] # (Auto) 0.7 Eos # (Auto) 0.4 Baso # (Auto) 0.0 Sodium Potassium Chloride Carbon Dioxide Anion Gap BUN Creatinine Est GFR ( Amer) Est GFR (Non-Af Amer) POC Glucose (mg/dL) 278 H 219 H Random Glucose Calcium Phosphorus Total Bilirubin AST ALT Alkaline Phosphatase Total Protein Albumin Globulin Albumin/Globulin Ratio Urine Color Urine Clarity Urine pH Ur Specific [place] Urine Protein Urine Glucose (UA) Urine Ketones Urine Blood Urine Nitrate Urine Bilirubin Urine Urobilinogen Ur Leukocyte Esterase Urine WBC (Auto) Urine RBC (Auto) Ur Squamous Epith Cells Hyaline Casts Urine Opiates Screen Urine Methadone Screen Ur Barbiturates Screen Ur Phencyclidine Scrn Ur Amphetamines Screen U Benzodiazepines Scrn U Oth Cocaine Metabols U Cannabinoids Screen HIV 1&2 Antibody Screen 03/21/18 03/21/18 03/21/18 08:28 08:28 11:26 WBC RBC Hgb Hct MCV MCH MCHC RDW Plt Count MPV Neut % (Auto) Lymph % (Auto) [place] % (Auto) Eos % (Auto) Baso % (Auto) Neut # (Auto) Lymph # (Auto) [place] # (Auto) Eos # (Auto) Baso # (Auto) Sodium 135 Potassium 3.5 L Chloride 102 Carbon Dioxide 29 Anion Gap 8 L BUN 22 H Creatinine 1.1 Est GFR ( Amer) > 60 Est GFR (Non-Af Amer) > 60 POC Glucose (mg/dL) 192 H Random Glucose 233 H Calcium 8.3 L Phosphorus 3.5 Total Bilirubin 0.3 AST 11 L D ALT < 6 L Alkaline Phosphatase 134 H D Total Protein 6.4 Albumin 2.9 L D Globulin 3.5 Albumin/Globulin Ratio 0.8 L Urine Color Urine Clarity Urine pH Ur Specific [place] Urine Protein Urine Glucose (UA) Urine Ketones Urine Blood Urine Nitrate Urine Bilirubin Urine Urobilinogen Ur Leukocyte Esterase Urine WBC (Auto) Urine RBC (Auto) Ur Squamous Epith Cells Hyaline Casts Urine Opiates Screen Urine Methadone Screen Ur Barbiturates Screen Ur Phencyclidine Scrn Ur Amphetamines Screen U Benzodiazepines Scrn U Oth Cocaine Metabols U Cannabinoids Screen HIV 1&2 Antibody Screen Negative 03/21/18 03/21/18 03/21/18 19:12 19:19 19:19 WBC RBC Hgb 8.5 L Hct 26.0 L MCV MCH MCHC RDW Plt Count MPV Neut % (Auto) Lymph % (Auto) [place] % (Auto) Eos % (Auto) Baso % (Auto) Neut # (Auto) Lymph # (Auto) [place] # (Auto) Eos # (Auto) Baso # (Auto) Sodium Potassium Chloride Carbon Dioxide Anion Gap BUN Creatinine Est GFR ( Amer) Est GFR (Non-Af Amer) POC Glucose (mg/dL) Random Glucose Calcium Phosphorus Total Bilirubin AST ALT Alkaline Phosphatase Total Protein Albumin Globulin Albumin/Globulin Ratio Urine Color Yellow Urine Clarity Clear Urine pH 5.0 Ur Specific [place] 1.035 H Urine Protein 2+ H Urine Glucose (UA) Normal Urine Ketones Negative Urine Blood 1+ H Urine Nitrate Negative Urine Bilirubin Negative Urine Urobilinogen 4.0 Ur Leukocyte Esterase Neg Urine WBC (Auto) 2 Urine RBC (Auto) 13 H Ur Squamous Epith Cells < 1 Hyaline Casts 0-2 Urine Opiates Screen Negative Urine Methadone Screen Negative Ur Barbiturates Screen Negative Ur Phencyclidine Scrn Negative Ur Amphetamines Screen Negative U Benzodiazepines Scrn Positive U Oth Cocaine Metabols Negative U Cannabinoids Screen Negative HIV 1&2 Antibody Screen 03/21/18 21:47 WBC RBC Hgb Hct MCV MCH MCHC RDW Plt Count MPV Neut % (Auto) Lymph % (Auto) [place] % (Auto) Eos % (Auto) Baso % (Auto) Neut # (Auto) Lymph # (Auto) [place] # (Auto) Eos # (Auto) Baso # (Auto) Sodium Potassium Chloride Carbon Dioxide Anion Gap BUN Creatinine Est GFR ( Amer) Est GFR (Non-Af Amer) POC Glucose (mg/dL) 263 H Random Glucose Calcium Phosphorus Total Bilirubin AST ALT Alkaline Phosphatase Total Protein Albumin Globulin Albumin/Globulin Ratio Urine Color Urine Clarity Urine pH Ur Specific [place] Urine Protein Urine Glucose (UA) Urine Ketones Urine Blood Urine Nitrate Urine Bilirubin Urine Urobilinogen Ur Leukocyte Esterase Urine WBC (Auto) Urine RBC (Auto) Ur Squamous Epith Cells Hyaline Casts Urine Opiates Screen Urine Methadone Screen Ur Barbiturates Screen Ur Phencyclidine Scrn Ur Amphetamines Screen U Benzodiazepines Scrn U Oth Cocaine Metabols U Cannabinoids Screen HIV 1&2 Antibody Screen Attending/Attestation - Attestation I have personally seen and examined this patient.: Yes I have fully participated in the care of the patient.: Yes I have reviewed all pertinent clinical information: Yes Notes (Text): This is late computer entry for 03/20/18. Patient seen, examined and case discussed with day-time resident. Patient has had multiple frequent hospitalizations for diabetic foot ulcers and left AMA several times in his EMR. Patient is known to Dr. Jones and has recently seen him in the office for nonhealing diabetic foot ulcer and recommended to come to the hospital. Patient understands he is recommended for podiatric intervention and reports he will not leave against medical advice. EKG noted for sinus tachycardia on admission likely secondary to infection and pain from foot ulcer; chest xray shows no active disease. Patient is medium risk individual given his uncontrolled diabetes, hypertension for podiatric procedure. Surgery and anesthesia to describe risks and benefits prior to OR. Discussed with ED physician, xray noted for gas over the foot ulcer; podiatry is aware. Patient seen and examined with podiatric resident at bedside. Discussed admitting orders with the medicine resident. 1) Sepsis Assessment/plan * Criteria: leukocytosis, fever, acute renal insuffiency; source: diabetic foot ulcer * Podiatry (Dr. Jones) on case-->help appreciated * infectious disease (Dr. Espinal) on case-->help appreciated * Blood culture (03/20/18): pending * Wound Culture (03/20/18); Pending * NS 100cc/hr * Vancomycin 1gm IV Q12H (active since 03/21/18) * Zosyn 3.375g IVPB Q8H (active since 03/21/18) * Foot Xray (03/21/18): pending official read * Chest xray: no active disease 2. Osteomyelitis * Criteria: leukocytosis, fever, acute renal insuffiency; source: diabetic foot ulcer * Podiatry (Dr. Jones) on case-->help appreciated * infectious disease (Dr. Espinal) on case-->help appreciated * Blood culture (03/20/18): pending * Wound Culture (03/20/18); Pending * NS 100cc/hr * Vancomycin 1gm IV Q12H (active since 03/21/18) * Zosyn 3.375g IVPB Q8H (active since 03/21/18) * Foot Xray (03/21/18): pending official read * Chest xray: no active disease 3. DM2 * Hypoglycemic protocol * Regular SC ACHS * A1C 8.8 * Accuchecks Q6H 4. HTN * Enalapril 5mg po daily 5. Tobacco use disorder * Nicotine Patch 1 TD daily 6. Hx of polysubstance abuse * Educate patient on cessation * check uds 7. Schizophrenia/BPD * no active issue currently * patient has stopped his medications on his own few years back 8. Anemia * Acute; unclear if related to sepsis or hemoconcentration secondary to dehydration 9. Acute Renal Insufficiency * noted on admission * started IV hydration 10. Prophylactic Measure * Anticoagulation held prior OR * IV fluids
[2018-03-20] MEDS ORDERED: Glucagon Recombinant 1 mg Inj IM PRN (18:39)
[2018-03-20] MEDS ORDERED: Dextrose 50% SYRINGE Inj (50 ml) IV PRN (18:39)
[2018-03-20] MEDS: Sodium Chloride 0.9% 1,000 ML IV SCH (19:35)
--- NOTE | 2018-03-20 19:39 | CP.PCM.CON ---
History of Present Illness - History of Present Illness History of Present Illness: Podiatry Consult Note for Dr. Jones 42M seen and evaluated in ED for right foot ulceration. Patient is well known to Dr. Jones. He states that he saw Dr. Jones last week and was told to come in to the [facility] ED on Saturday which he did not do. He states that he was been experiencing nausea and fever over the last several days, prompting him to come to the ED. He states that Dr. Jones has had him on antibiotics but he does not recall the name. He states that his wound has been increasing in pain, redness and swelling over the last several days. He denies any further pedal complaints at this time. Denies any recent V/CP/SOB/D Review of Systems - Review of Systems All systems: reviewed and no additional remarkable complaints except Review of Systems: as per HPI Past Patient History - Infectious Disease Hx of Infectious Diseases: None - Past Medical History & Family History Past Medical History?: Yes - Past Social History Smoking Status: Light Smoker < 10 Cigarettes Daily - CARDIAC Hx Hypertension: Yes - PULMONARY Hx Asthma: Yes - NEUROLOGICAL Hx Neurological Disorder: No - HEENT Hx HEENT Problems: No - RENAL Hx Chronic Kidney Disease: No - ENDOCRINE/METABOLIC Hx Diabetes Mellitus Type 2: Yes - HEMATOLOGICAL/ONCOLOGICAL Hx Blood Disorders: No - INTEGUMENTARY Hx Dermatological Problems: No - MUSCULOSKELETAL/RHEUMATOLOGICAL Hx Arthritis: Yes (backs and LE) - GASTROINTESTINAL Hx Gastrointestinal Disorders: No - GENITOURINARY/GYNECOLOGICAL Hx Genitourinary Disorders: No - PSYCHIATRIC Hx Anxiety: Yes Hx Bipolar Disorder: Yes Hx Depression: Yes Hx Schizophrenia: Yes (schizoaffective disorder) Hx Substance Use: No - SURGICAL HISTORY Hx Surgeries: Yes Other/Comment: right ear surgery. left FOOT TOE / 5TH DIGITsurgery - ANESTHESIA Hx Anesthesia: Yes Hx Anesthesia Reactions: No Hx Malignant Hyperthermia: No Meds Allergies/Adverse Reactions: Allergies Allergy/AdvReac Type Severity Reaction Status Date / Time NSAIDS (Non-Steroidal Allergy RASH Verified 03/20/18 16:14 Anti-Inflamma - Medications Medications: Current Medications Acetaminophen (Tylenol 325mg Tab) 650 mg PO Q6 PRN PRN Reason: Pain, Mild (1-3) Dextrose (Dextrose 50% Inj) 0 ml IV STAT PRN; Protocol PRN Reason: Hypoglycemia Protocol Dextrose (Glutose 15) 0 gm PO ONCE PRN; Protocol PRN Reason: Hypoglycemia Protocol Enalapril Maleate (Vasotec) 5 mg PO DAILY [place] Glucagon (Glucagen Diagnostic Kit) 0 mg IM STAT PRN; Protocol PRN Reason: Hypoglycemia Protocol Piperacillin Sod/Tazobactam Sod (Zosyn 3.375 Gm Iv Premix) 3.375 gm in 50 mls @ 100 mls/hr IVPB Q8H [place]; Protocol Vancomycin/Sodium Chloride (Vancomycin 1 Gm/Ns 200 Ml) 1 gm in 200 mls @ 133 mls/hr IVPB Q12H [place]; Protocol Stop: 03/26/18 06:31 Sodium Chloride (Sodium Chloride 0.9%) 1,000 mls @ 100 mls/hr IV .Q10H [place] Dextrose (Dextrose 5% In Water 1000 Ml) 1,000 mls @ 0 mls/hr IV .Q0M PRN; Protocol PRN Reason: Hypoglycemia Protocol Insulin Human Regular (Novolin R) 0 unit SC ACHS [place]; Protocol Ondansetron HCl (Zofran Inj) 4 mg IVP Q6 PRN PRN Reason: Nausea/Vomiting Physical Exam - Constitutional Appears: Well, Non-toxic, No Acute Distress - Extremities Exam Additional comments: RLE focused exam: Vasc: DP/PT pulses faintly palpable 1/4. Skin temperature increased to right hallux and forefoot. CFT < 3 seconds to all digits. Edema noted to forefoot, especially at hallux Neuro: Epicritic and protective sensation grossly diminished Derm: Ulceration noted to plantar right foot at level of first metatarsal head. Ulcer is approximately 3 cm x 4 cm and probes all the way to the dorsal foot. Wound base is green/vega in color, malodorous and draining. MSK: Pain on palpation of ulceration site. Resected first metatarsal head apparent through ulceration site - Neurological Exam Neurological exam: Alert, Oriented x3 - Psychiatric Exam Psychiatric exam: Normal Affect, Normal Mood Results - Vital Signs Recent Vital Signs: Last Vital Signs Temp 101.7 F H 03/20/18 17:25 Pulse 118 H 03/20/18 17:21 Resp 20 03/20/18 17:21 BP 152/80 H 03/20/18 17:21 Pulse Ox 99 03/20/18 18:32 - Labs Result Diagrams: 03/20/18 17:00 03/20/18 17:00 Labs: Laboratory Results - last 24 hr 03/20/18 03/20/18 03/20/18 16:32 17:00 17:00 WBC 12.3 H RBC 4.09 L Hgb 11.1 L Hct 34.2 L MCV 83.7 MCH 27.3 MCHC 32.6 L RDW 13.9 Plt Count 437 H D MPV 7.2 Neut % (Auto) 82.0 H Lymph % (Auto) 10.6 L [place] % (Auto) 5.5 Eos % (Auto) 1.4 Baso % (Auto) 0.5 Neut # (Auto) 10.1 H Lymph # (Auto) 1.3 [place] # (Auto) 0.7 Eos # (Auto) 0.2 Baso # (Auto) 0.1 ESR 118 H PT 15.2 H INR 1.4 APTT 30 Sodium Potassium Chloride Carbon Dioxide Anion Gap BUN Creatinine Est GFR ( Amer) Est GFR (Non-Af Amer) POC Glucose (mg/dL) 241 H Random Glucose Calcium Total Bilirubin AST ALT Alkaline Phosphatase Total Protein Albumin Globulin Albumin/Globulin Ratio 03/20/18 17:00 WBC RBC Hgb Hct MCV MCH MCHC RDW Plt Count MPV Neut % (Auto) Lymph % (Auto) [place] % (Auto) Eos % (Auto) Baso % (Auto) Neut # (Auto) Lymph # (Auto) [place] # (Auto) Eos # (Auto) Baso # (Auto) ESR PT INR APTT Sodium 134 Potassium 3.6 Chloride 94 L Carbon Dioxide 31 H Anion Gap 13 BUN 27 H Creatinine 1.4 Est GFR ( Amer) > 60 Est GFR (Non-Af Amer) 55 POC Glucose (mg/dL) Random Glucose 228 H D Calcium 8.9 Total Bilirubin 0.6 AST 17 D ALT < 6 L D Alkaline Phosphatase 176 H Total Protein 8.3 Albumin 3.7 Globulin 4.6 H Albumin/Globulin Ratio 0.8 L Assessment & Plan - Assessment and Plan (Free Text) Assessment: 42M seen in ED for infected right foot ulceration with underlying soft tissue emphysema Plan: Patient seen and evaluated Plan discussed with Dr. Jones Xray reviewed: Soft tissue emphysema appreciated in hallux Wound cx taken Wound cleansed with saline and dressed with ABD, DSD Patient to be taken to OR tomorrow tentatively at 3:[address] Jones for in cision and drainage vs. hallux amputation NPO after midnight except for meds Primary team aware and verbal clearance for surgery received Podiatry will continue to follow while patient in house - Date & Time Date: 03/20/18 Time: 19:52
[2018-03-20] MEDS ORDERED: Sodium Chloride 0.9% 500 ML IV ONE (21:18)
[2018-03-20 21:36] LABS: CK-MB < 0.22 ng/mL (0.0-3.38)
[2018-03-20 21:43] LABS: HEPATITIS B SURFACE AG Negative (NEGATIVE)
[2018-03-20 21:49] LABS: HEPATITIS A IGM NEGATIVE (NEGATIVE); HEPATITIS B CORE AB NEGATIVE (NEGATIVE)
[2018-03-20 22:01] LABS: HEPATITIS C ANTIBODY NEGATIVE (NEGATIVE)
[2018-03-20] MEDS: (Novolin R) Insulin Human Regular 100 units/ml vial SC SCH (22:01)
[2018-03-21] MEDS: Piperacill/Tazo 3.375gm in Dex 3.375 GM/50 ML BAG IVPB SCH ×3 (01:47→19:40)
[2018-03-21] MEDS: Sodium Chloride 0.9% 1,000 ML IV SCH ×2 (05:42→14:10)
[2018-03-21] MEDS: Vancomycin 1 gm/NS 200 ml 1 GM/200 ML BAG IVPB SCH ×2 (06:34→20:45)
--- NOTE | 2018-03-21 07:46 | CP.PCM.PN ---
<Neel Avila - Last Filed: 03/21/18 15:07> Subjective - Date & Time of Evaluation Date of Evaluation: 03/21/18 Time of Evaluation: 15:07 - Subjective Subjective: PGY-1 Medicine Progress Note for Dr. French's servie S/E at bedside. Reports leg pain. NPO pending I&D w hallux amputation. Denies fevers, chills, chest pain, sob, n/v, constipation or diarrhea, and dysuria. Objective - Vital Signs/Intake and Output Vital Signs (last 24 hours): Temp Pulse Resp BP Pulse Ox 97.8 F 105 H 20 109/70 99 03/21/18 00:20 03/21/18 06:07 03/21/18 00:20 03/21/18 00:20 03/21/18 00:20 - Medications Medications: Current Medications Acetaminophen (Tylenol 325mg Tab) 650 mg PO Q6 PRN PRN Reason: Pain, Mild (1-3) Last Admin: 03/21/18 02:20 Dose: 650 mg Dextrose (Dextrose 50% Inj) 0 ml IV STAT PRN; Protocol PRN Reason: Hypoglycemia Protocol Dextrose (Glutose 15) 0 gm PO ONCE PRN; Protocol PRN Reason: Hypoglycemia Protocol Enalapril Maleate (Vasotec) 5 mg PO DAILY [facility] Glucagon (Glucagen Diagnostic Kit) 0 mg IM STAT PRN; Protocol PRN Reason: Hypoglycemia Protocol Piperacillin Sod/Tazobactam Sod (Zosyn 3.375 Gm Iv Premix) 3.375 gm in 50 mls @ 100 mls/hr IVPB Q8H [facility]; Protocol Last Admin: 03/21/18 01:47 Dose: 100 mls/hr Vancomycin/Sodium Chloride (Vancomycin 1 Gm/Ns 200 Ml) 1 gm in 200 mls @ 133 mls/hr IVPB Q12H [facility]; Protocol Stop: 03/26/18 06:31 Last Admin: 03/21/18 06:34 Dose: 133 mls/hr Sodium Chloride (Sodium Chloride 0.9%) 1,000 mls @ 100 mls/hr IV .Q10H [facility] Last Admin: 03/21/18 05:42 Dose: Not Given Dextrose (Dextrose 5% In Water 1000 Ml) 1,000 mls @ 0 mls/hr IV .Q0M PRN; Protocol PRN Reason: Hypoglycemia Protocol Insulin Human Regular (Novolin R) 0 unit SC ACHS [facility]; Protocol Last Admin: 03/20/18 22:01 Dose: Not Given Nicotine (Nicoderm Cq) 1 patch TD DAILY [facility] Ondansetron HCl (Zofran Inj) 4 mg IVP Q6 PRN PRN Reason: Nausea/Vomiting Sodium Hypochlorite (Dakins Solution 0.5%) 0 ml TOP DAILY [facility] - Labs Labs: 03/20/18 17:00 03/20/18 17:00 PT 15.2 SECONDS (9.7-12.2) H 03/20/18 17:00 INR 1.4 03/20/18 17:00 APTT 30 SECONDS (21-34) 03/20/18 17:00 - Constitutional Appears: Non-toxic, No Acute Distress - Head Exam Head Exam: NORMAL INSPECTION, NORMOCEPHALIC - Eye Exam Eye Exam: EOMI, Normal appearance. absent: Nystagmus, Scleral icterus - ENT Exam ENT Exam: Mucous Membranes Moist - Respiratory Exam Respiratory Exam: Clear to Ausculation Bilateral, NORMAL BREATHING PATTERN. absent: Rales, Rhonchi, Wheezes - Cardiovascular Exam Cardiovascular Exam: REGULAR RHYTHM, +S1, +S2 - GI/Abdominal Exam GI & Abdominal Exam: Soft, Normal Bowel Sounds. absent: Distended, Firm, Guarding, Rigid, Tenderness - Extremities Exam Additional comments: left pinky digit amputated and base with debridement right foot dressed - Neurological Exam Neurological Exam: Awake, Normal Gait, Oriented x3 - Psychiatric Exam Psychiatric exam: Normal Affect, Normal Mood - Skin Skin Exam: Dry, Intact, Normal Color Assessment and Plan - Assessment and Plan (Free Text) Assessment: 42 M with a PMHx of polysubstance abuse, DM2 w/ foot ulcers, schizophrenia/bipoloar disorder and asthma presents to the ED with a 4 year history of multiple foot ulcers, and a 2 day hx of fevers, nausea, vomiting, and a hot painful right foot. Osteomyelitis Podiatry Consulted: Dr. Jones- 03/21 intervention 03/20 Foot Xray - Soft tissue emphysema appreciated in hallux OR on 03/21 Dr. Jones for incision and drainage vs. hallux amputation Vanc 1gm IVPB q12h Zosyn 3.375mg IVPB q6h NS @ 100mls/hr Tylenol PRN DM2 Novolin SC ACHS A1C 8.8 HTN Enalapril 5mg po daily Tobacco use disorder Nicotine Patch 1 TD daily Hx of polysubstance abuse Educate patient on cessation Schizophrenia/BPD no active issue currently PGY-1 Neel Avila Medical Management d/w Dr. French <Sandi French V - Last Filed: 03/21/18 22:18> Objective - Vital Signs/Intake and Output Vital Signs (last 24 hours): Temp Pulse Resp BP Pulse Ox 97.5 F L 88 20 102/69 99 03/21/18 20:06 03/21/18 20:06 03/21/18 20:06 03/21/18 20:06 03/21/18 21:37 Intake and Output: 03/21/18 03/22/18 18:59 06:59 Intake Total 900 Balance 900 - Medications Medications: Current Medications Acetaminophen (Tylenol 325mg Tab) 650 mg PO Q6 PRN PRN Reason: Pain, Mild (1-3) Last Admin: 03/21/18 11:29 Dose: 650 mg Aspirin (Aspirin Chewable) 81 mg PO DAILY [facility] Clopidogrel Bisulfate (Plavix) 75 mg PO DAILY [facility] Dextrose (Dextrose 50% Inj) 0 ml IV STAT PRN; Protocol PRN Reason: Hypoglycemia Protocol Dextrose (Glutose 15) 0 gm PO ONCE PRN; Protocol PRN Reason: Hypoglycemia Protocol Enalapril Maleate (Vasotec) 5 mg PO DAILY [facility] Last Admin: 03/21/18 11:21 Dose: Not Given Glucagon (Glucagen Diagnostic Kit) 0 mg IM STAT PRN; Protocol PRN Reason: Hypoglycemia Protocol Hydromorphone HCl (Dilaudid) 0.5 mg IVP Q10M PRN PRN Reason: Pain, moderate (4-7) Last Admin: 03/21/18 18:52 Dose: 0.5 mg Piperacillin Sod/Tazobactam Sod (Zosyn 3.375 Gm Iv Premix) 3.375 gm in 50 mls @ 100 mls/hr IVPB Q8H [facility]; Protocol Last Admin: 03/21/18 19:40 Dose: 100 mls/hr Vancomycin/Sodium Chloride (Vancomycin 1 Gm/Ns 200 Ml) 1 gm in 200 mls @ 133 mls/hr IVPB Q12H [facility]; Protocol Stop: 03/26/18 06:31 Last Admin: 03/21/18 20:45 Dose: 133 mls/hr Sodium Chloride (Sodium Chloride 0.9%) 1,000 mls @ 100 mls/hr IV .Q10H [facility] Last Admin: 03/21/18 14:10 Dose: Not Given Dextrose (Dextrose 5% In Water 1000 Ml) 1,000 mls @ 0 mls/hr IV .Q0M PRN; Protocol PRN Reason: Hypoglycemia Protocol Insulin Human Regular (Novolin R) 0 unit SC ACHS [facility]; Protocol Last Admin: 03/21/18 17:25 Dose: Not Given Nicotine (Nicoderm Cq) 1 patch TD DAILY [facility] Last Admin: 03/21/18 11:19 Dose: 1 patch Ondansetron HCl (Zofran Inj) 4 mg IVP Q6 PRN PRN Reason: Nausea/Vomiting Sodium Hypochlorite (Dakins Solution 0.5%) 0 ml TOP DAILY [facility] Last Admin: 03/21/18 11:18 Dose: Not Given - Labs Labs: 03/21/18 19:12 03/21/18 08:28 PT 15.2 SECONDS (9.7-12.2) H 03/20/18 17:00 INR 1.4 03/20/18 17:00 APTT 30 SECONDS (21-34) 03/20/18 17:00 Attending/Attestation - Attestation I have personally seen and examined this patient.: Yes I have fully participated in the care of the patient.: Yes I have reviewed all pertinent clinical information, including history, physical exam and plan: Yes Notes (Text): This is a 42-year-old male past medical history including but not limited to diabetes,, and diabetic ulcer hypertension, prominent family history of chronic disorder, schizophrenia when he stopped his own medications on his own come in for fever associated acute renal insufficiency and calcium. Diabetic foot ulcer present on the right plantar aspect between the first and second digit with associated swelling of the first metatarsal. Patient is scheduled for an I&D with podiatry at 3:00 today. Patient reports frustration with pain medication when he is prescribed Tylenol. Patient is currently did consult cardiology Patient predominant family history and his own personal cardiac risk for heart disease. Again noted is going to have a heart attack CABG at age 44 patient is 42. His father has had 2 aneurysms cardiac issues as well. Patient has not had any prior cardiac workup in the past. Patient troponin is negative patient is ordered for an echocardiogram. Patient to continue IV antibiotics of Zosyn and vancomycin. We will follow-up in culture obtained to the emergency room yesterday anticoagulation held preoperative secondary for surgery today. We will continue to monitor. 1) Sepsis Assessment/plan * Criteria: leukocytosis, fever, acute renal insuffiency; source: diabetic foot ulcer * Podiatry (Dr. Jones) on case-->help appreciated * infectious disease (Dr. Espinal) on case-->help appreciated * Blood culture (03/20/18): no growth after 24 hours X2 * Wound Culture (03/20/18); Group G Streptococcus * NS 100cc/hr * Vancomycin 1gm IV Q12H (active since 03/21/18) * Zosyn 3.375g IVPB Q8H (active since 03/21/18) * Foot Xray (03/21/18): marked soft tissue swelling, subcutaneous gas, and extensive erosive changes as described above involving the 1st digit and metatarsal. Fracture at the site of distal 1st metatarsal erosion not excluded. Appearance consistent with ostemyelitis. correlate clinically * Chest xray: no active disease * ESR: 119 2. Osteomyelitis * Criteria: leukocytosis, fever, acute renal insuffiency; source: diabetic foot ulcer * Podiatry (Dr. Jones) on case-->help appreciated * infectious disease (Dr. Espinal) on case-->help appreciated * Blood culture (03/20/18): no growth after 24 hours X2 * Wound Culture (03/20/18); Group G Streptococcus * NS 100cc/hr * Vancomycin 1gm IV Q12H (active since 03/21/18) * Zosyn 3.375g IVPB Q8H (active since 03/21/18) * Foot Xray (03/21/18): marked soft tissue swelling, subcutaneous gas, and extensive erosive changes as described above involving the 1st digit and metatarsal. Fracture at the site of distal 1st metatarsal erosion not excluded. Appearance consistent with ostemyelitis. correlate clinically 3. DM2 * Hypoglycemic protocol * Regular SC ACHS * A1C 8.8 * Accuchecks qACHS post OR. 4. HTN * Enalapril 5mg po daily 5. Tobacco use disorder * Nicotine Patch 1 TD daily 6. Hx of polysubstance abuse * Educate patient on cessation 7. Schizophrenia/BPD * no active issue currently 8. Family history of cardiac disorder * Cardiology (Dr. Altamirano) on case * Patient has personal risk of diabetes, smoking, family hx of brother for CABG, father for 2 aneurysms and heart disease; and has never had cardiac workup. * Echocardiogram (03/21/18): normal left ventricular wall thickness. left ventricular function is normal. Left ventricular ejection fraction is within the normal range. normal LV segmental within the normal range. Normal :V segmental wall motion. mild aortic regurgitation. 9. Enlarged inguinal lymph notes * CT Abdominal Angiography (03/21/18): foci of mild stenosis noted at the origin of the right superifical femoral artery distal left superifical artery and proximal left popliteal artery. foci of stenosis noted at the mid and distal right anterior artery. occlusion of the right dorsalis pedis. Small size left anterior tibial artery left peroneal artery amd l;eft dorsalis pedis artery. Mild to moderate lymphadenopathy at internal iliac chain and bilateral inguinal region right more than left noted. 10. Lymphadenopathy * CT Abdominal Angiography (03/21/18): foci of mild stenosis noted at the origin of the right superifical femoral artery distal left superifical artery and proximal left popliteal artery. foci of stenosis noted at the mid and distal right anterior artery. occlusion of the right dorsalis pedis. Small size left anterior tibial artery left peroneal artery amd l;eft dorsalis pedis artery. Mild to moderate lymphadenopathy at internal iliac chain and bilateral inguinal region right more than left noted. * Unclear if solely related to patient's current infection or not. 11. Peripheral Artery Disease * CT Abdominal Angiography (03/21/18): foci of mild stenosis noted at the origin of the right superifical femoral artery distal left superifical artery and proximal left popliteal artery. foci of stenosis noted at the mid and distal right anterior artery. occlusion of the right dorsalis pedis. Small size left anterior tibial artery left peroneal artery amd l;eft dorsalis pedis artery. Mild to moderate lymphadenopathy at internal iliac chain and bilateral inguinal region right more than left noted. * Cardiology has recommended for aspirin/plavix. patient has new onset anemia; will hold plavix. 12. Anemia * Acute; unclear if related to sepsis * Check iron studies, ferritin, reticulocyte count, b12, folate * hold plavix secondary to bleeding risk given downtrending H/H * check occult blood 13. Acute Renal Insufficiency * noted on admission; improved after Iv hydration * Patient completed CT ileofemoral run off today * continue to monitor BUN/Cr 14. History of Polysubstance Abuse * hepatitis negative, hiv negative * UDS: negative except for benzo 15. Prophylactic Measure * Anticoagulation held prior OR * IV fluids
[2018-03-21] MEDS: (Novolin R) Insulin Human Regular 100 units/ml vial SC SCH ×4 (08:00→22:00)
[2018-03-21 08:36] LABS: BASO % 0.5 % (0.0-2.0); EOS # 0.4 K/uL (0.0-0.7); EOS % 4.8 % (0.0-4.0); HEMOGLOBIN 9.4 g/dL (12.0-18.0); LYMPH % 25.2 % (20.0-40.0); MEAN CORPUSCULAR HEMOGLOBIN 28.2 pg (27.0-31.0); MEAN CORPUSCULAR HGB CONC 33.9 g/dL (33.0-37.0); MEAN PLATELET VOLUME 7.5 fL (7.2-11.7); MONO # 0.7 K/uL (0.0-0.8); MONO % 9.1 % (0.0-10.0); NEUT # 4.9 K/uL (1.8-7.0); NEUT % 60.4 % (50.0-75.0); RBC 3.32 Mil/uL (4.40-5.90); RED CELL DISTRIBUTION WIDTH 13.8 % (11.5-14.5)
[2018-03-21 08:49] LABS: ALB/GLOB RATIO 0.8 (1.0-2.1); ALBUMIN 2.9 g/dL (3.5-5.0); ALT/SGPT < 6 U/L (21-72); AST/SGOT 11 U/L (17-59); BLOOD UREA NITROGEN 22 mg/dL (9-20); CALCIUM 8.3 mg/dl (8.6-10.4); GFR NON-AFRICAN AMERICAN > 60
[2018-03-21] MEDS: Dakin's Topical 0.5%-Full Strength (480 ml) TOP SCH (11:18)
--- NOTE | 2018-03-21 11:19 | RAD ---
PROCEDURE: Right foot radiographs. HISTORY: foot ulcer COMPARISON: Right foot radiographs performed 02/28/18 FINDINGS: Erosive changes involving the 1st digit including distal aspect 1st metatarsal, proximal aspect of the proximal phalanx, and proximal phalanx. Fracture at the site of distal 1st metatarsal erosion not excluded. Marked soft tissue swelling. Subcutaneous gas. Remainder of the visualized osseous structures appear intact. IMPRESSION: Marked soft tissue swelling, subcutaneous gas, and extensive erosive changes as described above involving the 1st digit and metatarsal. Fracture at the site of distal 1st metatarsal erosion not excluded. Appearance consistent with osteomyelitis. Correlate clinically.
--- NOTE | 2018-03-21 13:21 | RAD ---
Date of service: 03/20/2018 HISTORY: vomiting, pre admission testing COMPARISON: 02/27/2018 FINDINGS: LUNGS: No active pulmonary disease. PLEURA: No significant pleural effusion identified, no pneumothorax apparent. CARDIOVASCULAR: No aortic atherosclerotic calcification present. Normal cardiac size. No pulmonary vascular congestion. OSSEOUS STRUCTURES: No significant abnormalities. VISUALIZED UPPER ABDOMEN: Normal. OTHER FINDINGS: None. IMPRESSION: No active disease.
[2018-03-21] MEDS ORDERED: Iodixanol 320 mg/ml 150 ml Bottle IV ONE (14:40)
--- NOTE | 2018-03-21 15:54 | CT ---
Date of service: 03/21/2018 PROCEDURE: CT Angiography Abdomen, Pelvis and Lower Extremity with Contrast HISTORY: R foot ulcer COMPARISON: Comparison is made to the previous ultrasound Doppler dated 10/05/2016 TECHNIQUE: Technique: CT angiography of the abdomen, pelvis and bilateral lower extremities performed in the arterial phase of enhancement. Coronal and sagittal reformats, and well as rotating MIP images of the vessels generated at the workstation. Intravenous contrast dose: 100 mL of Visipaque 320 intravenously. Radiation dose: Total exam DLP = 3180.32 mGy-cm. This CT exam was performed using one or more of the following dose reduction techniques: Automated exposure control, adjustment of the mA and/or kV according to patient size, and/or use of iterative reconstruction technique. FINDINGS: CT ANGIOGRAPHY: ABDOMINAL AORTA:: MAJOR AORTIC BRANCHES: Celiac [place]: Unremarkable. Superior mesenteric artery: Unremarkable. Inferior mesenteric artery: Unremarkable. Renal arteries: Unremarkable. PELVIC ARTERIES: Right Common Iliac: Unremarkable. Right External Iliac: Unremarkable. Right Internal Iliac: Unremarkable. Left Common Iliac: Unremarkable. Left External Iliac: Unremarkable. Left Internal Iliac: Unremarkable. RIGHT LOWER EXTREMITY ARTERIES: Right Common Femoral: Unremarkable. Right Superficial Femoral: There is focal 50 percent stenosis noted at the origin of the right superficial femoral artery best seen on image 185 series 2 Right Profunda Femoris: Unremarkable. Right Popliteal:Unremarkable. Right Anterior Tibial: There are foci of mild to moderate stenosis at the mid and distal right anterior tibial artery. Right Tibioperoneal Trunk: Unremarkable. Right Posterior Tibial: Unremarkable. Right Peroneal: Unremarkable. Right dorsalis pedis : There is occlusion of the right dorsalis pedis shortly after its origin. LEFT LOWER EXTREMITY ARTERIES: Left Common Femoral: Unremarkable. Left Superficial Femoral: Foci of mild stenosis at the junction of the left superficial femoral and popliteal Left Profunda Femoris: Unremarkable. Left Popliteal: Foci of mild stenosis noted at origin of the left gluteal artery. Left Anterior Tibial: The left anterior tibial artery is small in size. Left Tibioperoneal Trunk: Unremarkable. Left Posterior Tibial: Unremarkable. Left Peroneal: The left peroneal artery is small in size. Left Dorsalis pedis: The left dorsalis pedis is small in size. NON-ANGIOGRAPHIC ASPECT OF THE EXAM: LOWER THORAX: No evidence of acute pathology. LIVER: Hepatic steatosis and mild hepatomegaly is noted. GALLBLADDER AND BILE DUCTS: Unremarkable. PANCREAS: Unremarkable. No gross lesion or ductal dilatation. SPLEEN: Unremarkable. ADRENALS: Unremarkable. No mass. KIDNEYS AND URETERS: Unremarkable. No hydronephrosis. No solid mass. STOMACH AND BOWEL: Unremarkable. No obstruction. No gross mural thickening. Distal esophagus mucosal thickening noted. APPENDIX: No evidence of appendicitis. PERITONEUM: Unremarkable. No free fluid. No free air. LYMPH NODES: There are [id number] enlarged right more than left iliac chain lymph nodes. There are also mildly to moderately enlarged right more than left inguinal lymph nodes. BLADDER: Unremarkable. REPRODUCTIVE: Unremarkable. BONES: There is bony destruction noted at the distal head of the 1st metatarsal bone and the base of the proximal phalanx of the 1st toe suggestive of osteomyelitis. OTHER FINDINGS: None. IMPRESSION: Foci of mild stenosis noted at the origin of the right superficial femoral artery distal left superficial femoral artery and proximal left popliteal artery. Foci of stenosis noted at the mid and distal right anterior tibial artery. Occlusion of the right dorsalis pedis. Small size left anterior tibial artery left peroneal artery and left dorsalis pedis artery. [id number] lymphadenopathy at the internal iliac chain and bilateral inguinal region right more than left noted.
--- NOTE | 2018-03-21 16:17 | CP.PCM.CON ---
<Román Matos - Last Filed: 03/21/18 21:22> History of Present Illness - History of Present Illness History of Present Illness: Román Matos DO PGY 1- Cardiology Note for Dr. Altamirano 42M w/ a PMH of polysubstance abuse, DM, Chronic LE ulcer, psychiatric disorders presented to [facility] ED w/ complaints of chronic LE ulceration/ wound. Patient reports he follows up with Dr. Jones's office and noted that blister on his toe has been worsening. Podiatry consulted who proceeded w/ partial amputa tions of first and second ray as well as I+D of diabetic ulceration of right foot. Cardiology consulted for cardiovascular evaluation given significant risk factors. Patient was seen and examined at bedside this morning; patient reported that he has no chest pain, shortness of breath or palpitations at this time. Reports pain in lower extremity w/ ambulation; ulceration/wound of lower extremity has been on going for "long time"; Has had prior amputation of pinky toe in past. Reports that he is an active smoker, with a PMH Of HTN, DM. Brother underwent CABG in Mid 40s, Father had MS. Upon presentation patient had EKG w/o ST/T changes and negative troponins. ECHO 03/20 reviewed - LVEF >63%, mild aortic regurgitation Denies any prior MS or cardiac stent Remainder 12 system ROS otherwise negative. Review of Systems - Review of Systems All systems: reviewed and no additional remarkable complaints except Review of Systems: as per HPI Past Patient History - Infectious Disease Hx of Infectious Diseases: None - Past Medical History & Family History Past Medical History?: Yes - Past Social History Smoking Status: Light Smoker < 10 Cigarettes Daily - CARDIAC Hx Hypertension: Yes - PULMONARY Hx Asthma: Yes - NEUROLOGICAL Hx Neurological Disorder: No - HEENT Hx HEENT Problems: No - RENAL Hx Chronic Kidney Disease: No - ENDOCRINE/METABOLIC Hx Diabetes Mellitus Type 2: Yes - HEMATOLOGICAL/ONCOLOGICAL Hx Blood Disorders: No - INTEGUMENTARY Hx Dermatological Problems: No - MUSCULOSKELETAL/RHEUMATOLOGICAL Hx Arthritis: Yes (backs and LE) Hx Falls: No - GASTROINTESTINAL Hx Gastrointestinal Disorders: No - GENITOURINARY/GYNECOLOGICAL Hx Genitourinary Disorders: No - PSYCHIATRIC Hx Anxiety: Yes Hx Bipolar Disorder: Yes Hx Depression: Yes Hx Schizophrenia: Yes (schizoaffective disorder) Hx Substance Use: No - SURGICAL HISTORY Hx Surgeries: Yes Other/Comment: right ear surgery. left FOOT TOE / 5TH DIGITsurgery - ANESTHESIA Hx Anesthesia: Yes Hx Anesthesia Reactions: No Hx Malignant Hyperthermia: No Meds Allergies/Adverse Reactions: Allergies Allergy/AdvReac Type Severity Reaction Status Date / Time NSAIDS (Non-Steroidal Allergy RASH Verified 03/20/18 16:14 Anti-Inflamma - Medications Medications: Current Medications Acetaminophen (Tylenol 325mg Tab) 650 mg PO Q6 PRN PRN Reason: Pain, Mild (1-3) Last Admin: 03/21/18 11:29 Dose: 650 mg Dextrose (Dextrose 50% Inj) 0 ml IV STAT PRN; Protocol PRN Reason: Hypoglycemia Protocol Dextrose (Glutose 15) 0 gm PO ONCE PRN; Protocol PRN Reason: Hypoglycemia Protocol Enalapril Maleate (Vasotec) 5 mg PO DAILY [facility], [facility] Last Admin: 03/21/18 11:21 Dose: Not Given Glucagon (Glucagen Diagnostic Kit) 0 mg IM STAT PRN; Protocol PRN Reason: Hypoglycemia Protocol Piperacillin Sod/Tazobactam Sod (Zosyn 3.375 Gm Iv Premix) 3.375 gm in 50 mls @ 100 mls/hr IVPB Q8H [place]; Protocol Last Admin: 03/21/18 09:30 Dose: Not Given Vancomycin/Sodium Chloride (Vancomycin 1 Gm/Ns 200 Ml) 1 gm in 200 mls @ 133 mls/hr IVPB Q12H [place]; Protocol Stop: 03/26/18 06:31 Last Admin: 03/21/18 06:34 Dose: 133 mls/hr Sodium Chloride (Sodium Chloride 0.9%) 1,000 mls @ 100 mls/hr IV .Q10H [facility], [facility]1983 Last Admin: 03/21/18 14:10 Dose: Not Given Dextrose (Dextrose 5% In Water 1000 Ml) 1,000 mls @ 0 mls/hr IV .Q0M PRN; Protocol PRN Reason: Hypoglycemia Protocol Insulin Human Regular (Novolin R) 0 unit SC ACHS [facility], [facility]; Protocol Last Admin: 03/21/18 12:30 Dose: Not Given Nicotine (Nicoderm Cq) 1 patch TD DAILY [facility], [facility] Last Admin: 03/21/18 11:19 Dose: 1 patch Ondansetron HCl (Zofran Inj) 4 mg IVP Q6 PRN PRN Reason: Nausea/Vomiting Sodium Hypochlorite (Dakins Solution 0.5%) 0 ml TOP DAILY [place] Last Admin: 03/21/18 11:18 Dose: Not Given Physical Exam - Constitutional Appears: Well, Non-toxic, No Acute Distress - Head Exam Head Exam: ATRAUMATIC, NORMOCEPHALIC - Eye Exam Eye Exam: EOMI, Normal appearance, PERRL - Respiratory Exam Respiratory Exam: Clear to Auscultation Bilateral, NORMAL BREATHING PATTERN - Cardiovascular Exam Cardiovascular Exam: RRR, +S1, +S2 - GI/Abdominal Exam GI & Abdominal Exam: Normal Bowel Sounds, Soft. absent: Tenderness - Extremities Exam Additional comments: Dressings intact CDI Results - Vital Signs Recent Vital Signs: Last Vital Signs Temp 97.8 F 03/21/18 15:59 Pulse 89 03/21/18 15:59 Resp 20 03/21/18 15:59 BP 114/64 03/21/18 15:59 Pulse Ox 97 03/21/18 15:59 - Labs Result Diagrams: 03/21/18 19:12 03/21/18 08:28 Labs: Laboratory Results - last 24 hr 03/20/18 03/20/18 03/20/18 16:32 17:00 17:00 WBC 12.3 H RBC 4.09 L Hgb 11.1 L Hct 34.2 L MCV 83.7 MCH 27.3 MCHC 32.6 L RDW 13.9 Plt Count 437 H D MPV 7.2 Neut % (Auto) 82.0 H Lymph % (Auto) 10.6 L [place]osh[place] % (Auto) 5.5 Eos % (Auto) 1.4 Baso % (Auto) 0.5 Neut # (Auto) 10.1 H Lymph # (Auto) 1.3 [place]oshone # (Auto) 0.7 Eos # (Auto) 0.2 Baso # (Auto) 0.1 ESR 118 H PT 15.2 H INR 1.4 APTT 30 Sodium Potassium Chloride Carbon Dioxide Anion Gap BUN Creatinine Est GFR ( Amer) Est GFR (Non-Af Amer) POC Glucose (mg/dL) 241 H Random Glucose Hemoglobin A1c Lactic Acid Calcium Phosphorus Total Bilirubin AST ALT Alkaline Phosphatase Total Creatine Kinase CK-MB (Mass) Troponin I Total Protein Albumin Globulin Albumin/Globulin Ratio TSH 3rd Generation Hepatitis A IgM Ab Hep Bs Antigen Hep B Core IgM Ab Hepatitis C Antibody HIV 1&2 Antibody Screen 01/03/20/18 03/20/18 17:00 20:55 20:55 WBC RBC Hgb Hct MCV MCH MCHC RDW Plt Count MPV Neut % (Auto) Lymph % (Auto) [place]oshone % (Auto) Eos % (Auto) Baso % (Auto) Neut # (Auto) Lymph # (Auto) [place]oshone # (Auto) Eos # (Auto) Baso # (Auto) ESR PT INR APTT Sodium 134 Potassium 3.6 Chloride 94 L Carbon Dioxide 31 H Anion Gap 13 BUN 27 H Creatinine 1.4 Est GFR ( Amer) > 60 Est GFR (Non-Af Amer) 55 POC Glucose (mg/dL) Random Glucose 228 H D Hemoglobin A1c Lactic Acid 1.0 Calcium 8.9 Phosphorus Total Bilirubin 0.6 AST 17 D ALT < 6 L D Alkaline Phosphatase 176 H Total Creatine Kinase 55 CK-MB (Mass) < 0.22 Troponin I < 0.0120 Total Protein 8.3 Albumin 3.7 Globulin 4.6 H Albumin/Globulin Ratio 0.8 L TSH 3rd Generation 1.42 Hepatitis A IgM Ab Hep Bs Antigen Hep B Core IgM Ab Hepatitis C Antibody HIV 1&2 Antibody Screen 03/20/18 03/20/18 03/20/18 20:55 20:55 21:54 WBC RBC Hgb Hct MCV MCH MCHC RDW Plt Count MPV Neut % (Auto) Lymph % (Auto) [place] % (Auto) Eos % (Auto) Baso % (Auto) Neut # (Auto) Lymph # (Auto) [place] # (Auto) Eos # (Auto) Baso # (Auto) ESR PT INR APTT Sodium Potassium Chloride Carbon Dioxide Anion Gap BUN Creatinine Est GFR ( Amer) Est GFR (Non-Af Amer) POC Glucose (mg/dL) 278 H Random Glucose Hemoglobin A1c 8.8 H Lactic Acid Calcium Phosphorus Total Bilirubin AST ALT Alkaline Phosphatase Total Creatine Kinase CK-MB (Mass) Troponin I Total Protein Albumin Globulin Albumin/Globulin Ratio TSH 3rd Generation Hepatitis A IgM Ab Negative Hep Bs Antigen Negative Hep B Core IgM Ab Negative Hepatitis C Antibody Negative HIV 1&2 Antibody Screen 03/21/18 03/21/18 03/21/18 06:39 08:28 08:28 WBC 8.0 RBC 3.32 L Hgb 9.4 L Hct 27.6 L MCV 83.0 MCH 28.2 MCHC 33.9 RDW 13.8 Plt Count 359 MPV 7.5 Neut % (Auto) 60.4 Lymph % (Auto) 25.2 [place] % (Auto) 9.1 Eos % (Auto) 4.8 H Baso % (Auto) 0.5 Neut # (Auto) 4.9 Lymph # (Auto) 2.0 [place]oshone # (Auto) 0.7 Eos # (Auto) 0.4 Baso # (Auto) 0.0 ESR PT INR APTT Sodium 135 Potassium 3.5 L Chloride 102 Carbon Dioxide 29 Anion Gap 8 L BUN 22 H Creatinine 1.1 Est GFR ( Amer) > 60 Est GFR (Non-Af Amer) > 60 POC Glucose (mg/dL) 219 H Random Glucose 233 H Hemoglobin A1c Lactic Acid Calcium 8.3 L Phosphorus 3.5 Total Bilirubin 0.3 AST 11 L D ALT < 6 L Alkaline Phosphatase 134 H D Total Creatine Kinase CK-MB (Mass) Troponin I Total Protein 6.4 Albumin 2.9 L D Globulin 3.5 Albumin/Globulin Ratio 0.8 L TSH 3rd Generation Hepatitis A IgM Ab Hep Bs Antigen Hep B Core IgM Ab Hepatitis C Antibody HIV 1&2 Antibody Screen 03/21/18 03/21/18 08:28 11:26 WBC RBC Hgb Hct MCV MCH MCHC RDW Plt Count MPV Neut % (Auto) Lymph % (Auto) [place]oshone % (Auto) Eos % (Auto) Baso % (Auto) Neut # (Auto) Lymph # (Auto) [place]oshone # (Auto) Eos # (Auto) Baso # (Auto) ESR PT INR APTT Sodium Potassium Chloride Carbon Dioxide Anion Gap BUN Creatinine Est GFR ( Amer) Est GFR (Non-Af Amer) POC Glucose (mg/dL) 192 H Random Glucose Hemoglobin A1c Lactic Acid Calcium Phosphorus Total Bilirubin AST ALT Alkaline Phosphatase Total Creatine Kinase CK-MB (Mass) Troponin I Total Protein Albumin Globulin Albumin/Globulin Ratio TSH 3rd Generation Hepatitis A IgM Ab Hep Bs Antigen Hep B Core IgM Ab Hepatitis C Antibody HIV 1&2 Antibody Screen Negative Assessment & Plan (1) Peripheral vascular disease Assessment and Plan: 03/21: CT angio w/ ileofem runoff Mild stenosis noted in R superficial femoral artery, distal left superficial femoral artery, and proximal left popliteal artery Mid and distal R anterior tibial artery w/ stenosis Occlusion of R dorsalis pedis Status: Acute (2) Hypertension Status: Acute (3) Diabetic foot ulcer Status: Acute (4) Uncontrolled diabetes mellitus Status: Chronic - Assessment and Plan (Free Text) Plan: Given CT ANGIO w/ ileofem - Will start ASA / Plavix at this time DM management as per primary team Further reccs by Dr. Altamirano <Lorenzo Altamirano - Last Filed: 03/24/18 07:23> Meds - Medications Medications: Current Medications Acetaminophen (Tylenol 325mg Tab) 650 mg PO Q6 PRN PRN Reason: Pain, Mild (1-3) Last Admin: 03/21/18 11:29 Dose: 650 mg Aspirin (Aspirin Chewable) 81 mg PO DAILY [facility], [facility] Last Admin: 03/23/18 09:39 Dose: 81 mg Clopidogrel Bisulfate (Plavix) 75 mg PO DAILY [facility], [facility] Dextrose (Dextrose 50% Inj) 0 ml IV STAT PRN; Protocol PRN Reason: Hypoglycemia Protocol Dextrose (Glutose 15) 0 gm PO ONCE PRN; Protocol PRN Reason: Hypoglycemia Protocol Enalapril Maleate (Vasotec) 5 mg PO DAILY [facility] Last Admin: 03/23/18 09:39 Dose: 5 mg Gabapentin (Neurontin) 100 mg PO BID [facility] Last Admin: 03/23/18 19:20 Dose: 100 mg Glimepiride (Amaryl) 2 mg PO ACB [facility], [facility] Last Admin: 03/23/18 10:42 Dose: 2 mg Glucagon (Glucagen Diagnostic Kit) 0 mg IM STAT PRN; Protocol PRN Reason: Hypoglycemia Protocol Heparin Sodium (Porcine) (Heparin) 5,000 units SC Q12 [facility], [facility] Last Admin: 03/23/18 22:59 Dose: 5,000 units Piperacillin Sod/Tazobactam Sod (Zosyn 3.375 Gm Iv Premix) 3.375 gm in 50 mls @ 100 mls/hr IVPB Q8H [facility], [facility]; Protocol Last Admin: 03/24/18 00:52 Dose: 100 mls/hr Vancomycin/Sodium Chloride (Vancomycin 1 Gm/Ns 200 Ml) 1 gm in 200 mls @ 133 mls/hr IVPB Q12H [place]; Protocol Stop: 03/26/18 06:31 Last Admin: 03/24/18 05:32 Dose: 133 mls/hr Dextrose (Dextrose 5% In Water 1000 Ml) 1,000 mls @ 0 mls/hr IV .Q0M PRN; Protocol PRN Reason: Hypoglycemia Protocol Insulin Human Regular (Novolin R) 0 unit SC ACHS [facility], [facility]; Protocol Last Admin: 03/23/18 22:09 Dose: Not Given Hernandez Carbonate (Hernandez Carbonate 300mg) 300 mg PO BID [facility], [facility] Last Admin: 03/23/18 22:59 Dose: 300 mg Metformin HCl (Glucophage) 500 mg PO BIDCC [facility], [facility]1983 Last Admin: 03/23/18 19:21 Dose: Not Given Nicotine (Nicoderm Cq) 1 patch TD DAILY [facility] Last Admin: 03/23/18 09:40 Dose: 1 patch Ondansetron HCl (Zofran Inj) 4 mg IVP Q6 PRN PRN Reason: Nausea/Vomiting Risperidone (Risperdal Tab) 2 mg PO HS [facility] Last Admin: 03/23/18 22:59 Dose: 2 mg Sodium Hypochlorite (Dakins Solution 0.5%) 0 ml TOP DAILY [facility] Last Admin: 03/23/18 10:34 Dose: Not Given Results - Vital Signs Recent Vital Signs: Last Vital Signs Temp 97.9 F 03/23/18 16:00 Pulse 84 03/23/18 16:00 Resp 20 03/23/18 16:00 BP 132/77 03/23/18 16:00 Pulse Ox 98 03/23/18 16:00 - Labs Result Diagrams: 03/23/18 08:02 03/23/18 08:02 Labs: Laboratory Results - last 24 hr 03/23/18 03/23/18 03/23/18 08:02 08:02 12:12 WBC 9.0 RBC 3.00 L Hgb 8.4 L Hct 25.0 L MCV 83.3 MCH 27.9 MCHC 33.5 RDW 13.6 Plt Count 413 H MPV 7.6 Neut % (Auto) 59.0 Lymph % (Auto) 28.4 [place] % (Auto) 6.1 Eos % (Auto) 5.8 H Baso % (Auto) 0.7 Neut # (Auto) 5.3 Lymph # (Auto) 2.5 [place] # (Auto) 0.5 Eos # (Auto) 0.5 Baso # (Auto) 0.1 Sodium 137 Potassium 3.8 Chloride 105 Carbon Dioxide 27 Anion Gap 8 L BUN 14 Creatinine 0.8 Est GFR ( Amer) > 60 Est GFR (Non-Af Amer) > 60 POC Glucose (mg/dL) 275 H Random Glucose 249 H Calcium 7.8 L Phosphorus 2.1 L Total Bilirubin 0.2 AST 24 ALT < 6 L D Alkaline Phosphatase 140 H Total Protein 6.1 L Albumin 2.8 L Globulin 3.4 Albumin/Globulin Ratio 0.8 L 03/23/18 03/23/18 17:31 21:18 WBC RBC Hgb Hct MCV MCH MCHC RDW Plt Count MPV Neut % (Auto) Lymph % (Auto) [place] % (Auto) Eos % (Auto) Baso % (Auto) Neut # (Auto) Lymph # (Auto) [place] # (Auto) Eos # (Auto) Baso # (Auto) Sodium Potassium Chloride Carbon Dioxide Anion Gap BUN Creatinine Est GFR ( Amer) Est GFR (Non-Af Amer) POC Glucose (mg/dL) 134 H 117 H Random Glucose Calcium Phosphorus Total Bilirubin AST ALT Alkaline Phosphatase Total Protein Albumin Globulin Albumin/Globulin Ratio Attending/Attestation - Attestation I have personally seen and examined this patient.: Yes I have fully participated in the care of the patient.: Yes I have reviewed all pertinent clinical information: Yes Notes (Text): 03/24/18 07:23 pt seen and evaluated +ve family hx of premature CAD LE wound med rx for now will need ischemic evaluation
[2018-03-21] MEDS ORDERED: Propofol 10 mg/ml Inj (20 ML) ONE (16:32)
[2018-03-21] MEDS ORDERED: Midazolam 2 MG/2 ML VIAL ONE (16:32)
[2018-03-21] MEDS ORDERED: Lidocaine 2% MPF (5 ml) Inj ONE ×2 (16:38)
[2018-03-21] MEDS ORDERED: Bupivacaine HCl 0.5% PF (10 ml) Inj ONE ×2 (16:39)
[2018-03-21] MEDS ORDERED: Piperacillin/Tazobact 3.375 gm 100 ML IVPB ONE (17:24)
[2018-03-21] MEDS ORDERED: HYDROmorphone 0.5 mg/0.5 ml ISec IVP PRN (18:23)
--- NOTE | 2018-03-21 18:25 | PCM.SURG1 ---
Surgeon's Initial Post Op Note - Surgeon's Notes Surgeon: Dr. Keenan Jones, DPM Supervisor Hand Silvering: Nabil Soni, PGY2 Type of Anesthesia: General LMA Anesthesia Administered By: Dr. Coleman Pre-Operative Diagnosis: Infected diabetic ulceration with soft tissue emphysema, right foot Operative Findings: Infected diabetic foot infection, right foot. M- 1/4 inch iodoform packing, 2-0 nylon, 4-0 nylon, asael Post-Operative Diagnosis: Same Operation Performed: 1. Partial first ray amputation, right foot. 2. Partial second ray amputation, right foot. 3. Incision and drainage of diabetic ulceration, right foot Specimen/Specimens Removed: 1. Right great toe. 2. Right second toe Estimated Blood Loss: EBL {In ML}: 350 Blood Products Given: N/A Drains Used: No Drains Post-Op Condition: Good Date of Surgery/Procedure: 03/21/18 Time of Surgery/Procedure: 18:29
--- NOTE | 2018-03-21 19:06 | CARD ---
APPROVED REPORT Date of service: 03/21/2018 EXAM: Two-dimensional and M-mode echocardiogram with Doppler and color Doppler. Other Information Quality : GoodRhythm : INDICATION LV Function:SystolicDiastolic RISK FACTORS Hypertension Diabetes 2D DIMENSIONS IVSd2.0 (0.7-1.1cm)LVDd4.2 (3.9-5.9cm) PWd1.3 (0.7-1.1cm)LA Vujxyc69 (18-58mL) LVDs2.8 (2.5-4.0cm)FS (%) 34.2 % LVEF (%)63.6 (>50%)LVEF (Blanc's)61.24 % IVC0.00 cm M-Mode DIMENSIONS RVDd3.13 (2.1-3.2cm)Left Atrium (MM)4.00 (2.5-4.0cm) IVSd0.79 (0.7-1.1cm)Aortic Root3.64 (2.2-3.7cm) LVDd5.88 (4.0-5.6cm)Aortic Cusp Exc.2.56 (1.5-2.0cm) PWd0.89 (0.7-1.1cm)FS (%) 47 % LVDs3.10 (2.0-3.8cm)LVEF (%)65 (>50%) Aortic Valve AI P 1/2 [id number] Mitral Valve MV E Wvgaleuw878.4cm/sMV A Bohddoaz07.2cm/sE/A ratio1.1 TDI Lateral E' Peak V8.67cm/sMedial E' Peak V5.19cm/sE/Lateral E'12.0 E/Medial E'20.1 Tricuspid Valve TR Peak [id number]/sTR Peak Gr.[id number] LEFT VENTRICLE The left ventricle is normal size. There is normal left ventricular wall thickness. The left ventricular function is normal. The left ventricular ejection fraction is within the normal range. There is normal LV segmental wall motion. Transmitral Doppler flow pattern is abnormal. RIGHT VENTRICLE The right ventricle is normal size. There is normal right ventricular wall thickness. The right ventricular systolic function is normal. ATRIA The left atrium is borderline dilated. The right atrium size is normal. AORTIC VALVE The aortic valve is normal in structure. There is mild aortic regurgitation. There is no aortic valvular stenosis. MITRAL VALVE The mitral valve is normal in structure. There is no mitral valve stenosis. There is no mitral valve regurgitation noted. TRICUSPID VALVE The tricuspid valve is normal in structure. There is trace tricuspid regurgitation. PULMONIC VALVE The pulmonary valve is normal in structure. There is trace pulmonic valvular regurgitation. GREAT VESSELS The aortic root is normal in size. The IVC is normal in size and collapses >50% with inspiration. PERICARDIAL EFFUSION There is no pericardial effusion. <Conclusion> There is normal left ventricular wall thickness. The left ventricular function is normal. The left ventricular ejection fraction is within the normal range. There is normal LV segmental wall motion. Transmitral Doppler flow pattern is abnormal. There is mild aortic regurgitation.
--- NOTE | 2018-03-21 19:09 | CARD ---
APPROVED REPORT Date of service: 03/20/2018 EKG Measurement Heart [id number] <Conclusion> Sinus tachycardia Possible Left atrial enlargement Borderline ECG
[2018-03-21 19:18] LABS: HEMOGLOBIN 8.5 g/dL (12.0-18.0)
--- NOTE | 2018-03-21 19:29 | CP.PCM.CON ---
History of Present Illness - History of Present Illness History of Present Illness: 42 year old male with PMHx uncontrolled DM, HTN admitted with worsening bilateral foot ulcerations experiencing nausea and fever over the last several days, prompting him to come to the ED. He states that Dr. Jones has had him on antibiotics but he does not recall the name. He states that his wound has been increasing in pain, redness and swelling over the last several days. He denies any further pedal complaints at this time. 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, ear surgeries All: NSAIDs SocHx: admits to 10-12 cigarettes/day, social EtOH use; denies illicit drug use Review of Systems - Review of Systems All systems: reviewed and no additional remarkable complaints except - Constitutional Constitutional: As Per HPI - EENT Eyes: absent: As Per HPI, Blind Spots, Blurred Vision, Change in Vision, Decreased Night Vision, Diplopia, Discharge, Dry Eye, Exophthalmos, Floaters, Irritation, Itchy Eyes, Loss of Peripheral Vision, Pain, Photophobia, Requires Corrective Lenses, Sees Flashes, Spots in Vision, Tunnel Vision, Other Visual Disturbances, Loss of Vision, Other Ears: absent: As Per HPI, Decreased Hearing, Ear Discharge, Ear Pain, Tinnitus, Abnormal Hearing, Disequilibrium, Dizziness, Other Nose/Mouth/Throat: absent: As Per HPI, Epistaxis, Nasal Congestion, Nasal Discharge, Nasal Obstruction, Nasal Trauma, Nose Pain, Post Nasal Drip, Sinus Pain, Sinus Pressure, Bleeding Gums, Change in Voice, Dental Pain, Dry Mouth, Dysphagia, Halitosis, Hoarsness, Lip Swelling, Mouth Lesions, Mouth Pain, Odynophagia, Sore Throat, Throat Swelling, Tongue Swelling, Facial Pain, Neck Pain, Neck Mass, Other - Cardiovascular Cardiovascular: absent: As Per HPI, Acrocyanosis, Chest Pain, Chest Pain at Rest, Chest Pain with Activity, Claudication, Diaphoresis, Dyspnea, Dyspnea on Exertion, Edema, Irregular Heart Rhythm, Pain Radiating to Arm/Neck/Jaw, Leg Edema, Leg Ulcers, Lightheadedness, Orthopnea, Palpitations, Paroxysmal Nocturnal Dyspnea, Pedal Edema, Radiating Pain, Rapid Heart Rate, Slow Heart Rate, Syncope, Other - Respiratory Respiratory: absent: As Per HPI, Cough, Dyspnea, Hemoptysis, Dyspnea on Exert ion, Wheezing, Snoring, Stridor, Pain on Inspiration, Chest Congestion, Excessive Mucous Production, Change in Mucous Color, Pain with Coughing, Other - Gastrointestinal Gastrointestinal: absent: As Per HPI, Abdominal Pain, Belching, Bloating, Change in Bowel Habits, Change in Stool Character, Coffee Ground Emesis, Constipation, Cramping, Diarrhea, Dyspepsia, Dysphagia, Early Satiety, Excessive Flatus, Fecal Incontinence, Heartburn, Hematemesis, Hematochezia, Loose Stools, Melena, Nausea, Odynophagia, Temesmus, Vomiting, Other - Genitourinary Genitourinary: absent: As Per HPI, Change in Urinary Stream, Difficulty U rinating, Dysuria, Flank Pain, Hematuria, Pyuria, Nocturia, Urinary Incontinence, Urinary Frequency, Urinary Hesitance, Urinary Urgency, Voiding Freq/Small Amts, Freq UTI, Hx Renal/Bladder Calculi, Hx /Renal Surgery, Bladder Distension, Other - Musculoskeletal Musculoskeletal: As Per HPI - Integumentary Integumentary: As Per HPI - Neurological Neurological: As Per HPI - Psychiatric Psychiatric: absent: As Per HPI, Abnormal Sleep Pattern, Anhedonia, Anxiety, Auditory Hallucinations, Behavioral Changes, Change in Appetite, Change in Libid o, Confusion, Depression, Difficulty Concentrating, Hallucinations, Homicidal Ideation, Hopelessness, Irritability, Memory Loss, Mood Swings, Panic Attacks, Paranoia, Suicidal Ideation, Visual Hallucinations, Tactile Hallucinations, Other - Endocrine Endocrine: absent: As Per HPI, Change in Body Appearance, Change in Libido, Cold Intolorance, Deepening of Voice, Excessive Sweating, Fatigue, Flushing, Heat Intolorance, Increase in Ring/Shoe/Hat Size, Palpitations, Polydipsia, Polyphagia, Polyuria, Other - Hematologic/Lymphatic Hematologic: absent: As Per HPI, Easy Bleeding, Easy Bruising, Lymphadenopathy, Other Past Patient History - Infectious Disease Hx of Infectious Diseases: None - Past Medical History & Family History Past Medical History?: Yes - Past Social History Smoking Status: Light Smoker < 10 Cigarettes Daily - CARDIAC Hx Hypertension: Yes - PULMONARY Hx Asthma: Yes - NEUROLOGICAL Hx Neurological Disorder: No - HEENT Hx HEENT Problems: No - RENAL Hx Chronic Kidney Disease: No - ENDOCRINE/METABOLIC Hx Diabetes Mellitus Type 2: Yes - HEMATOLOGICAL/ONCOLOGICAL Hx Blood Disorders: No - INTEGUMENTARY Hx Dermatological Problems: No - MUSCULOSKELETAL/RHEUMATOLOGICAL Hx Arthritis: Yes (backs and LE) - GASTROINTESTINAL Hx Gastrointestinal Disorders: No - GENITOURINARY/GYNECOLOGICAL Hx Genitourinary Disorders: No - PSYCHIATRIC Hx Anxiety: Yes Hx Bipolar Disorder: Yes Hx Depression: Yes Hx Schizophrenia: Yes (schizoaffective disorder) Hx Substance Use: No - SURGICAL HISTORY Hx Surgeries: Yes Other/Comment: right ear surgery. left FOOT TOE / 5TH DIGITsurgery - ANESTHESIA Hx Anesthesia: Yes Hx Anesthesia Reactions: No Hx Malignant Hyperthermia: No Meds Allergies/Adverse Reactions: Allergies Allergy/AdvReac Type Severity Reaction Status Date / Time NSAIDS (Non-Steroidal Allergy RASH Verified 03/20/18 16:14 Anti-Inflamma - Medications Medications: Current Medications Acetaminophen (Tylenol 325mg Tab) 650 mg PO Q6 PRN PRN Reason: Pain, Mild (1-3) Last Admin: 03/21/18 11:29 Dose: 650 mg Dextrose (Dextrose 50% Inj) 0 ml IV STAT PRN; Protocol PRN Reason: Hypoglycemia Protocol Dextrose (Glutose 15) 0 gm PO ONCE PRN; Protocol PRN Reason: Hypoglycemia Protocol Enalapril Maleate (Vasotec) 5 mg PO DAILY [facility] Last Admin: 03/21/18 11:21 Dose: Not Given Glucagon (Glucagen Diagnostic Kit) 0 mg IM STAT PRN; Protocol PRN Reason: Hypoglycemia Protocol Hydromorphone HCl (Dilaudid) 0.5 mg IVP Q10M PRN PRN Reason: Pain, moderate (4-7) Last Admin: 03/21/18 18:52 Dose: 0.5 mg Piperacillin Sod/Tazobactam Sod (Zosyn 3.375 Gm Iv Premix) 3.375 gm in 50 mls @ 100 mls/hr IVPB Q8H [facility]; Protocol Last Admin: 03/21/18 09:30 Dose: Not Given Vancomycin/Sodium Chloride (Vancomycin 1 Gm/Ns 200 Ml) 1 gm in 200 mls @ 133 mls/hr IVPB Q12H [facility]; Protocol Stop: 03/26/18 06:31 Last Admin: 03/21/18 06:34 Dose: 133 mls/hr Sodium Chloride (Sodium Chloride 0.9%) 1,000 mls @ 100 mls/hr IV .Q10H [facility] Last Admin: 03/21/18 14:10 Dose: Not Given Dextrose (Dextrose 5% In Water 1000 Ml) 1,000 mls @ 0 mls/hr IV .Q0M PRN; Red col PRN Reason: Hypoglycemia Protocol Insulin Human Regular (Novolin R) 0 unit SC ACHS [facility]; Protocol Last Admin: 03/21/18 17:25 Dose: Not Given Nicotine (Nicoderm Cq) 1 patch TD DAILY [facility] Last Admin: 03/21/18 11:19 Dose: 1 patch Ondansetron HCl (Zofran Inj) 4 mg IVP Q6 PRN PRN Reason: Nausea/Vomiting Sodium Hypochlorite (Dakins Solution 0.5%) 0 ml TOP DAILY [facility] Last Admin: 03/21/18 11:18 Dose: Not Given Physical Exam - Constitutional Appears: Non-toxic, Chronically Ill - Head Exam Head Exam: NORMOCEPHALIC - Eye Exam Eye Exam: absent: Scleral icterus - ENT Exam ENT Exam: Mucous Membranes Dry - Neck Exam Neck exam: Negative for: Lymphadenopathy - Respiratory Exam Respiratory Exam: Decreased Breath Sounds, Clear to Auscultation Bilateral - Cardiovascular Exam Cardiovascular Exam: REGULAR RHYTHM, +S1, +S2 - GI/Abdominal Exam GI & Abdominal Exam: Diminished Bowel Sounds, Soft. absent: Tenderness - Rectal Exam Rectal Exam: Deferred - Exam Exam: NORMAL INSPECTION - Extremities Exam Extremities exam: Positive for: pedal edema - Back Exam Back exam: absent: CVA tenderness (L), CVA tenderness (R) - Neurological Exam Neurological exam: Alert, CN II-XII Intact, Oriented x3, Reflexes Normal - Psychiatric Exam Psychiatric exam: Depressed - Skin Skin Exam: Dry Additional comments: RLE focused exam: Vasc: DP/PT pulses faintly palpable 1/4. Skin temperature increased to right hallux and forefoot. CFT < 3 seconds to all digits. Edema noted to forefoot, especially at hallux Neuro: Epicritic and protective sensation grossly diminished Derm: Ulceration noted to plantar right foot at level of first metatarsal head. Ulcer is approximately 3 cm x 4 cm and probes all the way to the dorsal foot. Wound base is green/vega in color, malodorous and draining. MSK: Pain on palpation of ulceration site. Resected first metatarsal head appa rent through ulceration site Results - Vital Signs Recent Vital Signs: Last Vital Signs Temp 98.1 F 03/21/18 18:20 Pulse 87 03/21/18 19:05 Resp 15 03/21/18 19:05 BP 108/65 03/21/18 19:05 Pulse Ox 96 03/21/18 19:05 - Labs Result Diagrams: 03/21/18 19:12 03/21/18 08:28 Labs: Laboratory Results - last 24 hr 03/20/18 03/20/18 03/20/18 20:55 20:55 20:55 WBC RBC Hgb Hct MCV MCH MCHC RDW Plt Count MPV Neut % (Auto) Lymph % (Auto) Randall % (Auto) Eos % (Auto) Baso % (Auto) Neut # (Auto) Lymph # (Auto) Randall # (Auto) Eos # (Auto) Baso # (Auto) Sodium Potassium Chloride Carbon Dioxide Anion Gap BUN Creatinine Est GFR ( Amer) Est GFR (Non-Af Amer) POC Glucose (mg/dL) Random Glucose Hemoglobin A1c Lactic Acid 1.0 Calcium Phosphorus Total Bilirubin AST ALT Alkaline Phosphatase Total Creatine Kinase 55 CK-MB (Mass) < 0.22 Troponin I < 0.0120 Total Protein Albumin Globulin Albumin/Globulin Ratio TSH 3rd Generation 1.42 Hepatitis A IgM Ab Negative Hep Bs Antigen Negative Hep B Core IgM Ab Negative Hepatitis C Antibody Negative HIV 1&2 Antibody Screen 03/20/18 03/20/18 03/21/18 20:55 21:54 06:39 WBC RBC Hgb Hct MCV MCH MCHC RDW Plt Count MPV Neut % (Auto) Lymph % (Auto) Randall % (Auto) Eos % (Auto) Baso % (Auto) Neut # (Auto) Lymph # (Auto) Randall # (Auto) Eos # (Auto) Baso # (Auto) Sodium Potassium Chloride Carbon Dioxide Anion Gap BUN Creatinine Est GFR ( Amer) Est GFR (Non-Af Amer) POC Glucose (mg/dL) 278 H 219 H Random Glucose Hemoglobin A1c 8.8 H Lactic Acid Calcium Phosphorus Total Bilirubin AST ALT Alkaline Phosphatase Total Creatine Kinase CK-MB (Mass) Troponin I Total Protein Albumin Globulin Albumin/Globulin Ratio TSH 3rd Generation Hepatitis A IgM Ab Hep Bs Antigen Hep B Core IgM Ab Hepatitis C Antibody HIV 1&2 Antibody Screen 03/21/18 03/21/18 03/21/18 08:28 08:28 08:28 WBC 8.0 RBC 3.32 L Hgb 9.4 L Hct 27.6 L MCV 83.0 MCH 28.2 MCHC 33.9 RDW 13.8 Plt Count 359 MPV 7.5 Neut % (Auto) 60.4 Lymph % (Auto) 25.2 Randall % (Auto) 9.1 Eos % (Auto) 4.8 H Baso % (Auto) 0.5 Neut # (Auto) 4.9 Lymph # (Auto) 2.0 Randall # (Auto) 0.7 Eos # (Auto) 0.4 Baso # (Auto) 0.0 Sodium 135 Potassium 3.5 L Chloride 102 Carbon Dioxide 29 Anion Gap 8 L BUN 22 H Creatinine 1.1 Est GFR ( Amer) > 60 Est GFR (Non-Af Amer) > 60 POC Glucose (mg/dL) Random Glucose 233 H Hemoglobin A1c Lactic Acid Calcium 8.3 L Phosphorus 3.5 Total Bilirubin 0.3 AST 11 L D ALT < 6 L Alkaline Phosphatase 134 H D Total Creatine Kinase CK-MB (Mass) Troponin I Total Protein 6.4 Albumin 2.9 L D Globulin 3.5 Albumin/Globulin Ratio 0.8 L TSH 3rd Generation Hepatitis A IgM Ab Hep Bs Antigen Hep B Core IgM Ab Hepatitis C Antibody HIV 1&2 Antibody Screen Negative 03/21/18 03/21/18 11:26 19:12 WBC RBC Hgb 8.5 L Hct 26.0 L MCV MCH MCHC RDW Plt Count MPV Neut % (Auto) Lymph % (Auto) Randall % (Auto) Eos % (Auto) Baso % (Auto) Neut # (Auto) Lymph # (Auto) Randall # (Auto) Eos # (Auto) Baso # (Auto) Sodium Potassium Chloride Carbon Dioxide Anion Gap BUN Creatinine Est GFR ( Amer) Est GFR (Non-Af Amer) POC Glucose (mg/dL) 192 H Random Glucose Hemoglobin A1c Lactic Acid Calcium Phosphorus Total Bilirubin AST ALT Alkaline Phosphatase Total Creatine Kinase CK-MB (Mass) Troponin I Total Protein Albumin Globulin Albumin/Globulin Ratio TSH 3rd Generation Hepatitis A IgM Ab Hep Bs Antigen Hep B Core IgM Ab Hepatitis C Antibody HIV 1&2 Antibody Screen Assessment & Plan - Assessment and Plan (Free Text) Assessment: s/p debridement right foot ulcer await cardio/vascular input consider MRI await OR cultures cont IV antibiotics and wound care
[2018-03-21 19:34] LABS: SQUAMOUS EPITHIAL < 1 /hpf (0-5); URINE BILIRUBIN NEGATIVE (NEGATIVE); URINE BLOOD 1+ (NEGATIVE); URINE CLARITY Clear (Clear); URINE COLOR Yellow (YELLOW); URINE GLUCOSE (UA) NORMAL (Normal); URINE HYALINE CAST 0-2 /lpf (0-2); URINE LEUKOCYTE ESTERASE NEG Leu/uL (Negative); URINE PROTEIN 2+ mg/dL (NEGATIVE)
[2018-03-21 19:43] LABS: BARBITURATES, UR NEGATIVE (NEGATIVE); OPIATES, UR NEGATIVE (NEGATIVE); PHENCYCLIDINE, UR NEGATIVE (NEGATIVE)
[2018-03-21 19:48] LABS: BENZODIAZEPINES, UR POSITIVE (NEGATIVE)
[2018-03-21] MEDS ORDERED: Oxycodone/Acetaminophen 5/325 mg Tab PO STA (20:49)
--- NOTE | 2018-03-22 00:12 | CP.PCM.PN ---
<Zachary Jones - Last Filed: 03/22/18 00:09> Subjective - Date & Time of Evaluation Date of Evaluation: 03/22/18 Time of Evaluation: 00:09 - Subjective Subjective: HOSPITALIST SERVICE] Pt s/e at bedisde, in pain s/p sx, tylenol no adequate per pt. Pt denies fevers chill nausea chest pain sob diarrhea. Objective - Vital Signs/Intake and Output Vital Signs (last 24 hours): Temp Pulse Resp BP Pulse Ox 97.5 F L 88 20 102/69 99 03/21/18 20:06 03/21/18 20:06 03/21/18 20:06 03/21/18 20:06 03/21/18 21:37 Intake and Output: 03/21/18 03/22/18 18:59 06:59 Intake Total 900 500 Balance 900 500 - Medications Medications: Current Medications Acetaminophen (Tylenol 325mg Tab) 650 mg PO Q6 PRN PRN Reason: Pain, Mild (1-3) Last Admin: 03/21/18 11:29 Dose: 650 mg Aspirin (Aspirin Chewable) 81 mg PO DAILY [facility] Clopidogrel Bisulfate (Plavix) 75 mg PO DAILY [facility] Dextrose (Dextrose 50% Inj) 0 ml IV STAT PRN; Protocol PRN Reason: Hypoglycemia Protocol Dextrose (Glutose 15) 0 gm PO ONCE PRN; Protocol PRN Reason: Hypoglycemia Protocol Enalapril Maleate (Vasotec) 5 mg PO DAILY [facility] Last Admin: 03/21/18 11:21 Dose: Not Given Glucagon (Glucagen Diagnostic Kit) 0 mg IM STAT PRN; Protocol PRN Reason: Hypoglycemia Protocol Hydromorphone HCl (Dilaudid) 0.5 mg IVP Q10M PRN PRN Reason: Pain, moderate (4-7) Last Admin: 03/21/18 18:52 Dose: 0.5 mg Piperacillin Sod/Tazobactam Sod (Zosyn 3.375 Gm Iv Premix) 3.375 gm in 50 mls @ 100 mls/hr IVPB Q8H [facility]; Protocol Last Admin: 03/21/18 19:40 Dose: 100 mls/hr Vancomycin/Sodium Chloride (Vancomycin 1 Gm/Ns 200 Ml) 1 gm in 200 mls @ 133 mls/hr IVPB Q12H [facility]; Protocol Stop: 03/26/18 06:31 Last Admin: 03/21/18 20:45 Dose: 133 mls/hr Sodium Chloride (Sodium Chloride 0.9%) 1,000 mls @ 100 mls/hr IV .Q10H [facility] Last Admin: 03/21/18 14:10 Dose: Not Given Dextrose (Dextrose 5% In Water 1000 Ml) 1,000 mls @ 0 mls/hr IV .Q0M PRN; Protocol PRN Reason: Hypoglycemia Protocol Insulin Human Regular (Novolin R) 0 unit SC ACHS [facility]; Protocol Last Admin: 03/21/18 22:00 Dose: Not Given Nicotine (Nicoderm Cq) 1 patch TD DAILY [facility] Last Admin: 03/21/18 11:19 Dose: 1 patch Ondansetron HCl (Zofran Inj) 4 mg IVP Q6 PRN PRN Reason: Nausea/Vomiting Oxycodone/Acetaminophen (Percocet 5/325 Mg Tab) 1 tab PO Q4H PRN PRN Reason: Pain, moderate (4-7) Sodium Hypochlorite (Dakins Solution 0.5%) 0 ml TOP DAILY [facility] Last Admin: 03/21/18 11:18 Dose: Not Given - Labs Labs: 03/21/18 19:12 03/21/18 08:28 PT 15.2 SECONDS (9.7-12.2) H 03/20/18 17:00 INR 1.4 03/20/18 17:00 APTT 30 SECONDS (21-34) 03/20/18 17:00 - Additional Findings Additional findings: - Constitutional Appears: Non-toxic, No Acute Distress - Head Exam Head Exam: NORMAL INSPECTION, NORMOCEPHALIC - Eye Exam Eye Exam: EOMI, Normal appearance. absent: Nystagmus, Scleral icterus - ENT Exam ENT Exam: Mucous Membranes Moist - Respiratory Exam Respiratory Exam: Clear to Ausculation Bilateral, NORMAL BREATHING PATTERN. absent: Rales, Rhonchi, Wheezes - Cardiovascular Exam Cardiovascular Exam: REGULAR RHYTHM, +S1, +S2 - GI/Abdominal Exam GI & Abdominal Exam: Soft, Normal Bowel Sounds. absent: Distended, Firm, Guarding, Rigid, Tenderness - Extremities Exam Additional comments: left pinky digit amputated and base with debridement right foot dressed no drainage seen - Neurological Exam Neurological Exam: Awake, Normal Gait, Oriented x3 - Psychiatric Exam Psychiatric exam: Normal Affect, Normal Mood - Skin Skin Exam: Dry, Intact, Normal Color Assessment and Plan - Assessment and Plan (Free Text) Assessment: 42 M with a PMHx of polysubstance abuse, DM2 w/ foot ulcers, schizophrenia/bipoloar disorder and asthma presents to the ED with a 4 year history of multiple foot ulcers, and a 2 day hx of fevers, nausea, vomiting, and a hot painful right foot. Osteomyelitis Podiatry Consulted: Dr. Jones- 03/21 intervention 03/20 Foot Xray - Soft tissue emphysema appreciated in hallux OR on 03/21 Dr. Jones for incision and drainage vs. hallux amputation Vanc 1gm IVPB q12h Zosyn 3.375mg IVPB q6h NS @ 100mls/hr Tylenol PRN Percocet 5/325 stat dose for post op pain DM2 Novolin SC ACHS A1C 8.8 HTN Enalapril 5mg po daily Tobacco use disorder Nicotine Patch 1 TD daily Hx of polysubstance abuse Educate patient on cessation Schizophrenia/BPD no active issue currently Joan Jones PGY1 <Sandi French V - Last Filed: 03/22/18 10:43> Objective - Vital Signs/Intake and Output Vital Signs (last 24 hours): Temp Pulse Resp BP Pulse Ox 98.1 F 87 18 106/64 96 03/22/18 07:40 03/22/18 08:00 03/22/18 07:40 03/22/18 07:40 03/22/18 07:40 Intake and Output: 03/22/18 03/22/18 06:59 18:59 Intake Total 800 Output Total 450 Balance 350 - Medications Medications: Current Medications Acetaminophen (Tylenol 325mg Tab) 650 mg PO Q6 PRN PRN Reason: Pain, Mild (1-3) Last Admin: 03/21/18 11:29 Dose: 650 mg Aspirin (Aspirin Chewable) 81 mg PO DAILY [facility] Clopidogrel Bisulfate (Plavix) 75 mg PO DAILY [facility] Dextrose (Dextrose 50% Inj) 0 ml IV STAT PRN; Protocol PRN Reason: Hypoglycemia Protocol Dextrose (Glutose 15) 0 gm PO ONCE PRN; Protocol PRN Reason: Hypoglycemia Protocol Enalapril Maleate (Vasotec) 5 mg PO DAILY [facility] Last Admin: 03/21/18 11:21 Dose: Not Given Glucagon (Glucagen Diagnostic Kit) 0 mg IM STAT PRN; Protocol PRN Reason: Hypoglycemia Protocol Hydromorphone HCl (Dilaudid) 0.5 mg IVP Q10M PRN PRN Reason: Pain, moderate (4-7) Last Admin: 03/21/18 18:52 Dose: 0.5 mg Piperacillin Sod/Tazobactam Sod (Zosyn 3.375 Gm Iv Premix) 3.375 gm in 50 mls @ 100 mls/hr IVPB Q8H [facility]; Protocol Last Admin: 03/22/18 01:59 Dose: 100 mls/hr Vancomycin/Sodium Chloride (Vancomycin 1 Gm/Ns 200 Ml) 1 gm in 200 mls @ 133 mls/hr IVPB Q12H [facility]; Protocol Stop: 03/26/18 06:31 Last Admin: 03/22/18 06:16 Dose: 133 mls/hr Sodium Chloride (Sodium Chloride 0.9%) 1,000 mls @ 100 mls/hr IV .Q10H [facility] Last Admin: 03/22/18 01:00 Dose: Not Given Dextrose (Dextrose 5% In Water 1000 Ml) 1,000 mls @ 0 mls/hr IV .Q0M PRN; Protocol PRN Reason: Hypoglycemia Protocol Insulin Human Regular (Novolin R) 0 unit SC ACHS [facility]; Protocol Last Admin: 03/22/18 07:47 Dose: 6 units Nicotine (Nicoderm Cq) 1 patch TD DAILY [facility] Last Admin: 03/21/18 11:19 Dose: 1 patch Ondansetron HCl (Zofran Inj) 4 mg IVP Q6 PRN PRN Reason: Nausea/Vomiting Sodium Hypochlorite (Dakins Solution 0.5%) 0 ml TOP DAILY [facility] Last Admin: 03/21/18 11:18 Dose: Not Given - Labs Labs: 03/22/18 06:18 03/22/18 06:18 PT 15.2 SECONDS (9.7-12.2) H 03/20/18 17:00 INR 1.4 03/20/18 17:00 APTT 30 SECONDS (21-34) 03/20/18 17:00 Attending/Attestation - Attestation I have personally seen and examined this patient.: Yes I have fully participated in the care of the patient.: Yes I have reviewed all pertinent clinical information, including history, physical exam and plan: Yes Notes (Text): Patient seen, examined and case discussed with medical record specialist. Patient reports his peripheral access was changed from left upper extremity to right upper extremity. Patient reports his blood work was collected on the side of his IV access. Will repeat blood work again to see if H/H is true versus dilutional. I had a spivey talk with the patient regarding diet and lifestyle modifications. Patient seen at bedside with a nearly complete 1 Liter of diet pepsi, burger container and soda. He is aware of diabetic and hypertensive individual and I did implored with him that needs to take seriously diet modification to preserve the quality of his life. Patient noted he was in pain the entire night; received a dose of Percocet and Morphine 2mg IV X1, which helped to calm the patient. Patient reports he cannot sleep secondary to pain; I did remind him that I do not given sleeping meds. Patient on exam noted to have clean dressing wrapped in blayne bandage over the right lower extremity stump. No drainage noted. Sugar likely uncontrolled given his 1 Liter of Pepsi use. Patient's iron stores are low; unable to given iron supplementation while he has active infection. Folate is low; B12 is normal. Ferritin is normal. Place pain management eval for the patient-->anesthesia in house will forward pain management anesthesia-->Will start gabapentin 100mg POqHS. Postoperative management per podiatry Pending psych eval given schizophrenia and inconsistent use of his meds; he personally took himself off his meds few years back 1) Sepsis Assessment/plan * Criteria: leukocytosis, fever, acute renal insuffiency; source: diabetic foot ulcer * Podiatry (Dr. Jones) on case-->help appreciated * infectious disease (Dr. Espinal) on case-->help appreciated * Blood culture (03/20/18): no growth after 24 hours X2 * Wound Culture (03/20/18); Group G Streptococcus * NS 100cc/hr * Vancomycin 1gm IV Q12H (active since 03/21/18) * Vancomycin trough: 7.2 * Zosyn 3.375g IVPB Q8H (active since 03/21/18) * Foot Xray (03/21/18): marked soft tissue swelling, subcutaneous gas, and extensive erosive changes as described above involving the 1st digit and metatarsal. Fracture at the site of distal 1st metatarsal erosion not excluded. Appearance consistent with ostemyelitis. correlate clinically * Chest xray: no active disease * ESR: 119 2. Osteomyelitis * Criteria: leukocytosis, fever, acute renal insuffiency; source: diabetic foot ulcer * Podiatry (Dr. Jones) on case-->help appreciated * infectious disease (Dr. Espinal) on case-->help appreciated * Blood culture (03/20/18): no growth after 24 hours X2 * Wound Culture (03/20/18); Group G Streptococcus * NS 100cc/hr * Vancomycin 1gm IV Q12H (active since 03/21/18) * Zosyn 3.375g IVPB Q8H (active since 03/21/18) * Foot Xray (03/21/18): marked soft tissue swelling, subcutaneous gas, and extensive erosive changes as described above involving the 1st digit and metatarsal. Fracture at the site of distal 1st metatarsal erosion not excluded. Appearance consistent with ostemyelitis. correlate clinically 3. DM2 * Hypoglycemic protocol * Regular SC ACHS * A1C 8.8 * Accuchecks qACHS * Sugars out of control secondary to obscene noncompliance of eating (drinking a 1 Liter of diet pepsi noted) 4. HTN * Enalapril 5mg po daily 5. Tobacco use disorder * Nicotine Patch 1 TD daily 6. Hx of polysubstance abuse * Educate patient on cessation 7. Schizophrenia/BPD * no active issue currently * pending psych eval 8. Family history of cardiac disorder * Cardiology (Dr. Altamirano) on case * Patient has personal risk of diabetes, smoking, family hx of brother for CABG, father for 2 aneurysms and heart disease; and has never had cardiac workup. * Echocardiogram (03/21/18): normal left ventricular wall thickness. left ventricular function is normal. Left ventricular ejection fraction is within the normal range. normal LV segmental within the normal range. Normal :V segmental wall motion. mild aortic regurgitation. 9. Enlarged inguinal lymph notes * CT Abdominal Angiography (03/21/18): foci of mild stenosis noted at the origin of the right superifical femoral artery distal left superifical artery and proximal left popliteal artery. foci of stenosis noted at the mid and distal right anterior artery. occlusion of the right dorsalis pedis. Small size left anterior tibial artery left peroneal artery amd l;eft dorsalis pedis artery. Mild to moderate lymphadenopathy at internal iliac chain and bilateral inguinal region right more than left noted. 10. Peripheral Artery Disease * CT Abdominal Angiography (03/21/18): foci of mild stenosis noted at the origin of the right superifical femoral artery distal left superifical artery and proximal left popliteal artery. foci of stenosis noted at the mid and distal right anterior artery. occlusion of the right dorsalis pedis. Small size left anterior tibial artery left peroneal artery amd l;eft dorsalis pedis artery. Mild to moderate lymphadenopathy at internal iliac chain and bilateral ingui nal region right more than left noted. * Cardiology has recommended for aspirin/plavix. patient has new onset anemia; will hold plavix. * Ordered for ABIs 11. Anemia * Acute; unclear if related to sepsis * Check iron studies, ferritin, reticulocyte count, b12, folate * hold plavix secondary to bleeding risk given downtrending H/H * check occult blood 12. Acute Renal Insufficiency * noted on admission; improved after Iv hydration * Patient completed CT ileofemoral 03/21/18 * continue to monitor BUN/Cr 13. History of Polysubstance Abuse * hepatitis negative, hiv negative * UDS: negative except for benzo 14. Prophylactic Measure * Anticoagulation held prior OR * IV fluids * PT/OT eval * Wound care aware
[2018-03-22] MEDS: Sodium Chloride 0.9% 1,000 ML IV SCH ×2 (01:00→21:34)
[2018-03-22] MEDS: Piperacill/Tazo 3.375gm in Dex 3.375 GM/50 ML BAG IVPB SCH ×3 (01:59→17:10)
[2018-03-22] MEDS: Oxycodone/Acetaminophen 5/325 mg Tab PO PRN ×2 (01:59→06:19)
[2018-03-22] MEDS: Vancomycin 1 gm/NS 200 ml 1 GM/200 ML BAG IVPB SCH ×2 (06:16→21:34)
[2018-03-22 06:26] LABS: BASO # 0.1 K/uL (0.0-0.2); BASO % 0.6 % (0.0-2.0); EOS # 0.5 K/uL (0.0-0.7); EOS % 5.9 % (0.0-4.0); HEMOGLOBIN 8.5 g/dL (12.0-18.0); LYMPH # 2.4 K/uL (1.0-4.3); LYMPH % 27.1 % (20.0-40.0); MEAN CELL VOLUME 84.2 fL (80.0-94.0); MEAN CORPUSCULAR HEMOGLOBIN 27.9 pg (27.0-31.0); MEAN CORPUSCULAR HGB CONC 33.1 g/dL (33.0-37.0); MEAN PLATELET VOLUME 7.7 fL (7.2-11.7); MONO # 0.5 K/uL (0.0-0.8); MONO % 6.2 % (0.0-10.0); NEUT # 5.3 K/uL (1.8-7.0); NEUT % 60.2 % (50.0-75.0); RBC 3.05 Mil/uL (4.40-5.90); RED CELL DISTRIBUTION WIDTH 13.6 % (11.5-14.5); WHITE BLOOD COUNT 8.7 K/uL (4.8-10.8)
[2018-03-22 06:40] LABS: IRON 20 ug/dL (49-181)
[2018-03-22 06:42] LABS: ALB/GLOB RATIO 0.8 (1.0-2.1); ALBUMIN 2.7 g/dL (3.5-5.0); ALT/SGPT 9 U/L (21-72); AST/SGOT 11 U/L (17-59); BLOOD UREA NITROGEN 19 mg/dL (9-20); CALCIUM 7.9 mg/dl (8.6-10.4); GFR NON-AFRICAN AMERICAN > 60
[2018-03-22 06:49] LABS: % IRON SATURATION 10 (20-55); % IRON SATURATION 14 (20-55); TOTAL IRON BINDING CAPACITY 198 ug/dL (250-450); TOTAL IRON BINDING CAPACITY 202 ug/dL (250-450)
[2018-03-22 07:46] LABS: FOLATE 7.6 ng/mL
[2018-03-22] MEDS: (Novolin R) Insulin Human Regular 100 units/ml vial SC SCH ×4 (07:47→21:35)
--- NOTE | 2018-03-22 08:58 | RAD ---
Date of service: 03/21/2018 PROCEDURE: Right Foot Radiographs. HISTORY: s/p partial first and second ray amputation COMPARISON: Right foot radiographs 03/20/2018. FINDINGS: BONES: Patient ostomy status post transmetatarsal amputation at the 2nd and 1st positions with heterotopic bone or soft tissue calcification identified at the amputation site of the 1st metatarsal bone. Postop changes seen in local soft tissues with skin asael in position postoperatively. Remaining forefoot midfoot bony anatomy is stable and unremarkable with degenerative changes identified throughout the midfoot joints and hindfoot joints. JOINTS: As above. SOFT TISSUES: As above. OTHER FINDINGS: None. IMPRESSION: Status post transmetatarsal amputation 1st and 2nd metatarsal bones with postoperative soft tissue changes noted.
[2018-03-22] MEDS: Dakin's Topical 0.5%-Full Strength (480 ml) TOP SCH (10:44)
[2018-03-22 11:02] LABS: BASO # 0.1 K/uL (0.0-0.2); BASO % 0.8 % (0.0-2.0); EOS # 0.5 K/uL (0.0-0.7); EOS % 6.5 % (0.0-4.0); HEMOGLOBIN 8.2 g/dL (12.0-18.0); LYMPH # 2.2 K/uL (1.0-4.3); LYMPH % 26.9 % (20.0-40.0); MEAN CELL VOLUME 83.8 fL (80.0-94.0); MEAN CORPUSCULAR HEMOGLOBIN 28.1 pg (27.0-31.0); MEAN CORPUSCULAR HGB CONC 33.6 g/dL (33.0-37.0); MEAN PLATELET VOLUME 7.4 fL (7.2-11.7); MONO # 0.5 K/uL (0.0-0.8); MONO % 6.4 % (0.0-10.0); NEUT # 4.8 K/uL (1.8-7.0); NEUT % 59.4 % (50.0-75.0); RBC 2.91 Mil/uL (4.40-5.90); RED CELL DISTRIBUTION WIDTH 13.7 % (11.5-14.5)
[2018-03-22 11:11] LABS: ALB/GLOB RATIO 0.8 (1.0-2.1); ALBUMIN 2.6 g/dL (3.5-5.0); ALT/SGPT 10 U/L (21-72); AST/SGOT 11 U/L (17-59); BLOOD UREA NITROGEN 18 mg/dL (9-20); CALCIUM 7.7 mg/dl (8.6-10.4); GFR NON-AFRICAN AMERICAN > 60
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
[2018-03-23 01:13] VITALS: RESP 20
[2018-03-23] MEDS: Piperacill/Tazo 3.375gm in Dex 3.375 GM/50 ML BAG IVPB SCH ×3 (01:39→19:21)
[2018-03-23] MEDS: Vancomycin 1 gm/NS 200 ml 1 GM/200 ML BAG IVPB SCH ×2 (05:35→19:21)
--- NOTE | 2018-03-23 07:00 | CP.PCM.PN ---
<Zachary Jones - Last Filed: 03/23/18 06:56> Subjective - Date & Time of Evaluation Date of Evaluation: 03/23/18 Time of Evaluation: 06:56 - Subjective Subjective: HOSPITALIST SERVICE Pt s/e at bedside, combative and answers inappropriately, 12 point ROS unable to obtain, Objective - Vital Signs/Intake and Output Vital Signs (last 24 hours): Temp Pulse Resp BP Pulse Ox 98.5 F 79 20 118/64 95 03/23/18 00:00 03/23/18 00:00 03/23/18 00:00 03/23/18 00:00 03/23/18 00:00 Intake and Output: 03/22/18 03/23/18 18:59 06:59 Output Total 900 Balance -900 - Medications Medications: Current Medications Acetaminophen (Tylenol 325mg Tab) 650 mg PO Q6 PRN PRN Reason: Pain, Mild (1-3) Last Admin: 03/21/18 11:29 Dose: 650 mg Aspirin (Aspirin Chewable) 81 mg PO DAILY [facility] Last Admin: 03/22/18 10:43 Dose: 81 mg Clopidogrel Bisulfate (Plavix) 75 mg PO DAILY [facility] Dextrose (Dextrose 50% Inj) 0 ml IV STAT PRN; Protocol PRN Reason: Hypoglycemia Protocol Dextrose (Glutose 15) 0 gm PO ONCE PRN; Protocol PRN Reason: Hypoglycemia Protocol Enalapril Maleate (Vasotec) 5 mg PO DAILY [facility] Last Admin: 03/22/18 10:45 Dose: Not Given Gabapentin (Neurontin) 100 mg PO HS [facility] Last Admin: 03/22/18 21:35 Dose: 100 mg Glucagon (Glucagen Diagnostic Kit) 0 mg IM STAT PRN; Protocol PRN Reason: Hypoglycemia Protocol Piperacillin Sod/Tazobactam Sod (Zosyn 3.375 Gm Iv Premix) 3.375 gm in 50 mls @ 100 mls/hr IVPB Q8H [facility]; Protocol Last Admin: 03/23/18 01:39 Dose: 100 mls/hr Vancomycin/Sodium Chloride (Vancomycin 1 Gm/Ns 200 Ml) 1 gm in 200 mls @ 133 mls/hr IVPB Q12H [facility]; Protocol Stop: 03/26/18 06:31 Last Admin: 03/23/18 05:35 Dose: 133 mls/hr Sodium Chloride (Sodium Chloride 0.9%) 1,000 mls @ 100 mls/hr IV .Q10H [facility] Last Admin: 03/22/18 21:34 Dose: Not Given Dextrose (Dextrose 5% In Water 1000 Ml) 1,000 mls @ 0 mls/hr IV .Q0M PRN; Protocol PRN Reason: Hypoglycemia Protocol Insulin Human Regular (Novolin R) 0 unit SC ACHS [facility]; Protocol Last Admin: 03/22/18 21:35 Dose: Not Given Nicotine (Nicoderm Cq) 1 patch TD DAILY [facility] Last Admin: 03/22/18 10:43 Dose: 1 patch Ondansetron HCl (Zofran Inj) 4 mg IVP Q6 PRN PRN Reason: Nausea/Vomiting Sodium Hypochlorite (Dakins Solution 0.5%) 0 ml TOP DAILY [facility] Last Admin: 03/22/18 10:44 Dose: Not Given - Labs Labs: 03/22/18 10:50 03/22/18 10:50 PT 15.2 SECONDS (9.7-12.2) H 03/20/18 17:00 INR 1.4 03/20/18 17:00 APTT 30 SECONDS (21-34) 03/20/18 17:00 - Additional Findings Additional findings: - Constitutional Appears: Non-toxic, No Acute Distress - Head Exam Head Exam: NORMAL INSPECTION, NORMOCEPHALIC - Eye Exam Eye Exam: EOMI, Normal appearance. absent: Nystagmus, Scleral icterus - ENT Exam ENT Exam: Mucous Membranes Moist - Respiratory Exam Respiratory Exam: Clear to Ausculation Bilateral, NORMAL BREATHING PATTERN. absent: Rales, Rhonchi, Wheezes - Cardiovascular Exam Cardiovascular Exam: REGULAR RHYTHM, +S1, +S2 - GI/Abdominal Exam GI & Abdominal Exam: Soft, Normal Bowel Sounds. absent: Distended, Firm, Guarding, Rigid, Tenderness - Extremities Exam Additional comments: left pinky digit amputated and base with debridement right foot dressed no drainage seen - Neurological Exam Neurological Exam: Awake, Normal Gait, Oriented x3 - Psychiatric Exam Psychiatric exam: Normal Affect, Normal Mood - Skin Skin Exam: Dry, Intact, Normal Color Assessment and Plan - Assessment and Plan (Free Text) Assessment: 42 M with a PMHx of polysubstance abuse, DM2 w/ foot ulcers, schizophrenia/bipoloar disorder and asthma presents to the ED with a 4 year history of multiple foot ulcers, and a 2 day hx of fevers, nausea, vomiting, and a hot painful right foot. Osteomyelitis Podiatry Consulted: Dr. Jones- 03/21 intervention 03/20 Foot Xray - Soft tissue emphysema appreciated in hallux OR on 03/21 Dr. Jones for incision and drainage vs. hallux amputation Vanc 1gm IVPB q12h Zosyn 3.375mg IVPB q6h NS @ 100mls/hr Tylenol PRN no more opiates to be given due to hx of abuse As per podiatry, Pt to be d/c to [facility] on PO abx DM2 Novolin SC ACHS A1C 8.8 HTN Enalapril 5mg po daily Tobacco use disorder Nicotine Patch 1 TD daily Hx of polysubstance abuse Educate patient on cessation Schizophrenia/BPD no active issue currently Joan Jones PGY1 dispo: d/c home on PO abx when approved <Sandi French V - Last Filed: 03/23/18 15:30> Objective - Vital Signs/Intake and Output Vital Signs (last 24 hours): Temp Pulse Resp BP Pulse Ox 98 F 84 20 120/74 96 03/23/18 08:48 03/23/18 08:48 03/23/18 08:48 03/23/18 09:39 03/23/18 08:48 Intake and Output: 03/23/18 03/23/18 06:59 18:59 Output Total 900 Balance -900 - Medications Medications: Current Medications Acetaminophen (Tylenol 325mg Tab) 650 mg PO Q6 PRN PRN Reason: Pain, Mild (1-3) Last Admin: 03/21/18 11:29 Dose: 650 mg Aspirin (Aspirin Chewable) 81 mg PO DAILY [facility] Last Admin: 03/23/18 09:39 Dose: 81 mg Clopidogrel Bisulfate (Plavix) 75 mg PO DAILY [facility] Dextrose (Dextrose 50% Inj) 0 ml IV STAT PRN; Protocol PRN Reason: Hypoglycemia Protocol Dextrose (Glutose 15) 0 gm PO ONCE PRN; Protocol PRN Reason: Hypoglycemia Protocol Enalapril Maleate (Vasotec) 5 mg PO DAILY [facility] Last Admin: 03/23/18 09:39 Dose: 5 mg Gabapentin (Neurontin) 100 mg PO BID [facility] Glimepiride (Amaryl) 2 mg PO ACB [facility] Last Admin: 03/23/18 10:42 Dose: 2 mg Glucagon (Glucagen Diagnostic Kit) 0 mg IM STAT PRN; Protocol PRN Reason: Hypoglycemia Protocol Piperacillin Sod/Tazobactam Sod (Zosyn 3.375 Gm Iv Premix) 3.375 gm in 50 mls @ 100 mls/hr IVPB Q8H [facility]; Protocol Last Admin: 03/23/18 09:38 Dose: 100 mls/hr Vancomycin/Sodium Chloride (Vancomycin 1 Gm/Ns 200 Ml) 1 gm in 200 mls @ 133 mls/hr IVPB Q12H [facility]; Protocol Stop: 03/26/18 06:31 Last Admin: 03/23/18 05:35 Dose: 133 mls/hr Dextrose (Dextrose 5% In Water 1000 Ml) 1,000 mls @ 0 mls/hr IV .Q0M PRN; Protocol PRN Reason: Hypoglycemia Protocol Insulin Human Regular (Novolin R) 0 unit SC ACHS [facility]; Protocol Last Admin: 03/23/18 12:27 Dose: 4 units Metformin HCl (Glucophage) 500 mg PO BIDCC [facility] Last Admin: 03/23/18 10:41 Dose: 500 mg Nicotine (Nicoderm Cq) 1 patch TD DAILY [facility] Last Admin: 03/23/18 09:40 Dose: 1 patch Ondansetron HCl (Zofran Inj) 4 mg IVP Q6 PRN PRN Reason: Nausea/Vomiting Sodium Hypochlorite (Dakins Solution 0.5%) 0 ml TOP DAILY [facility] Last Admin: 03/23/18 10:34 Dose: Not Given - Labs Labs: 03/23/18 08:02 03/23/18 08:02 PT 15.2 SECONDS (9.7-12.2) H 03/20/18 17:00 INR 1.4 03/20/18 17:00 APTT 30 SECONDS (21-34) 03/20/18 17:00 Attending/Attestation - Attestation I have personally seen and examined this patient.: Yes I have fully participated in the care of the patient.: Yes I have reviewed all pertinent clinical information, including history, physical exam and plan: Yes Notes (Text): Patient seen, examined and case discussed with medical cost consultant. Patient seen this morning. Patient reports gabapentin Iclusig last name is very effective in improving his pain. Patient reports he is previously tried gabapentin for low back pain but did not help but he now has a better understanding for his neuropathy neuropathic pain. We did increase his gabapentin from 100 at night to 100 twice a day. I had a quite thorough discussion with patient is cursing patient is admitted to [facility] has lived there for 20 years. He is very overweight primarily black neighborhood. Patient reports it is quite common to be cursing where he is from including some inappropriate words including once, V, NC,. I did indicate to him though it may be very natural for him to curse that is offensive to our staff that he should try to refrain from it. We also had quite a bit discussion he has been sober from his hairline for approximately 20 years and reports that he uses music to maintain his sobriety. He did denies any substitutions for his heroin. He reports he likes to listen to Ve[place]en Ronaldo voiding helps him to remain sober. He did have a discussion with podiatry yesterday. It was a debridement with successful clean base they are not reporting any further interventions for the patient and recommended for subacute rehab. Patient's blood culture on admission is now positive showing gram-negative nancy. I did order for an echocardiogram to rule out vegetation. I did order an MRI but given that his x-ray had showed gas and osteo-ice to his [facility] will show as well. I did place him for case management referral for subacute rehab. Hopefully this will be started tomorrow when staff returns on Saturday. Patient is amenable to rehab. He will need to follow-up with infectious disease in terms of if there is a p.o. option antibiotic to help with patient's osteomyelitis. Given his prior substance abuse history I would like to refrain from PICC line if possible. Unrelated in spite of patient's cursing is actually quite a jimmy emerita. He talks very pleasant things about his and his 5-month-old child. He is also has an active job as well. Patient noted to be inconsistent with his medications per H&P prior hemoglobin was 8.8-year-old started metformin at lower dose 500 mg p.o. twice daily as well as the glipizide 10 mg once a day. Complete note on physical exam he does have an area of lymphadenopathy over the right groin which is matted, tender about 3 finger breadth wide. Is likely secondary to infection however upon completion for therapy for osteomyelitis lymphadenopathy continues to be present he may need further workup. Please advise patient who sees Vin Alanis This is a primary medical doctor. Patient also noted for peripheral vascular disease per CT. He is pending ABIs. Patient is currently receiving aspirin at this time. 1) Sepsis Assessment/plan * Criteria: leukocytosis, fever, acute renal insuffiency; source: diabetic foot ulcer, osteomyelitis, bacteremia * Podiatry (Dr. Jones) on case-->help appreciated * infectious disease (Dr. Espinal) on case-->help appreciated * Blood culture (03/20/18): no growth after 24 hours X1 * Blood culture (03/20/18): gram positive * Wound Culture (03/20/18); Group G Streptococcus * Repeat Blood Culture (03/24/18) * NS 100cc/hr * Vancomycin 1gm IV Q12H (active since 03/21/18) * Vancomycin trough: 7.2 * Zosyn 3.375g IVPB Q8H (active since 03/21/18) * Foot Xray (03/21/18): marked soft tissue swelling, subcutaneous gas, and extensive erosive changes as described above involving the 1st digit and metatarsal. Fracture at the site of distal 1st metatarsal erosion not excluded. Appearance consistent with ostemyelitis. correlate clinically * Foot Xray (03/22/18): Status post transmetatarsal amputation first and second metatarsal bones with postoperative soft tissue changes noted. * Pending MRI status post debridement * Chest xray: no active disease * ESR: 119 2. Osteomyelitis * Criteria: leukocytosis, fever, acute renal insuffiency; source: diabetic foot ulcer * Podiatry (Dr. Jones) on case-->help appreciated * infectious disease (Dr. Espinal) on case-->help appreciated * Blood culture (03/20/18): no growth after 24 hours X2 * Blood culture (03/20/18): gram positive * Repeat Blood Culture (03/24/18) * Wound Culture (03/20/18); Group G Streptococcus * NS 100cc/hr * Vancomycin 1gm IV Q12H (active since 03/21/18) * Zosyn 3.375g IVPB Q8H (active since 03/21/18) * Foot Xray (03/21/18): marked soft tissue swelling, subcutaneous gas, and extensive erosive changes as described above involving the 1st digit and metatarsal. Fracture at the site of distal 1st metatarsal erosion not excluded. Appearance consistent with ostemyelitis. correlate clinically * Foot Xray (03/22/18): Status post transmetatarsal amputation first and second metatarsal bones with postoperative soft tissue changes noted. 3. Bacteremia * infectious disease (Dr. Espinal) on case-->help appreciated * Blood culture (03/20/18): no growth after 24 hours X1 * Wound Culture (03/20/18); Group G Streptococcus * Vancomycin 1gm IV Q12H (active since 03/21/18) * Zosyn 3.375g IVPB Q8H (active since 03/21/18) 4. DM2 * Hypoglycemic protocol * Regular SC ACHS * A1C 8.8 * Accuchecks qACHS * Sugars out of control secondary to obscene noncompliance of eating (drinking a 1 Liter of diet pepsi noted) * Metformin 500mg PO BID * Glimperide 4mg PO daily 5. HTN * Enalapril 5mg po daily 6 Tobacco use disorder * Nicotine Patch 1 TD daily 7. Hx of polysubstance abuse * Educate patient on cessation * Patient reports he has been sober off heroin for 20 years. Uses music therapy as outlined. Patient's pain is currently controlled without consult pain management yesterday. 7. Schizophrenia/BPD * no active issue currently * pending psych eval 8. Family history of cardiac disorder * Cardiology (Dr. Altamirano) on case * Patient has personal risk of diabetes, smoking, family hx of brother for CABG, father for 2 aneurysms and heart disease; and has never had cardiac workup. * Echocardiogram (03/21/18): normal left ventricular wall thickness. left ventricular function is normal. Left ventricular ejection fraction is within the normal range. normal LV segmental within the normal range. Normal :V segmental wall motion. mild aortic regurgitation. 9. Enlarged inguinal lymph notes * CT Abdominal Angiography (03/21/18): foci of mild stenosis noted at the origin of the right superifical femoral artery distal left superifical artery and proximal left popliteal artery. foci of stenosis noted at the mid and distal right anterior artery. occlusion of the right dorsalis pedis. Small size left anterior tibial artery left peroneal artery amd l;eft dorsalis pedis artery. Mild to moderate lymphadenopathy at internal iliac chain and bilateral inguinal region right more than left noted. 10. Peripheral Artery Disease * CT Abdominal Angiography (03/21/18): foci of mild stenosis noted at the origin of the right superifical femoral artery distal left superifical artery and proximal left popliteal artery. foci of stenosis noted at the mid and distal right anterior artery. occlusion of the right dorsalis pedis. Small size left anterior tibial artery left peroneal artery amd l;eft dorsalis pedis artery. Mild to moderate lymphadenopathy at internal iliac chain and bilateral inguinal region right more than left noted. * Cardiology has recommended for aspirin/plavix. patient has new onset anemia; will hold plavix. * Ordered for ABIs 11. Anemia * Acute; unclear if related to sepsis * Low iron, low tibc, saturation * Normal ferritin * hold plavix secondary to bleeding risk given downtrending H/H (did not receive) * check occult blood * consult hematology oncology 12. Acute Renal Insufficiency * noted on admission; improved after Iv hydration * Patient completed CT ileofemoral 03/21/18 * continue to monitor BUN/Cr * Patient to restart his metformin on 03/23/18--->note if patient needs additional scan w IV contrast please hold to prevent contrast induced nephropathy 13. Prophylactic Measure * Anticoagulation held prior OR * Heparin 5000 units subq12 * IV fluids * PT/OT eval * Wound care aware
[2018-03-23] MEDS: (Novolin R) Insulin Human Regular 100 units/ml vial SC SCH ×3 (07:58→22:09)
[2018-03-23 08:22] LABS: BASO # 0.1 K/uL (0.0-0.2); BASO % 0.7 % (0.0-2.0); EOS # 0.5 K/uL (0.0-0.7); EOS % 5.8 % (0.0-4.0); HEMOGLOBIN 8.4 g/dL (12.0-18.0); LYMPH # 2.5 K/uL (1.0-4.3); LYMPH % 28.4 % (20.0-40.0); MEAN CELL VOLUME 83.3 fL (80.0-94.0); MEAN CORPUSCULAR HEMOGLOBIN 27.9 pg (27.0-31.0); MEAN CORPUSCULAR HGB CONC 33.5 g/dL (33.0-37.0); MEAN PLATELET VOLUME 7.6 fL (7.2-11.7); MONO # 0.5 K/uL (0.0-0.8); MONO % 6.1 % (0.0-10.0); NEUT # 5.3 K/uL (1.8-7.0); RED CELL DISTRIBUTION WIDTH 13.6 % (11.5-14.5)
[2018-03-23 08:33] LABS: ALB/GLOB RATIO 0.8 (1.0-2.1); ALBUMIN 2.8 g/dL (3.5-5.0); ALT/SGPT < 6 U/L (21-72); AST/SGOT 24 U/L (17-59); BLOOD UREA NITROGEN 14 mg/dL (9-20); CALCIUM 7.8 mg/dl (8.6-10.4); GFR NON-AFRICAN AMERICAN > 60
--- NOTE | 2018-03-23 09:51 | CP.PCM.PN ---
Subjective - Date & Time of Evaluation Date of Evaluation: 03/23/18 Time of Evaluation: 09:51 - Subjective Subjective: Podiatry Progress Note -Dr. Jones 42 y/o male seen at bedside this morning, 2 days s/p right foot 1st and 2nd partial ray resections. Patient says the pain is less in the foot today. Pt in better spirits on today's visit. Wonders when he will be discharged to rehab so he can get moving more. Dressings remain clean dry and intact. Denies F/C/N/V/CP/SOB Objective - Vital Signs/Intake and Output Vital Signs (last 24 hours): Temp Pulse Resp BP Pulse Ox 98 F 84 20 120/74 96 03/23/18 08:48 03/23/18 08:48 03/23/18 08:48 03/23/18 09:39 03/23/18 08:48 Intake and Output: 03/23/18 03/23/18 06:59 18:59 Output Total 900 Balance -900 - Medications Medications: Current Medications Acetaminophen (Tylenol 325mg Tab) 650 mg PO Q6 PRN PRN Reason: Pain, Mild (1-3) Last Admin: 03/21/18 11:29 Dose: 650 mg Aspirin (Aspirin Chewable) 81 mg PO DAILY [facility] Last Admin: 03/23/18 09:39 Dose: 81 mg Clopidogrel Bisulfate (Plavix) 75 mg PO DAILY [facility] Dextrose (Dextrose 50% Inj) 0 ml IV STAT PRN; Protocol PRN Reason: Hypoglycemia Protocol Dextrose (Glutose 15) 0 gm PO ONCE PRN; Protocol PRN Reason: Hypoglycemia Protocol Enalapril Maleate (Vasotec) 5 mg PO DAILY [facility] Last Admin: 03/23/18 09:39 Dose: 5 mg Gabapentin (Neurontin) 100 mg PO HS [facility] Last Admin: 03/22/18 21:35 Dose: 100 mg Glucagon (Glucagen Diagnostic Kit) 0 mg IM STAT PRN; Protocol PRN Reason: Hypoglycemia Protocol Piperacillin Sod/Tazobactam Sod (Zosyn 3.375 Gm Iv Premix) 3.375 gm in 50 mls @ 100 mls/hr IVPB Q8H [facility]; Protocol Last Admin: 03/23/18 09:38 Dose: 100 mls/hr Vancomycin/Sodium Chloride (Vancomycin 1 Gm/Ns 200 Ml) 1 gm in 200 mls @ 133 mls/hr IVPB Q12H [facility]; Protocol Stop: 03/26/18 06:31 Last Admin: 03/23/18 05:35 Dose: 133 mls/hr Sodium Chloride (Sodium Chloride 0.9%) 1,000 mls @ 100 mls/hr IV .Q10H [facility] Last Admin: 03/22/18 21:34 Dose: Not Given Dextrose (Dextrose 5% In Water 1000 Ml) 1,000 mls @ 0 mls/hr IV .Q0M PRN; Protocol PRN Reason: Hypoglycemia Protocol Insulin Human Regular (Novolin R) 0 unit SC ACHS [facility]; Protocol Last Admin: 03/23/18 07:58 Dose: 4 units Nicotine (Nicoderm Cq) 1 patch TD DAILY [facility] Last Admin: 03/23/18 09:40 Dose: 1 patch Ondansetron HCl (Zofran Inj) 4 mg IVP Q6 PRN PRN Reason: Nausea/Vomiting Sodium Hypochlorite (Dakins Solution 0.5%) 0 ml TOP DAILY [facility] Last Admin: 03/22/18 10:44 Dose: Not Given - Labs Labs: 03/23/18 08:02 03/23/18 08:02 PT 15.2 SECONDS (9.7-12.2) H 03/20/18 17:00 INR 1.4 03/20/18 17:00 APTT 30 SECONDS (21-34) 03/20/18 17:00 - Constitutional Appears: Well, Non-toxic, No Acute Distress - Extremities Exam Additional comments: RLE focused exam: Vasc: DP/PT pulses faintly palpable 1/4. Skin temperature gradient warm to warm. CFT < 3 seconds to all digits. Edema noted to forefoot surrounding surgical sites Neuro: Epicritic and protective sensation grossly diminished Derm: Surgical site noted to right medial forefoot with approx 10cm linear incision site noted and skin asael intact, skin edges well-coapted with no signs of dehiscence. Mild maceration is noted to lateral aspect of surgical incision site. No active drainage, no purulence, no malodor, no fluctuance. Mild shannen wound erythema present. Ortho: Right foot 1st and 2nd digit and partial metatarsal resections noted. Mild tenderness to palpation of surgical site. - Neurological Exam Neurological Exam: Alert, Awake, Oriented x3 - Psychiatric Exam Psychiatric exam: Normal Affect, Normal Mood Assessment and Plan - Assessment and Plan (Free Text) Assessment: 42 y/o male who is 2 days s/p right foot 1st and 2nd partial ray amputations secondary to diabetes mellitus with osteomyelitis Plan Patient seen and evaluated with Dr. Jones Surgical site cleaned with saline, packing pulled and surgical sites dressed with xeroform, ABD, DSD and JEANMARIE bandage Continue IV abx per ID Recommend D/C to [facility] for continued abx Patient to be NWB to right lower extremity at this time with use of assistive device Pain control per primary team Will continue to follow
[2018-03-23] MEDS: Dakin's Topical 0.5%-Full Strength (480 ml) TOP SCH (10:34)
--- NOTE | 2018-03-23 16:32 | CP.PCM.PN ---
Subjective - Date & Time of Evaluation Date of Evaluation: 03/23/18 Time of Evaluation: 07:00 - Subjective Subjective: awake alert NAD Objective - Vital Signs/Intake and Output Vital Signs (last 24 hours): Temp Pulse Resp BP Pulse Ox 98 F 84 20 120/74 96 03/23/18 08:48 03/23/18 08:48 03/23/18 08:48 03/23/18 09:39 03/23/18 08:48 Intake and Output: 03/23/18 03/23/18 06:59 18:59 Output Total 900 Balance -900 - Medications Medications: Current Medications Acetaminophen (Tylenol 325mg Tab) 650 mg PO Q6 PRN PRN Reason: Pain, Mild (1-3) Last Admin: 03/21/18 11:29 Dose: 650 mg Aspirin (Aspirin Chewable) 81 mg PO DAILY [facility] Last Admin: 03/23/18 09:39 Dose: 81 mg Clopidogrel Bisulfate (Plavix) 75 mg PO DAILY [facility] Dextrose (Dextrose 50% Inj) 0 ml IV STAT PRN; Protocol PRN Reason: Hypoglycemia Protocol Dextrose (Glutose 15) 0 gm PO ONCE PRN; Protocol PRN Reason: Hypoglycemia Protocol Enalapril Maleate (Vasotec) 5 mg PO DAILY [facility] Last Admin: 03/23/18 09:39 Dose: 5 mg Gabapentin (Neurontin) 100 mg PO BID [facility] Glimepiride (Amaryl) 2 mg PO ACB [facility] Last Admin: 03/23/18 10:42 Dose: 2 mg Glucagon (Glucagen Diagnostic Kit) 0 mg IM STAT PRN; Protocol PRN Reason: Hypoglycemia Protocol Heparin Sodium (Porcine) (Heparin) 5,000 units SC Q12 [facility] Piperacillin Sod/Tazobactam Sod (Zosyn 3.375 Gm Iv Premix) 3.375 gm in 50 mls @ 100 mls/hr IVPB Q8H [facility]; Protocol Last Admin: 03/23/18 09:38 Dose: 100 mls/hr Vancomycin/Sodium Chloride (Vancomycin 1 Gm/Ns 200 Ml) 1 gm in 200 mls @ 133 mls/hr IVPB Q12H [facility]; Protocol Stop: 03/26/18 06:31 Last Admin: 03/23/18 05:35 Dose: 133 mls/hr Dextrose (Dextrose 5% In Water 1000 Ml) 1,000 mls @ 0 mls/hr IV .Q0M PRN; Red col PRN Reason: Hypoglycemia Protocol Insulin Human Regular (Novolin R) 0 unit SC ACHS [facility]; Protocol Last Admin: 03/23/18 12:27 Dose: 4 units Metformin HCl (Glucophage) 500 mg PO BIDCC [facility] Last Admin: 03/23/18 10:41 Dose: 500 mg Nicotine (Nicoderm Cq) 1 patch TD DAILY [facility] Last Admin: 03/23/18 09:40 Dose: 1 patch Ondansetron HCl (Zofran Inj) 4 mg IVP Q6 PRN PRN Reason: Nausea/Vomiting Sodium Hypochlorite (Dakins Solution 0.5%) 0 ml TOP DAILY [facility] Last Admin: 03/23/18 10:34 Dose: Not Given - Labs Labs: 03/23/18 08:02 03/23/18 08:02 PT 15.2 SECONDS (9.7-12.2) H 03/20/18 17:00 INR 1.4 03/20/18 17:00 APTT 30 SECONDS (21-34) 03/20/18 17:00 - Constitutional Appears: Well - Head Exam Head Exam: ATRAUMATIC, NORMAL INSPECTION, NORMOCEPHALIC - Eye Exam Eye Exam: EOMI, Normal appearance, PERRL Pupil Exam: NORMAL ACCOMODATION, PERRL - ENT Exam ENT Exam: Mucous Membranes Moist, Normal Exam - Neck Exam Neck Exam: Full ROM, Normal Inspection. absent: Lymphadenopathy - Respiratory Exam Respiratory Exam: Clear to Ausculation Bilateral, NORMAL BREATHING PATTERN - Cardiovascular Exam Cardiovascular Exam: REGULAR RHYTHM, +S1, +S2. absent: Murmur - GI/Abdominal Exam GI & Abdominal Exam: Soft, Normal Bowel Sounds. absent: Tenderness - Rectal Exam Rectal Exam: NORMAL INSPECTION - Extremities Exam Extremities Exam: Full ROM, Normal Capillary Refill, Normal Inspection. absent: Joint Swelling, Pedal Edema - Back Exam Back Exam: NORMAL INSPECTION - Neurological Exam Neurological Exam: Alert, Awake, CN II-XII Intact, Normal Gait, Oriented x3 - Psychiatric Exam Psychiatric exam: Normal Affect, Normal Mood - Skin Skin Exam: Dry Additional comments: right foot dressing in place Assessment and Plan (1) Osteomyelitis Status: Acute (2) Peripheral vascular disease Status: Acute - Assessment and Plan (Free Text) Assessment: May need 6-8 weeks IV Rx await final cultures
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
[2018-03-24] MEDS: Piperacill/Tazo 3.375gm in Dex 3.375 GM/50 ML BAG IVPB SCH ×3 (00:52→17:12)
[2018-03-24] MEDS: Vancomycin 1 gm/NS 200 ml 1 GM/200 ML BAG IVPB SCH ×2 (05:32→17:58)
[2018-03-24 07:27] LABS: BASO # 0.1 K/uL (0.0-0.2); BASO % 0.8 % (0.0-2.0); EOS # 0.7 K/uL (0.0-0.7); EOS % 6.9 % (0.0-4.0); HEMOGLOBIN 9.3 g/dL (12.0-18.0); LYMPH # 2.7 K/uL (1.0-4.3); LYMPH % 26.5 % (20.0-40.0); MEAN CELL VOLUME 83.7 fL (80.0-94.0); MEAN CORPUSCULAR HGB CONC 33.4 g/dL (33.0-37.0); MEAN PLATELET VOLUME 7.3 fL (7.2-11.7); MONO # 0.6 K/uL (0.0-0.8); MONO % 5.5 % (0.0-10.0); NEUT % 60.3 % (50.0-75.0); RBC 3.31 Mil/uL (4.40-5.90); RED CELL DISTRIBUTION WIDTH 13.9 % (11.5-14.5)
[2018-03-24] MEDS: (Novolin R) Insulin Human Regular 100 units/ml vial SC SCH ×4 (08:02→21:59)
[2018-03-24 08:15] LABS: ALB/GLOB RATIO 0.8 (1.0-2.1); ALT/SGPT 14 U/L (21-72); AST/SGOT 36 U/L (17-59); BLOOD UREA NITROGEN 13 mg/dL (9-20); CALCIUM 8.8 mg/dl (8.6-10.4); GFR NON-AFRICAN AMERICAN > 60
--- NOTE | 2018-03-24 08:22 | CP.PCM.PN ---
Subjective - Date & Time of Evaluation Date of Evaluation: 03/24/18 Time of Evaluation: :19 - Subjective Subjective: Podiatry Progress Note -Dr. Jones 42 y/o male seen at bedside this morning, 3 days s/p right foot 1st and 2nd partial ray resections. Patient says the pain is less in the foot today. Pt in better spirits on today's visit. Dressings remain clean and intact with little drainage. Reports that he has been walking around a little. Denies F/C/N/V/CP/SOB. No other pedal complains at this time. Objective - Vital Signs/Intake and Output Vital Signs (last 24 hours): Temp Pulse Resp BP Pulse Ox 97.9 F 81 20 102/67 98 03/24/18 07:00 03/24/18 07:00 03/24/18 07:00 03/24/18 07:00 03/24/18 07:00 - Medications Medications: Current Medications Acetaminophen (Tylenol 325mg Tab) 650 mg PO Q6 PRN PRN Reason: Pain, Mild (1-3) Last Admin: 03/21/18 11:29 Dose: 650 mg Aspirin (Aspirin Chewable) 81 mg PO DAILY [facility] Last Admin: 03/23/18 09:39 Dose: 81 mg Clopidogrel Bisulfate (Plavix) 75 mg PO DAILY [facility] Dextrose (Dextrose 50% Inj) 0 ml IV STAT PRN; Protocol PRN Reason: Hypoglycemia Protocol Dextrose (Glutose 15) 0 gm PO ONCE PRN; Protocol PRN Reason: Hypoglycemia Protocol Enalapril Maleate (Vasotec) 5 mg PO DAILY [facility] Last Admin: 03/23/18 09:39 Dose: 5 mg Gabapentin (Neurontin) 100 mg PO BID [facility] Last Admin: 03/23/18 19:20 Dose: 100 mg Glimepiride (Amaryl) 2 mg PO ACB [facility] Last Admin: 03/23/18 10:42 Dose: 2 mg Glucagon (Glucagen Diagnostic Kit) 0 mg IM STAT PRN; Protocol PRN Reason: Hypoglycemia Protocol Heparin Sodium (Porcine) (Heparin) 5,000 units SC Q12 [facility] Last Admin: 03/23/18 22:59 Dose: 5,000 units Piperacillin Sod/Tazobactam Sod (Zosyn 3.375 Gm Iv Premix) 3.375 gm in 50 mls @ 100 mls/hr IVPB Q8H [facility]; Protocol Last Admin: 03/24/18 00:52 Dose: 100 mls/hr Vancomycin/Sodium Chloride (Vancomycin 1 Gm/Ns 200 Ml) 1 gm in 200 mls @ 133 mls/hr IVPB Q12H [facility]; Protocol Stop: 03/26/18 06:31 Last Admin: 03/24/18 05:32 Dose: 133 mls/hr Dextrose (Dextrose 5% In Water 1000 Ml) 1,000 mls @ 0 mls/hr IV .Q0M PRN; Protocol PRN Reason: Hypoglycemia Protocol Insulin Human Regular (Novolin R) 0 unit SC ACHS [facility]; Protocol Last Admin: 03/24/18 08:02 Dose: Not Given [place] Carbonate ([place] Carbonate 300mg) 300 mg PO BID [facility] Last Admin: 03/23/18 22:59 Dose: 300 mg Metformin HCl (Glucophage) 500 mg PO BIDCC [facility] Last Admin: 03/23/18 19:21 Dose: Not Given Nicotine (Nicoderm Cq) 1 patch TD DAILY [facility] Last Admin: 03/23/18 09:40 Dose: 1 patch Ondansetron HCl (Zofran Inj) 4 mg IVP Q6 PRN PRN Reason: Nausea/Vomiting Risperidone (Risperdal Tab) 2 mg PO HS [facility] Last Admin: 03/23/18 22:59 Dose: 2 mg Sodium Hypochlorite (Dakins Solution 0.5%) 0 ml TOP DAILY [facility] Last Admin: 03/23/18 10:34 Dose: Not Given - Labs Labs: 03/24/18 07:18 03/24/18 07:18 PT 15.2 SECONDS (9.7-12.2) H 03/20/18 17:00 INR 1.4 03/20/18 17:00 APTT 30 SECONDS (21-34) 03/20/18 17:00 - Constitutional Appears: Well, Non-toxic, No Acute Distress - Extremities Exam Additional comments: RLE focused exam: Vasc: DP/PT pulses faintly palpable 1/4. Skin temperature gradient warm to warm. CFT < 3 seconds to all digits. Edema noted to forefoot surrounding surgical sites Neuro: Epicritic and protective sensation grossly diminished Derm: Surgical site noted to right medial forefoot with approx 10cm linear incision site noted and skin asael intact, skin edges well-coapted with no signs of dehiscence. Mild maceration is noted to lateral aspect of surgical incision site. No active drainage, no purulence, no malodor, no fluctuance. Mild shannen wound erythema present. Ortho: Right foot 1st and 2nd digit and partial metatarsal resections noted. Mild tenderness to palpation of surgical site. - Neurological Exam Neurological Exam: Alert, Awake, Oriented x3 - Psychiatric Exam Psychiatric exam: Normal Affect, Normal Mood Assessment and Plan - Assessment and Plan (Free Text) Assessment: 42 y/o male 3 days s/p right foot 1st and 2nd partial ray amputations secondary to diabetes mellitus with osteomyelitis Plan: Patient seen and evaluated with Dr. Jones Surgical site cleaned with saline, and surgical sites dressed with xeroform, ABD, DSD and JEANMARIE bandage Continue IV abx per ID Recommend D/C to [facility] for continued abx Patient to be NWB to right lower extremity at this time with use of assistive device Pain control per primary team Stable from podiatry standpoint Will continue to follow while in-house
--- NOTE | 2018-03-24 09:23 | CARD ---
APPROVED REPORT Date of service: 03/20/2018 EKG Measurement Heart [id number] <Conclusion> Poor data quality, interpretation may be adversely affected Sinus tachycardia with premature atrial complexes with aberrant conduction Anterior infarct, age undetermined Abnormal ECG
--- NOTE | 2018-03-24 10:39 | CP.PCM.PN ---
<Neel Avila - Last Filed: 03/24/18 16:48> Subjective - Date & Time of Evaluation Date of Evaluation: 03/24/18 Time of Evaluation: 10:37 - Subjective Subjective: PGY1 Medicine Progress Note for Dr. Matos's service Patient is seen and examined at bedside. No acute distress overnight. Denies fever, chills, chest pain, SOB, difficulty breathing, nausea, vomiting, dysuria, frequency of urination. Had bowel movement yesterday. Objective - Vital Signs/Intake and Output Vital Signs (last 24 hours): Temp Pulse Resp BP Pulse Ox 97.9 F 81 20 102/67 98 03/24/18 07:00 03/24/18 07:00 03/24/18 07:00 03/24/18 07:00 03/24/18 07:00 - Medications Medications: Current Medications Acetaminophen (Tylenol 325mg Tab) 650 mg PO Q6 PRN PRN Reason: Pain, Mild (1-3) Last Admin: 03/21/18 11:29 Dose: 650 mg Aspirin (Aspirin Chewable) 81 mg PO DAILY [facility] Last Admin: 03/23/18 09:39 Dose: 81 mg Clopidogrel Bisulfate (Plavix) 75 mg PO DAILY [facility] Dextrose (Dextrose 50% Inj) 0 ml IV STAT PRN; Protocol PRN Reason: Hypoglycemia Protocol Dextrose (Glutose 15) 0 gm PO ONCE PRN; Protocol PRN Reason: Hypoglycemia Protocol Enalapril Maleate (Vasotec) 5 mg PO DAILY [facility] Last Admin: 03/23/18 09:39 Dose: 5 mg Gabapentin (Neurontin) 100 mg PO BID [facility] Last Admin: 03/23/18 19:20 Dose: 100 mg Glimepiride (Amaryl) 2 mg PO ACB [facility] Last Admin: 03/23/18 10:42 Dose: 2 mg Glucagon (Glucagen Diagnostic Kit) 0 mg IM STAT PRN; Protocol PRN Reason: Hypoglycemia Protocol Heparin Sodium (Porcine) (Heparin) 5,000 units SC Q12 [facility] Last Admin: 03/23/18 22:59 Dose: 5,000 units Piperacillin Sod/Tazobactam Sod (Zosyn 3.375 Gm Iv Premix) 3.375 gm in 50 mls @ 100 mls/hr IVPB Q8H [facility]; Protocol Last Admin: 03/24/18 00:52 Dose: 100 mls/hr Vancomycin/Sodium Chloride (Vancomycin 1 Gm/Ns 200 Ml) 1 gm in 200 mls @ 133 mls/hr IVPB Q12H [facility]; Protocol Stop: 03/26/18 06:31 Last Admin: 03/24/18 05:32 Dose: 133 mls/hr Dextrose (Dextrose 5% In Water 1000 Ml) 1,000 mls @ 0 mls/hr IV .Q0M PRN; Protocol PRN Reason: Hypoglycemia Protocol Insulin Human Regular (Novolin R) 0 unit SC ACHS [facility]; Protocol Last Admin: 03/24/18 08:02 Dose: Not Given [place] Carbonate ([place] Carbonate 300mg) 300 mg PO BID [facility] Last Admin: 03/23/18 22:59 Dose: 300 mg Metformin HCl (Glucophage) 500 mg PO BIDCC [facility] Last Admin: 03/23/18 19:21 Dose: Not Given Nicotine (Nicoderm Cq) 1 patch TD DAILY [facility] Last Admin: 03/23/18 09:40 Dose: 1 patch Ondansetron HCl (Zofran Inj) 4 mg IVP Q6 PRN PRN Reason: Nausea/Vomiting Risperidone (Risperdal Tab) 2 mg PO HS [facility] Last Admin: 03/23/18 22:59 Dose: 2 mg Sodium Hypochlorite (Dakins Solution 0.5%) 0 ml TOP DAILY [facility] Last Admin: 03/23/18 10:34 Dose: Not Given - Labs Labs: 03/24/18 07:18 03/24/18 07:18 PT 15.2 SECONDS (9.7-12.2) H 03/20/18 17:00 INR 1.4 03/20/18 17:00 APTT 30 SECONDS (21-34) 03/20/18 17:00 - Constitutional Appears: Non-toxic, No Acute Distress - Head Exam Head Exam: NORMAL INSPECTION, NORMOCEPHALIC - Eye Exam Eye Exam: EOMI, Normal appearance. absent: Nystagmus, Scleral icterus - ENT Exam ENT Exam: Mucous Membranes Moist - Respiratory Exam Respiratory Exam: Clear to Ausculation Bilateral, NORMAL BREATHING PATTERN. absent: Rales, Rhonchi, Wheezes - Cardiovascular Exam Cardiovascular Exam: REGULAR RHYTHM, +S1, +S2. absent: Tachycardia - GI/Abdominal Exam GI & Abdominal Exam: Soft, Normal Bowel Sounds. absent: Distended, Firm, Guarding, Rigid, Tenderness - Extremities Exam Additional comments: left pinky digit amputated and base with debridement Right 1st and 2nd metarsal partial ray amputation with dressing intact. - Neurological Exam Neurological Exam: Alert, Awake, Oriented x3 - Psychiatric Exam Psychiatric exam: Normal Affect, Normal Mood - Skin Skin Exam: Dry, Intact, Normal Color Assessment and Plan - Assessment and Plan (Free Text) Assessment: Patient is a 42 y.o male with PMHx of polysubstance absuse, DM with recurrent foot ulcers, psych disorders and asthma presents to the ED with progressively worsening right foot ulcer. Angiography of the LE was done which showed occlusion of the right dorsalis pedis. POD3 s/p right 1st and 2nd metatarsal p artial ray amputation. Pending CT of LE and intraop cx for abx management. Possible intervention for occlusion of the LE artery. Right foot osteomyelitis Pod consulted: 03/23/18: s/p 1st and 2nd metatarsal partial ray amputation Odansetron 4mg IVP Q6 Zosyn 3.375 mg in 50 mls Vancomycin 1 gm in 200mls Awaiting on blood cx; pending CT of LE No PICC line due to past history of IVDU Peripheral artery disease 03/21/18 Angiography of the LE was done which showed occlusion of the right dorsalis pedis Plavix held in setting of procedure as as per cardio; restart as per cardio peripheral angiogram intervention with stress test in AM with cardio; NPO for tongiht Aspirin 81mg daily DM2 Gabapentin 100 mg PO BID GLimepiride 2mg PO [facility] Metformin 500mg PO BID ASA daily ISS ACHS Hypoglycemic protocol HTN Enalapril 5mg PO HS Anemia of chronic disease likely initial worsened 2/2 to podiatry intervention uptrending with hemodynamic stability no symptomatic complaints anemia of chronic disease 2/2 to DM uncontrolled Schizophrenia/ Bipolar disorder Psych consulted: Dr. Pancho lowery as below [place] 300 mg PO BID [facility] Risperidone 2mg PO HS Hx of smoking Nicotine patch Hx of asthma NO active issues currently Family Hx of cardiac disorder Cardiology following: Dr. Natali lowery appreciated DVT PPx:Heparin 5000 units SC Q12 GI PPX: florastor 250mg po bid Neel Avila PGY-1 Medical Management d/w Dr. Matos <[place]ico Matos - Last Filed: 03/27/18 20:22> Objective - Vital Signs/Intake and Output Vital Signs (last 24 hours): Temp Pulse Resp BP Pulse Ox 97.7 F 85 20 120/77 100 03/27/18 15:00 03/27/18 15:00 03/27/18 15:00 03/27/18 15:00 03/27/18 15:00 Intake and Output: 03/27/18 03/28/18 18:59 06:59 Intake Total 200 Balance 200 - Labs Labs: 03/27/18 07:03 03/27/18 07:03 PT 15.2 SECONDS (9.7-12.2) H 03/20/18 17:00 INR 1.4 03/20/18 17:00 APTT 30 SECONDS (21-34) 03/20/18 17:00 Attending/Attestation - Attestation I have personally seen and examined this patient.: Yes I have fully participated in the care of the patient.: Yes I have reviewed all pertinent clinical information, including history, physical exam and plan: Yes Notes (Text): 03/27/18 20:21 This is a late entry. Care of this patient was gone over in detail with resident Dr. Avila. [place] Matos D.O.
[2018-03-24] MEDS: Dakin's Topical 0.5%-Full Strength (480 ml) TOP SCH (10:41)
--- NOTE | 2018-03-24 11:59 | CP.PCM.PN ---
Subjective - Date & Time of Evaluation Date of Evaluation: 03/24/18 Time of Evaluation: 08:00 - Subjective Subjective: goimng for MRI may need long winder tender rx Objective - Vital Signs/Intake and Output Vital Signs (last 24 hours): Temp Pulse Resp BP Pulse Ox 97.9 F 86 20 112/68 98 03/24/18 07:00 03/24/18 10:37 03/24/18 07:00 03/24/18 10:39 03/24/18 07:00 - Medications Medications: Current Medications Acetaminophen (Tylenol 325mg Tab) 650 mg PO Q6 PRN PRN Reason: Pain, Mild (1-3) Last Admin: 03/21/18 11:29 Dose: 650 mg Aspirin (Aspirin Chewable) 81 mg PO DAILY [facility] Last Admin: 03/24/18 10:40 Dose: 81 mg Clopidogrel Bisulfate (Plavix) 75 mg PO DAILY [facility] Dextrose (Dextrose 50% Inj) 0 ml IV STAT PRN; Protocol PRN Reason: Hypoglycemia Protocol Dextrose (Glutose 15) 0 gm PO ONCE PRN; Protocol PRN Reason: Hypoglycemia Protocol Enalapril Maleate (Vasotec) 5 mg PO DAILY [facility] Last Admin: 03/24/18 10:39 Dose: 5 mg Gabapentin (Neurontin) 100 mg PO BID [facility] Last Admin: 03/24/18 10:40 Dose: 100 mg Glimepiride (Amaryl) 2 mg PO ACB [facility] Last Admin: 03/24/18 08:30 Dose: 2 mg Glucagon (Glucagen Diagnostic Kit) 0 mg IM STAT PRN; Protocol PRN Reason: Hypoglycemia Protocol Heparin Sodium (Porcine) (Heparin) 5,000 units SC Q12 [facility] Last Admin: 03/23/18 22:59 Dose: 5,000 units Piperacillin Sod/Tazobactam Sod (Zosyn 3.375 Gm Iv Premix) 3.375 gm in 50 mls @ 100 mls/hr IVPB Q8H [facility]; Protocol Last Admin: 03/24/18 10:30 Dose: 100 mls/hr Vancomycin/Sodium Chloride (Vancomycin 1 Gm/Ns 200 Ml) 1 gm in 200 mls @ 133 mls/hr IVPB Q12H [facility]; Protocol Stop: 03/26/18 06:31 Last Admin: 03/24/18 05:32 Dose: 133 mls/hr Dextrose (Dextrose 5% In Water 1000 Ml) 1,000 mls @ 0 mls/hr IV .Q0M PRN; Protocol PRN Reason: Hypoglycemia Protocol Insulin Human Regular (Novolin R) 0 unit SC ACHS [facility]; Protocol Last Admin: 03/24/18 08:02 Dose: Not Given [place] Carbonate ([place] Carbonate 300mg) 300 mg PO BID [facility] Last Admin: 03/24/18 10:39 Dose: 300 mg Metformin HCl (Glucophage) 500 mg PO BIDCC [facility] Last Admin: 03/24/18 09:00 Dose: 500 mg Nicotine (Nicoderm Cq) 1 patch TD DAILY [facility] Last Admin: 03/24/18 10:39 Dose: 1 patch Ondansetron HCl (Zofran Inj) 4 mg IVP Q6 PRN PRN Reason: Nausea/Vomiting Risperidone (Risperdal Tab) 2 mg PO HS [facility] Last Admin: 03/23/18 22:59 Dose: 2 mg Saccharomyces Boulardii (Florastor) 250 mg PO BID [facility] Sodium Hypochlorite (Dakins Solution 0.5%) 0 ml TOP DAILY [facility] Last Admin: 03/24/18 10:41 Dose: Not Given - Labs Labs: 03/24/18 07:18 03/24/18 07:18 PT 15.2 SECONDS (9.7-12.2) H 03/20/18 17:00 INR 1.4 03/20/18 17:00 APTT 30 SECONDS (21-34) 03/20/18 17:00 - Constitutional Appears: Well - Head Exam Head Exam: ATRAUMATIC, NORMAL INSPECTION, NORMOCEPHALIC - Eye Exam Eye Exam: EOMI, Normal appearance, PERRL Pupil Exam: NORMAL ACCOMODATION, PERRL - ENT Exam ENT Exam: Mucous Membranes Moist, Normal Exam - Neck Exam Neck Exam: Full ROM, Normal Inspection. absent: Lymphadenopathy - Respiratory Exam Respiratory Exam: Clear to Ausculation Bilateral, NORMAL BREATHING PATTERN - Cardiovascular Exam Cardiovascular Exam: REGULAR RHYTHM, +S1, +S2. absent: Murmur - GI/Abdominal Exam GI & Abdominal Exam: Soft, Normal Bowel Sounds. absent: Tenderness - Rectal Exam Rectal Exam: NORMAL INSPECTION - Extremities Exam Extremities Exam: Full ROM, Normal Capillary Refill, Normal Inspection. absent: Joint Swelling, Pedal Edema - Back Exam Back Exam: NORMAL INSPECTION - Neurological Exam Neurological Exam: Alert, Awake, CN II-XII Intact, Normal Gait, Oriented x3 - Psychiatric Exam Psychiatric exam: Normal Affect, Normal Mood - Skin Skin Exam: Dry, Intact, Warm. absent: Normal Color - Additional Findings Additional findings: wounds as described left foot - dry Assessment and Plan (1) Osteomyelitis Status: Acute (2) Peripheral vascular disease Status: Acute - Assessment and Plan (Free Text) Assessment: cont iv rx for 6-8 weeks
[2018-03-24] MEDS: Saccharomyces Boulardi 250 mg Cap PO SCH ×2 (12:15→17:12)
--- NOTE | 2018-03-24 15:16 | MRI ---
MRI right forefoot HISTORY: Debridement. Evaluate for osteomyelitis. Comparison: None available. TECHNIQUE: Multi-echo multiplanar sequences were performed through the right forefoot without the use of intravenous contrast. Findings: Markedly limited study given extensive motion artifact. Resection of the 1st and 2nd metatarsals to the midshaft of the metatarsal bones. At the surgical resection site, there is loculated fluid best demonstrated on series 5 image 16 measuring 2.8 x 1.6 centimeters suggestive for a postsurgical collection which may represent an abscess collection versus phlegmon collection versus postsurgical seroma versus loculated fluid versus additional etiology. Clinical correlation. Blooming artifact from adjacent surgical clips are noted. Extensive signal abnormality seen within the remnant 1st metatarsal bone demonstrating decreased T1 signal and increased STIR signal consistent with an acute osteomyelitis. Additional adjacent prominent signal abnormality seen within the 2nd metatarsal shaft and bone demonstrating decreased T1 signal and increased STIR signal also consistent with an acute osteomyelitis. Adjacent milder signal abnormality seen within the 3rd metatarsal head demonstrating patchy decreased T1 signal and increased STIR signal concerning for a developing acute osteomyelitis. Clinical correlation. 1.5 centimeter loculated fluid signal collection seen at the level of the 5th metatarsal bone, nonspecific. No gross adjacent signal abnormality within the 5th metatarsal head. Clinical correlation. Additional milder patchy increased STIR signal seen within the 3rd proximal phalanx, nonspecific. Signal abnormality seen within the 4th proximal middle and distal phalanges, nonspecific. Mild reactive edema with increased STIR signal and or osteochondral change seen within the proximal pole of the cuboid bone. Resection of the 1st and 2nd flexor tendons. Impression: Markedly limited study given extensive motion artifact. Resection of the 1st and 2nd metatarsals to the midshaft of the metatarsal bones. At the surgical resection site, there is loculated fluid best demonstrated on series 5 image 16 measuring 2.8 x 1.6 centimeters suggestive for a postsurgical collection which may represent an abscess collection versus phlegmon collection versus postsurgical seroma versus loculated fluid versus additional etiology. Clinical correlation. Blooming artifact from adjacent surgical clips are noted. Extensive signal abnormality seen within the remnant 1st metatarsal bone demonstrating decreased T1 signal and increased STIR signal consistent with an acute osteomyelitis. Additional adjacent prominent signal abnormality seen within the 2nd metatarsal shaft and bone demonstrating decreased T1 signal and increased STIR signal also consistent with an acute osteomyelitis. Adjacent milder signal abnormality seen within the 3rd metatarsal head demonstrating patchy decreased T1 signal and increased STIR signal concerning for a developing acute osteomyelitis. Clinical correlation. 1.5 centimeter loculated fluid signal collection seen at the level of the 5th metatarsal bone, nonspecific. No gross adjacent signal abnormality within the 5th metatarsal head. Clinical correlation. Additional milder patchy increased STIR signal seen within the 3rd proximal phalanx, nonspecific. Signal abnormality seen within the 4th proximal middle and distal phalanges, nonspecific. Mild reactive edema with increased STIR signal and or osteochondral change seen within the proximal pole of the cuboid bone. Resection of the 1st and 2nd flexor tendons.
--- NOTE | 2018-03-24 22:46 | CP.PCM.PN ---
Subjective - Date & Time of Evaluation Date of Evaluation: 03/24/18 Time of Evaluation: 08:00 - Subjective Subjective: s/p amputation CTA shows high grade infragenicular stenosis multiple cardiac risk factors Objective - Vital Signs/Intake and Output Vital Signs (last 24 hours): Temp Pulse Resp BP Pulse Ox 98.1 F 80 20 108/67 99 03/24/18 15:00 03/24/18 15:00 03/24/18 15:00 03/24/18 15:00 03/24/18 15:00 - Medications Medications: Current Medications Acetaminophen (Tylenol 325mg Tab) 650 mg PO Q6 PRN PRN Reason: Pain, Mild (1-3) Last Admin: 03/21/18 11:29 Dose: 650 mg Aspirin (Aspirin Chewable) 81 mg PO DAILY [facility] Last Admin: 03/24/18 10:40 Dose: 81 mg Clopidogrel Bisulfate (Plavix) 75 mg PO DAILY [facility] Dextrose (Dextrose 50% Inj) 0 ml IV STAT PRN; Protocol PRN Reason: Hypoglycemia Protocol Dextrose (Glutose 15) 0 gm PO ONCE PRN; Protocol PRN Reason: Hypoglycemia Protocol Enalapril Maleate (Vasotec) 5 mg PO DAILY [facility] Last Admin: 03/24/18 10:39 Dose: 5 mg Gabapentin (Neurontin) 100 mg PO BID [facility] Last Admin: 03/24/18 17:11 Dose: 100 mg Glimepiride (Amaryl) 2 mg PO ACB [facility] Last Admin: 03/24/18 08:30 Dose: 2 mg Glucagon (Glucagen Diagnostic Kit) 0 mg IM STAT PRN; Protocol PRN Reason: Hypoglycemia Protocol Heparin Sodium (Porcine) (Heparin) 5,000 units SC Q12 [facility] Last Admin: 03/24/18 21:01 Dose: 5,000 units Piperacillin Sod/Tazobactam Sod (Zosyn 3.375 Gm Iv Premix) 3.375 gm in 50 mls @ 100 mls/hr IVPB Q8H [facility]; Protocol Last Admin: 03/24/18 17:12 Dose: 100 mls/hr Vancomycin/Sodium Chloride (Vancomycin 1 Gm/Ns 200 Ml) 1 gm in 200 mls @ 133 mls/hr IVPB Q12H [facility]; Protocol Stop: 03/26/18 06:31 Last Admin: 03/24/18 17:58 Dose: 133 mls/hr Dextrose (Dextrose 5% In Water 1000 Ml) 1,000 mls @ 0 mls/hr IV .Q0M PRN; Protocol PRN Reason: Hypoglycemia Protocol Insulin Human Regular (Novolin R) 0 unit SC ACHS [facility]; Protocol Last Admin: 03/24/18 21:59 Dose: Not Given Elmer Carbonate (Elmer Carbonate 300mg) 300 mg PO BID [facility] Last Admin: 03/24/18 17:58 Dose: 300 mg Metformin HCl (Glucophage) 500 mg PO BIDCC [facility] Last Admin: 03/24/18 17:04 Dose: 500 mg Nicotine (Nicoderm Cq) 1 patch TD DAILY [facility] Last Admin: 03/24/18 10:39 Dose: 1 patch Ondansetron HCl (Zofran Inj) 4 mg IVP Q6 PRN PRN Reason: Nausea/Vomiting Risperidone (Risperdal Tab) 2 mg PO HS [facility] Last Admin: 03/24/18 21:02 Dose: 2 mg Saccharomyces Boulardii (Florastor) 250 mg PO BID [facility] Last Admin: 03/24/18 17:12 Dose: 250 mg Sodium Hypochlorite (Dakins Solution 0.5%) 0 ml TOP DAILY [facility] Last Admin: 03/24/18 10:41 Dose: Not Given - Labs Labs: 03/24/18 07:18 03/24/18 07:18 PT 15.2 SECONDS (9.7-12.2) H 03/20/18 17:00 INR 1.4 03/20/18 17:00 APTT 30 SECONDS (21-34) 03/20/18 17:00 - Constitutional Appears: Well - Head Exam Head Exam: ATRAUMATIC, NORMAL INSPECTION, NORMOCEPHALIC - Eye Exam Eye Exam: EOMI, Normal appearance, PERRL Pupil Exam: NORMAL ACCOMODATION, PERRL - ENT Exam ENT Exam: Mucous Membranes Moist, Normal Exam - Neck Exam Neck Exam: Full ROM, Normal Inspection. absent: Lymphadenopathy - Respiratory Exam Respiratory Exam: Clear to Ausculation Bilateral, NORMAL BREATHING PATTERN - Cardiovascular Exam Cardiovascular Exam: REGULAR RHYTHM, +S1, +S2, Murmur - GI/Abdominal Exam GI & Abdominal Exam: Soft, Normal Bowel Sounds. absent: Tenderness - Extremities Exam Extremities Exam: Full ROM, Normal Inspection, Pedal Edema. absent: Joint Swelling - Back Exam Back Exam: NORMAL INSPECTION - Neurological Exam Neurological Exam: Alert, Awake, CN II-XII Intact, Normal Gait, Oriented x3 - Psychiatric Exam Psychiatric exam: Normal Affect, Normal Mood - Skin Skin Exam: Dry, Intact, Normal Color, Warm Assessment and Plan (1) Peripheral vascular disease Assessment & Plan: npo p mn plan for peripheral angio tomorrow at 2 pm cont dapt cont blayne add bb and statins check flp Status: Acute (2) THOMAS (dyspnea on exertion) Assessment & Plan: +ve family hx of premature cad plan for stress testing npo p bf Status: Acute (3) Family history of early CAD Status: Acute (4) Hypertension Assessment & Plan: cont acei add bb Status: Acute (5) Osteomyelitis Status: Acute (6) Cellulitis Status: Acute
--- NOTE | 2018-03-24 23:16 | CP.PCM.CON ---
History of Present Illness - History of Present Illness History of Present Illness: 42 year old male with a history of polysubstance abuse, DM complicated by diabetic foot ulcers s/p amputation, admitted with worsening diabetic foot ulcers, osteomyelitis s/p toe amputation, with anemia. The patient notes to being on antibiotics for his foot ulcers. He feels the antibiotics have been making him nauseous. He denies abnormal bleeding and bruising. Past medical history: DM, HTN, neuropathy, bipolar Past surgical history: toe amputations, mastoid surgery Family history: Denies hematologic and oncologic problems Social history: 1/2ppd x 30 years Allergies: NSAIDs Review of systems: All remaining review of systems including HEENT, cardiovascular, respiratory, gastrointestinal, genitourinary, musculoskeletal, dermatologic, neurologic, and psychiatric are negative unless mentioned in the HPI. Past Patient History - Infectious Disease Hx of Infectious Diseases: None - Past Medical History & Family History Past Medical History?: Yes - Past Social History Smoking Status: Light Smoker < 10 Cigarettes Daily - CARDIAC Hx Hypertension: Yes - PULMONARY Hx Asthma: Yes - NEUROLOGICAL Hx Neurological Disorder: No - HEENT Hx HEENT Problems: No - RENAL Hx Chronic Kidney Disease: No - ENDOCRINE/METABOLIC Hx Diabetes Mellitus Type 2: Yes - HEMATOLOGICAL/ONCOLOGICAL Hx Blood Disorders: No - INTEGUMENTARY Hx Dermatological Problems: No - MUSCULOSKELETAL/RHEUMATOLOGICAL Hx Arthritis: Yes (backs and LE) - GASTROINTESTINAL Hx Gastrointestinal Disorders: No - GENITOURINARY/GYNECOLOGICAL Hx Genitourinary Disorders: No - PSYCHIATRIC Hx Anxiety: Yes Hx Bipolar Disorder: Yes Hx Depression: Yes Hx Schizophrenia: Yes (schizoaffective disorder) Hx Substance Use: No - SURGICAL HISTORY Hx Surgeries: Yes Other/Comment: right ear surgery. left FOOT TOE / 5TH DIGITsurgery - ANESTHESIA Hx Anesthesia: Yes Hx Anesthesia Reactions: No Hx Malignant Hyperthermia: No Meds Allergies/Adverse Reactions: Allergies Allergy/AdvReac Type Severity Reaction Status Date / Time NSAIDS (Non-Steroidal Allergy RASH Verified 03/20/18 16:14 Anti-Inflamma - Medications Medications: Current Medications Acetaminophen (Tylenol 325mg Tab) 650 mg PO Q6 PRN PRN Reason: Pain, Mild (1-3) Last Admin: 03/21/18 11:29 Dose: 650 mg Aspirin (Aspirin Chewable) 81 mg PO DAILY [facility] Last Admin: 03/24/18 10:40 Dose: 81 mg Clopidogrel Bisulfate (Plavix) 75 mg PO DAILY [facility] Dextrose (Dextrose 50% Inj) 0 ml IV STAT PRN; Protocol PRN Reason: Hypoglycemia Protocol Dextrose (Glutose 15) 0 gm PO ONCE PRN; Protocol PRN Reason: Hypoglycemia Protocol Enalapril Maleate (Vasotec) 5 mg PO DAILY [facility] Last Admin: 03/24/18 10:39 Dose: 5 mg Epoetin Hayden (Procrit) 20,000 unit SC ONCE ONE Stop: 03/25/18 10:01 Gabapentin (Neurontin) 100 mg PO BID [facility] Last Admin: 03/24/18 17:11 Dose: 100 mg Glimepiride (Amaryl) 2 mg PO ACB [facility] Last Admin: 03/24/18 08:30 Dose: 2 mg Glucagon (Glucagen Diagnostic Kit) 0 mg IM STAT PRN; Protocol PRN Reason: Hypoglycemia Protocol Heparin Sodium (Porcine) (Heparin) 5,000 units SC Q12 [facility] Last Admin: 03/24/18 21:01 Dose: 5,000 units Piperacillin Sod/Tazobactam Sod (Zosyn 3.375 Gm Iv Premix) 3.375 gm in 50 mls @ 100 mls/hr IVPB Q8H [facility]; Protocol Last Admin: 03/24/18 17:12 Dose: 100 mls/hr Vancomycin/Sodium Chloride (Vancomycin 1 Gm/Ns 200 Ml) 1 gm in 200 mls @ 133 mls/hr IVPB Q12H [facility]; Protocol Stop: 03/26/18 06:31 Last Admin: 03/24/18 17:58 Dose: 133 mls/hr Dextrose (Dextrose 5% In Water 1000 Ml) 1,000 mls @ 0 mls/hr IV .Q0M PRN; Protocol PRN Reason: Hypoglycemia Protocol Insulin Human Regular (Novolin R) 0 unit SC ACHS [facility]; Protocol Last Admin: 03/24/18 21:59 Dose: Not Given [place] Carbonate (Furley Carbonate 300mg) 300 mg PO BID [facility] Last Admin: 03/24/18 17:58 Dose: 300 mg [facility] Last Admin: 03/24/18 17:04 Dose: 500 mg Nicotine (Nicoderm Cq) 1 patch TD DAILY [facility] Last Admin: 03/24/18 10:39 Dose: 1 patch Ondansetron HCl (Zofran Inj) 4 mg IVP Q6 PRN PRN Reason: Nausea/Vomiting Risperidone (Risperdal Tab) 2 mg PO HS [facility] Last Admin: 03/24/18 21:02 Dose: 2 mg Saccharomyces Boulardii (Florastor) 250 mg PO BID [facility] Last Admin: 03/24/18 17:12 Dose: 250 mg Sodium Hypochlorite (Dakins Solution 0.5%) 0 ml TOP DAILY [facility] Last Admin: 03/24/18 10:41 Dose: Not Given Physical Exam - Head Exam Head Exam: ATRAUMATIC - Eye Exam Eye Exam: Normal appearance - ENT Exam ENT Exam: Mucous Membranes Dry - Respiratory Exam Respiratory Exam: NORMAL BREATHING PATTERN - Cardiovascular Exam Cardiovascular Exam: +S1, +S2 - GI/Abdominal Exam GI & Abdominal Exam: Normal Bowel Sounds Results - Vital Signs Recent Vital Signs: Last Vital Signs Temp 98.1 F 03/24/18 15:00 Pulse 80 03/24/18 15:00 Resp 20 03/24/18 15:00 BP 108/67 03/24/18 15:00 Pulse Ox 99 03/24/18 15:00 - Labs Result Diagrams: 03/24/18 07:18 03/24/18 07:18 Labs: Laboratory Results - last 24 hr 03/24/18 03/24/18 03/24/18 07:18 07:18 12:30 WBC 10.0 RBC 3.31 L Hgb 9.3 L Hct 27.7 L MCV 83.7 MCH 28.0 MCHC 33.4 RDW 13.9 Plt Count 545 H D MPV 7.3 Neut % (Auto) 60.3 Lymph % (Auto) 26.5 [place] % (Auto) 5.5 Eos % (Auto) 6.9 H Baso % (Auto) 0.8 Neut # (Auto) 6.0 Lymph # (Auto) 2.7 [place] # (Auto) 0.6 Eos # (Auto) 0.7 Baso # (Auto) 0.1 Sodium 139 Potassium 3.9 Chloride 105 Carbon Dioxide 30 Anion Gap 9 L BUN 13 Creatinine 0.8 Est GFR ( Amer) > 60 Est GFR (Non-Af Amer) > 60 POC Glucose (mg/dL) 269 H Random Glucose 132 H D Calcium 8.8 Phosphorus 3.3 Total Bilirubin 0.1 L AST 36 ALT 14 L D Alkaline Phosphatase 150 H Total Protein 6.8 Albumin 3.0 L Globulin 3.8 Albumin/Globulin Ratio 0.8 L 03/24/18 03/24/18 16:16 21:35 WBC RBC Hgb Hct MCV MCH MCHC RDW Plt Count MPV Neut % (Auto) Lymph % (Auto) [place] % (Auto) Eos % (Auto) Baso % (Auto) Neut # (Auto) Lymph # (Auto) [place] # (Auto) Eos # (Auto) Baso # (Auto) Sodium Potassium Chloride Carbon Dioxide Anion Gap BUN Creatinine Est GFR ( Amer) Est GFR (Non-Af Amer) POC Glucose (mg/dL) 220 H 120 H Random Glucose Calcium Phosphorus Total Bilirubin AST ALT Alkaline Phosphatase Total Protein Albumin Globulin Albumin/Globulin Ratio Assessment & Plan (1) Anemia Assessment and Plan: anemia of chronic disease from osteomyelitis will give a dose of Procrit in an attempt to decrease transfusion dependen can redose for goal hgb ~ 10-11 normal iron/b12/folate stores Thank you for this interesting consult. Status: Acute
[2018-03-25] MEDS: Piperacill/Tazo 3.375gm in Dex 3.375 GM/50 ML BAG IVPB SCH ×3 (00:57→17:15)
[2018-03-25] MEDS: Vancomycin 1 gm/NS 200 ml 1 GM/200 ML BAG IVPB SCH ×2 (05:33→18:39)
[2018-03-25] MEDS: (Novolin R) Insulin Human Regular 100 units/ml vial SC SCH ×4 (07:52→21:46)
[2018-03-25] MEDS ORDERED: Caffeine Citrated **INJ** 20 MG/ML IV ONE (08:57)
[2018-03-25] MEDS: Saccharomyces Boulardi 250 mg Cap PO SCH ×2 (09:51→17:16)
[2018-03-25] MEDS ORDERED: Epoetin Alfa 20000 UNIT/ML Inj SC ONE (10:00)
[2018-03-25] MEDS: Dakin's Topical 0.5%-Full Strength (480 ml) TOP SCH (10:00)
--- NOTE | 2018-03-25 10:43 | VASCLAB ---
Date of service: 03/24/2018 STUDY DESCRIPTION: Lower Extremity Arterial Exam (PVR). HISTORY: eval for pad PRIORS: None. TECHNIQUE: Pulse volume recording waveforms and segmental pressures of bilateral lower extremities at multiple levels were obtained. Ankle Brachial Indices (ABIs) were calculated. Report prepared by MONISHA Frey, RVT RIGHT LOWER EXTREMITY: * Brachial artery: Pressure - 107 mmHg. * High thigh: Pressure - 135 mmHg: Ratio - 1.24: PVR waveform - Pulsatile * Low thigh: Pressure - 148 mmHg: Ratio - 1.36 PVR waveform: Pulsatile * Calf: Pressure - 131 mmHg: Ratio - 1.16 PVR waveform: Pulsatile * Posterior tibial Artery: Pressure - 126 mmHg: Ratio - 1.16 PVR waveform: Pulsatile * Dorsalis pedis Artery: Pressure - 106 mmHg: Ratio - 0.97 PVR waveform: Pulsatile * Great toe: Pressure - mmHg: Ratio - PVR waveform: Ankle brachial index (SANDY): 1.16 LEFT LOWER EXTREMITY: * Brachial artery: Pressure - 109 mmHg. * High thigh: Pressure - 136 mmHg: Ratio - 1.25: PVR waveform - Pulsatile * Low thigh: Pressure - 149 mmHg: Ratio - 1.37 PVR waveform: Pulsatile * Calf: Pressure - 131 mmHg: Ratio - 1.20 PVR waveform: Pulsatile * Posterior tibial Artery: Pressure - 132 mmHg: Ratio - 1.21 PVR waveform: Pulsatile * Dorsalis pedis Artery: Pressure - 133 mmHg: Ratio - 1.22 PVR waveform: Pulsatile * Great toe: Pressure - mmHg: Ratio - PVR waveform: Ankle brachial index (SANDY): 1.22 OTHER FINDINGS: Right: Left: IMPRESSION: Right: There was no evidence of hemodynamically significant arterial insufficiency in the right lower extremity. Left: There was no evidence of hemodynamically significant arterial insufficiency in the left lower extremity.
[2018-03-25 11:13] LABS: BASO # 0.1 K/uL (0.0-0.2); BASO % 0.9 % (0.0-2.0); EOS # 0.7 K/uL (0.0-0.7); EOS % 6.5 % (0.0-4.0); HEMOGLOBIN 9.4 g/dL (12.0-18.0); LYMPH # 2.6 K/uL (1.0-4.3); LYMPH % 23.1 % (20.0-40.0); MEAN CELL VOLUME 84.5 fL (80.0-94.0); MEAN CORPUSCULAR HEMOGLOBIN 27.9 pg (27.0-31.0); MONO # 0.5 K/uL (0.0-0.8); MONO % 4.2 % (0.0-10.0); NEUT # 7.5 K/uL (1.8-7.0); NEUT % 65.3 % (50.0-75.0); RBC 3.38 Mil/uL (4.40-5.90); RED CELL DISTRIBUTION WIDTH 14.2 % (11.5-14.5); WHITE BLOOD COUNT 11.5 K/uL (4.8-10.8)
--- NOTE | 2018-03-25 11:37 | CP.PCM.PN ---
Subjective - Date & Time of Evaluation Date of Evaluation: 03/25/18 Time of Evaluation: 11:28 - Subjective Subjective: Podiatry Progress Note -Dr. Jones 42 y/o male seen at bedside this morning, 4 days s/p right foot 1st and 2nd partial ray resections. Patient says the pain is improving in the foot as of today. Dressings remain clean and intact with little drainage. Reports that he has been walking around a little. Patient denies any overnight F/C/N/V/CP/SOB. He denies any other pedal complains at this time. Objective - Vital Signs/Intake and Output Vital Signs (last 24 hours): Temp Pulse Resp BP Pulse Ox 97.3 F L 78 20 110/65 96 03/25/18 08:03 03/25/18 09:49 03/25/18 08:03 03/25/18 09:50 03/25/18 08:03 - Medications Medications: Current Medications Acetaminophen (Tylenol 325mg Tab) 650 mg PO Q6 PRN PRN Reason: Pain, Mild (1-3) Last Admin: 03/21/18 11:29 Dose: 650 mg Aspirin (Aspirin Chewable) 81 mg PO DAILY [facility] Last Admin: 03/25/18 09:59 Dose: 81 mg Clopidogrel Bisulfate (Plavix) 75 mg PO DAILY [facility] Dextrose (Dextrose 50% Inj) 0 ml IV STAT PRN; Protocol PRN Reason: Hypoglycemia Protocol Dextrose (Glutose 15) 0 gm PO ONCE PRN; Protocol PRN Reason: Hypoglycemia Protocol Enalapril Maleate (Vasotec) 5 mg PO DAILY [facility] Last Admin: 03/25/18 09:50 Dose: 5 mg Gabapentin (Neurontin) 100 mg PO BID [facility] Last Admin: 03/25/18 10:00 Dose: 100 mg Glimepiride (Amaryl) 2 mg PO ACB [facility] Last Admin: 03/25/18 07:51 Dose: Not Given Glucagon (Glucagen Diagnostic Kit) 0 mg IM STAT PRN; Protocol PRN Reason: Hypoglycemia Protocol Heparin Sodium (Porcine) (Heparin) 5,000 units SC Q12 [facility] Last Admin: 03/25/18 09:50 Dose: 5,000 units Piperacillin Sod/Tazobactam Sod (Zosyn 3.375 Gm Iv Premix) 3.375 gm in 50 mls @ 100 mls/hr IVPB Q8H [facility]; Protocol Last Admin: 03/25/18 09:38 Dose: 100 mls/hr Vancomycin/Sodium Chloride (Vancomycin 1 Gm/Ns 200 Ml) 1 gm in 200 mls @ 133 mls/hr IVPB Q12H [facility]; Protocol Stop: 03/26/18 06:31 Last Admin: 03/25/18 05:33 Dose: 133 mls/hr Dextrose (Dextrose 5% In Water 1000 Ml) 1,000 mls @ 0 mls/hr IV .Q0M PRN; Protocol PRN Reason: Hypoglycemia Protocol Insulin Human Regular (Novolin R) 0 unit SC ACHS [facility]; Protocol Last Admin: 03/25/18 07:52 Dose: Not Given [place] Carbonate ([place] Carbonate 300mg) 300 mg PO BID [facility] Last Admin: 03/25/18 09:51 Dose: 300 mg Metformin HCl (Glucophage) 500 mg PO BIDCC [facility] Last Admin: 03/25/18 07:52 Dose: Not Given Nicotine (Nicoderm Cq) 1 patch TD DAILY [facility] Last Admin: 03/25/18 09:50 Dose: 1 patch Ondansetron HCl (Zofran Inj) 4 mg IVP Q6 PRN PRN Reason: Nausea/Vomiting Risperidone (Risperdal Tab) 2 mg PO HS [facility] Last Admin: 03/24/18 21:02 Dose: 2 mg Saccharomyces Boulardii (Florastor) 250 mg PO BID [facility] Last Admin: 03/25/18 09:51 Dose: 250 mg Sodium Hypochlorite (Dakins Solution 0.5%) 0 ml TOP DAILY [facility] Last Admin: 03/25/18 10:00 Dose: Not Given - Labs Labs: 03/25/18 11:01 03/24/18 07:18 PT 15.2 SECONDS (9.7-12.2) H 03/20/18 17:00 INR 1.4 03/20/18 17:00 APTT 30 SECONDS (21-34) 03/20/18 17:00 - Constitutional Appears: Well, Non-toxic, No Acute Distress - Head Exam Head Exam: ATRAUMATIC, NORMOCEPHALIC - Extremities Exam Additional comments: B/L LE focused exam: Vasc: DP/PT pulses faintly palpable 1/4 b/l. Skin temperature gradient warm to warm on the R side and warm to cool on the L side. CFT < 3 seconds to all remaining digits. Edema noted to forefoot surrounding surgical sites b/l R > L. Neuro: Epicritic and protective sensation grossly diminished b/l. Derm: Surgical site noted to right medial forefoot with approx 10cm linear incision site noted and skin asael intact, skin edges well-coapted with no signs of dehiscence. Mild maceration is noted to lateral aspect of surgical inci misael site. No active drainage, no purulence, no malodor, no fluctuance. Mild shannen wound erythema present. Surgical site in the left foot looks dry and intact with intact sutures, covered by dry scab. No signs of dehesience. no signs of active bacterial infection. MSK: Right foot 1st and 2nd digit and partial metatarsal resections noted, L 5th toe and 5th partial metatarsal amputation. Mild tenderness to palpation of right surgical site. No pain on palpating the left surgical site. Muscle power intact 5/5 to all groups. - Neurological Exam Neurological Exam: Alert, Awake, Oriented x3 - Psychiatric Exam Psychiatric exam: Normal Affect, Normal Mood Assessment and Plan - Assessment and Plan (Free Text) Assessment: 42 y/o male 4 days s/p right foot 1st and 2nd partial ray amputations secondary to diabetes mellitus with osteomyelitis Plan: Patient seen and evaluated at the bed side. Plan discussed with Dr. Jones. Charts, Labs and vitals reviewed; Afebrile, WBCs 11.5 (03/25) R foot Surgical site cleaned dressed with xeroform, ABD, DSD and JEANMARIE bandage. L foot stitches removed using sterile suture removal kit then cleaned with betadine. Continue IV abx per ID Recommend D/C to [facility] for continued abx Patient to be NWB to right lower extremity at this time with use of assistive device Pain control per primary team Stable from podiatry standpoint Podiatry will continue to follow up the patient while in-house
[2018-03-25 11:50] LABS: ALB/GLOB RATIO 0.9 (1.0-2.1); ALBUMIN 3.2 g/dL (3.5-5.0); ALT/SGPT 14 U/L (21-72); AST/SGOT 24 U/L (17-59); BLOOD UREA NITROGEN 19 mg/dL (9-20); CALCIUM 9.1 mg/dl (8.6-10.4); GFR NON-AFRICAN AMERICAN > 60
--- NOTE | 2018-03-25 12:00 | CP.PCM.PN ---
Subjective - Date & Time of Evaluation Date of Evaluation: 03/25/18 Time of Evaluation: 08:00 - Subjective Subjective: 42 year old male with a history of polysubstance abuse, DM complicated by diabetic foot ulcers s/p amputation, admitted with worsening diabetic foot ulcers, osteomyelitis s/p toe amputation Objective - Vital Signs/Intake and Output Vital Signs (last 24 hours): Temp Pulse Resp BP Pulse Ox 97.3 F L 78 20 110/65 96 03/25/18 08:03 03/25/18 09:49 03/25/18 08:03 03/25/18 09:50 03/25/18 08:03 - Medications Medications: Current Medications Acetaminophen (Tylenol 325mg Tab) 650 mg PO Q6 PRN PRN Reason: Pain, Mild (1-3) Last Admin: 03/21/18 11:29 Dose: 650 mg Aspirin (Aspirin Chewable) 81 mg PO DAILY [facility] Last Admin: 03/25/18 09:59 Dose: 81 mg Clopidogrel Bisulfate (Plavix) 75 mg PO DAILY [facility] Dextrose (Dextrose 50% Inj) 0 ml IV STAT PRN; Protocol PRN Reason: Hypoglycemia Protocol Dextrose (Glutose 15) 0 gm PO ONCE PRN; Protocol PRN Reason: Hypoglycemia Protocol Enalapril Maleate (Vasotec) 5 mg PO DAILY [facility] Last Admin: 03/25/18 09:50 Dose: 5 mg Gabapentin (Neurontin) 100 mg PO BID [facility] Last Admin: 03/25/18 10:00 Dose: 100 mg Glimepiride (Amaryl) 2 mg PO ACB [facility] Last Admin: 03/25/18 07:51 Dose: Not Given Glucagon (Glucagen Diagnostic Kit) 0 mg IM STAT PRN; Protocol PRN Reason: Hypoglycemia Protocol Heparin Sodium (Porcine) (Heparin) 5,000 units SC Q12 [facility] Last Admin: 03/25/18 09:50 Dose: 5,000 units Piperacillin Sod/Tazobactam Sod (Zosyn 3.375 Gm Iv Premix) 3.375 gm in 50 mls @ 100 mls/hr IVPB Q8H [facility]; Protocol Last Admin: 03/25/18 09:38 Dose: 100 mls/hr Vancomycin/Sodium Chloride (Vancomycin 1 Gm/Ns 200 Ml) 1 gm in 200 mls @ 133 mls/hr IVPB Q12H [facility]; Protocol Stop: 03/26/18 06:31 Last Admin: 03/25/18 05:33 Dose: 133 mls/hr Dextrose (Dextrose 5% In Water 1000 Ml) 1,000 mls @ 0 mls/hr IV .Q0M PRN; Protocol PRN Reason: Hypoglycemia Protocol Insulin Human Regular (Novolin R) 0 unit SC ACHS [facility]; Protocol Last Admin: 03/25/18 07:52 Dose: Not Given [place] Carbonate ([place] Carbonate 300mg) 300 mg PO BID [facility] Last Admin: 03/25/18 09:51 Dose: 300 mg Metformin HCl (Glucophage) 500 mg PO BIDCC [facility] Last Admin: 03/25/18 07:52 Dose: Not Given Nicotine (Nicoderm Cq) 1 patch TD DAILY [facility] Last Admin: 03/25/18 09:50 Dose: 1 patch Ondansetron HCl (Zofran Inj) 4 mg IVP Q6 PRN PRN Reason: Nausea/Vomiting Risperidone (Risperdal Tab) 2 mg PO HS [facility] Last Admin: 03/24/18 21:02 Dose: 2 mg Saccharomyces Boulardii (Florastor) 250 mg PO BID [facility] Last Admin: 03/25/18 09:51 Dose: 250 mg Sodium Hypochlorite (Dakins Solution 0.5%) 0 ml TOP DAILY [facility] Last Admin: 03/25/18 10:00 Dose: Not Given - Labs Labs: 03/25/18 11:01 03/25/18 11:01 PT 15.2 SECONDS (9.7-12.2) H 03/20/18 17:00 INR 1.4 03/20/18 17:00 APTT 30 SECONDS (21-34) 03/20/18 17:00 - Constitutional Appears: Non-toxic, Chronically Ill - Head Exam Head Exam: NORMOCEPHALIC - Eye Exam Eye Exam: absent: Scleral icterus - ENT Exam ENT Exam: Mucous Membranes Dry - Neck Exam Neck Exam: absent: Lymphadenopathy - Respiratory Exam Respiratory Exam: Decreased Breath Sounds - Cardiovascular Exam Cardiovascular Exam: REGULAR RHYTHM - GI/Abdominal Exam GI & Abdominal Exam: Distended, Soft. absent: Tenderness (90iol;0-p) - Rectal Exam Rectal Exam: Deferred ([) - Exam Exam: NORMAL INSPECTION - Extremities Exam Extremities Exam: absent: Pedal Edema - Back Exam Back Exam: absent: CVA tenderness (L), CVA tenderness (R) - Neurological Exam Neurological Exam: Alert, Awake, Oriented x3 - Psychiatric Exam Psychiatric exam: Depressed - Skin Skin Exam: Dry Assessment and Plan (1) Osteomyelitis Status: Acute (2) Peripheral vascular disease Status: Acute - Assessment and Plan (Free Text) Assessment: cont IV rx for OM
--- NOTE | 2018-03-25 14:57 | CP.PCM.PN ---
Subjective - Date & Time of Evaluation Date of Evaluation: 03/25/18 Time of Evaluation: 14:54 - Subjective Subjective: Román Matos DO PGY1 - Internal Medicine Health Services Information Specialist - Cardiology Note for Dr. Altamirano Underwent NST today Tolerated well; No complaints offered at time of testing Objective - Vital Signs/Intake and Output Vital Signs (last 24 hours): Temp Pulse Resp BP Pulse Ox 97.3 F L 78 20 110/65 96 03/25/18 08:03 03/25/18 09:49 03/25/18 08:03 03/25/18 09:50 03/25/18 08:03 - Medications Medications: Current Medications Acetaminophen (Tylenol 325mg Tab) 650 mg PO Q6 PRN PRN Reason: Pain, Mild (1-3) Last Admin: 03/21/18 11:29 Dose: 650 mg Aspirin (Aspirin Chewable) 81 mg PO DAILY [facility] Last Admin: 03/25/18 09:59 Dose: 81 mg Clopidogrel Bisulfate (Plavix) 75 mg PO DAILY [facility] Dextrose (Dextrose 50% Inj) 0 ml IV STAT PRN; Protocol PRN Reason: Hypoglycemia Protocol Dextrose (Glutose 15) 0 gm PO ONCE PRN; Protocol PRN Reason: Hypoglycemia Protocol Enalapril Maleate (Vasotec) 5 mg PO DAILY [facility] Last Admin: 03/25/18 09:50 Dose: 5 mg Gabapentin (Neurontin) 100 mg PO BID [facility] Last Admin: 03/25/18 10:00 Dose: 100 mg Glimepiride (Amaryl) 2 mg PO ACB [facility] Last Admin: 03/25/18 07:51 Dose: Not Given Glucagon (Glucagen Diagnostic Kit) 0 mg IM STAT PRN; Protocol PRN Reason: Hypoglycemia Protocol Heparin Sodium (Porcine) (Heparin) 5,000 units SC Q12 [facility] Last Admin: 03/25/18 09:50 Dose: 5,000 units Piperacillin Sod/Tazobactam Sod (Zosyn 3.375 Gm Iv Premix) 3.375 gm in 50 mls @ 100 mls/hr IVPB Q8H [facility]; Protocol Last Admin: 03/25/18 09:38 Dose: 100 mls/hr Vancomycin/Sodium Chloride (Vancomycin 1 Gm/Ns 200 Ml) 1 gm in 200 mls @ 133 mls/hr IVPB Q12H [facility]; Protocol Stop: 03/26/18 06:31 Last Admin: 03/25/18 05:33 Dose: 133 mls/hr Dextrose (Dextrose 5% In Water 1000 Ml) 1,000 mls @ 0 mls/hr IV .Q0M PRN; Protocol PRN Reason: Hypoglycemia Protocol Insulin Human Regular (Novolin R) 0 unit SC ACHS [facility]; Protocol Last Admin: 03/25/18 12:30 Dose: Not Given [place] Carbonate ([place] Carbonate 300mg) 300 mg PO BID [facility] Last Admin: 03/25/18 09:51 Dose: 300 mg Metformin HCl (Glucophage) 500 mg PO BIDCC [facility] Last Admin: 03/25/18 07:52 Dose: Not Given Nicotine (Nicoderm Cq) 1 patch TD DAILY [facility] Last Admin: 03/25/18 09:50 Dose: 1 patch Ondansetron HCl (Zofran Inj) 4 mg IVP Q6 PRN PRN Reason: Nausea/Vomiting Risperidone (Risperdal Tab) 2 mg PO HS [facility] Last Admin: 03/24/18 21:02 Dose: 2 mg Saccharomyces Boulardii (Florastor) 250 mg PO BID [facility] Last Admin: 03/25/18 09:51 Dose: 250 mg Sodium Hypochlorite (Dakins Solution 0.5%) 0 ml TOP DAILY [facility] Last Admin: 03/25/18 10:00 Dose: Not Given - Labs Labs: 03/25/18 11:01 03/25/18 11:01 PT 15.2 SECONDS (9.7-12.2) H 03/20/18 17:00 INR 1.4 03/20/18 17:00 APTT 30 SECONDS (21-34) 03/20/18 17:00 - Constitutional Appears: Well, Non-toxic, No Acute Distress - Head Exam Head Exam: ATRAUMATIC, NORMOCEPHALIC - Eye Exam Eye Exam: EOMI, Normal appearance, PERRL - Respiratory Exam Respiratory Exam: Clear to Auscultation Bilateral, NORMAL BREATHING PATTERN - Cardiovascular Exam Cardiovascular Exam: RRR, +S1, +S2 - GI/Abdominal Exam GI & Abdominal Exam: Normal Bowel Sounds, Soft. absent: Tenderness - Extremities Exam Additional comments: Dressings intact CDI Assessment and Plan (1) Peripheral vascular disease Status: Acute (2) Hypertension Status: Acute (3) Diabetic foot ulcer Status: Acute (4) Uncontrolled diabetes mellitus Status: Chronic - Assessment and Plan (Free Text) Plan: NST unremarkable Plan for outpt angiogram once ABX course completed. C/w medical management C/w ASA Plavix Start BB Statin No further medical management from cardiovascular standpoint at this time; Plan for outpt follow up for angiogram Please reconsult as necessary
--- NOTE | 2018-03-25 15:20 | CP.PCM.PN ---
<Neel Avila - Last Filed: 03/25/18 17:22> Subjective - Date & Time of Evaluation Date of Evaluation: 03/25/18 Time of Evaluation: 15:05 - Subjective Subjective: PGY-1 Medicine Progress Note for Dr. Matos's service S/E at bedside. Very profane individual. Cursed profanities throughout interview. Limited ROS due to patient being upset. Objective - Vital Signs/Intake and Output Vital Signs (last 24 hours): Temp Pulse Resp BP Pulse Ox 97.3 F L 78 20 110/65 96 03/25/18 08:03 03/25/18 09:49 03/25/18 08:03 03/25/18 09:50 03/25/18 08:03 - Medications Medications: Current Medications Acetaminophen (Tylenol 325mg Tab) 650 mg PO Q6 PRN PRN Reason: Pain, Mild (1-3) Last Admin: 03/21/18 11:29 Dose: 650 mg Aspirin (Aspirin Chewable) 81 mg PO DAILY [facility] Last Admin: 03/25/18 09:59 Dose: 81 mg Clopidogrel Bisulfate (Plavix) 75 mg PO DAILY [facility] Dextrose (Dextrose 50% Inj) 0 ml IV STAT PRN; Protocol PRN Reason: Hypoglycemia Protocol Dextrose (Glutose 15) 0 gm PO ONCE PRN; Protocol PRN Reason: Hypoglycemia Protocol Enalapril Maleate (Vasotec) 5 mg PO DAILY [facility] Last Admin: 03/25/18 09:50 Dose: 5 mg Gabapentin (Neurontin) 100 mg PO BID [facility] Last Admin: 03/25/18 10:00 Dose: 100 mg Glimepiride (Amaryl) 2 mg PO ACB [facility] Last Admin: 03/25/18 07:51 Dose: Not Given Glucagon (Glucagen Diagnostic Kit) 0 mg IM STAT PRN; Protocol PRN Reason: Hypoglycemia Protocol Heparin Sodium (Porcine) (Heparin) 5,000 units SC Q12 [facility] Last Admin: 03/25/18 09:50 Dose: 5,000 units Piperacillin Sod/Tazobactam Sod (Zosyn 3.375 Gm Iv Premix) 3.375 gm in 50 mls @ 100 mls/hr IVPB Q8H [facility]; Protocol Last Admin: 03/25/18 09:38 Dose: 100 mls/hr Vancomycin/Sodium Chloride (Vancomycin 1 Gm/Ns 200 Ml) 1 gm in 200 mls @ 133 mls/hr IVPB Q12H [facility]; Protocol Stop: 03/26/18 06:31 Last Admin: 03/25/18 05:33 Dose: 133 mls/hr Dextrose (Dextrose 5% In Water 1000 Ml) 1,000 mls @ 0 mls/hr IV .Q0M PRN; Protocol PRN Reason: Hypoglycemia Protocol Insulin Human Regular (Novolin R) 0 unit SC ACHS [facility]; Protocol Last Admin: 03/25/18 12:30 Dose: Not Given [place] Carbonate ([place] Carbonate 300mg) 300 mg PO BID [facility] Last Admin: 03/25/18 09:51 Dose: 300 mg Metformin HCl (Glucophage) 500 mg PO BIDCC [facility] Last Admin: 03/25/18 07:52 Dose: Not Given Nicotine (Nicoderm Cq) 1 patch TD DAILY [facility] Last Admin: 03/25/18 09:50 Dose: 1 patch Ondansetron HCl (Zofran Inj) 4 mg IVP Q6 PRN PRN Reason: Nausea/Vomiting Risperidone (Risperdal Tab) 2 mg PO HS [facility] Last Admin: 03/24/18 21:02 Dose: 2 mg Saccharomyces Boulardii (Florastor) 250 mg PO BID [facility] Last Admin: 03/25/18 09:51 Dose: 250 mg Sodium Hypochlorite (Dakins Solution 0.5%) 0 ml TOP DAILY [facility] Last Admin: 03/25/18 10:00 Dose: Not Given - Labs Labs: 03/25/18 11:01 03/25/18 11:01 PT 15.2 SECONDS (9.7-12.2) H 03/20/18 17:00 INR 1.4 03/20/18 17:00 APTT 30 SECONDS (21-34) 03/20/18 17:00 - Additional Findings Additional findings: - Constitutional Appears: Non-toxic, No Acute Distress - Head Exam Head Exam: NORMAL INSPECTION, NORMOCEPHALIC - Eye Exam Eye Exam: EOMI, Normal appearance. absent: Nystagmus, Scleral icterus - ENT Exam ENT Exam: Mucous Membranes Moist - Respiratory Exam Respiratory Exam: Clear to Ausculation Bilateral, NORMAL BREATHING PATTERN. absent: Rales, Rhonchi, Wheezes - Cardiovascular Exam Cardiovascular Exam: REGULAR RHYTHM, +S1, +S2. absent: Tachycardia - GI/Abdominal Exam GI & Abdominal Exam: Soft, Normal Bowel Sounds. absent: Distended, Firm, Guarding, Rigid, Tenderness - Extremities Exam Additional comments: left pinky digit amputated and base with debridement Right 1st and 2nd metarsal partial ray amputation with dressing intact. - Neurological Exam Neurological Exam: Alert, Awake, Oriented x3 - Psychiatric Exam Psychiatric exam: Normal Affect, Normal Mood - Skin Skin Exam: Dry, Intact, Normal Color Assessment and Plan - Assessment and Plan (Free Text) Assessment: Patient is a 42 y.o male with PMHx of polysubstance absuse, DM with recurrent foot ulcers, psych disorders and asthma presents to the ED with progressively worsening right foot ulcer. Angiography of the LE was done which showed occlusion of the right dorsalis pedis. POD3 s/p right 1st and 2nd metatarsal partial ray amputation. Pending CT of LE and intraop cx for abx management. Possible intervention for occlusion of the LE artery. Right foot osteomyelitis Pod consulted: ID consulted: Dr. Sosa- pending intra-op cxs 03/23/18: s/p 1st and 2nd metatarsal partial ray amputation Odansetron 4mg IVP Q6 Zosyn 3.375 mg in 50 mls Vancomycin 1 gm in 200mls MRI of LE: 1st and 2nd toe with signs of OM and possibly 3rd toe as well Awaiting on blood cx for picc line for ANNA Patient will require 6 weeks of IV abx on discharge; pending repeat bcx to be negative for picc line placement; authorization underway for [facility] for IV abx Patient states he is amenable but he has a history of AMAs and noncompliance 03/21 wound culture: positive for coag negative staph, group G strep Peripheral artery disease 03/21/18 Angiography of the LE was done which showed occlusion of the right dorsalis pedis Plavix held in setting of procedure as as per cardio; restart as per cardio peripheral angiogram intervention on hold as per cardio due to [facility] for different patient; Cardio has recommended outpatient followup for angiogram at a later date Aspirin 81mg daily DM2 Gabapentin 100 mg PO BID GLimepiride 2mg PO [facility] Metformin 500mg PO BID ASA daily [facility] ACHS Hypoglycemic protocol HTN Enalapril 5mg PO HS Anemia of chronic disease Heme/Onc consulted: Dr. Khanna- anemia related to procedure; EPO x 1 given likely initial worsened 2/2 to podiatry intervention no symptomatic complaints anemia of chronic disease 2/2 to DM uncontrolled Schizophrenia/ Bipolar disorder Psych consulted: Dr. Pancho lowery as below [place] 300 mg PO BID HS Risperidone 2mg PO HS Hx of smoking Nicotine patch Hx of asthma NO active issues currently Family Hx of cardiac disorder Cardiology following: Dr. Natali lowery appreciated Nuclear stress test completed- results pending DVT PPx:Heparin 5000 units SC Q12 GI PPX: florastor 250mg po bid Neel Avila PGY-1 Medical Management d/w Dr. Matos <[place] Matos - Last Filed: 03/27/18 20:20> Objective - Vital Signs/Intake and Output Vital Signs (last 24 hours): Temp Pulse Resp BP Pulse Ox 97.7 F 85 20 120/77 100 03/27/18 15:00 03/27/18 15:00 03/27/18 15:00 03/27/18 15:00 03/27/18 15:00 Intake and Output: 03/27/18 03/28/18 18:59 06:59 Intake Total 200 Balance 200 - Labs Labs: 03/27/18 07:03 03/27/18 07:03 PT 15.2 SECONDS (9.7-12.2) H 03/20/18 17:00 INR 1.4 03/20/18 17:00 APTT 30 SECONDS (21-34) 03/20/18 17:00 Attending/Attestation - Attestation I have personally seen and examined this patient.: Yes I have fully participated in the care of the patient.: Yes I have reviewed all pertinent clinical information, including history, physical exam and plan: Yes Notes (Text): 03/27/18 20:20 This is a late entry. Care of this patient was gone over in detail with resident Dr. Avila. [place] Matos D.O.
[2018-03-25 21:20] LABS: BARBITURATES, UR NEGATIVE (NEGATIVE); BENZODIAZEPINES, UR NEGATIVE (NEGATIVE); OPIATES, UR NEGATIVE (NEGATIVE); PHENCYCLIDINE, UR NEGATIVE (NEGATIVE)
--- NOTE | 2018-03-25 22:10 | CP.PCM.PN ---
Subjective - Date & Time of Evaluation Date of Evaluation: 03/25/18 Time of Evaluation: 19:00 - Subjective Subjective: No complaints. Objective - Vital Signs/Intake and Output Vital Signs (last 24 hours): Temp Pulse Resp BP Pulse Ox 97.4 F L 89 20 102/66 98 03/25/18 16:37 03/25/18 16:37 03/25/18 16:37 03/25/18 16:37 03/25/18 16:37 - Medications Medications: Current Medications Acetaminophen (Tylenol 325mg Tab) 650 mg PO Q6 PRN PRN Reason: Pain, Mild (1-3) Last Admin: 03/21/18 11:29 Dose: 650 mg Aspirin (Aspirin Chewable) 81 mg PO DAILY [facility] Last Admin: 03/25/18 09:59 Dose: 81 mg Clopidogrel Bisulfate (Plavix) 75 mg PO DAILY [facility] Dextrose (Dextrose 50% Inj) 0 ml IV STAT PRN; Protocol PRN Reason: Hypoglycemia Protocol Dextrose (Glutose 15) 0 gm PO ONCE PRN; Protocol PRN Reason: Hypoglycemia Protocol Enalapril Maleate (Vasotec) 5 mg PO DAILY [facility] Last Admin: 03/25/18 09:50 Dose: 5 mg Gabapentin (Neurontin) 100 mg PO BID [facility] Last Admin: 03/25/18 17:16 Dose: 100 mg Glimepiride (Amaryl) 2 mg PO ACB [facility] Last Admin: 03/25/18 07:51 Dose: Not Given Glucagon (Glucagen Diagnostic Kit) 0 mg IM STAT PRN; Protocol PRN Reason: Hypoglycemia Protocol Heparin Sodium (Porcine) (Heparin) 5,000 units SC Q12 [facility] Last Admin: 03/25/18 21:41 Dose: 5,000 units Piperacillin Sod/Tazobactam Sod (Zosyn 3.375 Gm Iv Premix) 3.375 gm in 50 mls @ 100 mls/hr IVPB Q8H [facility]; Protocol Last Admin: 03/25/18 17:15 Dose: 100 mls/hr Vancomycin/Sodium Chloride (Vancomycin 1 Gm/Ns 200 Ml) 1 gm in 200 mls @ 133 mls/hr IVPB Q12H [facility]; Protocol Stop: 03/26/18 06:31 Last Admin: 03/25/18 18:39 Dose: 133 mls/hr Dextrose (Dextrose 5% In Water 1000 Ml) 1,000 mls @ 0 mls/hr IV .Q0M PRN; Protocol PRN Reason: Hypoglycemia Protocol Insulin Human Regular (Novolin R) 0 unit SC ACHS [facility]; Protocol Last Admin: 03/25/18 21:46 Dose: Not Given [place] Carbonate ([place] Carbonate 300mg) 300 mg PO BID [facility] Last Admin: 03/25/18 17:16 Dose: 300 mg Metformin HCl (Glucophage) 500 mg PO BIDCC [facility] Last Admin: 03/25/18 17:16 Dose: 500 mg Nicotine (Nicoderm Cq) 1 patch TD DAILY [facility] Last Admin: 03/25/18 09:50 Dose: 1 patch Ondansetron HCl (Zofran Inj) 4 mg IVP Q6 PRN PRN Reason: Nausea/Vomiting Risperidone (Risperdal Tab) 2 mg PO HS [facility] Last Admin: 03/25/18 21:39 Dose: 2 mg Saccharomyces Boulardii (Florastor) 250 mg PO BID [facility] Last Admin: 03/25/18 17:16 Dose: 250 mg Sodium Hypochlorite (Dakins Solution 0.5%) 0 ml TOP DAILY [facility] Last Admin: 03/25/18 10:00 Dose: Not Given - Labs Labs: 03/25/18 11:01 03/25/18 11:01 PT 15.2 SECONDS (9.7-12.2) H 03/20/18 17:00 INR 1.4 03/20/18 17:00 APTT 30 SECONDS (21-34) 03/20/18 17:00 - Head Exam Head Exam: ATRAUMATIC - Eye Exam Eye Exam: Normal appearance - ENT Exam ENT Exam: Mucous Membranes Dry - Respiratory Exam Respiratory Exam: NORMAL BREATHING PATTERN - Cardiovascular Exam Cardiovascular Exam: +S1, +S2 - GI/Abdominal Exam GI & Abdominal Exam: Normal Bowel Sounds Assessment and Plan (1) Anemia Assessment & Plan: anemia of chronic disease s/p Procrit redose to maintain hgb ~ 10-11 Status: Acute
--- NOTE | 2018-03-25 22:39 | CARD ---
APPROVED REPORT Date of service: 03/25/2018 Protocol: LEXISCAN Test Type: LEXISCAN Test Indications: SEPSIS,OSTEOMYELITIS Medications: LIST Medical History: CHEST PAIN Target HR: 177 bpm Resting ECG: normal Resting Heart Rate: 85 bpm Resting Blood Pressure: 110/70mmHg submaximum (85%): 150 bpm TEST SUMMARY [id number]:02..1.082/.0. PREINFSNHYPERV.39:[id number]/70.0. INFUSIONDOSE 100:300.00..088/.0. [id number]:120.00..[id number]/60.0. PROCEDURE Pharmacologic stress testing was performed using 0.4mg per 5ml of regadenoson given intravenously over 7-10 seconds. POST EXERCISE Reason for Termination: Protocol Completed Target HR: No Max HR: 88 bpm 60% of Maximum Predicted HR: 177 bpm Exercise duration: 00:30 min:sec, 0 Stage Exercise capacity: 1.0METs Max Blood Pressure: 120/60mmHg Blood Pressure response to exercise: n/a Heart Rate response to exercise: n/a Chest Pain: No, none Angina index: 0 Arrhythmia: No, none ST Change: No, none Deviation: 0 mm RESTING DATA [id number]/min ESV38.00mlMyocardial Cvbo533.00g Av. Heart Rate79.00bpm EF65.00% STRESS DATA EDV95.35fqVL0.50L/min ESV34.00mlMyocardial Qhcf733.00g EF64.00% Regional WT score at stress:2.00 Regional WM score at stress:0.00 Summed WT score at stress:15.00 Av. Heart Rate91.00bpmSummed WM score at stress:1.00 Study quality was fair. Left Ventricular size was Normal at Rest and Stress. Lung uptake was Normal. Left Ventricular ejection fraction is 64%. The rest and stress images show normal perfusion, normal contraction and thickening. LV Perf. Quant 17 Seg. SSS2.00 17 Seg. SRS6.00 17 Seg. SDS0.00 Stress Defect Extent (% LAD)0.00Rest Defect Extent (% LAD)5.00Rev. Defect Extent (% LAD)0.00 Stress Defect Extent (% LCX)7.50Rest Defect Extent (% LCX)17.50Rev. Defect Extent (% LCX)0.00 Stress Defect Extent (% RCA)0.00Rest Defect Extent (% RCA)2.20Rev. Defect Extent (% RCA)0.00 Stress Defect Extent (% LAVINIA)3.00Rest Defect Extent (% LAVINIA)10.70Rev. Defect Extent (% LAVINIA)0.40 Other Information Quality:Fair Overall Exercise Capacity: not assessed IMPRESSION Normal Myocardial Perfusion exercise stress study Conclusion 1. - Normal myocardial perfusion study with no evidence of reversible ischemia 2. - Normal LVEF
[2018-03-26] MEDS: Piperacill/Tazo 3.375gm in Dex 3.375 GM/50 ML BAG IVPB SCH ×3 (01:53→18:30)
[2018-03-26] MEDS: Vancomycin 1 gm/NS 200 ml 1 GM/200 ML BAG IVPB SCH (06:31)
[2018-03-26 08:15] LABS: BASO # 0.1 K/uL (0.0-0.2); BASO % 0.7 % (0.0-2.0); EOS # 0.8 K/uL (0.0-0.7); EOS % 8.5 % (0.0-4.0); HEMOGLOBIN 10.2 g/dL (12.0-18.0); LYMPH % 31.6 % (20.0-40.0); MEAN CELL VOLUME 84.9 fL (80.0-94.0); MEAN CORPUSCULAR HEMOGLOBIN 28.5 pg (27.0-31.0); MEAN CORPUSCULAR HGB CONC 33.6 g/dL (33.0-37.0); MEAN PLATELET VOLUME 6.9 fL (7.2-11.7); MONO # 0.5 K/uL (0.0-0.8); MONO % 5.4 % (0.0-10.0); NEUT # 5.1 K/uL (1.8-7.0); NEUT % 53.8 % (50.0-75.0); RBC 3.59 Mil/uL (4.40-5.90); WHITE BLOOD COUNT 9.5 K/uL (4.8-10.8)
[2018-03-26 08:27] LABS: ALB/GLOB RATIO 0.9 (1.0-2.1); ALBUMIN 3.3 g/dL (3.5-5.0); ALT/SGPT < 6 U/L (21-72); AST/SGOT 15 U/L (17-59); BLOOD UREA NITROGEN 20 mg/dL (9-20); CALCIUM 9.4 mg/dl (8.6-10.4); GFR NON-AFRICAN AMERICAN > 60
[2018-03-26] MEDS: (Novolin R) Insulin Human Regular 100 units/ml vial SC SCH ×4 (08:30→21:28)
[2018-03-26 09:37] LABS: HDL CHOLESTEROL 17 mg/dL (30-70)
[2018-03-26 09:49] LABS: LDL CHOLESTEROL 110 mg/dL (0-129)
[2018-03-26] MEDS: Saccharomyces Boulardi 250 mg Cap PO SCH ×2 (09:51→18:31)
[2018-03-26] MEDS: Dakin's Topical 0.5%-Full Strength (480 ml) TOP SCH (09:51)
--- NOTE | 2018-03-26 12:18 | CP.PCM.PN ---
<Neel Avila - Last Filed: 03/26/18 17:04> Subjective - Date & Time of Evaluation Date of Evaluation: 03/26/18 Time of Evaluation: 12:14 - Subjective Subjective: PGY-1 Medicine Progress Note for Dr. Matos's service S/E at bedside. Offered no acute complaints. Continuously is profane with medical staff. Denies fevers, chills, chest pain, sob, n/v, constipation or diarrhea, and dysuria. Objective - Vital Signs/Intake and Output Vital Signs (last 24 hours): Temp Pulse Resp BP Pulse Ox 97.4 F L 85 20 103/66 96 03/26/18 09:00 03/26/18 09:00 03/26/18 09:00 03/26/18 09:52 03/26/18 09:00 Intake and Output: 03/26/18 03/26/18 06:59 18:59 Output Total 1250 Balance -1250 - Medications Medications: Current Medications Acetaminophen (Tylenol 325mg Tab) 650 mg PO Q6 PRN PRN Reason: Pain, Mild (1-3) Last Admin: 03/21/18 11:29 Dose: 650 mg Aspirin (Aspirin Chewable) 81 mg PO DAILY [facility] Last Admin: 03/26/18 09:51 Dose: 81 mg Clopidogrel Bisulfate (Plavix) 75 mg PO DAILY [facility] Dextrose (Dextrose 50% Inj) 0 ml IV STAT PRN; Protocol PRN Reason: Hypoglycemia Protocol Dextrose (Glutose 15) 0 gm PO ONCE PRN; Protocol PRN Reason: Hypoglycemia Protocol Enalapril Maleate (Vasotec) 5 mg PO DAILY [facility] Last Admin: 03/26/18 09:52 Dose: Not Given Gabapentin (Neurontin) 100 mg PO BID [facility] Last Admin: 03/26/18 09:51 Dose: 100 mg Glimepiride (Amaryl) 2 mg PO ACB [facility] Last Admin: 03/26/18 08:30 Dose: 2 mg Glucagon (Glucagen Diagnostic Kit) 0 mg IM STAT PRN; Protocol PRN Reason: Hypoglycemia Protocol Heparin Sodium (Porcine) (Heparin) 5,000 units SC Q12 [facility] Last Admin: 03/26/18 09:50 Dose: 5,000 units Piperacillin Sod/Tazobactam Sod (Zosyn 3.375 Gm Iv Premix) 3.375 gm in 50 mls @ 100 mls/hr IVPB Q8H [facility]; Protocol Last Admin: 03/26/18 09:07 Dose: 100 mls/hr Dextrose (Dextrose 5% In Water 1000 Ml) 1,000 mls @ 0 mls/hr IV .Q0M PRN; Protocol PRN Reason: Hypoglycemia Protocol Insulin Human Regular (Novolin R) 0 unit SC ACHS [facility]; Protocol Last Admin: 03/26/18 08:30 Dose: 2 units [place] Carbonate ([place] Carbonate 300mg) 300 mg PO BID [facility] Last Admin: 03/26/18 09:58 Dose: 300 mg Metformin HCl (Glucophage) 500 mg PO BIDCC [facility] Last Admin: 03/26/18 09:00 Dose: 500 mg Nicotine (Nicoderm Cq) 1 patch TD DAILY [facility] Last Admin: 03/26/18 09:50 Dose: 1 patch Ondansetron HCl (Zofran Inj) 4 mg IVP Q6 PRN PRN Reason: Nausea/Vomiting Risperidone (Risperdal Tab) 2 mg PO HS [facility] Last Admin: 03/25/18 21:39 Dose: 2 mg Saccharomyces Boulardii (Florastor) 250 mg PO BID [facility] Last Admin: 03/26/18 09:51 Dose: 250 mg Sodium Hypochlorite (Dakins Solution 0.5%) 0 ml TOP DAILY [facility] Last Admin: 03/26/18 09:51 Dose: Not Given - Labs Labs: 03/26/18 08:06 03/26/18 08:06 PT 15.2 SECONDS (9.7-12.2) H 03/20/18 17:00 INR 1.4 03/20/18 17:00 APTT 30 SECONDS (21-34) 03/20/18 17:00 - Additional Findings Additional findings: - Constitutional Appears: Non-toxic, No Acute Distress - Head Exam Head Exam: NORMAL INSPECTION, NORMOCEPHALIC - Eye Exam Eye Exam: EOMI, Normal appearance. absent: Nystagmus, Scleral icterus - ENT Exam ENT Exam: Mucous Membranes Moist - Respiratory Exam Respiratory Exam: Clear to Ausculation Bilateral, NORMAL BREATHING PATTERN. absent: Rales, Rhonchi, Wheezes - Cardiovascular Exam Cardiovascular Exam: REGULAR RHYTHM, +S1, +S2. absent: Tachycardia - GI/Abdominal Exam GI & Abdominal Exam: Soft, Normal Bowel Sounds. absent: Distended, Firm, Guarding, Rigid, Tenderness - Extremities Exam Additional comments: left pinky digit amputated and base with debridement Right 1st and 2nd metarsal partial ray amputation with dressing intact. - Neurological Exam Neurological Exam: Alert, Awake, Oriented x3 - Psychiatric Exam Psychiatric exam: Normal Affect, Normal Mood - Skin Skin Exam: Dry, Intact, Normal Color Assessment and Plan - Assessment and Plan (Free Text) Assessment: Patient is a 42 y.o male with PMHx of polysubstance absuse, DM with recurrent foot ulcers, psych disorders and asthma presents to the ED with progressively worsening right foot ulcer. Angiography of the LE was done which showed occlusion of the right dorsalis pedis. POD3 s/p right 1st and 2nd metatarsal partial ray amputation. Pending CT of LE and intraop cx for abx management. Possible intervention for occlusion of the LE artery. Right foot osteomyelitis Pod consulted: ID consulted: Dr. Sosa- pending intra-op cxs 03/23/18: s/p 1st and 2nd metatarsal partial ray amputation Odansetron 4mg IVP Q6 Zosyn 3.375 mg in 50 mls Vancomycin 1 gm in 200mls MRI of LE: 1st and 2nd toe with signs of OM and possibly 3rd toe as well Awaiting on blood cx for picc line for [facility] Patient will require 6 weeks of IV abx on discharge repeat BCx negative; PICC line in AM with IR 2/ wound culture: positive for coag negative staph, group G strep Peripheral artery disease 03/21/18 Angiography of the LE was done which showed occlusion of the right dorsalis pedis Plavix held in setting of procedure as as per cardio; restart as per cardio Peripheral angiogram to be done outpatient after IV abx for OM completed Aspirin 81mg daily Rosuvastatin 5mg po HS DM2 Gabapentin 100 mg PO BID GLimepiride 2mg PO [place] Metformin 500mg PO BID ASA daily ISS ACHS Hypoglycemic protocol HTN Enalapril 5mg PO HS Anemia of chronic disease Heme/Onc consulted: Dr. Khanna- anemia related to procedure; EPO x 1 given on 03/25 likely initial worsened 2/2 to podiatry intervention no symptomatic complaints anemia of chronic disease 2/2 to DM uncontrolled Schizophrenia/ Bipolar disorder Psych consulted: Dr. Florian- recs as below Glendora 300 mg PO BID HS Risperidone 2mg PO HS Hx of smoking Nicotine patch Hx of asthma NO active issues currently Family Hx of cardiac disorder Cardiology following: Dr. Altamirano- beverley appreciated Nuclear stress test completed- normal findings no need for intervention DVT PPx:Heparin 5000 units SC Q12 GI PPX: florastor 250mg po bid Disposition: picc line in am; [facility] authorization for transfer for IV abx for 6 weeks as per ID; outpatient f/u for peripheral angiogram Neel Avila PGY-1 Medical Management d/w Dr. Matos <[place] Matos - Last Filed: 03/27/18 20:19> Objective - Vital Signs/Intake and Output Vital Signs (last 24 hours): Temp Pulse Resp BP Pulse Ox 97.7 F 85 20 120/77 100 03/27/18 15:00 03/27/18 15:00 03/27/18 15:00 03/27/18 15:00 03/27/18 15:00 Intake and Output: 03/27/18 03/28/18 18:59 06:59 Intake Total 200 Balance 200 - Labs Labs: 03/27/18 07:03 03/27/18 07:03 PT 15.2 SECONDS (9.7-12.2) H 03/20/18 17:00 INR 1.4 03/20/18 17:00 APTT 30 SECONDS (21-34) 03/20/18 17:00 Attending/Attestation - Attestation I have personally seen and examined this patient.: Yes I have fully participated in the care of the patient.: Yes I have reviewed all pertinent clinical information, including history, physical exam and plan: Yes Notes (Text): 03/27/18 20:19 This is late entry. Care of this patient was gone over in detail with resident Dr. Avila. [place] Matos D.O.
--- NOTE | 2018-03-26 13:02 | CP.PCM.PN ---
Subjective - Date & Time of Evaluation Date of Evaluation: 03/26/18 Time of Evaluation: 12:59 - Subjective Subjective: Podiatry Progress Note -Dr. Jones 42 y/o male seen at bedside this morning, 5 days s/p right foot 1st and 2nd partial ray resections. Patient says the pain is improving in the foot as of today. Dressings remain clean and intact with little drainage. Reports that he has been walking around a little. Patient denies any overnight F/C/N/V/CP/SOB. He denies any other pedal complains at this time. Objective - Vital Signs/Intake and Output Vital Signs (last 24 hours): Temp Pulse Resp BP Pulse Ox 97.4 F L 85 20 103/66 96 03/26/18 09:00 03/26/18 09:00 03/26/18 09:00 03/26/18 09:52 03/26/18 09:00 Intake and Output: 03/26/18 03/26/18 06:59 18:59 Output Total 1250 Balance -1250 - Medications Medications: Current Medications Acetaminophen (Tylenol 325mg Tab) 650 mg PO Q6 PRN PRN Reason: Pain, Mild (1-3) Last Admin: 03/21/18 11:29 Dose: 650 mg Aspirin (Aspirin Chewable) 81 mg PO DAILY [facility] Last Admin: 03/26/18 09:51 Dose: 81 mg Clopidogrel Bisulfate (Plavix) 75 mg PO DAILY [facility] Dextrose (Dextrose 50% Inj) 0 ml IV STAT PRN; Protocol PRN Reason: Hypoglycemia Protocol Dextrose (Glutose 15) 0 gm PO ONCE PRN; Protocol PRN Reason: Hypoglycemia Protocol Enalapril Maleate (Vasotec) 5 mg PO DAILY [facility] Last Admin: 03/26/18 09:52 Dose: Not Given Gabapentin (Neurontin) 100 mg PO BID [facility] Last Admin: 03/26/18 09:51 Dose: 100 mg Glimepiride (Amaryl) 2 mg PO ACB [facility] Last Admin: 03/26/18 08:30 Dose: 2 mg Glucagon (Glucagen Diagnostic Kit) 0 mg IM STAT PRN; Protocol PRN Reason: Hypoglycemia Protocol Heparin Sodium (Porcine) (Heparin) 5,000 units SC Q12 [facility] Last Admin: 03/26/18 09:50 Dose: 5,000 units Piperacillin Sod/Tazobactam Sod (Zosyn 3.375 Gm Iv Premix) 3.375 gm in 50 mls @ 100 mls/hr IVPB Q8H [facility]; Protocol Last Admin: 03/26/18 09:07 Dose: 100 mls/hr Dextrose (Dextrose 5% In Water 1000 Ml) 1,000 mls @ 0 mls/hr IV .Q0M PRN; Pr otocol PRN Reason: Hypoglycemia Protocol Insulin Human Regular (Novolin R) 0 unit SC ACHS [facility]; Protocol Last Admin: 03/26/18 12:30 Dose: 4 units [place] Carbonate ([place] Carbonate 300mg) 300 mg PO BID [facility] Last Admin: 03/26/18 09:58 Dose: 300 mg Metformin HCl (Glucophage) 500 mg PO BIDCC [facility] Last Admin: 03/26/18 09:00 Dose: 500 mg Nicotine (Nicoderm Cq) 1 patch TD DAILY [facility] Last Admin: 03/26/18 09:50 Dose: 1 patch Ondansetron HCl (Zofran Inj) 4 mg IVP Q6 PRN PRN Reason: Nausea/Vomiting Risperidone (Risperdal Tab) 2 mg PO HS [facility] Last Admin: 03/25/18 21:39 Dose: 2 mg Saccharomyces Boulardii (Florastor) 250 mg PO BID [facility] Last Admin: 03/26/18 09:51 Dose: 250 mg Sodium Hypochlorite (Dakins Solution 0.5%) 0 ml TOP DAILY [facility] Last Admin: 03/26/18 09:51 Dose: Not Given - Labs Labs: 03/26/18 08:06 03/26/18 08:06 PT 15.2 SECONDS (9.7-12.2) H 03/20/18 17:00 INR 1.4 03/20/18 17:00 APTT 30 SECONDS (21-34) 03/20/18 17:00 - Constitutional Appears: Well, Non-toxic, No Acute Distress - Extremities Exam Additional comments: B/L LE focused exam: Vasc: DP/PT pulses faintly palpable 1/4 b/l. Skin temperature gradient warm to warm on the R side and warm to cool on the L side. CFT < 3 seconds to all remaining digits. Edema noted to forefoot surrounding surgical sites b/l R > L. Neuro: Epicritic and protective sensation grossly diminished b/l. Derm: Surgical site noted to right medial forefoot with approx 10cm linear incision site noted and skin asael intact, skin edges well-coapted with no signs of dehiscence. Mild maceration is noted to lateral aspect of surgical incision site. No active drainage, no purulence, no malodor, no fluctuance. Mild shannen wound erythema present. Surgical site in the left foot looks dry and intact with intact sutures, covered by dry scab. no signs of active bacterial infection. MSK: Right foot 1st and 2nd digit and partial metatarsal resections noted, L 5th toe and 5th partial metatarsal amputation. Mild tenderness to palpation of right surgical site. No pain on palpating the left surgical site. Muscle power intact 5/5 to all groups. - Neurological Exam Neurological Exam: Alert, Awake, Oriented x3 - Psychiatric Exam Psychiatric exam: Normal Affect, Normal Mood Assessment and Plan - Assessment and Plan (Free Text) Assessment: 42 y/o male 5 days s/p right foot 1st and 2nd partial ray amputations secondary to diabetes mellitus with osteomyelitis Plan: Patient seen and evaluated Plan discussed with Dr. Jones. Charts, Labs and vitals reviewed; Afebrile, WBCs 9.5 R foot Surgical site cleaned dressed with xeroform, ABD, DSD and JEANMARIE bandage. L foot covered with DSD Continue IV abx per ID Pain control per primary team Patient to remain WB to the heel on the right using assisting device Recommend D/C to [facility] for continued abx Stable from podiatry standpoint Podiatry will continue to follow up the patient while in-house
--- NOTE | 2018-03-26 19:32 | CP.PCM.PN ---
Subjective - Date & Time of Evaluation Date of Evaluation: 03/26/18 Time of Evaluation: 08:00 - Subjective Subjective: 5 days s/p right foot 1st and 2nd partial ray resections. for [facility] cont IV rx Objective - Vital Signs/Intake and Output Vital Signs (last 24 hours): Temp Pulse Resp BP Pulse Ox 98.2 F 100 H 20 115/82 99 03/26/18 16:42 03/26/18 16:42 03/26/18 16:42 03/26/18 16:42 03/26/18 16:42 - Medications Medications: Current Medications Acetaminophen (Tylenol 325mg Tab) 650 mg PO Q6 PRN PRN Reason: Pain, Mild (1-3) Last Admin: 03/21/18 11:29 Dose: 650 mg Aspirin (Aspirin Chewable) 81 mg PO DAILY [facility] Last Admin: 03/26/18 09:51 Dose: 81 mg Clopidogrel Bisulfate (Plavix) 75 mg PO DAILY [facility] Dextrose (Dextrose 50% Inj) 0 ml IV STAT PRN; Protocol PRN Reason: Hypoglycemia Protocol Dextrose (Glutose 15) 0 gm PO ONCE PRN; Protocol PRN Reason: Hypoglycemia Protocol Enalapril Maleate (Vasotec) 5 mg PO DAILY [facility] Last Admin: 03/26/18 09:52 Dose: Not Given Gabapentin (Neurontin) 100 mg PO BID [facility] Last Admin: 03/26/18 18:31 Dose: 100 mg Glimepiride (Amaryl) 2 mg PO ACB [facility] Last Admin: 03/26/18 08:30 Dose: 2 mg Glucagon (Glucagen Diagnostic Kit) 0 mg IM STAT PRN; Protocol PRN Reason: Hypoglycemia Protocol Heparin Sodium (Porcine) (Heparin) 5,000 units SC Q12 [facility] Last Admin: 03/26/18 09:50 Dose: 5,000 units Piperacillin Sod/Tazobactam Sod (Zosyn 3.375 Gm Iv Premix) 3.375 gm in 50 mls @ 100 mls/hr IVPB Q8H [facility]; Protocol Last Admin: 03/26/18 18:30 Dose: 100 mls/hr Dextrose (Dextrose 5% In Water 1000 Ml) 1,000 mls @ 0 mls/hr IV .Q0M PRN; Protocol PRN Reason: Hypoglycemia Protocol Insulin Human Regular (Novolin R) 0 unit SC ACHS [facility]; Protocol Last Admin: 03/26/18 18:32 Dose: 3 units [place] Carbonate ([place] Carbonate 300mg) 300 mg PO BID [facility] Last Admin: 03/26/18 18:31 Dose: 300 mg Metformin HCl (Glucophage) 500 mg PO BIDCC [facility] Last Admin: 03/26/18 18:31 Dose: 500 mg Nicotine (Nicoderm Cq) 1 patch TD DAILY [facility] Last Admin: 03/26/18 09:50 Dose: 1 patch Ondansetron HCl (Zofran Inj) 4 mg IVP Q6 PRN PRN Reason: Nausea/Vomiting Risperidone (Risperdal Tab) 2 mg PO HS [facility] Last Admin: 03/25/18 21:39 Dose: 2 mg Rosuvastatin Calcium (Crestor) 5 mg PO HS [facility] Saccharomyces Boulardii (Florastor) 250 mg PO BID [facility] Last Admin: 03/26/18 18:31 Dose: 250 mg Sodium Hypochlorite (Dakins Solution 0.5%) 0 ml TOP DAILY [facility] Last Admin: 03/26/18 09:51 Dose: Not Given - Labs Labs: 03/26/18 08:06 03/26/18 08:06 PT 15.2 SECONDS (9.7-12.2) H 03/20/18 17:00 INR 1.4 03/20/18 17:00 APTT 30 SECONDS (21-34) 03/20/18 17:00 - Constitutional Appears: Non-toxic, Chronically Ill - Head Exam Head Exam: NORMOCEPHALIC - Eye Exam Eye Exam: absent: Scleral icterus Pupil Exam: NORMAL ACCOMODATION - ENT Exam ENT Exam: Mucous Membranes Dry - Neck Exam Neck Exam: absent: Lymphadenopathy - Respiratory Exam Respiratory Exam: Decreased Breath Sounds - Cardiovascular Exam Cardiovascular Exam: REGULAR RHYTHM - GI/Abdominal Exam GI & Abdominal Exam: Distended, Soft - Rectal Exam Rectal Exam: Deferred - Exam Exam: NORMAL INSPECTION - Extremities Exam Extremities Exam: Pedal Edema, Tenderness. absent: Calf Tenderness Additional comments: right foot dressing C/D/I - Back Exam Back Exam: absent: CVA tenderness (L), CVA tenderness (R) - Neurological Exam Neurological Exam: Alert, Awake, Oriented x3 Neuro motor strength exam: Left Upper Extremity: 4, Right Upper Extremity: 4, Left Lower Extremity: 4, Right Lower Extremity: 4 - Psychiatric Exam Psychiatric exam: Normal Mood - Skin Skin Exam: Dry Assessment and Plan (1) Osteomyelitis Status: Acute (2) Peripheral vascular disease Status: Acute - Assessment and Plan (Free Text) Assessment: cont 6 weeks iv rx will review cultures
--- NOTE | 2018-03-26 22:50 | CP.PCM.PN ---
Subjective - Date & Time of Evaluation Date of Evaluation: 03/26/18 Time of Evaluation: 18:00 - Subjective Subjective: Feeling better Objective - Vital Signs/Intake and Output Vital Signs (last 24 hours): Temp Pulse Resp BP Pulse Ox 98.2 F 100 H 20 115/82 99 03/26/18 16:42 03/26/18 16:42 03/26/18 16:42 03/26/18 16:42 03/26/18 16:42 Intake and Output: 03/26/18 03/27/18 18:59 06:59 Intake Total 700 Output Total 800 Balance -100 - Medications Medications: Current Medications Acetaminophen (Tylenol 325mg Tab) 650 mg PO Q6 PRN PRN Reason: Pain, Mild (1-3) Last Admin: 03/21/18 11:29 Dose: 650 mg Aspirin (Aspirin Chewable) 81 mg PO DAILY [facility] Last Admin: 03/26/18 09:51 Dose: 81 mg Clopidogrel Bisulfate (Plavix) 75 mg PO DAILY [facility] Dextrose (Dextrose 50% Inj) 0 ml IV STAT PRN; Protocol PRN Reason: Hypoglycemia Protocol Dextrose (Glutose 15) 0 gm PO ONCE PRN; Protocol PRN Reason: Hypoglycemia Protocol Enalapril Maleate (Vasotec) 5 mg PO DAILY [facility] Last Admin: 03/26/18 09:52 Dose: Not Given Gabapentin (Neurontin) 100 mg PO BID [facility] Last Admin: 03/26/18 18:31 Dose: 100 mg Glimepiride (Amaryl) 2 mg PO ACB [facility] Last Admin: 03/26/18 08:30 Dose: 2 mg Glucagon (Glucagen Diagnostic Kit) 0 mg IM STAT PRN; Protocol PRN Reason: Hypoglycemia Protocol Piperacillin Sod/Tazobactam Sod (Zosyn 3.375 Gm Iv Premix) 3.375 gm in 50 mls @ 100 mls/hr IVPB Q8H [facility]; Protocol Last Admin: 03/26/18 18:30 Dose: 100 mls/hr Dextrose (Dextrose 5% In Water 1000 Ml) 1,000 mls @ 0 mls/hr IV .Q0M PRN; Protocol PRN Reason: Hypoglycemia Protocol Insulin Human Regular (Novolin R) 0 unit SC ACHS [facility]; Protocol Last Admin: 03/26/18 21:28 Dose: Not Given [place] Carbonate ([place] Carbonate 300mg) 300 mg PO BID [facility] Last Admin: 03/26/18 18:31 Dose: 300 mg Metformin HCl (Glucophage) 500 mg PO BIDCC [facility] Last Admin: 03/26/18 18:31 Dose: 500 mg Nicotine (Nicoderm Cq) 1 patch TD DAILY [facility] Last Admin: 03/26/18 09:50 Dose: 1 patch Ondansetron HCl (Zofran Inj) 4 mg IVP Q6 PRN PRN Reason: Nausea/Vomiting Risperidone (Risperdal Tab) 2 mg PO HS [facility] Last Admin: 03/26/18 21:26 Dose: 2 mg Rosuvastatin Calcium (Crestor) 5 mg PO HS [facility] Saccharomyces Boulardii (Florastor) 250 mg PO BID [facility] Last Admin: 03/26/18 18:31 Dose: 250 mg Sodium Hypochlorite (Dakins Solution 0.5%) 0 ml TOP DAILY [facility] Last Admin: 03/26/18 09:51 Dose: Not Given - Labs Labs: 03/26/18 08:06 03/26/18 08:06 PT 15.2 SECONDS (9.7-12.2) H 03/20/18 17:00 INR 1.4 03/20/18 17:00 APTT 30 SECONDS (21-34) 03/20/18 17:00 - Head Exam Head Exam: ATRAUMATIC - Eye Exam Eye Exam: Normal appearance - ENT Exam ENT Exam: Mucous Membranes Dry - Respiratory Exam Respiratory Exam: NORMAL BREATHING PATTERN - Cardiovascular Exam Cardiovascular Exam: +S1, +S2 - GI/Abdominal Exam GI & Abdominal Exam: Normal Bowel Sounds Assessment and Plan (1) Anemia Assessment & Plan: anemia of chronic disease s/p Procrit redose to maintain hgb ~ 10-11 Status: Acute
[2018-03-27] MEDS: Piperacill/Tazo 3.375gm in Dex 3.375 GM/50 ML BAG IVPB SCH ×2 (01:06→08:46)
[2018-03-27 07:46] LABS: BASO # 0.1 K/uL (0.0-0.2); BASO % 0.9 % (0.0-2.0); EOS # 0.9 K/uL (0.0-0.7); EOS % 8.5 % (0.0-4.0); HEMOGLOBIN 10.5 g/dL (12.0-18.0); LYMPH # 3.4 K/uL (1.0-4.3); LYMPH % 32.2 % (20.0-40.0); MEAN CELL VOLUME 84.7 fL (80.0-94.0); MEAN CORPUSCULAR HEMOGLOBIN 28.2 pg (27.0-31.0); MEAN CORPUSCULAR HGB CONC 33.3 g/dL (33.0-37.0); MONO # 0.6 K/uL (0.0-0.8); MONO % 5.4 % (0.0-10.0); NEUT # 5.7 K/uL (1.8-7.0); NRBC % 0.1 % (0.0-2.0); RBC 3.73 Mil/uL (4.40-5.90); RED CELL DISTRIBUTION WIDTH 14.2 % (11.5-14.5); WHITE BLOOD COUNT 10.7 K/uL (4.8-10.8)
[2018-03-27 08:06] LABS: ALB/GLOB RATIO 0.9 (1.0-2.1); ALBUMIN 3.4 g/dL (3.5-5.0); ALT/SGPT 8 U/L (21-72); AST/SGOT 24 U/L (17-59); BLOOD UREA NITROGEN 21 mg/dL (9-20); CALCIUM 9.3 mg/dl (8.6-10.4); GFR NON-AFRICAN AMERICAN > 60
[2018-03-27] MEDS: (Novolin R) Insulin Human Regular 100 units/ml vial SC SCH ×3 (08:30→16:37)
[2018-03-27] MEDS: Saccharomyces Boulardi 250 mg Cap PO SCH (09:24)
[2018-03-27] MEDS: Dakin's Topical 0.5%-Full Strength (480 ml) TOP SCH (09:25)
[2018-03-27] MEDS ORDERED: Lidocaine 2% MPF (5 ml) Inj ONE ×2 (12:08→12:11)
--- NOTE | 2018-03-27 12:25 | CP.PCM.PN ---
Subjective - Date & Time of Evaluation Date of Evaluation: 03/27/18 Time of Evaluation: 12:22 - Subjective Subjective: Podiatry Progress Note -Dr. Jones 42 y/o male seen at bedside with Dr. Jones this morning, 6 days s/p right foot 1st and 2nd partial ray resections. Dressings remain clean and intact with little drainage. Denies of having any pain today. Patient denies any overnight F/C/N/V/CP/SOB. He denies any other pedal complains at this time. Objective - Vital Signs/Intake and Output Vital Signs (last 24 hours): Temp Pulse Resp BP Pulse Ox 97.8 F 97 H 20 123/79 96 03/27/18 08:12 03/27/18 09:23 03/27/18 08:12 03/27/18 09:24 03/27/18 08:12 Intake and Output: 03/27/18 03/27/18 06:59 18:59 Intake Total 1050 Output Total 1200 Balance -150 - Medications Medications: Current Medications Acetaminophen (Tylenol 325mg Tab) 650 mg PO Q6 PRN PRN Reason: Pain, Mild (1-3) Last Admin: 03/21/18 11:29 Dose: 650 mg Aspirin (Aspirin Chewable) 81 mg PO DAILY [facility] Last Admin: 03/27/18 09:24 Dose: 81 mg Clopidogrel Bisulfate (Plavix) 75 mg PO DAILY [facility] Dextrose (Dextrose 50% Inj) 0 ml IV STAT PRN; Protocol PRN Reason: Hypoglycemia Protocol Dextrose (Glutose 15) 0 gm PO ONCE PRN; Protocol PRN Reason: Hypoglycemia Protocol Enalapril Maleate (Vasotec) 5 mg PO DAILY [facility] Last Admin: 03/27/18 09:24 Dose: 5 mg Gabapentin (Neurontin) 100 mg PO BID [facility] Last Admin: 03/27/18 09:24 Dose: 100 mg Glimepiride (Amaryl) 2 mg PO ACB [facility] Last Admin: 03/27/18 08:30 Dose: 2 mg Glucagon (Glucagen Diagnostic Kit) 0 mg IM STAT PRN; Protocol PRN Reason: Hypoglycemia Protocol Piperacillin Sod/Tazobactam Sod (Zosyn 3.375 Gm Iv Premix) 3.375 gm in 50 mls @ 100 mls/hr IVPB Q8H [facility]; Protocol Last Admin: 03/27/18 08:46 Dose: 100 mls/hr Dextrose (Dextrose 5% In Water 1000 Ml) 1,000 mls @ 0 mls/hr IV .Q0M PRN; Protocol PRN Reason: Hypoglycemia Protocol Insulin Human Regular (Novolin R) 0 unit SC ACHS [facility]; Protocol Last Admin: 03/27/18 08:30 Dose: 4 units Linwood Carbonate (Linwood Carbonate 300mg) 300 mg PO BID [facility] Last Admin: 03/27/18 09:24 Dose: 300 mg Metformin HCl (Glucophage) 500 mg PO BIDCC [facility] Last Admin: 03/27/18 08:45 Dose: 500 mg Nicotine (Nicoderm Cq) 1 patch TD DAILY [facility] Last Admin: 03/27/18 09:24 Dose: 1 patch Ondansetron HCl (Zofran Inj) 4 mg IVP Q6 PRN PRN Reason: Nausea/Vomiting Risperidone (Risperdal Tab) 2 mg PO HS [facility] Last Admin: 03/26/18 21:26 Dose: 2 mg Rosuvastatin Calcium (Crestor) 5 mg PO HS [facility] Last Admin: 03/26/18 23:00 Dose: 5 mg Saccharomyces Boulardii (Florastor) 250 mg PO BID [facility] Last Admin: 03/27/18 09:24 Dose: 250 mg Sodium Hypochlorite (Dakins Solution 0.5%) 0 ml TOP DAILY [facility] Last Admin: 03/27/18 09:25 Dose: Not Given - Labs Labs: 03/27/18 07:03 03/27/18 07:03 PT 15.2 SECONDS (9.7-12.2) H 03/20/18 17:00 INR 1.4 03/20/18 17:00 APTT 30 SECONDS (21-34) 03/20/18 17:00 - Constitutional Appears: Well, Non-toxic, No Acute Distress - Extremities Exam Additional comments: B/L LE focused exam: Vasc: DP/PT pulses faintly palpable 1/4 b/l. Skin temperature gradient warm to warm on the R side and warm to cool on the L side. CFT < 3 seconds to all remaining digits. Edema noted to forefoot surrounding surgical sites b/l R > L. Neuro: Epicritic and protective sensation grossly diminished b/l. Derm: Surgical site noted to right medial forefoot with approx 10cm linear incision site noted and skin asael intact, skin edges well-coapted with no signs of dehiscence. Mild maceration is noted to lateral aspect of surgical incision site. No active drainage, no purulence, no malodor, no fluctuance. Mild shannen wound erythema present. Surgical site in the left foot looks dry and intact with intact sutures, covered by dry scab. no signs of active bacterial infection. MSK: Right foot 1st and 2nd digit and partial metatarsal resections noted, L 5th toe and 5th partial metatarsal amputation. Mild tenderness to palpation of right surgical site. No pain on palpating the left surgical site. Muscle power intact 5/5 to all groups. - Neurological Exam Neurological Exam: Alert, Awake, Oriented x3 - Psychiatric Exam Psychiatric exam: Normal Affect, Normal Mood Assessment and Plan - Assessment and Plan (Free Text) Assessment: 42 y/o male 5 days s/p right foot 1st and 2nd partial ray amputations secondary to diabetes mellitus with osteomyelitis Plan: Patient seen and evaluated with Dr. Jones. Charts, Labs and vitals reviewed; Afebrile, WBCs 10.7 R foot Surgical site cleaned dressed with xeroform, ABD, DSD and JEANMARIE bandage. L foot covered with DSD Continue IV abx per ID Pain control per primary team Patient to remain WB to the heel on the right using assisting device Recommend D/C to [facility] for continued abx Stable from podiatry standpoint Podiatry will continue to follow up the patient while in-house
--- NOTE | 2018-03-27 12:30 | PCM.SURG1 ---
Surgeon's Initial Post Op Note - Surgeon's Notes Surgeon: Meme Icebox Worker: None Type of Anesthesia: Local Pre-Operative Diagnosis: Infection Operative Findings: Patent right brachial vein. Post-Operative Diagnosis: Infection Operation Performed: Right brachial vein 4F SL 40cm PICC placed with the tip in the prox RA Specimen/Specimens Removed: None Estimated Blood Loss: EBL {In ML}: 1 Date of Surgery/Procedure: 03/27/18 Time of Surgery/Procedure: 12:20
[2018-03-27 15:44] VITALS: BP 120/77; PULSE 85; TEMP 97.7; O2SAT 100
--- NOTE | 2018-03-27 16:25 | CP.PCM.DIS ---
<Neel Avila - Last Filed: 03/27/18 16:19> Provider - Provider Date of Admission: 03/20/18 17:37 Attending physician: Sandi French DO Consults: 03/20/18 18:04 Podiatry Consult Routine Comment: osteomyelitis Consulting Provider: Keenan Jones Consulting Physician: Keenan Jones Reason for Consult: osteomyelitis 03/21/18 06:04 Nursing Referral for Wound Care Routine Comment: Physician Instructions: Reason For Exam: R foot wound and swelling 03/21/18 06:11 Infectious Disease Consult Routine Comment: Consulting Provider: Luis Espinal Consulting Physician: Luis Espinal Reason for Consult: Diabetic foot infection, right 03/21/18 09:43 Cardiology Consult Routine Comment: Consulting Provider: Lorenzo Altamirano Consulting Physician: Lorenzo Altamirano Reason for Consult: eval for cardiac, prominent family hx 03/22/18 10:29 Anesthesiology Consult Routine Comment: Consulting Provider: Olu Bruce Consulting Physician: Olu Bruce Reason for Consult: pain management rec, prior polysubstance, postop 03/22/18 10:40 Psychiatry Consult Routine Comment: Consulting Provider: Rubén Saunders Consulting Physician: Rubén Saunders Reason for Consult: hx of schizophrenia, noncompliant 03/23/18 10:31 Case Management Referral Routine Comment: Physician Instructions: Reason For Exam: subacute rehab Reason for Referral: Discharge Planning 03/23/18 15:27 Hematology Oncology Consult Routine Comment: Consulting Provider: Kam Khanna Consulting Physician: Kam Khanna Reason for Consult: anemia, lymphadenopathy Time Spent in preparation of Discharge (in minutes): 45 Diagnosis - Discharge Diagnosis (1) Osteomyelitis Status: Acute (2) Peripheral vascular disease Status: Acute (3) Diabetic toe ulcer Status: Acute Hospital Course - Lab Results Lab Results: Micro Results 03/24/18 14:41 Blood Blood Culture - Preliminary NO GROWTH AFTER 3 DAYS 03/24/18 06:55 Blood Blood Culture - Preliminary NO GROWTH AFTER 3 DAYS 03/20/18 17:00 Blood Blood Culture - Final NO GROWTH AFTER 5 DAYS 03/20/18 17:00 Blood Gram Stain - Final TEST NOT PERFORMED 03/21/18 19:10 Foot - Right Gram Stain - Final 03/21/18 19:10 Foot - Right Wound Culture - Final Coagulase Neg Staphylococcus Group G Streptococcus 03/20/18 16:50 Blood Blood Culture - Final Corynebacterium Species 03/20/18 16:50 Blood Gram Stain - Final 03/21/18 23:33 Urine,Clean Catch Urine Culture - Final No Growth (<1,000 CFU/ML) 03/20/18 19:03 Foot - Right Gram Stain - Final 03/20/18 19:03 Foot - Right Wound Culture - Final Group G Streptococcus Most Recent Lab Values WBC 10.7 K/uL (4.8-10.8) 03/27/18 07:03 RBC 3.73 Mil/uL (4.40-5.90) L 03/27/18 07:03 Hgb 10.5 g/dL (12.0-18.0) L 03/27/18 07:03 Hct 31.5 % (35.0-51.0) L 03/27/18 07:03 MCV 84.7 fL (80.0-94.0) 03/27/18 07:03 MCH 28.2 pg (27.0-31.0) 03/27/18 07:03 MCHC 33.3 g/dL (33.0-37.0) 03/27/18 07:03 RDW 14.2 % (11.5-14.5) 03/27/18 07:03 Plt Count 713 K/uL (130-400) H 03/27/18 07:03 MPV 7.0 fL (7.2-11.7) L 03/27/18 07:03 Neut % (Auto) 53.0 % (50.0-75.0) 03/27/18 07:03 Lymph % (Auto) 32.2 % (20.0-40.0) 03/27/18 07:03 Johnson % (Auto) 5.4 % (0.0-10.0) 03/27/18 07:03 Eos % (Auto) 8.5 % (0.0-4.0) H 03/27/18 07:03 Baso % (Auto) 0.9 % (0.0-2.0) 03/27/18 07:03 Neut # (Auto) 5.7 K/uL (1.8-7.0) 03/27/18 07:03 Lymph # (Auto) 3.4 K/uL (1.0-4.3) 03/27/18 07:03 Johnson # (Auto) 0.6 K/uL (0.0-0.8) 03/27/18 07:03 Eos # (Auto) 0.9 K/uL (0.0-0.7) H 03/27/18 07:03 Baso # (Auto) 0.1 K/uL (0.0-0.2) 03/27/18 07:03 ESR 118 mm/hr (0-15) H 03/20/18 17:00 Retic Count 1.1 % (0.5-1.5) 03/22/18 06:18 PT 15.2 SECONDS (9.7-12.2) H 03/20/18 17:00 INR 1.4 03/20/18 17:00 APTT 30 SECONDS (21-34) 03/20/18 17:00 Sodium 137 mmol/L (132-148) 03/27/18 07:03 Potassium 4.5 mmol/L (3.6-5.2) 03/27/18 07:03 Chloride 106 mmol/L (98-107) 03/27/18 07:03 Carbon Dioxide 26 mmol/L (22-30) 03/27/18 07:03 Anion Gap 10 (10-20) 03/27/18 07:03 BUN 21 mg/dL (9-20) H 03/27/18 07:03 Creatinine 1.0 mg/dL (0.8-1.5) 03/27/18 07:03 Est GFR ( Amer) > 60 03/27/18 07:03 Est GFR (Non-Af Amer) > 60 03/27/18 07:03 POC Glucose (mg/dL) 174 mg/dL (65-110) H 03/27/18 12:44 Random Glucose 221 mg/dL (75-110) H D 03/27/18 07:03 Hemoglobin A1c 8.8 % (4.2-6.5) H 03/20/18 20:55 Lactic Acid 1.0 mmol/L (0.7-2.1) 03/20/18 20:55 Calcium 9.3 mg/dl (8.6-10.4) 03/27/18 07:03 Phosphorus 3.4 mg/dL (2.5-4.5) 03/27/18 07:03 Magnesium 1.7 mg/dL (1.6-2.3) 03/22/18 10:50 Iron 20 ug/dL (49-181) L 03/22/18 06:18 TIBC 202 ug/dL (250-450) L 03/22/18 06:18 % Saturation 10 (20-55) L 03/22/18 06:18 Ferritin 282.0 ng/mL 03/22/18 06:18 Total Bilirubin 0.3 mg/dL (0.2-1.3) 03/27/18 07:03 AST 24 U/L (17-59) 03/27/18 07:03 ALT 8 U/L (21-72) L D 03/27/18 07:03 Alkaline Phosphatase 143 U/L (38-126) H 03/27/18 07:03 Total Creatine Kinase 55 U/L (55-170) 03/20/18 20:55 CK-MB (Mass) < 0.22 ng/mL (0.0-3.38) 03/20/18 20:55 Troponin I < 0.0120 ng/mL (0.00-0.120) 03/20/18 20:55 Total Protein 7.2 g/dL (6.3-8.3) 03/27/18 07:03 Albumin 3.4 g/dL (3.5-5.0) L 03/27/18 07:03 Globulin 3.7 gm/dL (2.2-3.9) 03/27/18 07:03 Albumin/Globulin Ratio 0.9 (1.0-2.1) L 03/27/18 07:03 Triglycerides 198 mg/dL (0-149) H D 03/26/18 08:06 Cholesterol 151 mg/dL (0-199) 03/26/18 08:06 LDL Cholesterol Direct 110 mg/dL (0-129) 03/26/18 08:06 HDL Cholesterol 17 mg/dL (30-70) L 03/26/18 08:06 Vitamin B12 365 pg/mL (239-931) 03/22/18 06:18 Folate 7.6 ng/mL 03/22/18 06:18 TSH 3rd Generation 1.42 mIU/L (0.46-4.68) 03/20/18 20:55 Urine Color Yellow (YELLOW) 03/21/18 19:19 Urine Clarity Clear (Clear) 03/21/18 19:19 Urine pH 5.0 (5.0-8.0) 03/21/18 19:19 Ur Specific Boaz 1.035 (1.003-1.030) H 03/21/18 19:19 Urine Protein 2+ mg/dL (NEGATIVE) H 03/21/18 19:19 Urine Glucose (UA) Normal mg/dL (Normal) 03/21/18 19:19 Urine Ketones Negative mg/dL (NEGATIVE) 03/21/18 19:19 Urine Blood 1+ (NEGATIVE) H 03/21/18 19:19 Urine Nitrate Negative (NEGATIVE) 03/21/18 19: Urine Bilirubin Negative (NEGATIVE) 03/21/18 19:19 Urine Urobilinogen 4.0 mg/dL (0.2-1.0) 03/21/18 19:19 Ur Leukocyte Esterase Neg Kit/uL (Negative) 03/21/18 19:19 Urine WBC (Auto) 2 /hpf (0-5) 03/21/18 19:19 Urine RBC (Auto) 13 /hpf (0-3) H 03/21/18 19:19 Ur Squamous Epith Cells < 1 /hpf (0-5) 03/21/18 19:19 Hyaline Casts 0-2 /lpf (0-2) 03/21/18 19:19 Vancomycin Trough 7.2 ug/mL (5.0-10.0) 03/22/18 06:18 Urine Opiates Screen Negative (NEGATIVE) 03/25/18 20:51 Urine Methadone Screen Negative (NEGATIVE) 03/25/18 20:51 Ur Barbiturates Screen Negative (NEGATIVE) 03/25/18 20:51 Ur Phencyclidine Scrn Negative (NEGATIVE) 03/25/18 20:51 Ur Amphetamines Screen Negative (NEGATIVE) 03/25/18 20:51 U Benzodiazepines Scrn Negative (NEGATIVE) 03/25/18 20:51 U Oth Cocaine Metabols Negative (NEGATIVE) 03/25/18 20:51 U Cannabinoids Screen Negative (NEGATIVE) 03/25/18 20:51 Hepatitis A IgM Ab Negative (NEGATIVE) 03/20/18 20:55 Hep Bs Antigen Negative (NEGATIVE) 03/20/18 20:55 Hep B Core IgM Ab Negative (NEGATIVE) 03/20/18 20:55 Hepatitis C Antibody Negative (NEGATIVE) 03/20/18 20:55 HIV 1&2 Antibody Screen Negative (NEGATIVE) 03/21/18 08:28 Blood Type A POSITIVE 03/22/18 06:18 Antibody Screen Negative 03/22/18 06:18 - Hospital Course Hospital Course: Upon Admission 42 M with a PMHx of polysubstance abuse, 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 Toes hurt more with flexion and extension and the pain goes up to the ankle. Pt believes the ul cer started as a red scratch. The current ulcer he says he went to Dr Jones's office on for a follow up appt. Pt was told he needs to follow up for an I&D scheduled today. Pt did not take any pain relief meds nor is he compliant with antibiotics for the last 2 months. Pt says he hasn't taken any of his psych meds either. Pt admits to frequent anger outbursts. Hospital Course Patient admitted for treatment of diabetic foot ulcer with overlying osteomyelitis infection on right toe. Podiatry was consulted for surigcal intervention. ID was consulted. Cardiology was consulted for family history of MIs at young age. Lower extremity was completed s/p 1st and 2nd metatarsal amputation. MRI of LE showed 1st and 2nd toe signs w/ signs of OM and 3rd toe as well for IV abx for 6 weeks was recommed as per ID. Peripheral angiogram was completed showing occlusion of lower extremity dorsalis pedis artery. Cardiology recommended outpatient followup for intervention. Patient was continued on home meds for chronic diseases with a consult to Dr. Kam Khanna, heme/onc, for low hgb which was attributed to chronic disease and podiatry intervention. Patient received picc line with IR team and was discharged to [facility]. Discharge Plan 1. Patient is stable for discharge to [facility] as per Dr. Matos. 2. Patient will continue taking the following medications: Aspirin 81mg daily once a day by mouth (8am) Plavix 75mg 1 tab po 1x day (8am) Lisinopril 5mg 1 tab po 1x day (2pm) Metoprolol 12.5mg 1 tab 2x a day (8am, 8pm) Atorvastatin 10mg 1 tab 1x a day (8pm) Vancomycin 1gm IV q12h continued until 05/07/18 Ertapenem 1gm IV 1x day continued until 05/07/18 Nicotine patch TD q24h Glimepiride 2mg 1 tab po AC breakfast (8am) Metformin 500mg 1 tab po AC breakfast (8am) and AC dinner (8pm) [place] 300mg 1 tab po 2x a day (8am and 8 pm) Risperidone 2mg 1 tab po HS (10pm) Florastor 250mg 1 tab 2x a day (through 05/07/18) Tylenol 650mg 1 tab po q6h prn for mild pain Gabapentin 100mg 1 tab po 2x a day (8am & 8 pm) 3. Patient will need to followup with injection machine operator Dr. Lorenzo Altamirano for scheduling outpatient peripheral angiogram intervention of right leg. [phone] 4. Please call entry level installation technician Dr. Carli Jones for right food wound care [phone] The medications above must be continued after discharge. If they are not on medication reconciliation list the above still must be continued for patient. Disclaimer: Above is a synopsis of patient's current hospital admission. For full report refer to EMR. Discharge Exam - Additional Findings Additional findings: - Constitutional Appears: Non-toxic, No Acute Distress - Head Exam Head Exam: NORMAL INSPECTION, NORMOCEPHALIC - Eye Exam Eye Exam: EOMI, Normal appearance. absent: Nystagmus, Scleral icterus - ENT Exam ENT Exam: Mucous Membranes Moist - Respiratory Exam Respiratory Exam: Clear to Ausculation Bilateral, NORMAL BREATHING PATTERN. absent: Rales, Rhonchi, Wheezes - Cardiovascular Exam Cardiovascular Exam: REGULAR RHYTHM, +S1, +S2. absent: Tachycardia - GI/Abdominal Exam GI & Abdominal Exam: Soft, Normal Bowel Sounds. absent: Distended, Firm, Guarding, Rigid, Tenderness - Extremities Exam Additional comments: left pinky digit amputated and base with debridement Right 1st and 2nd metarsal partial ray amputation with dressing intact. - Neurological Exam Neurological Exam: Alert, Awake, Oriented x3 - Psychiatric Exam Psychiatric exam: Normal Affect, Normal Mood - Skin Skin Exam: Dry, Intact, Normal Color Discharge Plan - Follow Up Plan Condition: FAIR Disposition: REHAB FACILITY/REHAB UNIT Instructions: Type 2 Diabetes, Diabetic Foot Ulcer (DC), Diabetes and Infections, Foot Care for Diabetics Additional Instructions: 1. Patient is stable for discharge to [facility] as per Dr. Matos. 2. Patient will continue taking the following medications: Aspirin 81mg daily once a day by mouth (8am) Plavix 75mg 1 tab po 1x day (8am) Lisinopril 5mg 1 tab po 1x day (2pm) Metoprolol 12.5mg 1 tab 2x a day (8am, 8pm) Atorvastatin 10mg 1 tab 1x a day (8pm) Vancomycin 1gm IV q12h continued until 05/07/18 Ertapenem 1gm IV 1x day continued until 05/07/18 Nicotine patch TD q24h Glimepiride 2mg 1 tab po AC breakfast (8am) Metformin 500mg 1 tab po AC breakfast (8am) and AC dinner (8pm) [place] 300mg 1 tab po 2x a day (8am and 8 pm) Risperidone 2mg 1 tab po HS (10pm) Florastor 250mg 1 tab 2x a day (through 05/07/18) Tylenol 650mg 1 tab po q6h prn for mild pain Gabapentin 100mg 1 tab po 2x a day (8am & 8 pm) 3. Patient will need to followup with injection machine operator Dr. Lorenzo Altamirano for scheduling outpatient peripheral angiogram intervention of right leg. [phone] 4. Please call entry level installation technician Dr. Carli Jnoes for right food wound care [phone] The medications above must be continued after discharge. If they are not on medication reconciliation list the above still must be continued for patient. Referrals: Luis Espinal MD [Staff Provider] - Keenan Jones DPM [Staff Provider] - Lorenzo Altamirano MD [Staff Provider] - <Chico Matos - Last Filed: 03/27/18 20:19> Provider - Provider Date of Admission: 03/20/18 17:37 Attending physician: Sandi French DO Consults: 03/20/18 18:04 Podiatry Consult Routine Comment: osteomyelitis Consulting Provider: Keenan Jones Consulting Physician: Keenan Jones Reason for Consult: osteomyelitis 03/21/18 06:04 Nursing Referral for Wound Care Routine Comment: Physician Instructions: Reason For Exam: R foot wound and swelling 03/21/18 06:11 Infectious Disease Consult Routine Comment: Consulting Provider: Luis Espinal Consulting Physician: Luis Espinal Reason for Consult: Diabetic foot infection, right 03/21/18 09:43 Cardiology Consult Routine Comment: Consulting Provider: Lorenzo Altamirano Consulting Physician: Lorenzo Altamirano Reason for Consult: eval for cardiac, prominent family hx 03/22/18 10:29 Anesthesiology Consult Routine Comment: Consulting Provider: Olu Bruce Consulting Physician: Olu Bruce Reason for Consult: pain management rec, prior polysubstance, postop 03/22/18 10:40 Psychiatry Consult Routine Comment: Consulting Provider: Rubén Saunders Consulting Physician: Rubén Saunders Reason for Consult: hx of schizophrenia, noncompliant 03/23/18 10:31 Case Management Referral Routine Comment: Physician Instructions: Reason For Exam: subacute rehab Reason for Referral: Discharge Planning 03/23/18 15:27 Hematology Oncology Consult Routine Comment: Consulting Provider: Kam Khanna Consulting Physician: Kam Khanna Reason for Consult: anemia, lymphadenopathy Hospital Course - Lab Results Lab Results: Micro Results 03/24/18 14:41 Blood Blood Culture - Preliminary NO GROWTH AFTER 3 DAYS 03/24/18 06:55 Blood Blood Culture - Preliminary NO GROWTH AFTER 3 DAYS 03/20/18 17:00 Blood Blood Culture - Final NO GROWTH AFTER 5 DAYS 03/20/18 17:00 Blood Gram Stain - Final TEST NOT PERFORMED 03/21/18 19:10 Foot - Right Gram Stain - Final 03/21/18 19:10 Foot - Right Wound Culture - Final Coagulase Neg Staphylococcus Group G Streptococcus 03/20/18 16:50 Blood Blood Culture - Final Corynebacterium Species 03/20/18 16:50 Blood Gram Stain - Final 03/21/18 23:33 Urine,Clean Catch Urine Culture - Final No Growth (<1,000 CFU/ML) 03/20/18 19:03 Foot - Right Gram Stain - Final 03/20/18 19:03 Foot - Right Wound Culture - Final Group G Streptococcus Most Recent Lab Values WBC 10.7 K/uL (4.8-10.8) 03/27/18 07:03 RBC 3.73 Mil/uL (4.40-5.90) L 03/27/18 07:03 Hgb 10.5 g/dL (12.0-18.0) L 03/27/18 07:03 Hct 31.5 % (35.0-51.0) L 03/27/18 07:03 MCV 84.7 fL (80.0-94.0) 03/27/18 07:03 MCH 28.2 pg (27.0-31.0) 03/27/18 07:03 MCHC 33.3 g/dL (33.0-37.0) 03/27/18 07:03 RDW 14.2 % (11.5-14.5) 03/27/18 07:03 Plt Count 713 K/uL (130-400) H 03/27/18 07:03 MPV 7.0 fL (7.2-11.7) L 03/27/18 07:03 Neut % (Auto) 53.0 % (50.0-75.0) 03/27/18 07:03 Lymph % (Auto) 32.2 % (20.0-40.0) 03/27/18 07:03 Johnson % (Auto) 5.4 % (0.0-10.0) 03/27/18 07:03 Eos % (Auto) 8.5 % (0.0-4.0) H 03/27/18 07:03 Baso % (Auto) 0.9 % (0.0-2.0) 03/27/18 07:03 Neut # (Auto) 5.7 K/uL (1.8-7.0) 03/27/18 07:03 Lymph # (Auto) 3.4 K/uL (1.0-4.3) 03/27/18 07:03 Johnson # (Auto) 0.6 K/uL (0.0-0.8) 03/27/18 07:03 Eos # (Auto) 0.9 K/uL (0.0-0.7) H 03/27/18 07:03 Baso # (Auto) 0.1 K/uL (0.0-0.2) 03/27/18 07:03 ESR 118 mm/hr (0-15) H 03/20/18 17:00 Retic Count 1.1 % (0.5-1.5) 03/22/18 06:18 PT 15.2 SECONDS (9.7-12.2) H 03/20/18 17:00 INR 1.4 03/20/18 17:00 APTT 30 SECONDS (21-34) 03/20/18 17:00 Sodium 137 mmol/L (132-148) 03/27/18 07:03 Potassium 4.5 mmol/L (3.6-5.2) 03/27/18 07:03 Chloride 106 mmol/L (98-107) 03/27/18 07:03 Carbon Dioxide 26 mmol/L (22-30) 03/27/18 07:03 Anion Gap 10 (10-20) 03/27/18 07:03 BUN 21 mg/dL (9-20) H 03/27/18 07:03 Creatinine 1.0 mg/dL (0.8-1.5) 03/27/18 07:03 Est GFR ( Amer) > 60 03/27/18 07:03 Est GFR (Non-Af Amer) > 60 03/27/18 07:03 POC Glucose (mg/dL) 141 mg/dL (65-110) H 03/27/18 16:16 Random Glucose 221 mg/dL (75-110) H D 03/27/18 07:03 Hemoglobin A1c 8.8 % (4.2-6.5) H 03/20/18 20:55 Lactic Acid 1.0 mmol/L (0.7-2.1) 03/20/18 20:55 Calcium 9.3 mg/dl (8.6-10.4) 03/27/18 07:03 Phosphorus 3.4 mg/dL (2.5-4.5) 03/27/18 07:03 Magnesium 1.7 mg/dL (1.6-2.3) 03/22/18 10:50 Iron 20 ug/dL (49-181) L 03/22/18 06:18 TIBC 202 ug/dL (250-450) L 03/22/18 06:18 % Saturation 10 (20-55) L 03/22/18 06:18 Ferritin 282.0 ng/mL 03/22/18 06:18 Total Bilirubin 0.3 mg/dL (0.2-1.3) 03/27/18 07:03 AST 24 U/L (17-59) 03/27/18 07:03 ALT 8 U/L (21-72) L D 03/27/18 07:03 Alkaline Phosphatase 143 U/L (38-126) H 03/27/18 07:03 Total Creatine Kinase 55 U/L (55-170) 03/20/18 20:55 CK-MB (Mass) < 0.22 ng/mL (0.0-3.38) 03/20/18 20:55 Troponin I < 0.0120 ng/mL (0.00-0.120) 03/20/18 20:55 Total Protein 7.2 g/dL (6.3-8.3) 03/27/18 07:03 Albumin 3.4 g/dL (3.5-5.0) L 03/27/18 07:03 Globulin 3.7 gm/dL (2.2-3.9) 03/27/18 07:03 Albumin/Globulin Ratio 0.9 (1.0-2.1) L 03/27/18 07:03 Triglycerides 198 mg/dL (0-149) H D 03/26/18 08:06 Cholesterol 151 mg/dL (0-199) 03/26/18 08:06 LDL Cholesterol Direct 110 mg/dL (0-129) 03/26/18 08:06 HDL Cholesterol 17 mg/dL (30-70) L 03/26/18 08:06 Vitamin B12 365 pg/mL (239-931) 03/22/18 06:18 Folate 7.6 ng/mL 03/22/18 06:18 TSH 3rd Generation 1.42 mIU/L (0.46-4.68) 03/20/18 20:55 Urine Color Yellow (YELLOW) 03/21/18 19:19 Urine Clarity Clear (Clear) 03/21/18 19:19 Urine pH 5.0 (5.0-8.0) 03/21/18 19:19 Ur Specific Boaz 1.035 (1.003-1.030) H 03/21/18 19:19 Urine Protein 2+ mg/dL (NEGATIVE) H 03/21/18 19:19 Urine Glucose (UA) Normal mg/dL (Normal) 03/21/18 19:19 Urine Ketones Negative mg/dL (NEGATIVE) 03/21/18 19:19 Urine Blood 1+ (NEGATIVE) H 03/21/18 19:19 Urine Nitrate Negative (NEGATIVE) 03/21/18 19:19 Urine Bilirubin Negative (NEGATIVE) 03/21/18 19:19 Urine Urobilinogen 4.0 mg/dL (0.2-1.0) 03/21/18 19:19 Ur Leukocyte Esterase Neg Kit/uL (Negative) 03/21/18 19:19 Urine WBC (Auto) 2 /hpf (0-5) 03/21/18 19:19 Urine RBC (Auto) 13 /hpf (0-3) H 03/21/18 19:19 Ur Squamous Epith Cells < 1 /hpf (0-5) 03/21/18 19:19 Hyaline Casts 0-2 /lpf (0-2) 03/21/18 19:19 Vancomycin Trough 7.2 ug/mL (5.0-10.0) 03/22/18 06:18 Urine Opiates Screen Negative (NEGATIVE) 03/25/18 20:51 Urine Methadone Screen Negative (NEGATIVE) 03/25/18 20:51 Ur Barbiturates Screen Negative (NEGATIVE) 03/25/18 20:51 Ur Phencyclidine Scrn Negative (NEGATIVE) 03/25/18 20:51 Ur Amphetamines Screen Negative (NEGATIVE) 03/25/18 20:51 U Benzodiazepines Scrn Negative (NEGATIVE) 03/25/18 20:51 U Oth Cocaine Metabols Negative (NEGATIVE) 03/25/18 20:51 U Cannabinoids Screen Negative (NEGATIVE) 03/25/18 20:51 Hepatitis A IgM Ab Negative (NEGATIVE) 03/20/18 20:55 Hep Bs Antigen Negative (NEGATIVE) 03/20/18 20:55 Hep B Core IgM Ab Negative (NEGATIVE) 03/20/18 20:55 Hepatitis C Antibody Negative (NEGATIVE) 03/20/18 20:55 HIV 1&2 Antibody Screen Negative (NEGATIVE) 03/21/18 08:28 Blood Type A POSITIVE 03/22/18 06:18 Antibody Screen Negative 03/22/18 06:18 Attending/Attestation - Attestation I have personally seen and examined this patient.: Yes I have fully participated in the care of the patient.: Yes I have reviewed all pertinent clinical information, including history, physical exam and plan: Yes Notes (Text): 03/27/18 20:01 Patient was seen and examined at 10 AM Care of this patient was gone over in detail with resident Dr. Avila. Please note that patient again was extremely agitated and using foul language throughout my interview and exam stating that "everyone was delaying my care" and that "no one here knows what the fuck there doing" and "you are fucking keeping me from my son" and that "social welfare administrator is a snow flake" for being offended by his offensive language. Explained to patient that everyone's goal was to get him safely to where he needed to go. Spoke with Physician Advisor Dr. Hilario in hopes that he could facilitate in the PICC line placement as Dr. Avila checked to see if patient was on IR schedule and he was not. Dr. Hilario was able to help and patient was discharged to [facility] after PICC line placement. All discharge instructions were gone over in detail with Dr. Avila. Chico Matos D.O.
--- NOTE | 2018-03-27 23:12 | CP.PCM.PN ---
Subjective - Date & Time of Evaluation Date of Evaluation: 03/27/18 Time of Evaluation: 11:00 - Subjective Subjective: No complaints. Objective - Vital Signs/Intake and Output Vital Signs (last 24 hours): Temp Pulse Resp BP Pulse Ox 97.7 F 85 20 120/77 100 03/27/18 15:00 03/27/18 15:00 03/27/18 15:00 03/27/18 15:00 03/27/18 15:00 Intake and Output: 03/27/18 03/28/18 18:59 06:59 Intake Total 200 Balance 200 - Labs Labs: 03/27/18 07:03 03/27/18 07:03 PT 15.2 SECONDS (9.7-12.2) H 03/20/18 17:00 INR 1.4 03/20/18 17:00 APTT 30 SECONDS (21-34) 03/20/18 17:00 - Head Exam Head Exam: ATRAUMATIC - Eye Exam Eye Exam: Normal appearance - ENT Exam ENT Exam: Mucous Membranes Dry - Respiratory Exam Respiratory Exam: NORMAL BREATHING PATTERN - Cardiovascular Exam Cardiovascular Exam: +S1, +S2 - GI/Abdominal Exam GI & Abdominal Exam: Normal Bowel Sounds Assessment and Plan (1) Anemia Assessment & Plan: anemia of chronic disease s/p Procrit redose to maintain hgb ~ 10-11 Status: Acute
--- NOTE | 2018-04-02 06:37 | OP ---
PROCEDURE DATE: 03/21/2018 PREOPERATIVE DIAGNOSIS: Infected diabetic ulceration with soft tissue emphysema of the right foot. POSTOPERATIVE DIAGNOSIS: Infected diabetic ulceration with soft tissue emphysema of the right foot. NAME OF PROCEDURES: 1. Partial first ray amputation of the right foot. 2. Partial second ray amputation of the right foot. 3. Incision and drainage of the diabetic ulceration of the right foot. SURGEON: Keenan Jones DPM TRANSMISSION INSPECTOR: Nabil Soni, PGY-2. ANESTHESIA: General LMA. ANESTHESIOLOGIST: Amari Coleman MD INDICATIONS: The patient is a 42-year-old male with the above-mentioned diagnosis. The patient has exhausted all conservative treatment options at this time and now requires surgical intervention. The patient signed the consent after careful explanation of risks, benefits, complications, and alternatives for surgical procedure. No guarantees were given nor implied. The n.p.o. status was confirmed prior to taking the patient to the OR. PREPARATION: The patient was brought into the operating room and placed on the operating room table in a supine position. Time-out was performed for identification of the correct patient and procedure. After induction of general LMA anesthesia, the right lower extremity was prepped and draped in the normal sterile manner and the procedure was begun. No tourniquet was used during this procedure. PROCEDURE #1: Attention was then turned to the right foot where it was noted that there was an approximately 3 cm x 4 cm diabetic ulceration on the plantar aspect of the foot at the level of the first metatarsophalangeal joint that probed directly to the dorsal aspect of the patient's foot. Using a #15 blade, the ulceration borders were excised in their entirety and then removed from the surgical field. Both the first and second metatarsals as well as the bases of the first and second proximal phalanges could be seen at this time. Using a #15 blade and sharp towel clamps, the first and second digits were disarticulated at their respective metatarsophalangeal joints and passed from the operative field. A periosteal elevator was then used to remove any soft tissue from the now exposed first and second metatarsal heads and both the first and second metatarsal heads were excised in their entirety using an oscillating bone saw and passed from the operative field. All soft tissue and bone was excised, removed from the field and were sent to pathology for pathological examination and microbiology for microbiological examination. The surgical site was then assessed and any remaining visible nonviable soft tissue or bone was excised in its entirety. Surgical site was then flushed using a pulse lavage irrigation system with 3 liters of normal sterile saline and the surgical site was partially closed using 0 nylon and 4-0 nylon sutures as well as asael. The area of the incision site that remained open was where the second digit had previously been located. This area was packed with 1-inch Iodoform packing and the foot was dressed with Betadine-soaked Adaptic, 4x4 gauze, ABD pads, Coban and Koko bandage and the procedure was completed. POSTOPERATIVE CONDITION: The patient tolerated the procedure and the anesthesia well without any complications or complaints. The patient was escorted from the operating room to the recovery room with vital signs stable and neurovascular structures intact to the right lower extremity. The patient will remain in-house and Podiatry will continue to follow. Nabil Soni DPM Keenan Jones DPM
--- NOTE | 2018-04-02 17:36 | PQF ---
PROVIDER RESPONSE TEXT: Patient has confirmed Sepsis Secondary to Right Foot Toe #1 and Toe #2 Osteomyelitis due to Coagulase Negative Staph and Group B Streptococcus as well as secondary to Corynebacterium Bacteremia. Sepsis was present upon admission as per admitting physician History and Physical. This is not related to a device. Repeat Blood Cultures were negative. REVIEWER QUERY TEXT: Rule Out Sepsis Clarification Rule out Sepsis is documented in the Medical Record. Please clarify whether: -- Patient has sepsis - Please document confirmed, suspected or probable causative organism - Please document confirmed, suspected or probable localized infection - Please clarify if sepsis is related to a device - Please clarify if sepsis was present on admission -- Sepsis was ruled out (include corresponding diagnosis for patient?s clinical picture and treatment ) -- Patient had sepsis which is resolved -- Other, please specify The patient's Clinical Indicators include: . SEPSIS DOCUMENTED 03/20 + BLOOD CULTURE THEN BLOOD CULTURES NEG . PLEASE, CLARIFY IS SEPSIS WAS RULED IN OR RULED OUT Query created by: Marla Garcia on 03/29/2018 2:29 PM Electronically signed by: Chico Matos MD 04/02/2018 5:33 PM
== END 2018-03-27 17:02 ==
LOC: C.ER 16:00 → C.9E 17:37 → C.5S 22:51
PROVIDERS: ADMIT Hospitalist; ATTEND Hospitalist
PROC: 0Y6M0ZB Detachment at Right Foot, Partial 2nd Ray, Open Approach (ICD-10-PCS; 2018-03-21)
PROC: 0J9Q0ZZ Drainage of Right Foot Subcutaneous Tissue and Fascia, Open Approach (ICD-10-PCS; 2018-03-21)
PROC: 0JBQ0ZZ Excision of Right Foot Subcutaneous Tissue and Fascia, Open Approach (ICD-10-PCS; 2018-03-21)
PROC: 0Y6M0Z9 Detachment at Right Foot, Partial 1st Ray, Open Approach (ICD-10-PCS; principal; 2018-03-21 15:30)
PROC: 02H633Z Insertion of Infusion Device into Right Atrium, Percutaneous Approach (ICD-10-PCS; 2018-03-27)
DX: E11.69 Type 2 diabetes mellitus with other specified complication (principal); A41.9 Sepsis, unspecified organism; M86.171 Other acute osteomyelitis, right ankle and foot; E11.621 Type 2 diabetes mellitus with foot ulcer; L97.519 Non-pressure chronic ulcer of other part of right foot with unspecified severity; E11.52 Type 2 diabetes mellitus with diabetic peripheral angiopathy with gangrene; L03.90 Cellulitis, unspecified; I96 Gangrene, not elsewhere classified; E11.40 Type 2 diabetes mellitus with diabetic neuropathy, unspecified; E11.65 Type 2 diabetes mellitus with hyperglycemia; D63.8 Anemia in other chronic diseases classified elsewhere; F25.0 Schizoaffective disorder, bipolar type; B95.7 Other staphylococcus as the cause of diseases classified elsewhere; B95.4 Other streptococcus as the cause of diseases classified elsewhere; I10 Essential (primary) hypertension; N28.9 Disorder of kidney and ureter, unspecified; M79.89 Other specified soft tissue disorders; J45.909 Unspecified asthma, uncomplicated; F17.210 Nicotine dependence, cigarettes, uncomplicated; F19.10 Other psychoactive substance abuse, uncomplicated; E66.3 Overweight; Z79.4 Long term (current) use of insulin; Z95.1 Presence of aortocoronary bypass graft; Z79.82 Long term (current) use of aspirin; Z91.19 Patient's noncompliance with other medical treatment and regimen; Z89.422 Acquired absence of other left toe(s); Z79.899 Other long term (current) drug therapy; Z91.411 Personal history of adult psychological abuse; Z91.410 Personal history of adult physical and sexual abuse; Z81.8 Family history of other mental and behavioral disorders; Z82.49 Family history of ischemic heart disease and other diseases of the circulatory system

== ENCOUNTER 2018-05-08 03:37 | Inpatient (IN) | payer MEDICAID ==
[2018-05-08 03:37] VITALS: BMI 31.8
[2018-05-08] MEDS ORDERED: Sodium Chloride 0.9% 1,000 ML IV STA (04:32)
[2018-05-08 04:44] LABS: BASO # 0.1 K/uL (0.0-0.2); BASO % 0.9 % (0.0-2.0); EOS # 0.6 K/uL (0.0-0.7); HEMOGLOBIN 11.5 g/dL (12.0-18.0); LYMPH # 3.2 K/uL (1.0-4.3); LYMPH % 26.6 % (20.0-40.0); MEAN CELL VOLUME 89.7 fL (80.0-94.0); MEAN CORPUSCULAR HEMOGLOBIN 29.1 pg (27.0-31.0); MEAN CORPUSCULAR HGB CONC 32.4 g/dL (33.0-37.0); MONO # 0.7 K/uL (0.0-0.8); MONO % 5.4 % (0.0-10.0); NEUT # 7.5 K/uL (1.8-7.0); NEUT % 62.1 % (50.0-75.0); RBC 3.96 Mil/uL (4.40-5.90); RED CELL DISTRIBUTION WIDTH 16.4 % (11.5-14.5); WHITE BLOOD COUNT 12.1 K/uL (4.8-10.8)
[2018-05-08 05:13] LABS: VENOUS BLOOD GAS PCO2 46 mmHg (40-60); VENOUS BLOOD GAS PO2 55 mm/Hg (30-55)
[2018-05-08] MEDS ORDERED: Piperacillin/Tazobact 3.375 gm 100 ML IVPB STA (05:39)
[2018-05-08] MEDS ORDERED: Vancomycin 1 GM 1 GM/250 ML BAG IVPB ONE (05:54)
[2018-05-08] MEDS ORDERED: Piperacillin/Tazobact 3.375 gm 100 ML IVPB ONE (05:54)
[2018-05-08 06:02] LABS: BLOOD UREA NITROGEN 24 mg/dL (9-20); CALCIUM 9.3 mg/dl (8.6-10.4); GFR NON-AFRICAN AMERICAN > 60
--- NOTE | 2018-05-08 06:39 | C.PDOC ---
History Of Present Illness 42 year old male with Hx of diabetes, homeless, also recently admitted for osteomyelitis and sepsis, had procedure done where he had some bone removed, sent to short term rehab where he left a week ago and has been staying at the [facility]. Since then he has had no wound care and states his feet are now more painful and swollen, mainly the left foot. Time Seen by Provider: 05/08/18 03:54 Chief Complaint (Nursing): Lower Extremity Problem/Injury Past Medical History Vital Signs: Last Vital Signs Temp 98.6 F 05/08/18 03:52 Pulse 101 H 05/08/18 03:52 Resp 20 05/08/18 03:52 BP 121/75 05/08/18 03:52 Pulse Ox 99 05/08/18 03:52 - Medical History PMH: Anxiety, Arthritis (backs and LE), Asthma, Bipolar Disorder, Depression, Diabetes, HTN, Schizophrenia (schizoaffective disorder) Denies: Chronic Kidney Disease - [facility] Procedures DETACHMENT AT LEFT FOOT, PARTIAL 5TH RAY, OPEN APPROACH (02/27/18) DETACHMENT AT RIGHT FOOT, PARTIAL 1ST RAY, OPEN APPROACH (03/20/18) DETACHMENT AT RIGHT FOOT, PARTIAL 2ND RAY, OPEN APPROACH (03/20/18) DRAINAGE OF R FOOT SUBCU/FASCIA, OPEN APPROACH (03/20/18) DRAINAGE OF RIGHT FOOT SKIN, EXTERNAL APPROACH, DIAGNOSTIC (02/27/18) EXCISION OF L FOOT SUBCU/FASCIA, OPEN APPROACH (11/10/17) EXCISION OF LEFT FOOT SKIN, EXTERNAL APPROACH (02/27/18) EXCISION OF R FOOT SUBCU/FASCIA, OPEN APPROACH (03/20/18) EXCISION OF RIGHT FOOT SKIN, EXTERNAL APPROACH (02/27/18) INSERTION OF INFUSION DEVICE INTO R ATRIUM, PERC APPROACH (03/20/18) Family History: States: Unknown Family Hx - Social History Hx Tobacco Use: Yes Hx Alcohol Use: No Hx Substance Use: No - Immunization History Hx Tetanus Toxoid Vaccination: Yes Hx Influenza Vaccination: Yes Hx Pneumococcal Vaccination: Yes ED Course And Treatment - Laboratory Results Result Diagrams: 05/08/18 04:40 05/08/18 04:40 Lab Results: pO2 55 mm/Hg (30-55) 05/08/18 05:05 VBG pH 7.40 (7.32-7.43) 05/08/18 05:05 VBG pCO2 46 mmHg (40-60) 05/08/18 05:05 VBG HCO3 27.0 mmol/L 05/08/18 05:05 VBG Total CO2 29.9 mmol/L (22-28) H 05/08/18 05:05 VBG O2 Sat (Calc) 93.7 % (40-65) H 05/08/18 05:05 VBG Base Excess 3.0 mmol/L (0.0-2.0) H 05/08/18 05:05 VBG Potassium 4.0 mmol/L (3.6-5.2) 05/08/18 05:05 Sodium 136.0 mmol/l (132-148) 05/08/18 05:05 Chloride 104.0 mmol/L (98-107) 05/08/18 05:05 Glucose 453 mg/dl (75-110) H* 05/08/18 05:05 Lactate 1.0 mmol/L (0.7-2.1) 05/08/18 05:05 Crit Value Called To Dr richard/erdr 05/08/18 05:05 Crit Value Called By Jori ramos/rt 05/08/18 05:05 Crit Value Read Back Y 05/08/18 05:05 Blood Gas Notified Time 515 05/08/18 05:05 O2 Sat by Pulse Oximetry: 99 Disposition - Disposition Forms: [facility] (Kosovan)
--- NOTE | 2018-05-08 06:39 | C.PDOC ---
History Of Present Illness 42 year old male with Hx of diabetes, homeless, also recently admitted for osteomyelitis and sepsis, had procedure done where he had some bone removed, sent to short term rehab where he left a week ago and has been staying at [facility]. Since then he has had no wound care and states his feet are now more painful and swollen, mainly the left foot. Patient is on lantus and novolin for diabetes but is not compliant. He sees Dr. Jones for podiatry. Denies fever. Time Seen by Provider: 05/08/18 03:54 Chief Complaint (Nursing): Lower Extremity Problem/Injury History Per: Patient History/Exam Limitations: no limitations Onset/Duration Of Symptoms: Days Current Symptoms Are (Timing): Still Present Past Medical History Reviewed: Historical Data, Nursing Documentation, Vital Signs Vital Signs: Last Vital Signs Temp 98.6 F 05/08/18 03:52 Pulse 101 H 05/08/18 03:52 Resp 20 05/08/18 03:52 BP 121/75 05/08/18 03:52 Pulse Ox 99 05/08/18 03:52 - Medical History PMH: Anxiety, Arthritis (backs and LE), Asthma, Bipolar Disorder, Depression, Diabetes, HTN, Schizophrenia (schizoaffective disorder) Denies: Chronic Kidney Disease - [facility] Procedures DETACHMENT AT LEFT FOOT, PARTIAL 5TH RAY, OPEN APPROACH (02/27/18) DETACHMENT AT RIGHT FOOT, PARTIAL 1ST RAY, OPEN APPROACH (03/20/18) DETACHMENT AT RIGHT FOOT, PARTIAL 2ND RAY, OPEN APPROACH (03/20/18) DRAINAGE OF R FOOT SUBCU/FASCIA, OPEN APPROACH (03/20/18) DRAINAGE OF RIGHT FOOT SKIN, EXTERNAL APPROACH, DIAGNOSTIC (02/27/18) EXCISION OF L FOOT SUBCU/FASCIA, OPEN APPROACH (11/10/17) EXCISION OF LEFT FOOT SKIN, EXTERNAL APPROACH (02/27/18) EXCISION OF R FOOT SUBCU/FASCIA, OPEN APPROACH (03/20/18) EXCISION OF RIGHT FOOT SKIN, EXTERNAL APPROACH (02/27/18) INSERTION OF INFUSION DEVICE INTO R ATRIUM, PERC APPROACH (03/20/18) Family History: States: Unknown Family Hx - Social History Hx Tobacco Use: Yes Hx Alcohol Use: No Hx Substance Use: No - Immunization History Hx Tetanus Toxoid Vaccination: Yes Hx Influenza Vaccination: Yes Hx Pneumococcal Vaccination: Yes Review Of Systems Constitutional: Negative for: Fever, Chills Eyes: Negative for: Pain, Redness ENT: Negative for: Mouth Swelling Cardiovascular: Negative for: Chest Pain, Palpitations Respiratory: Negative for: Cough, Shortness of Breath Gastrointestinal: Negative for: Nausea, Vomiting, Diarrhea Genitourinary: Negative for: Dysuria, Hematuria Musculoskeletal: Positive for: Foot Pain. Negative for: Back Pain Skin: Negative for: Rash Neurological: Negative for: Weakness, Numbness Physical Exam - Physical Exam Appears: Non-toxic, Other (Afebrile, Sleeping) Skin: Warm Head: Atraumatic, Normacephalic Eye(s): bilateral: Normal Inspection, PERRL, EOMI Ear(s): Bilateral: Normal Nose: Normal Oral Mucosa: Moist Throat: Normal (No swelling or injection), Exudate Neck: Normal ROM, Supple Chest: Symmetrical Cardiovascular: Rhythm Regular Respiratory: Normal Breath Sounds, No Accessory Muscle Use, Other (Normal inspiratory effort) Gastrointestinal/Abdominal: Soft, Other (Obese) Extremity: Other (Left bottom turning lathe tender, erythematous, and swelling to left lateral aspect of sole, amputation of 4th and 5th toes, no streaking or erythema of left leg. Right foot asael and sutures with macerated skin under bandage with foul odor.) Pulses: Left Dorsalis Pedis: Normal, Right Dorsalis Pedis: Normal Neurological/Psych: Oriented x3, Normal Speech, Normal Cranial Nerves (Grossly intact) ED Course And Treatment - Laboratory Results Result Diagrams: 05/08/18 04:40 05/08/18 04:40 Lab Results: pO2 55 mm/Hg (30-55) 05/08/18 05:05 VBG pH 7.40 (7.32-7.43) 05/08/18 05:05 VBG pCO2 46 mmHg (40-60) 05/08/18 05:05 VBG HCO3 27.0 mmol/L 05/08/18 05:05 VBG Total CO2 29.9 mmol/L (22-28) H 05/08/18 05:05 VBG O2 Sat (Calc) 93.7 % (40-65) H 05/08/18 05:05 VBG Base Excess 3.0 mmol/L (0.0-2.0) H 05/08/18 05:05 VBG Potassium 4.0 mmol/L (3.6-5.2) 05/08/18 05:05 Sodium 136.0 mmol/l (132-148) 05/08/18 05:05 Chloride 104.0 mmol/L (98-107) 05/08/18 05:05 Glucose 453 mg/dl (75-110) H* 05/08/18 05:05 Lactate 1.0 mmol/L (0.7-2.1) 05/08/18 05:05 Crit Value Called To Dr richard/trevorr 05/08/18 05:05 Crit Value Called By Jori ramos/rt 05/08/18 05:05 Crit Value Read Back Y 05/08/18 05:05 Blood Gas Notified Time 515 05/08/18 05:05 O2 Sat by Pulse Oximetry: 99 Medical Decision Making Medical Decision Making: Labs show new infection, plan is to admit. Disposition - Disposition Disposition Time: 06:42 Forms: [facility] (Bulgarian) - Clinical Impression Clinical Impression: Diabetic foot ulcer with osteomyelitis, Uncontrolled diabetes mellitus - PA / FORGE OPERATOR HELPER / Resident Statement MD/DO has reviewed & agrees with the documentation as recorded. - Scribe Statement The provider has reviewed the documentation as recorded by the Scribe Luis Huizar All medical record entries made by the Scribe were at my direction and personally dictated by me. I have reviewed the chart and agree that the record accurately reflects my personal performance of the history, physical exam, medical decision making, and the department course for this patient. I have also personally directed, reviewed, and agree with the discharge instructions and disposition. Decision To Admit - Pt Status Changed To: Hospital Disposition Of: Inpatient - Admit Certification Admit to Inpatient:: After my assessment, the patient will require hospitalization for at least two midnights. This is because of the severity of symptoms shown, intensity of services needed, and/or the medical risk in this patient being treated as an outpatient. - InPatient: Physician Admission Certification: I certify that this patient requires 2 or more midnights of care for the following reason:: uncontrolled DM with recurrent osteomyelitis of feet - . Bed Request Type: Regular Admitting Physician: Mali Matos Patient Diagnosis: Diabetic foot ulcer with osteomyelitis, Uncontrolled diabetes mellitus
[2018-05-08 06:44] LABS: URINE BILIRUBIN NEGATIVE (NEGATIVE); URINE BLOOD 1+ (NEGATIVE); URINE CLARITY Clear (Clear); URINE COLOR Yellow (YELLOW); URINE GLUCOSE (UA) 3+ mg/dL (Normal); URINE LEUKOCYTE ESTERASE NEG Leu/uL (Negative); URINE PROTEIN 2+ mg/dL (NEGATIVE); URINE UROBILINOGEN NORMAL mg/dL (0.2-1.0)
--- NOTE | 2018-05-08 10:02 | CP.PCM.CON ---
History of Present Illness - History of Present Illness History of Present Illness: Podiatry Consult Note -Dr. Jones 42 year old male with PMH of HTN, DM, neuropathy, biploar seen and evaluated with Dr. Jones for left foot pain and s/p right foot 1st and 2nd partial ray resections (DOS: 03/21/18). Patient is known to Dr. Jones and has been under Dr. Jones care. Patient reports increase pain to the left foot. Worse with walking. Reports there isn't any wound. Denies of complaints to the right foot. Reports sutures are still in placed. Patient denies any overnight F/C/N/V/CP/SOB. PMH: DM, HTN, neuropathy, bipolar PSH: toe amputations, mastoid surgery SH: 1/2ppd x 30 years ALL: NSAIDs Past Patient History - Infectious Disease Hx of Infectious Diseases: None - Past Medical History & Family History Past Medical History?: Yes - Past Social History Smoking Status: Light Smoker < 10 Cigarettes Daily - CARDIAC Hx Hypertension: Yes - PULMONARY Hx Asthma: Yes - NEUROLOGICAL Hx Neurological Disorder: No - HEENT Hx HEENT Problems: No - RENAL Hx Chronic Kidney Disease: No - ENDOCRINE/METABOLIC Hx Diabetes Mellitus Type 2: Yes - HEMATOLOGICAL/ONCOLOGICAL Hx Blood Disorders: No - INTEGUMENTARY Hx Dermatological Problems: No - MUSCULOSKELETAL/RHEUMATOLOGICAL Hx Arthritis: Yes (backs and LE) - GASTROINTESTINAL Hx Gastrointestinal Disorders: No - GENITOURINARY/GYNECOLOGICAL Hx Genitourinary Disorders: No - PSYCHIATRIC Hx Anxiety: Yes Hx Bipolar Disorder: Yes Hx Depression: Yes Hx Schizophrenia: Yes (schizoaffective disorder) Hx Substance Use: No - SURGICAL HISTORY Hx Surgeries: Yes Other/Comment: right ear surgery. left FOOT TOE / 5TH DIGITsurgery - ANESTHESIA Hx Anesthesia: Yes Hx Anesthesia Reactions: No Hx Malignant Hyperthermia: No Meds Allergies/Adverse Reactions: Allergies Allergy/AdvReac Type Severity Reaction Status Date / Time NSAIDS (Non-Steroidal Allergy RASH Verified 03/20/18 16:14 Anti-Inflamma - Medications Medications: Current Medications Heparin Sodium (Porcine) (Heparin) 5,000 units SC Q12 [place] Piperacillin Sod/Tazobactam Sod (Zosyn 3.375 Gm Iv Premix) 3.375 gm in 50 mls @ 100 mls/hr IVPB Q8H [place]; Protocol Insulin Human Regular (Novolin R) 0 unit SC ACHS [place]; Protocol Physical Exam - Constitutional Appears: Well, Toxic, No Acute Distress - Extremities Exam Extremities exam: Negative for: calf tenderness Additional comments: B/L LE focused exam: Vasc: DP/PT pulses faintly palpable 1/4 b/l. Skin temperature gradient warm to warm on the R side and warm to cool on the L side. CFT < 3 seconds to all remaining digits. Edema noted to forefoot surrounding surgical sites b/l R > L. Neuro: Epicritic and protective sensation grossly diminished b/l. Derm: Surgical site noted to right medial forefoot with approx 10cm linear incision site noted and skin margarita intact, skin edges well-coapted proximally. Mild maceration and dehiscene noted at the distal surgrical site. No active drainage at this time, no purulence, no malodor, no fluctuance. Mild shannen wound erythema present. Previous surgical site to left foot is clean dry and completely healed. No erythema, no abscess or fluctance noted- no clinical signs of infection to left foot MSK: Right foot 1st and 2nd digit and partial metatarsal resections noted, L 5th toe and 5th partial metatarsal amputation. Mild tenderness to palpation of right surgical site. No pain on palpating the left surgical site. Muscle power intact 5/5 to all groups. - Neurological Exam Neurological exam: Alert, Oriented x3 - Psychiatric Exam Psychiatric exam: Normal Affect, Normal Mood Results - Vital Signs Recent Vital Signs: Last Vital Signs Temp 98 F 05/08/18 09:33 Pulse 107 H 05/08/18 09:33 Resp 20 05/08/18 09:33 BP 147/87 05/08/18 09:33 Pulse Ox 95 05/08/18 09:33 - Labs Result Diagrams: 05/08/18 04:40 05/08/18 04:40 Labs: Laboratory Results - last 24 hr 05/08/18 05/08/18 05/08/18 04:23 04:40 04:40 WBC 12.1 H RBC 3.96 L Hgb 11.5 L Hct 35.5 MCV 89.7 D MCH 29.1 MCHC 32.4 L RDW 16.4 H Plt Count 383 D MPV 8.0 Neut % (Auto) 62.1 Lymph % (Auto) 26.6 [place] % (Auto) 5.4 Eos % (Auto) 5.0 H Baso % (Auto) 0.9 Neut # (Auto) 7.5 H Lymph # (Auto) 3.2 [place] # (Auto) 0.7 Eos # (Auto) 0.6 Baso # (Auto) 0.1 pO2 VBG pH VBG pCO2 VBG HCO3 VBG Total CO2 VBG O2 Sat (Calc) VBG Base Excess VBG Potassium Glucose Lactate Crit Value Called To Crit Value Called By Crit Value Read Back Blood Gas Notified Time Sodium 135 Potassium 4.5 Chloride 99 Carbon Dioxide 29 Anion Gap 12 BUN 24 H Creatinine 1.0 Est GFR ( Amer) > 60 Est GFR (Non-Af Amer) > 60 POC Glucose (mg/dL) > 500 H* Random Glucose 493 H* D Calcium 9.3 Venous Blood Potassium Urine Color Urine Clarity Urine pH Ur Specific Aneta Urine Protein Urine Glucose (UA) Urine Ketones Urine Blood Urine Nitrate Urine Bilirubin Urine Urobilinogen Ur Leukocyte Esterase Urine WBC (Auto) Urine RBC (Auto) 05/08/18 05/08/18 05/08/18 05:05 06:12 06:42 WBC RBC Hgb Hct MCV MCH MCHC RDW Plt Count MPV Neut % (Auto) Lymph % (Auto) [place] % (Auto) Eos % (Auto) Baso % (Auto) Neut # (Auto) Lymph # (Auto) [place] # (Auto) Eos # (Auto) Baso # (Auto) pO2 55 VBG pH 7.40 VBG pCO2 46 VBG HCO3 27.0 VBG Total CO2 29.9 H VBG O2 Sat (Calc) 93.7 H VBG Base Excess 3.0 H VBG Potassium 4.0 Glucose 453 H* Lactate 1.0 Crit Value Called To Dr richard/morris Crit Value Called By Jori ramos/rt Crit Value Read Back Y Blood Gas Notified Time 515 Sodium 136.0 Potassium Chloride 104.0 Carbon Dioxide Anion Gap BUN Creatinine Est GFR ( Amer) Est GFR (Non-Af Amer) POC Glucose (mg/dL) 404 H* Random Glucose Calcium Venous Blood Potassium 4.0 Urine Color Yellow Urine Clarity Clear Urine pH 5.0 Ur Specific Aneta 1.026 Urine Protein 2+ H Urine Glucose (UA) 3+ H Urine Ketones Negative Urine Blood 1+ H Urine Nitrate Negative Urine Bilirubin Negative Urine Urobilinogen Normal Ur Leukocyte Esterase Neg Urine WBC (Auto) < 1 Urine RBC (Auto) 3 Assessment & Plan - Assessment and Plan (Free Text) Assessment: 42 year old male with PMH of HTN, DM, neuropathy, biploar seen and evaluated with Dr. Jones for left foot pain likely secondary to biomechanical in nature and s/p right foot 1st and 2nd partial ray resections (DOS: 03/21/18) with distal dehiscence at surgical site Plan: Patient seen and evaluated Plan discussed with Dr. Jones. Charts, Labs and vitals reviewed X-rays taken of L foot - NO OM, soft tissue swelling Margarita and sutures removed from surgical site Will let distal dehiscence granulate in R foot Surgical site cleaned dressed with betadine wet two dry L foot no dressing Pain control per primary team Patient to remain WB to the heel on the right using assisting device Podiatry will continue to follow up the patient while in-house
--- NOTE | 2018-05-08 10:51 | RAD ---
Date of service: 05/08/2018 PROCEDURE: Left Foot Radiographs. HISTORY: osteomyelitis COMPARISON: 03/04/2018 FINDINGS: BONES: There is redemonstration of postsurgical changes of above base amputation of the 5th metatarsal with a stable or ossific density in the region of the neck of the 5th metatarsal. Bone alignment and mineralization are normal. JOINTS: The joint spaces are preserved. SOFT TISSUES: There is soft tissue swelling in the plantar foot and a soft tissue defect in the midfoot most compatible with ulceration. OTHER FINDINGS: None. IMPRESSION: Stable post surgical changes in the 5th metatarsal. Persistent plantar soft tissue swelling with soft tissue ulceration in the midfoot. No radiographic evidence for osteomyelitis. If there is a persistent clinical concern, MRI of the foot without and with intravenous contrast may be performed for definitive evaluation.
[2018-05-08] MEDS: (Novolin R) Insulin Human Regular 100 units/ml vial SC SCH ×2 (12:08→17:27)
[2018-05-08] MEDS ORDERED: Piperacill/Tazo 3.375gm in Dex 3.375 GM/50 ML BAG IVPB SCH (14:00)
[2018-05-08 15:58] VITALS: RESP 18
[2018-05-08 17:43] VITALS: BP 126/71; PULSE 94; TEMP 97.6; O2SAT 94
[2018-05-08] MEDS ORDERED: Saccharomyces Boulardi 250 mg Cap PO SCH (18:00)
== END 2018-05-08 17:46 | disposition left against medical advice (07) | DRG 294 ==
LOC: C.ER 03:37 → C.9E 06:34 → C.5S 07:45
PROVIDERS: ADMIT Internal Medicine Nephrology; ATTEND Internal Medicine Nephrology
DX: E11.621 Type 2 diabetes mellitus with foot ulcer (principal); F25.9 Schizoaffective disorder, unspecified; L97.529 Non-pressure chronic ulcer of other part of left foot with unspecified severity; E11.65 Type 2 diabetes mellitus with hyperglycemia; I10 Essential (primary) hypertension; Z79.4 Long term (current) use of insulin; F17.210 Nicotine dependence, cigarettes, uncomplicated; Z59.0 Homelessness; M46.90 Unspecified inflammatory spondylopathy, site unspecified

== ENCOUNTER 2018-05-11 03:47 | Emergency (ER) | payer MEDICAID ==
[2018-05-11 03:48] VITALS: BMI 31.8
[2018-05-11 04:06] VITALS: PULSE 88; RESP 20; TEMP 98; O2SAT 97
--- NOTE | 2018-05-11 04:45 | C.PDOC ---
History Of Present Illness 42 year old male with history of chronic diabetic foot ulcer presents to the emergency department with complaints of right foot pain. Patient was seen on 05-08-18 and admitted but signed out AMA. Patient has not had his dressing changed since that evaluation. He denies fever and trauma. Chief Complaint (Nursing): Lower Extremity Problem/Injury History Per: Patient History/Exam Limitations: no limitations Onset/Duration Of Symptoms: Days (3) Current Symptoms Are (Timing): Still Present Past Medical History Reviewed: Historical Data, Nursing Documentation, Vital Signs Vital Signs: Last Vital Signs Temp 98.0 F 05/11/18 03:56 Pulse 88 05/11/18 03:56 Resp 20 05/11/18 03:56 BP 128/76 05/11/18 03:56 Pulse Ox 97 05/11/18 03:56 - Medical History PMH: Anxiety, Arthritis (backs and LE), Asthma, Bipolar Disorder, Depression, Diabetes, HTN, Schizophrenia (schizoaffective disorder) Denies: Chronic Kidney Disease Surgical History: No Surg Hx - [facility] Procedures DETACHMENT AT LEFT FOOT, PARTIAL 5TH RAY, OPEN APPROACH (02/27/18) DETACHMENT AT RIGHT FOOT, PARTIAL 1ST RAY, OPEN APPROACH (03/20/18) DETACHMENT AT RIGHT FOOT, PARTIAL 2ND RAY, OPEN APPROACH (03/20/18) DRAINAGE OF R FOOT SUBCU/FASCIA, OPEN APPROACH (03/20/18) DRAINAGE OF RIGHT FOOT SKIN, EXTERNAL APPROACH, DIAGNOSTIC (02/27/18) EXCISION OF L FOOT SUBCU/FASCIA, OPEN APPROACH (11/10/17) EXCISION OF LEFT FOOT SKIN, EXTERNAL APPROACH (02/27/18) EXCISION OF R FOOT SUBCU/FASCIA, OPEN APPROACH (03/20/18) EXCISION OF RIGHT FOOT SKIN, EXTERNAL APPROACH (02/27/18) INSERTION OF INFUSION DEVICE INTO R [facility], PERC APPROACH (03/20/18) Family History: States: No Known Family Hx - Social History Hx Tobacco Use: Yes Hx Alcohol Use: No Hx Substance Use: No - Immunization History Hx Tetanus Toxoid Vaccination: Yes Hx Influenza Vaccination: Yes Hx Pneumococcal Vaccination: Yes Review Of Systems Except As Marked, All Systems Reviewed And Found Negative. Constitutional: Negative for: Fever, Chills Respiratory: Negative for: Cough, Shortness of Breath Musculoskeletal: Positive for: Foot Pain (right) Skin: Positive for: Other (chronic wounds) Neurological: Negative for: Weakness Physical Exam - Physical Exam Appears: Non-toxic, No Acute Distress Skin: Normal Color, Warm, Dry Head: Atraumatic, Normacephalic Eye(s): bilateral: Normal Inspection, PERRL, EOMI Nose: Normal Oral Mucosa: Moist Neck: Normal, Supple Chest: Symmetrical, No Tenderness Cardiovascular: Rhythm Regular, No Murmur Respiratory: Normal Breath Sounds, No Rales, No Rhonchi, No Wheezing Extremity: Normal ROM, No Calf Tenderness, No Deformity, No Swelling, Other (small open area of ulcer at the base of the right foot,, non foul odor, no warmth, no draining, 2 toe partial amputations, well healed scars to the area, no fluctuance, no erythema, no drainage.) Pulses: Right Dorsalis Pedis: Absent (not palpable) Neurological/Psych: Oriented x3, Normal Speech, Normal Cognition ED Course And Treatment O2 Sat by Pulse Oximetry: 97 (RA) Pulse Ox Interpretation: Normal Medical Decision Making Medical Decision Making: Plan: Glucose POC Disposition - Disposition Referrals: Terrence Jones DPM [Staff Provider] - Disposition: HOME/ ROUTINE Disposition Time: 04:41 Condition: STABLE Additional Instructions: Please follow up with Dr Jones tomorrow Wound care as instructed Return to ER if worse Instructions: Diabetic Foot Ulcer (DC) Forms: [facility] (U[place]ayan) - Clinical Impression Clinical Impression: Foot ulcer - PA / STAGE BUILDER / Resident Statement MD/DO has reviewed & agrees with the documentation as recorded. - Scribe Statement The provider has reviewed the documentation as recorded by the Scribe (Roge Hernandez) All medical record entries made by the Scribe were at my direction and personally dictated by me. I have reviewed the chart and agree that the record accurately reflects my personal performance of the history, physical exam, medical decision making, and the department course for this patient. I have also personally directed, reviewed, and agree with the discharge instructions and disposition.
[2018-05-11 05:59] VITALS: BP 128/72
== END 2018-05-11 05:57 | disposition home or self-care (01) ==
LOC: C.ER 03:47
DX: E11.621 Type 2 diabetes mellitus with foot ulcer (principal); L97.519 Non-pressure chronic ulcer of other part of right foot with unspecified severity